=== PATIENT | male | born 1965 | race Caucasian/White ===

== ENCOUNTER 2017-10-07 18:51 | Inpatient (IN) | payer MEDICAID, MEDICARE ==
[2017-10-07] MEDS ORDERED: NS 0.9% 1000 ML* 1,000 ML IV ONE ×2 (20:42→22:52)
[2017-10-07] MEDS ORDERED: Piperacillin/Tazobac ADVAN(*) 3.375 GM in NS 0.9% 100 ML* 100 ML IVPB ONE (20:42)
[2017-10-07] MEDS ORDERED: Vancomycin(*) 1,000 MG in NS 0.9% 250 ML* 250 ML IVPB ONE (20:42)
[2017-10-07 21:10] LABS: Hematocrit 37 % (42-52); Hemoglobin 12.3 g/dl (14.0-18.0); Mean Corpuscular HGB Conc 33 g/dl (31-36); Mean Corpuscular Hemoglobin 27 pg (27-31); Mean Corpuscular Volume 83 fL (80-94); Mean Platelet Volume 8 um3 (7.4-10.4); Platelet Count 273 10^3/ul (150-450); Red Blood Count 4.53 10^6/ul (4.0-5.4); Red Cell Distribution Width 13 % (10.5-15); White Blood Count 22.1 10^3/ul (3.5-10.8)
[2017-10-07 21:18] LABS: INR 1.22 (0.77-1.02)
[2017-10-07 21:26] LABS: EGFR Non-African American 63.9 (>60)
[2017-10-07 21:38] LABS: ABS Basophils 0.1 10^3/ul (0-0.2); ABS Eosinophils 0 10^3/ul (0-0.6); ABS Lymphocytes 1.2 10^3/ul (1.0-4.8); ABS Monocytes 2.2 10^3/ul (0-0.8); ABS Neutrophils 18.7 10^3/ul (1.5-7.7); ABS Nucleated RBC 0 10^3/ul; Eosinophil % 0.1 % (0-6); Lymphocyte % 5.3 % (25-47); Nucleated Red Blood Cells % 0
--- NOTE | 2017-10-07 22:15 | RAD ---
INDICATION: Swelling and erythema with "blackening of tissue" between the first and second digits COMPARISON: None. TECHNIQUE: 3 views of the left foot were obtained. FINDINGS: There is evidence of subcutaneous gas in the tissue in between the first and second toes and along the inferior margin of the left great toe. There is cortical destruction involving the plantar margin of the distal left great toe proximal phalanx. Remaining visualized bones are intact and appropriately aligned. IMPRESSION: EVIDENCE OF CERTAIN SOFT TISSUE INFECTION WITH SUBCUTANEOUS GAS IN BETWEEN THE FIRST AND SECOND LEFT TOES AND ALONG THE PLANTAR MARGIN OF THE LEFT GREAT TOE. CORTICAL DESTRUCTION AT THE DISTAL POLE OF THE LEFT GREAT TOE PROXIMAL PHALANX ALONG ITS PLANTAR MARGIN INDICATES THE PRESENCE OF OSTEOMYELITIS. In addition to further wound characterization, I recommend determining arterial patency with TAYLER/PVR and arterial duplex examination of the left lower extremity.
[2017-10-07] MEDS ORDERED: Dextrose 50% Syringe 50 ML* 25 GM/50 ML SYRINGE IV PUSH PRN ×2 (22:33→23:25)
--- NOTE | 2017-10-07 22:36 | ED ---
Bridger Guy Jennifer, scribed for Clark Mcduffie MD on 10/07/17 at 2042 . Lower Extremity - HPI Summary HPI Summary: The patient is a 52 year old male who was sent to the ED by his PCP for diabetic ulcers on the left foot that began two days ago. The ulcers became black in coloration today. The patient denies pain. - History of Current Complaint Chief Complaint: EDExtremityLower Stated Complaint: LT FOOT PAIN Time Seen by Provider: 10/07/17 20:09 Hx Obtained From: Patient Mechanism Of Injury: Other - Diabetic ulcers Onset of Pain: Days - two days ago, but turned black in coloration today Onset/Duration: Still Present - two days Severity Initially: Mild Severity Currently: Mild Pain Intensity: 5 Pain Scale Used: 0-10 Numeric Timing: Constant Associated Signs And Symptoms: Positive: Other - NEGATIVE: foot pain Aggravating Factor(s): Nothing Alleviating Factor(s): Nothing Able to Bear Weight: Yes - Allergies/Home Medications Allergies/Adverse Reactions: Allergies Allergy/AdvReac Type Severity Reaction Status Date / Time No Known Allergies Allergy Verified 10/07/17 19:46 PMH/Surg Hx/FS Hx/Imm Hx Endocrine/Hematology History: Reports: Hx Diabetes - Type II WELL CONTROLLED Cardiovascular History: Reports: Hx Hypertension - WELL CONTROLLED Musculoskeletal History: Reports: Hx Tendonitis - LEFT HAND Sensory History: Reports: Hx Cataracts - LEFT, Hx Contacts or Glasses - READING GLASSES Denies: Hx Hearing Aid Opthamlomology History: Reports: Hx Cataracts - LEFT, Hx Contacts or Glasses - READING GLASSES - Surgical History Surgery Procedure, Year, and Place: RIGHT CATARACT 06/29/15 [facility] [place] Hx Anesthesia Reactions: No Infectious Disease History: No Infectious Disease History: Denies: History Other Infectious Disease, Traveled Outside the [place] in Last 30 Days - Family History Known Family History: Negative: Diabetes - Social History Alcohol Use: None Substance Use Type: Reports: None Smoking Status (MU): Heavy Every Day Tobacco Smoker Type: Cigarettes Amount Used/How Often: 3/4 PPD Length of Time of Smoking/Using Tobacco: 34 YRS Have You Smoked in the Last Year: Yes Review of Systems Negative: Fever Positive: Other - Ulcers on left foot that is red and black in color All Other Systems Reviewed And Are Negative: Yes Physical Exam - Summary Physical Exam Summary: Appearance: The patient is well-nourished in no acute distress and in no acute pain. Skin: Necrotic skin on bottom of left foot. HEENT: ~The head is normocephalic and atraumatic. The pupils are equal and reactive. The conjunctivae are clear and without drainage. ~Nares are patent and without drainage. ~Mouth reveals moist mucous membranes and the throat is without erythema and exudate. ~The external ears are intact. The ear canals are patent and without drainage. The tympanic membranes are intact. Neck: the neck is supple with full range of motion and non-tender. There are no carotid bruits. ~There is no neck vein distension. Respiratory: Chest is non-tender. ~Lungs are clear to auscultation and breath sounds are symmetrical and equal. Cardiovascular: Heart is regular rate and rhythm. ~There is no murmur or rub auscultated. ~~There is no peripheral edema and pulses are symmetrical and equal. Abdomen: The abdomen is soft and non-tender. ~There are normal bowel sounds heard in all four quadrants and there is no organomegaly palpated. Extremities: erythematous in distal half over his MPJ medially and dorsally. Necrotic skin. Musculoskeletal: There is no back tenderness noted. ~Extremities are non-tender with full range of motion. ~There is good capillary refill. ~There is no peripheral edema or calf tenderness elicited. Neurological: Patient is alert and oriented to person, place and time. ~The patient has symmetrical motor strength in all four extremities. ~Cranial nerves are grossly intact. Deep tendon reflexes are symmetrical and equal in all four extremities. Psychiatric: The patient has an appropriate affect and does not exhibit any anxiety or depression. Triage Information Reviewed: Yes Vital Signs On Initial Exam: Initial Vitals Temp Pulse Resp BP Pulse Ox 98.3 F 119 20 127/74 97 10/07/17 19:12 10/07/17 19:12 10/07/17 19:12 10/07/17 19:12 10/07/17 19:12 Vital Signs Reviewed: Yes Diagnostics - Vital Signs Vital Signs Temp Pulse Resp BP Pulse Ox 10/07/17 19:12 98.3 F 119 20 127/74 97 - Laboratory Lab Results: Lab Results 10/07/17 10/07/17 10/07/17 Range/Units 20:59 20:59 20:59 WBC 22.1 H (3.5-10.8) 10^3/ul RBC 4.53 (4.0-5.4) 10^6/ul Hgb 12.3 L (14.0-18.0) g/dl Hct 37 L (42-52) % MCV 83 (80-94) fL MCH 27 (27-31) pg MCHC 33 (31-36) g/dl RDW 13 (10.5-15) % Plt Count 273 (150-450) 10^3/ul MPV 8 (7.4-10.4) um3 Neut % (Auto) 84.5 H (38-83) % Lymph % (Auto) 5.3 L (25-47) % [place] % (Auto) 9.8 H (1-9) % Eos % (Auto) 0.1 (0-6) % Baso % (Auto) 0.3 (0-2) % Absolute Neuts (auto) 18.7 H (1.5-7.7) 10^3/ul Absolute Lymphs (auto) 1.2 (1.0-4.8) 10^3/ul Absolute Monos (auto) 2.2 H (0-0.8) 10^3/ul Absolute Eos (auto) 0 (0-0.6) 10^3/ul Absolute Basos (auto) 0.1 (0-0.2) 10^3/ul Absolute Nucleated RBC 0 10^3/ul Nucleated RBC % 0 INR (Anticoag Therapy) 1.22 H (0.77-1.02) Sodium 127 L (133-145) mmol/L Potassium 4.4 (3.5-5.0) mmol/L Chloride 94 L (101-111) mmol/L Carbon Dioxide 19 L (22-32) mmol/L Anion Gap 14 H (2-11) mmol/L BUN 27 H (6-24) mg/dL Creatinine 1.19 H (0.67-1.17) mg/dL Est GFR ( Amer) 82.2 (>60) Est GFR (Non-Af Amer) 63.9 (>60) BUN/Creatinine Ratio 22.7 H (8-20) Glucose 431 H (70-100) mg/dL Lactic Acid (0.5-2.0) mmol/L Calcium 8.8 (8.6-10.3) mg/dL Total Bilirubin 0.50 (0.2-1.0) mg/dL AST 9 L (13-39) U/L ALT 9 (7-52) U/L Alkaline Phosphatase 67 (34-104) U/L Troponin I 0.01 (<0.04) ng/mL C-Reactive Protein 358.64 H (< 5.00) mg/L Total Protein 7.0 (6.4-8.9) g/dL Albumin 3.2 (3.2-5.2) g/dL Globulin 3.8 (2-4) g/dL Albumin/Globulin Ratio 0.8 L (1-3) 10/07/17 Range/Units 20:59 WBC (3.5-10.8) 10^3/ul RBC (4.0-5.4) 10^6/ul Hgb (14.0-18.0) g/dl Hct (42-52) % MCV (80-94) fL MCH (27-31) pg MCHC (31-36) g/dl RDW (10.5-15) % Plt Count (150-450) 10^3/ul MPV (7.4-10.4) um3 Neut % (Auto) (38-83) % Lymph % (Auto) (25-47) % [place] % (Auto) (1-9) % Eos % (Auto) (0-6) % Baso % (Auto) (0-2) % Absolute Neuts (auto) (1.5-7.7) 10^3/ul Absolute Lymphs (auto) (1.0-4.8) 10^3/ul Absolute Monos (auto) (0-0.8) 10^3/ul Absolute Eos (auto) (0-0.6) 10^3/ul Absolute Basos (auto) (0-0.2) 10^3/ul Absolute Nucleated RBC 10^3/ul Nucleated RBC % INR (Anticoag Therapy) (0.77-1.02) Sodium (133-145) mmol/L Potassium (3.5-5.0) mmol/L Chloride (101-111) mmol/L Carbon Dioxide (22-32) mmol/L Anion Gap (2-11) mmol/L BUN (6-24) mg/dL Creatinine (0.67-1.17) mg/dL Est GFR ( Amer) (>60) Est GFR (Non-Af Amer) (>60) BUN/Creatinine Ratio (8-20) Glucose (70-100) mg/dL Lactic Acid 0.9 (0.5-2.0) mmol/L Calcium (8.6-10.3) mg/dL Total Bilirubin (0.2-1.0) mg/dL AST (13-39) U/L ALT (7-52) U/L Alkaline Phosphatase (34-104) U/L Troponin I (<0.04) ng/mL C-Reactive Protein (< 5.00) mg/L Total Protein (6.4-8.9) g/dL Albumin (3.2-5.2) g/dL Globulin (2-4) g/dL Albumin/Globulin Ratio (1-3) Result Diagrams: 10/07/17 20:59 10/07/17 20:59 Lab Statement: Any lab studies that have been ordered have been reviewed, and results considered in the medical decision making process. Lower Extremity Course/Dx - Course Course Of Treatment: Mr. Gallardo presented with several days of a red foot which has blackened a bit today. He was tachycardic and clearly had an infected foot. He was febrile at Dr. Ferrer's office. IV was initiated and he was given Zosyn and Vancomycin while labs were obtained. He had a leukocytosis and an x-ray showed gas in the tissues. I spoke with Dr. Youssef who recommended NPO after midnight and MRI in the AM. I didn't see any change in the foot during his stay in the ED. He is being admitted to the hospitalist service. - Diagnoses Provider Diagnoses: Diabetic foot, Gas gangrene - Physician Notifications Discussed Care Of Patient With: Pedro Redd Time Discussed With Above Provider: 21:35 Instructed by Provider To: Admit As Inpatient Discharge - Discharge Plan Condition: Good Disposition: ADMITTED TO [facility] Referrals: Pato Ferrer MD [Primary Care Provider] - Additional Instructions: Follow up with your primary care physician in three days. Return to the emergency department for any new or worsening symptoms. The documentation as recorded by the Bridger lópez Jennifer accurately reflects the service I personally performed and the decisions made by me, Clark Mcduffie MD.
[2017-10-07] MEDS ORDERED: Vancomycin per Pharmacy* NOTE FOLLOW UP PRN (22:49)
[2017-10-07 23:14] LABS: EGFR Non-African American 62.1 (>60)
[2017-10-07] MEDS ORDERED: Insulin LISPRO* 1 UNITS UNIT SUBCUT ONE (23:25)
[2017-10-08] MEDS ORDERED: Vancomycin(*) 500 MG in NS 0.9% 250 ML* 250 ML IVPB ONE (00:30)
--- NOTE | 2017-10-08 00:36 | HP ---
CC: Pato Ferrer MD * HISTORY AND PHYSICAL: DATE OF ADMISSION: 10/07/17 PRIMARY CARE PROVIDER: Pato Ferrer MD ATTENDING PHYSICIAN: Sharmaine Peña MD * (dictated by Sonido Tamayo NP). CHIEF COMPLAINT: Left foot infection. HISTORY OF PRESENT ILLNESS: Mr. Gallardo is a 52-year-old male with past medical history significant for diabetes mellitus, hypertension, and GERD who presented to the emergency room with complaints of a left foot wound for 2-1/2 weeks. The patient states he has been treating it at home with antibiotic ointment. He states Saturday and Saturday, he noticed that his foot "blew up" around the 1st toe, it became more swollen and red. The patient reports intermittent fevers and chills. He reports having chest pain in the past with exertion, but has not had any recently. He denies any cough or shortness of breath. One week ago, he reports nausea, vomiting and diarrhea. He has decreased sensation to his lower feet due to his diabetes. He also states that he has not been taking his medications as he chose to stop taking them and had not been following Dr. Ferrer until recently. Due to his chronic wound and it appearing to get worse, he presented to the emergency room for further evaluation. While in the emergency room, the patient had labs significant for leukocytosis with a white blood cell count of 22.1, CRP of 318.64, mild hyponatremia with a sodium of 127. His glucose was elevated at 431. Lactic acid of 0.9. He had a left foot x- ray showing evidence of soft tissue infection and subcutaneous gas in between the first and second toes along with the plantar margin of the left great toe. The patient received IV vanco and normal saline while in the emergency room and the hospitalists were asked to evaluate the patient for admission. PAST MEDICAL HISTORY: 1. Diabetes mellitus. 2. Hypertension. 3. GERD. 4. Umbilical hernia. PAST SURGICAL HISTORY: Status post bilateral cataract extractions. MEDICATIONS: Home medications include nothing at this time. The patient is currently not taking his home medications. ALLERGIES: No known drug allergies. FAMILY HISTORY: The patient's father had a "hole in his heart" that was repaired. No family history of diabetes mellitus or cancer. SOCIAL HISTORY: The patient smokes two-thirds of a pack daily and has smoked since age 15. He denies alcohol or recreational drug use. The patient's mother , Debbie Gallardo, will be his surrogate decision maker in the event he is unable to make decisions for himself. REVIEW OF SYSTEMS: I performed a 11-point review of systems. All the pertinent positives and negatives are mentioned in the history of present illness. Remaining of the review of systems are negative. PHYSICAL EXAMINATION GENERAL APPEARANCE: The patient is alert, pleasant, appears to be in no acute distress. VITAL SIGNS: Temperature 98.3, heart rate 119, respiratory rate 20, O2 sat 97% on room air, blood pressure 127/74. HEENT: Normocephalic and atraumatic. Pupils are equal and reactive to light. Extraocular movements are intact. RESPIRATORY: There is no accessory muscle use. The lungs are clear to auscultation bilateral. CARDIOVASCULAR: Regular rate and rhythm. S1 and S2 present. There is no murmurs, rubs, or gallops heard. ABDOMEN: Soft, nontender and nondistended. Bowel sounds present x4. The patient does have umbilical hernia present. EXTREMITIES: There is moderate left lower extremity edema mostly at the first toe. DP and PT pulses are 1+ and symmetric. MUSCULOSKELETAL: There is no clubbing or cyanosis noted. The patient exhibits good strength in all extremities. NEUROLOGIC: The patient is alert and oriented x4. Cranial nerves II through XII are grossly intact. PSYCHOLOGICAL: The patient is calm and cooperative. SKIN: The patient has what appears to be a diabetic ulcer on the ball of his left foot at the base of his first toe. The area around his left first toe and between his first and second toes is swollen with a necrotic or wet gangrene appearance. He has an area that is open between his 1st and 2nd toes, in addition to a significant amount of swelling and erythema half way up his foot medially and dorsally. DIAGNOSTIC STUDIES/LABORATORY DATA: Sodium 127, potassium 4.4, chloride 94, CO2 of 19, BUN 27, creatinine 1.19, glucose 431. White blood cell count 22.1, hemoglobin of 12.3, hematocrit 37, platelet count of 273,000. INR 1.22, CRP 358.64, lactic acid 0.9. Left foot x-ray from today. Radiologist's impression: Evidence of certain soft tissue infection with subcutaneous gas in between the first and second left toes and along the plantar margin of the left great toe. Cortical destruction at the distal pole of the left great toe proximal phalanx along its plantar margin indicates the presence of osteomyelitis. IMPRESSION: Mr. Gallardo is a 52-year-old male with past medical history significant for diabetes mellitus, hypertension, and gastroesophageal reflux disease who presents to the emergency room with 2-1/2 weeks of a left foot wound that has gotten over the last 2 days. He will be admitted as an inpatient for left foot cellulitis and osteomyelitis. ASSESSMENT/PLAN: 1. Left foot cellulitis and osteomyelitis. The patient had x-ray showing likely osteomyelitis and subcutaneous gas. This has not gotten worse during his time in the emergency room, necrotizing fascitis is in the differential but I suspect his foot would be worsening. For now, we will place him on cefepime, vancomycin, and Flagyl. We will ask Infectious Disease to consult in the morning. In addition, the ER has already contacted Orthopedic Surgery and they will see the patient in the morning. We will make him n.p.o. as I suspect he will likely need amputation tomorrow. If he worsens clinically overnight, we will call Orthopedics back. The patient may benefit from arterial studies to determine the quality of circulation that he has to his foot prior to amputation. We will collect a wound culture as he does have some drainage from the site between his toes. He has had blood cultures drawn while in the emergency room. We will also get an MRI of the left foot. 2. Diabetes mellitus. The patient's glucoses are uncontrolled. I believe they have been uncontrolled at home for some time. We will check a hemoglobin A1c. The patient states he has taken himself off his medications. We will place him on glucose checks a.c. and h.s. and a lispro sliding scale for now. 3. Hyponatremia. The patient has mild hyponatremia. We will give him gentle IV hydration overnight. 4. Gastroesophageal reflux disease. Resume the patient on his omeprazole. 5. Hypertension. We will resume the patient's losartan that he was previously prescribed. 6. Fluids, electrolytes, and nutrition. The patient will be on a consistent carbohydrate diet, n.p.o. after midnight. 7. Code status. Full code. 8. DVT prophylaxis. The patient is at moderate risk and will have subcu heparin. 9. Disposition. Inpatient. TIME SPENT: Time for this admission was approximately 60 minutes, greater than half that time was spent with the patient discussing medications, past medical history, the events leading to his arrival today, performing a physical examination. The case has been reviewed with the attending, Dr. Peña, who agrees with the plan of care. Reviewed by SONIDO TAMAYO, RON 10/09/17 1636 [id number]/[facility] #: [id number] RADHA
[2017-10-08] MEDS: NS 0.9% 1000 ML* 1,000 ML IV SCH ×2 (01:16→20:09)
[2017-10-08] MEDS: metroNIDAZOLE IV 500 MG/100ML* 500 MG/100 ML BAG IVPB SCH ×2 (03:01→14:59)
[2017-10-08] MEDS: Cefepime 2 GM in Dextrose(*) 2 GM/50 ML BAG IV SCH ×2 (04:33→16:40)
[2017-10-08 05:20] LABS: Hematocrit 33 % (42-52); Hemoglobin 11.2 g/dl (14.0-18.0); Mean Corpuscular HGB Conc 34 g/dl (31-36); Mean Corpuscular Hemoglobin 27 pg (27-31); Mean Corpuscular Volume 81 fL (80-94); Mean Platelet Volume 8 um3 (7.4-10.4); Platelet Count 255 10^3/ul (150-450); Red Cell Distribution Width 14 % (10.5-15); White Blood Count 18.5 10^3/ul (3.5-10.8)
[2017-10-08 05:22] LABS: ABS Basophils 0.1 10^3/ul (0-0.2); ABS Eosinophils 0.2 10^3/ul (0-0.6); ABS Lymphocytes 1.6 10^3/ul (1.0-4.8); ABS Monocytes 1.7 10^3/ul (0-0.8); ABS Neutrophils 14.9 10^3/ul (1.5-7.7); ABS Nucleated RBC 0 10^3/ul; Eosinophil % 1.1 % (0-6); Lymphocyte % 8.7 % (25-47); Nucleated Red Blood Cells % 0
[2017-10-08 05:39] LABS: EGFR Non-African American 81.9 (>60)
[2017-10-08] MEDS: Heparin VIAL(*) 5000 UNITS/ML VIAL (FIVE THOUSAND) SUBCUT SCH ×3 (06:20→21:13)
[2017-10-08] MEDS ORDERED: Vancomycin(*) 1,250 MG in NS 0.9% 250 ML* 250 ML IVPB SCH (09:00)
[2017-10-08] MEDS ORDERED: Prenatal Vitamin TAB PO SCH (09:00)
[2017-10-08] MEDS: Omeprazole CAP* 20 MG PO SCH (09:10)
[2017-10-08] MEDS: Losartan TAB* 25 MG PO SCH (09:10)
[2017-10-08] MEDS: Insulin LISPRO* 1 UNITS UNIT SUBCUT SCH ×3 (11:50→17:54)
--- NOTE | 2017-10-08 12:21 | RAD ---
INDICATION: Left foot wound plantar surface distal foot evaluate for osteomyelitis. COMPARISON: Comparison is made with a prior x-ray study of the left foot from November 04, 2017. TECHNIQUE: Axial, sagittal and coronal T1 and T2-weighted images of the left foot were obtained. The exam is extremely limited due to motion artifact on all sequences. FINDINGS: There is diffuse soft tissue swelling throughout the visualized portion of the mid and forefoot. This is most prominent along the dorsal aspect of the foot. No focal fluid collection or abscess is seen. Evaluation of the bones is limited due to motion artifact although no gross bone marrow edema is seen. IMPRESSION: FINDINGS MOST CONSISTENT WITH CELLULITIS. NO GROSS EVIDENCE FOR OSTEOMYELITIS ALTHOUGH THE STUDY IS SIGNIFICANTLY LIMITED. CONSIDER A THREE-PHASE BONE SCAN FOR FURTHER EVALUATION.
--- NOTE | 2017-10-08 18:57 | PN ---
Subjective Date of Service: 10/08/17 Interval History: No complaints, left foot with open wound, denies fever or chills, denies chest pain or shortness of breath, Denies abd pain n/v/d Family History: Unchanged from Admission Social History: Unchanged from Admission Past Medical History: Unchanged from Admission Objective Active Medications: Dextrose (D50w Syringe 50 Ml*) 12.5 gm IV PUSH .FOR FS < 60 - SS PRN PRN Reason: FS < 60 Heparin Sodium (Porcine) (Heparin Vial(*)) 5,000 units SUBCUT Q8HR [facility] Last Admin: 10/08/17 14:59 Dose: 5,000 units Sodium Chloride (Ns 0.9% 1000 Ml*) 1,000 mls @ 100 mls/hr IV PER RATE [facility] Last Admin: 10/08/17 01:16 Dose: 100 mls/hr Cefepime HCl (Maxipime 2 Gm In Dextrose Duplex (*)) 2 gm in 50 mls @ 100 mls/ hr IV Q12H [facility] Last Admin: 10/08/17 16:40 Dose: 100 mls/hr Metronidazole/Sodium Chloride (Flagyl 500 Mg Ivpb*) 500 mg in 100 mls @ 100 mls /hr IVPB Q12H [facility] Last Admin: 10/08/17 14:59 Dose: 100 mls/hr Insulin Human Lispro (Humalog*) 0 - 10 units SUBCUT AC [facility] PRN Reason: Protocol Last Admin: 10/08/17 17:54 Dose: 6 unit Losartan Potassium (Cozaar Tab*) 50 mg PO DAILY [facility] Last Admin: 10/08/17 09:10 Dose: 50 mg Omeprazole (Prilosec Cap*) 20 mg PO DAILY@0730 [facility] Last Admin: 10/08/17 09:10 Dose: 20 mg Pharmacy Profile Note (Vancomycin Trough Check) 1 note FOLLOW UP 0830 ONE Stop: 10/09/17 08:31 Vital Signs - 8 hr 10/08/17 10/08/17 11:18 15:47 Temperature 98.4 F 99.0 F Pulse Rate 99 99 Respiratory 16 18 Rate Blood Pressure 155/69 137/72 (mmHg) O2 Sat by Pulse 97 97 Oximetry Oxygen Devices in Use Now: None Appearance: appears comfortable lying in bed, cheeks flushed Eyes: No Scleral Icterus Ears/Nose/Mouth/Throat: Clear Oropharnyx, Mucous Membranes Moist Neck: NL Appearance and Movements; NL JVP, Trachea Midline Respiratory: Symmetrical Chest Expansion and Respiratory Effort, Clear to Auscultation Cardiovascular: NL Sounds; No Murmurs; No JVD, RRR, No Edema Abdominal: NL Sounds; No Tenderness; No Distention Extremities: No Clubbing, Cyanosis Skin: - - right great toe and surrounding tissue on the dorsal and plantar aspect of the foot with swelling, erythema and drainage, foul odor , purple discoloration noted at the base of the toe. redness noted to the foot, warm to touch Neurological: Alert and Oriented x 3 Nutrition: Taking PO's Result Diagrams: 10/08/17 05:07 10/08/17 05:07 Additional Lab and Data: Lab Results 10/07/17 10/07/17 10/07/17 Range/Units 20:59 20:59 20:59 WBC 22.1 H (3.5-10.8) 10^3/ul RBC 4.53 (4.0-5.4) 10^6/ul Hgb 12.3 L (14.0-18.0) g/dl Hct 37 L (42-52) % MCV 83 (80-94) fL MCH 27 (27-31) pg MCHC 33 (31-36) g/dl RDW 13 (10.5-15) % Plt Count 273 (150-450) 10^3/ul MPV 8 (7.4-10.4) um3 Neut % (Auto) 84.5 H (38-83) % Lymph % (Auto) 5.3 L (25-47) % [place] % (Auto) 9.8 H (1-9) % Eos % (Auto) 0.1 (0-6) % Baso % (Auto) 0.3 (0-2) % Absolute Neuts (auto) 18.7 H (1.5-7.7) 10^3/ul Absolute Lymphs (auto) 1.2 (1.0-4.8) 10^3/ul Absolute Monos (auto) 2.2 H (0-0.8) 10^3/ul Absolute Eos (auto) 0 (0-0.6) 10^3/ul Absolute Basos (auto) 0.1 (0-0.2) 10^3/ul Absolute Nucleated RBC 0 10^3/ul Nucleated RBC % 0 INR (Anticoag Therapy) 1.22 H (0.77-1.02) Sodium 127 L (133-145) mmol/L Potassium 4.4 (3.5-5.0) mmol/L Chloride 94 L (101-111) mmol/L Carbon Dioxide 19 L (22-32) mmol/L Anion Gap 14 H (2-11) mmol/L BUN 27 H (6-24) mg/dL Creatinine 1.19 H (0.67-1.17) mg/dL Est GFR ( Amer) 82.2 (>60) Est GFR (Non-Af Amer) 63.9 (>60) BUN/Creatinine Ratio 22.7 H (8-20) Glucose 431 H (70-100) mg/dL Lactic Acid (0.5-2.0) mmol/L Calcium 8.8 (8.6-10.3) mg/dL Total Bilirubin 0.50 (0.2-1.0) mg/dL AST 9 L (13-39) U/L ALT 9 (7-52) U/L Alkaline Phosphatase 67 (34-104) U/L Troponin I 0.01 (<0.04) ng/mL C-Reactive Protein 358.64 H (< 5.00) mg/L Total Protein 7.0 (6.4-8.9) g/dL Albumin 3.2 (3.2-5.2) g/dL Globulin 3.8 (2-4) g/dL Albumin/Globulin Ratio 0.8 L (1-3) 10/07/17 Range/Units 20:59 WBC (3.5-10.8) 10^3/ul RBC (4.0-5.4) 10^6/ul Hgb (14.0-18.0) g/dl Hct (42-52) % MCV (80-94) fL MCH (27-31) pg MCHC (31-36) g/dl RDW (10.5-15) % Plt Count (150-450) 10^3/ul MPV (7.4-10.4) um3 Neut % (Auto) (38-83) % Lymph % (Auto) (25-47) % [place] % (Auto) (1-9) % Eos % (Auto) (0-6) % Baso % (Auto) (0-2) % Absolute Neuts (auto) (1.5-7.7) 10^3/ul Absolute Lymphs (auto) (1.0-4.8) 10^3/ul Absolute Monos (auto) (0-0.8) 10^3/ul Absolute Eos (auto) (0-0.6) 10^3/ul Absolute Basos (auto) (0-0.2) 10^3/ul Absolute Nucleated RBC 10^3/ul Nucleated RBC % INR (Anticoag Therapy) (0.77-1.02) Sodium (133-145) mmol/L Potassium (3.5-5.0) mmol/L Chloride (101-111) mmol/L Carbon Dioxide (22-32) mmol/L Anion Gap (2-11) mmol/L BUN (6-24) mg/dL Creatinine (0.67-1.17) mg/dL Est GFR ( Amer) (>60) Est GFR (Non-Af Amer) (>60) BUN/Creatinine Ratio (8-20) Glucose (70-100) mg/dL Lactic Acid 0.9 (0.5-2.0) mmol/L Calcium (8.6-10.3) mg/dL Total Bilirubin (0.2-1.0) mg/dL AST (13-39) U/L ALT (7-52) U/L Alkaline Phosphatase (34-104) U/L Troponin I (<0.04) ng/mL C-Reactive Protein (< 5.00) mg/L Total Protein (6.4-8.9) g/dL Albumin (3.2-5.2) g/dL Globulin (2-4) g/dL Albumin/Globulin Ratio (1-3) Microbiology and Other Data: Microbiology 10/08/17 00:45 Skin and Soft Tissue MRSA/MSSA (PCR - Final Foot Left Mrsa Negative S.aureus Positive Gram Stain - Final Assess/Plan/Problems-Billing Assessment: 52 y.o male that presented to the ER for evaluation of right foot infection, redness, drainage or foul odor , possible gas and osteomylitis on x ray , MRI poor exam motion artifact - Patient Problems (1) Cellulitis Current Visit: Yes Status: Acute Code(s): L03.90 - CELLULITIS, UNSPECIFIED SNOMED Code(s): 950883830 Comment: Right foot with swelling and erythema and draiange, foul odor and purple discoloration at the base of the right great toe, open wound noted to the plantar aspect of the right foot and open area between great and second toe. continue flagyl , vancomycin and cefepime ortho consult ID consult dry dressing daily (2) Diabetes Current Visit: Yes Status: Acute Code(s): E11.9 - TYPE 2 DIABETES MELLITUS WITHOUT COMPLICATIONS SNOMED Code(s): 04227574 Comment: finger sticks ac and hs lispro sliding scale (3) DVT prophylaxis Current Visit: Yes Status: Acute Code(s): XID1902 - SNOMED Code(s): 253675401 Comment: HSQ (4) Full code status Current Visit: Yes Status: Acute Code(s): Z78.9 - OTHER SPECIFIED HEALTH STATUS SNOMED Code(s): 895137294
--- NOTE | 2017-10-08 19:21 | CONS ---
CONSULTATION REPORT: DATE OF CONSULT: 10/08/17 HISTORY OF PRESENT ILLNESS: Kev was admitted yesterday to the medical team for ulceration near the medial sesamoid plantar left forefoot and cellulitis and some blistering. He says he might have had an initial opening several weeks ago in the left forefoot, just treated with a clean sock and some shoes, but for the last several days, he has had his foot increasingly red, swollen, and erythematous, and mild foul smelling. He was admitted with cellulitis, possible deep infection in left forefoot. His admission lab showed a white cell count of 22, CRP of 318, glucose 431. So, clearly he was having hyperglycemic event and some at least reaction to forefoot infection. He is on triple antibiotics at this time. PAST MEDICAL HISTORY: His other medical issues include hypertension and an umbilical hernia and reflux. He is a disabled gentleman, who has had the diabetes for number of years by his count, not clearly stated. PHYSICAL EXAM: His examination shows him to have a warm foot, which is generally decreased sensation noted. There is a nickel-sized ulcer underneath the medial sesamoid area and some mild blistering, desquamation of the dorsal medial forefoot. There is some erythema, which goes to the mid tarsal area. He has a warm foot. There is a trace of serous fluid draining from the plantar aspect. No signs of overt gangrene at this point. DIAGNOSTIC STUDIES: His MRI shows cellulitis throughout the forefoot. No discrete fluid collection or osteomyelitis. IMPRESSION AND PLAN: The patient with cellulitis, soft tissue infection of forefoot. No abscess or osteomyelitis noted. I would treat him with continued triple antibiotics and close observation. It is possible that his edema would come to a more focused loculated area, which could be debrided in a day or so. [id number]/[facility] #: [id number] [facility]
--- NOTE | 2017-10-08 21:35 | CONS ---
CONSULTATION REPORT: DATE OF CONSULT: 10/08/17 REQUESTING PROVIDER: Heidi Mora NP CONSULTING SERVICE: Infectious Disease. REASON FOR CONSULT: Left foot infection. IMPRESSION: 1. Left foot cellulitis and myositis, early gangrene, suspect because of the odor and it looks like hemorrhagic and gangrenous changes, it is predominantly an anaerobic process, i.e., clostridium. 2. Uncontrolled insulin-dependent diabetes. 3. Peripheral neuropathy. RECOMMENDATION: Continue cefepime and Flagyl. He has been seen by orthopedic service, Dr. Jean Baptiste, planning to take him to the OR. HISTORY OF PRESENT ILLNESS: A 52-year-old male with diabetes, who stopped his insulin in the last few weeks and for 3 weeks has had redness and swelling of his left medial forefoot. He had been putting a topical antibiotic on it to no avail. He came to the hospital on 10/07/17 with a white count of 22,000. He is afebrile. He was started on vancomycin, cefepime, and Flagyl. His white count today is 18,000. There is a wound on the plantar surface of his foot. Swab was taken that showed gram-positive rods, gram-positive cocci, PCR was positive for Staph aureus, negative for MRSA. I think the redness is about the same today. There is no redness of the ankle that he can detect. He is eating okay and no diarrhea. PAST MEDICAL HISTORY: 1. Insulin-dependent diabetes, off insulin. 2. Hypertension. 3. Gastroesophageal reflux disease. 4. Umbilical hernia. 5. Status post cataract surgery. MEDICATIONS: 1. Heparin subcutaneous injection. 2. Insulin lispro. 3. Losartan. 4. Cefepime 2 g every 12 hours. 5. Flagyl 500 mg every 12 hours. 6. Omeprazole. ALLERGIES: No known drug allergies. FAMILY HISTORY: No diabetes or cancer. SOCIAL HISTORY: He smokes tobacco. No injection drugs. REVIEW OF SYSTEMS: A 14-point review of systems was negative except as noted above in the history of present illness. PHYSICAL EXAM: Vital Signs: Temperature 37, heart rate 90, respiratory rate 16 , blood pressure 160/70, oxygen saturation 97% on room air. In general, he is awake, not in distress. Neurologic: He is oriented x3. Follows all commands. Decreased sensation in both feet. HEENT: There is no conjunctival hemorrhage. Oropharynx without lesions. Neck: Supple. Lymph Nodes: There is no cervical, supraclavicular, inguinal, axillary, or epitrochlear lymphadenopathy. Heart: Regular rate and rhythm without murmurs, rubs, or gallops. Lungs are clear to auscultation bilaterally. Abdomen: Soft, nontender, nondistended. There are bowel sounds present. Skin: There is no rash or splinter hemorrhages. Musculoskeletal: There is no spine tenderness to palpation. Left foot, there is diffuse edema from the toes up through the calf without crepitus , fluctuance, tenderness. There is mild erythema and warmth in the same distribution, more intense erythema through the mid foot with some areas of purplish discoloration. LABORATORY DATA: Creatinine 0.9. White blood cell count 18, hemoglobin 11, platelets 255. Please see impressions and recommendations outlined above. Thank you for asking me to see Mr. Gallardo in consultation. [id number]/[facility] #: [id number] [facility]
[2017-10-08] MEDS ORDERED: Insulin LISPRO* 1 UNITS UNIT SUBCUT ONE (22:15)
[2017-10-08] MEDS ORDERED: Magnesium Hydroxide LIQ* 30 ML UDC PO PRN (22:55)
[2017-10-08] MEDS ORDERED: Polyethylene Glycol 3350* 17 GM PACKET PO PRN (22:55)
[2017-10-09] MEDS: metroNIDAZOLE IV 500 MG/100ML* 500 MG/100 ML BAG IVPB SCH ×2 (02:25→14:09)
[2017-10-09] MEDS: Cefepime 2 GM in Dextrose(*) 2 GM/50 ML BAG IV SCH ×2 (03:53→15:45)
[2017-10-09 04:56] LABS: ABS Basophils 0.1 10^3/ul (0-0.2); ABS Eosinophils 0.2 10^3/ul (0-0.6); ABS Monocytes 1.5 10^3/ul (0-0.8); ABS Neutrophils 13.3 10^3/ul (1.5-7.7); ABS Nucleated RBC 0 10^3/ul; Eosinophil % 1.3 % (0-6); Hematocrit 31 % (42-52); Hemoglobin 10.3 g/dl (14.0-18.0); Lymphocyte % 6.5 % (25-47); Mean Corpuscular HGB Conc 33 g/dl (31-36); Mean Corpuscular Hemoglobin 27 pg (27-31); Mean Corpuscular Volume 82 fL (80-94); Mean Platelet Volume 8 um3 (7.4-10.4); Nucleated Red Blood Cells % 0; Platelet Count 259 10^3/ul (150-450); Red Blood Count 3.83 10^6/ul (4.0-5.4); Red Cell Distribution Width 14 % (10.5-15); White Blood Count 16.1 10^3/ul (3.5-10.8)
[2017-10-09 05:06] LABS: EGFR Non-African American 87.2 (>60)
[2017-10-09] MEDS: Heparin VIAL(*) 5000 UNITS/ML VIAL (FIVE THOUSAND) SUBCUT SCH ×3 (05:52→22:13)
[2017-10-09] MEDS: NS 0.9% 1000 ML* 1,000 ML IV SCH ×2 (07:54→18:47)
[2017-10-09] MEDS ORDERED: Vancomycin Trough Check NOTE FOLLOW UP ONE (08:30)
[2017-10-09] MEDS: Insulin LISPRO* 1 UNITS UNIT SUBCUT SCH ×4 (09:19→22:12)
[2017-10-09] MEDS: Losartan TAB* 25 MG PO SCH (09:21)
[2017-10-09] MEDS: Omeprazole CAP* 20 MG PO SCH (09:22)
--- NOTE | 2017-10-09 10:47 | PN ---
Progress Note - Progress Note Date of Service: 10/09/17 SOAP: Subjective: []Patient seen sitting at bedside. Denies LLE pain. He denies dizziness or SOB. Confirms chills. Confirms dull headache frontally spanning to the crown of his head. States his elevated blood sugar levels are relatively standard, as he may run into the 400's regularly at home. Objective: [] Vital Signs Temp 99.6 F 10/09/17 08:47 Pulse 92 10/09/17 08:47 Resp 20 10/09/17 08:47 BP 142/71 10/09/17 08:47 Pulse Ox 96 10/09/17 08:47 Intake & Output 10/08/17 10/09/17 10/09/17 18:59 06:59 18:59 Intake Total 435 2672 600 Output Total 650 1030 Balance -215 1642 600 Weight 232 lb Intake: IV Fluids 1012 NS (0.9%) 1012 IVPB 435 160 ABX - FLAGYL 105 105 ABX - VANCOMYCIN 275 cefepime 55 55 Oral 0 1500 600 Output: Urine 650 1030 Other: Estimated Void Medium Date of Last Bowel 10/04 Movement # Bowel Movements 0 1 Estimated Stool Amount Medium # Voids 1 1 Laboratory Last Values WBC 16.1 10^3/ul (3.5-10.8) H 10/09/17 04:26 RBC 3.83 10^6/ul (4.0-5.4) L 10/09/17 04:26 Hgb 10.3 g/dl (14.0-18.0) L 10/09/17 04:26 Hct 31 % (42-52) L 10/09/17 04:26 MCV 82 fL (80-94) 10/09/17 04:26 MCH 27 pg (27-31) 10/09/17 04:26 MCHC 33 g/dl (31-36) 10/09/17 04:26 RDW 14 % (10.5-15) 10/09/17 04:26 Plt Count 259 10^3/ul (150-450) 10/09/17 04:26 MPV 8 um3 (7.4-10.4) 10/09/17 04:26 Neut % (Auto) 82.4 % (38-83) 10/09/17 04:26 Lymph % (Auto) 6.5 % (25-47) L 10/09/17 04:26 [place] % (Auto) 9.4 % (1-9) H 10/09/17 04:26 Eos % (Auto) 1.3 % (0-6) 10/09/17 04:26 Baso % (Auto) 0.4 % (0-2) 10/09/17 04:26 Absolute Neuts (auto) 13.3 10^3/ul (1.5-7.7) H 10/09/17 04:26 Absolute Lymphs (auto) 1.0 10^3/ul (1.0-4.8) 10/09/17 04:26 Absolute Monos (auto) 1.5 10^3/ul (0-0.8) H 10/09/17 04:26 Absolute Eos (auto) 0.2 10^3/ul (0-0.6) 10/09/17 04:26 Absolute Basos (auto) 0.1 10^3/ul (0-0.2) 10/09/17 04:26 Absolute Nucleated RBC 0 10^3/ul 10/09/17 04:26 Nucleated RBC % 0 10/09/17 04:26 INR (Anticoag Therapy) 1.22 (0.77-1.02) H 10/07/17 20:59 Sodium 132 mmol/L (133-145) L 10/09/17 04:26 Potassium 4.0 mmol/L (3.5-5.0) 10/09/17 04:26 Chloride 105 mmol/L (101-111) 10/09/17 04:26 Carbon Dioxide 22 mmol/L (22-32) 10/09/17 04:26 Anion Gap 5 mmol/L (2-11) 10/09/17 04:26 BUN 22 mg/dL (6-24) 10/09/17 04:26 Creatinine 0.91 mg/dL (0.67-1.17) 10/09/17 04:26 Est GFR ( Amer) 112.1 (>60) 10/09/17 04:26 Est GFR (Non-Af Amer) 87.2 (>60) 10/09/17 04:26 BUN/Creatinine Ratio 24.2 (8-20) H 10/09/17 04:26 Glucose 305 mg/dL (70-100) H 10/09/17 04:26 POC Glucose (mg/dL) 312 mg/dL (70-100) H 10/09/17 08:10 Hemoglobin A1c 12.9 % (4.0-5.6) H 10/07/17 20:59 Lactic Acid 0.9 mmol/L (0.5-2.0) 10/07/17 20:59 Calcium 8.1 mg/dL (8.6-10.3) L 10/09/17 04:26 Total Bilirubin 0.60 mg/dL (0.2-1.0) 10/07/17 22:50 AST 9 U/L (13-39) L 10/07/17 22:50 ALT 8 U/L (7-52) 10/07/17 22:50 Alkaline Phosphatase 57 U/L (34-104) 10/07/17 22:50 Troponin I 0.01 ng/mL (<0.04) 10/07/17 20:59 C-Reactive Protein 262.29 mg/L (< 5.00) H 10/09/17 04:26 Total Protein 5.9 g/dL (6.4-8.9) L 10/07/17 22:50 Albumin 2.8 g/dL (3.2-5.2) L 10/07/17 22:50 Globulin 3.1 g/dL (2-4) 10/07/17 22:50 Albumin/Globulin Ratio 0.9 (1-3) L 10/07/17 22:50 General: Well appearing, NAD LLE: erythema of forefoot to midtarsal region without streaking up the leg. Dime sized area at ball of great toe draining serosanguinous fluid. Purulence noted in the web space between 1st and 2nd toe. Some blistering noted of medial forefoot. Calf supple and nontender. DF/PF intact. 1+ DP pulse. Assessment: []Cellulitis left forefoot Plan: []Continue abx per ID: cefepime and flagyl Possible OR tomorrow for debridement
[2017-10-09] MEDS: Acetaminophen TAB* 325 MG PO PRN (12:27)
--- NOTE | 2017-10-09 17:32 | PN ---
Subjective Date of Service: 10/09/17 Interval History: NO COMPLAINTS , DENIES CHEST PAIN OR SHORTNESS OF BREATH , DENIES ABD PAIN , N/V /D Family History: Unchanged from Admission Social History: Unchanged from Admission Past Medical History: Unchanged from Admission Objective Active Medications: Acetaminophen (Tylenol Tab*) 650 mg PO Q4H PRN PRN Reason: FEVER/PAIN Last Admin: 10/09/17 12:27 Dose: 650 mg Dextrose (D50w Syringe 50 Ml*) 12.5 gm IV PUSH .FOR FS < 60 - SS PRN PRN Reason: FS < 60 Heparin Sodium (Porcine) (Heparin Vial(*)) 5,000 units SUBCUT Q8HR [facility] Last Admin: 10/09/17 14:08 Dose: 5,000 units Sodium Chloride (Ns 0.9% 1000 Ml*) 1,000 mls @ 100 mls/hr IV PER RATE [facility] Last Admin: 10/09/17 07:54 Dose: 100 mls/hr Cefepime HCl (Maxipime 2 Gm In Dextrose Duplex (*)) 2 gm in 50 mls @ 100 mls/ hr IV Q12H [facility] Last Admin: 10/09/17 15:45 Dose: 100 mls/hr Metronidazole/Sodium Chloride (Flagyl 500 Mg Ivpb*) 500 mg in 100 mls @ 100 mls /hr IVPB Q12H [facility] Last Admin: 10/09/17 14:09 Dose: 100 mls/hr Insulin Human Lispro (Humalog*) 0 - 10 units SUBCUT AC [facility] PRN Reason: Protocol Last Admin: 10/09/17 12:28 Dose: 8 unit Losartan Potassium (Cozaar Tab*) 50 mg PO DAILY [facility] Last Admin: 10/09/17 09:21 Dose: 50 mg Magnesium Hydroxide (Milk Of Magnesia Liq*) 30 ml PO Q6H PRN PRN Reason: CONSTIPATION Omeprazole (Prilosec Cap*) 20 mg PO DAILY@0730 [facility] Last Admin: 10/09/17 09:22 Dose: 20 mg Polyethylene Glycol/Electrolytes (Miralax*) 17 gm PO DAILY PRN PRN Reason: CONSTIPATION Vital Signs - 8 hr 10/09/17 11:10 Temperature 97.5 F Pulse Rate 93 Respiratory 18 Rate Blood Pressure 154/76 (mmHg) O2 Sat by Pulse 99 Oximetry Oxygen Devices in Use Now: None Appearance: APPEARS COMFORTABLE SITTING IN BED Eyes: No Scleral Icterus Ears/Nose/Mouth/Throat: Clear Oropharnyx, Mucous Membranes Moist Neck: NL Appearance and Movements; NL JVP, Trachea Midline Respiratory: Symmetrical Chest Expansion and Respiratory Effort, Clear to Auscultation Cardiovascular: NL Sounds; No Murmurs; No JVD, RRR, No Edema Abdominal: NL Sounds; No Tenderness; No Distention Extremities: No Edema, No Clubbing, Cyanosis Skin: - - RIGHT GREAT TOE AND DORSAL AND PLANTAR ASPECT OF RIGHT FOOT WITH SWELLING AND PURPLE DISCOLORATION, FOUL ODOR, MODERATE AMT OF DRAINAGE, WARM TO TOUCH, erythema extending to just above the ankle. Neurological: Alert and Oriented x 3 Nutrition: Taking PO's Result Diagrams: 10/09/17 04:26 10/09/17 04:26 Additional Lab and Data: Lab Results 10/07/17 10/07/17 10/07/17 Range/Units 20:59 20:59 20:59 WBC 22.1 H (3.5-10.8) 10^3/ul RBC 4.53 (4.0-5.4) 10^6/ul Hgb 12.3 L (14.0-18.0) g/dl Hct 37 L (42-52) % MCV 83 (80-94) fL MCH 27 (27-31) pg MCHC 33 (31-36) g/dl RDW 13 (10.5-15) % Plt Count 273 (150-450) 10^3/ul MPV 8 (7.4-10.4) um3 Neut % (Auto) 84.5 H (38-83) % Lymph % (Auto) 5.3 L (25-47) % [place] % (Auto) 9.8 H (1-9) % Eos % (Auto) 0.1 (0-6) % Baso % (Auto) 0.3 (0-2) % Absolute Neuts (auto) 18.7 H (1.5-7.7) 10^3/ul Absolute Lymphs (auto) 1.2 (1.0-4.8) 10^3/ul Absolute Monos (auto) 2.2 H (0-0.8) 10^3/ul Absolute Eos (auto) 0 (0-0.6) 10^3/ul Absolute Basos (auto) 0.1 (0-0.2) 10^3/ul Absolute Nucleated RBC 0 10^3/ul Nucleated RBC % 0 INR (Anticoag Therapy) 1.22 H (0.77-1.02) Sodium 127 L (133-145) mmol/L Potassium 4.4 (3.5-5.0) mmol/L Chloride 94 L (101-111) mmol/L Carbon Dioxide 19 L (22-32) mmol/L Anion Gap 14 H (2-11) mmol/L BUN 27 H (6-24) mg/dL Creatinine 1.19 H (0.67-1.17) mg/dL Est GFR ( Amer) 82.2 (>60) Est GFR (Non-Af Amer) 63.9 (>60) BUN/Creatinine Ratio 22.7 H (8-20) Glucose 431 H (70-100) mg/dL Lactic Acid (0.5-2.0) mmol/L Calcium 8.8 (8.6-10.3) mg/dL Total Bilirubin 0.50 (0.2-1.0) mg/dL AST 9 L (13-39) U/L ALT 9 (7-52) U/L Alkaline Phosphatase 67 (34-104) U/L Troponin I 0.01 (<0.04) ng/mL C-Reactive Protein 358.64 H (< 5.00) mg/L Total Protein 7.0 (6.4-8.9) g/dL Albumin 3.2 (3.2-5.2) g/dL Globulin 3.8 (2-4) g/dL Albumin/Globulin Ratio 0.8 L (1-3) 10/07/17 Range/Units 20:59 WBC (3.5-10.8) 10^3/ul RBC (4.0-5.4) 10^6/ul Hgb (14.0-18.0) g/dl Hct (42-52) % MCV (80-94) fL MCH (27-31) pg MCHC (31-36) g/dl RDW (10.5-15) % Plt Count (150-450) 10^3/ul MPV (7.4-10.4) um3 Neut % (Auto) (38-83) % Lymph % (Auto) (25-47) % [place] % (Auto) (1-9) % Eos % (Auto) (0-6) % Baso % (Auto) (0-2) % Absolute Neuts (auto) (1.5-7.7) 10^3/ul Absolute Lymphs (auto) (1.0-4.8) 10^3/ul Absolute Monos (auto) (0-0.8) 10^3/ul Absolute Eos (auto) (0-0.6) 10^3/ul Absolute Basos (auto) (0-0.2) 10^3/ul Absolute Nucleated RBC 10^3/ul Nucleated RBC % INR (Anticoag Therapy) (0.77-1.02) Sodium (133-145) mmol/L Potassium (3.5-5.0) mmol/L Chloride (101-111) mmol/L Carbon Dioxide (22-32) mmol/L Anion Gap (2-11) mmol/L BUN (6-24) mg/dL Creatinine (0.67-1.17) mg/dL Est GFR ( Amer) (>60) Est GFR (Non-Af Amer) (>60) BUN/Creatinine Ratio (8-20) Glucose (70-100) mg/dL Lactic Acid 0.9 (0.5-2.0) mmol/L Calcium (8.6-10.3) mg/dL Total Bilirubin (0.2-1.0) mg/dL AST (13-39) U/L ALT (7-52) U/L Alkaline Phosphatase (34-104) U/L Troponin I (<0.04) ng/mL C-Reactive Protein (< 5.00) mg/L Total Protein (6.4-8.9) g/dL Albumin (3.2-5.2) g/dL Globulin (2-4) g/dL Albumin/Globulin Ratio (1-3) Microbiology and Other Data: Microbiology 10/08/17 00:45 Skin and Soft Tissue MRSA/MSSA (PCR - Final Foot Left Mrsa Negative S.aureus Positive Gram Stain - Final Assess/Plan/Problems-Billing Assessment: 52 y.o male that presented to the ER for evaluation of right foot infection, redness, drainage or foul odor , possible gas and osteomylitis on x ray , MRI poor exam motion artifact - Patient Problems (1) Cellulitis Current Visit: Yes Status: Acute Code(s): L03.90 - CELLULITIS, UNSPECIFIED SNOMED Code(s): 821963712 Comment: Right foot with swelling and erythema and draiange, foul odor and purple discoloration at the base of the right great toe, open wound noted to the plantar aspect of the right foot and open area between great and second toe. continue flagyl , vancomycin and cefepime ortho consult ~ POSSIBLE OR TOMORROW ID consult dry dressing daily (2) Diabetes Current Visit: Yes Status: Acute Code(s): E11.9 - TYPE 2 DIABETES MELLITUS WITHOUT COMPLICATIONS SNOMED Code(s): 75756864 Comment: finger sticks ac and hs lispro sliding scale (3) DVT prophylaxis Current Visit: Yes Status: Acute Code(s): NNF8019 - SNOMED Code(s): 843742255 Comment: HSQ (4) Full code status Current Visit: Yes Status: Acute Code(s): Z78.9 - OTHER SPECIFIED HEALTH STATUS SNOMED Code(s): 976480009 Status and Disposition: inpatient
[2017-10-09] MEDS ORDERED: Buffered Lidocaine 0.9% SYRIN* 5 ML/SYR SYRINGE INTRADERM ONE (19:39)
[2017-10-10] MEDS: metroNIDAZOLE IV 500 MG/100ML* 500 MG/100 ML BAG IVPB SCH ×2 (03:52→14:50)
[2017-10-10] MEDS: Acetaminophen TAB* 325 MG PO PRN (04:00)
[2017-10-10] MEDS: Cefepime 2 GM in Dextrose(*) 2 GM/50 ML BAG IV SCH ×2 (04:50→16:14)
[2017-10-10] MEDS: Heparin VIAL(*) 5000 UNITS/ML VIAL (FIVE THOUSAND) SUBCUT SCH ×3 (05:22→21:07)
[2017-10-10 05:31] LABS: Hematocrit 35 % (42-52); Hemoglobin 11.6 g/dl (14.0-18.0); Mean Corpuscular HGB Conc 33 g/dl (31-36); Mean Corpuscular Hemoglobin 27 pg (27-31); Mean Corpuscular Volume 82 fL (80-94); Mean Platelet Volume 9 um3 (7.4-10.4); Platelet Count 331 10^3/ul (150-450); Red Blood Count 4.25 10^6/ul (4.0-5.4); Red Cell Distribution Width 14 % (10.5-15); White Blood Count 21.2 10^3/ul (3.5-10.8)
[2017-10-10 05:35] LABS: ABS Basophils 0.1 10^3/ul (0-0.2); ABS Eosinophils 0.2 10^3/ul (0-0.6); ABS Lymphocytes 1.3 10^3/ul (1.0-4.8); ABS Monocytes 1.7 10^3/ul (0-0.8); ABS Nucleated RBC 0 10^3/ul; Eosinophil % 0.9 % (0-6); Nucleated Red Blood Cells % 0.1
[2017-10-10 05:46] LABS: EGFR Non-African American 99.7 (>60)
[2017-10-10] MEDS ORDERED: Insulin GLARGINE(*) 1 UNITS UNIT SUBCUT SCH (08:00)
[2017-10-10] MEDS: Omeprazole CAP* 20 MG PO SCH (08:21)
[2017-10-10] MEDS: Insulin LISPRO* 1 UNITS UNIT SUBCUT SCH ×4 (08:22→21:06)
[2017-10-10] MEDS: Losartan TAB* 25 MG PO SCH (10:09)
[2017-10-10] MEDS ORDERED: Ibuprofen TAB* 400 MG PO ONE (13:20)
[2017-10-10] MEDS ORDERED: Ibuprofen TAB* 400 MG ONE (13:22)
[2017-10-10] MEDS ORDERED: Midazolam* 1 MG/ML 2 ML VIAL (2 MG) ONE (15:04)
[2017-10-10] MEDS ORDERED: fentaNYL* 50 MCG/ML 2 ML VIAL (100 MCG VIAL) ONE (15:04)
--- NOTE | 2017-10-10 15:14 | PN ---
Subjective Date of Service: 10/10/17 Interval History: Most pressing complaint is that of RAYMOND up to 7/10. ~ 3 weeks. tylenol not helping much. minimal sensation in feet 2/2 neuropathy. never seen practical nurse. stopped metformin and glipizide about 6 months ago. A1C 12.9 npo for surgery with ortho today. Family History: Unchanged from Admission Social History: Unchanged from Admission Past Medical History: Unchanged from Admission Objective Active Medications: Acetaminophen (Tylenol Tab*) 650 mg PO Q4H PRN PRN Reason: FEVER/PAIN Last Admin: 10/10/17 04:00 Dose: 650 mg Dextrose (D50w Syringe 50 Ml*) 12.5 gm IV PUSH .FOR FS < 60 - SS PRN PRN Reason: FS < 60 Heparin Sodium (Porcine) (Heparin Vial(*)) 5,000 units SUBCUT Q8HR [facility] Last Admin: 10/10/17 14:01 Dose: Not Given Sodium Chloride (Ns 0.9% 1000 Ml*) 1,000 mls @ 100 mls/hr IV PER RATE [facility] Last Admin: 10/09/17 18:47 Dose: 100 mls/hr Cefepime HCl (Maxipime 2 Gm In Dextrose Duplex (*)) 2 gm in 50 mls @ 100 mls/ hr IV Q12H [facility] Last Admin: 10/10/17 04:50 Dose: 100 mls/hr Metronidazole/Sodium Chloride (Flagyl 500 Mg Ivpb*) 500 mg in 100 mls @ 100 mls /hr IVPB Q12H [facility] Last Admin: 10/10/17 14:50 Dose: 100 mls/hr Lactated Ringer's (Lactated Ringers 1000 Ml Bag*) 1,000 mls @ 125 mls/hr IV PER RATE [facility] Last Admin: 10/10/17 13:29 Dose: 125 mls/hr Insulin Glargine (Lantus(*)) 25 units SUBCUT Q24H [facility] Last Admin: 10/10/17 08:21 Dose: 25 units Insulin Human Lispro (Humalog*) 0 - 10 units SUBCUT ACHS [facility] PRN Reason: Protocol Last Admin: 10/10/17 12:35 Dose: 6 units Losartan Potassium (Cozaar Tab*) 50 mg PO DAILY [facility] Last Admin: 10/10/17 10:09 Dose: Not Given Magnesium Hydroxide (Milk Of Marcel Liq*) 30 ml PO Q6H PRN PRN Reason: CONSTIPATION Omeprazole (Prilosec Cap*) 20 mg PO DAILY@0730 VANIA Last Admin: 10/10/17 08:21 Dose: 20 mg Polyethylene Glycol/Electrolytes (Miralax*) 17 gm PO DAILY PRN PRN Reason: CONSTIPATION Vital Signs - 8 hr 10/10/17 10/10/17 10/10/17 07:59 08:00 11:37 Temperature 98.2 F 99.4 F Pulse Rate 90 98 Respiratory 18 18 Rate Blood Pressure 152/80 168/86 (mmHg) O2 Sat by Pulse 95 95 Oximetry Oxygen Devices in Use Now: None Appearance: NAD Eyes: No Scleral Icterus, PERRLA Respiratory: Symmetrical Chest Expansion and Respiratory Effort, Clear to Auscultation Cardiovascular: NL Sounds; No Murmurs; No JVD, RRR Abdominal: NL Sounds; No Tenderness; No Distention, No Hepatosplenomegaly Extremities: - - left 1st and 2nd toe interspace with ulceration, also plantar aspect of first 2. erythema, swelling, malodor. strikethru on bandage. Skin: - - as above. Neurological: Alert and Oriented x 3, NL Sensation, NL Muscle Strength and Tone Result Diagrams: 10/10/17 04:49 10/10/17 04:49 Additional Lab and Data: Laboratory Results - last 24 hr 10/09/17 10/09/17 10/10/17 16:59 21:16 04:49 WBC 21.2 H RBC 4.25 Hgb 11.6 L Hct 35 L MCV 82 MCH 27 MCHC 33 RDW 14 Plt Count 331 MPV 9 Neut % (Auto) 84.8 H Lymph % (Auto) 6.0 L Allen % (Auto) 8.0 Eos % (Auto) 0.9 Baso % (Auto) 0.3 Absolute Neuts (auto) 18.0 H Absolute Lymphs (auto) 1.3 Absolute Monos (auto) 1.7 H Absolute Eos (auto) 0.2 Absolute Basos (auto) 0.1 Absolute Nucleated RBC 0 Nucleated RBC % 0.1 Sodium Potassium Chloride Carbon Dioxide Anion Gap BUN Creatinine Est GFR ( Amer) Est GFR (Non-Af Amer) BUN/Creatinine Ratio Glucose POC Glucose (mg/dL) 307 H 346 H Calcium 10/10/17 10/10/17 10/10/17 04:49 07:33 12:19 WBC RBC Hgb Hct MCV MCH MCHC RDW Plt Count MPV Neut % (Auto) Lymph % (Auto) Allen % (Auto) Eos % (Auto) Baso % (Auto) Absolute Neuts (auto) Absolute Lymphs (auto) Absolute Monos (auto) Absolute Eos (auto) Absolute Basos (auto) Absolute Nucleated RBC Nucleated RBC % Sodium 132 L Potassium 3.7 Chloride 103 Carbon Dioxide 20 L Anion Gap 9 BUN 16 Creatinine 0.81 Est GFR ( Amer) 128.2 Est GFR (Non-Af Amer) 99.7 BUN/Creatinine Ratio 19.8 Glucose 274 H POC Glucose (mg/dL) 310 H 255 H Calcium 8.6 Microbiology and Other Data: Microbiology 10/08/17 00:45 Foot Left Skin and Soft Tissue MRSA/MSSA (PCR - Final Mrsa Negative S.aureus Positive 10/08/17 00:45 Foot Left Gram Stain - Final 10/08/17 00:45 Foot Left Wound Culture - Preliminary Strep Agalactiae - (Group B) 10/07/17 21:00 Blood Venous Aerobic Blood Culture - Preliminary No Growth Day 2 10/07/17 21:00 Blood Venous Anaerobic Blood Culture - Preliminary No Growth Day 2 10/07/17 20:59 Blood Venous Aerobic Blood Culture - Preliminary No Growth Day 2 10/07/17 20:59 Blood Venous Anaerobic Blood Culture - Preliminary No Growth Day 2 Assess/Plan/Problems-Billing Assessment: 52 y.o male PMH uncontrolled DM off meds 6 months, HTN, GERD p/w left diabetic foot infection, erythema, drainage, malodor, rigors, f/c. Xray with possible gas and likely osteomylitis, MRI poor exam motion artifact. To OR for possible amputation 10/10. - Patient Problems (1) Diabetic foot ulcer Current Visit: Yes Status: Acute Code(s): E11.621 - TYPE 2 DIABETES MELLITUS WITH FOOT ULCER; L97.509 - NON-PRESSURE CHRONIC ULCER OTH PRT UNSP FOOT W UNSP SEVERITY SNOMED Code(s): 416692596 Comment: left foot w/ swelling,erythema, malodor, draiange; open wound noted to the plantar aspect of the right foot and ulceration between first and second toe. appreciate ID recs. continue flagyl and cefepime ortho to take to OR today. Likely amputation. (2) Osteomyelitis Current Visit: Yes Status: Acute Code(s): M86.9 - OSTEOMYELITIS, UNSPECIFIED SNOMED Code(s): 24813823 Comment: left foot. suspected on Xray but poor MRI f/u 2/2 motion artifact. plan as above. to OR, abx. (3) Diabetes Current Visit: Yes Status: Acute Code(s): E11.9 - TYPE 2 DIABETES MELLITUS WITHOUT COMPLICATIONS SNOMED Code(s): 75282060 Comment: finger sticks ac and hs lispro sliding scale A1C 12.9 in setting of no meds 6 months lantus 25U started. BG in 300s yesterday. npo for or. diabetic teaching. (4) Headache Current Visit: Yes Status: Acute Code(s): R51 - HEADACHE SNOMED Code(s): 09220686 Comment: tylenol, add ibuprofen. Status and Disposition: inpatient Attending: Miguel Gee
[2017-10-10] MEDS ORDERED: Lidocaine 2% PF* 10 ML AMP ONE (15:45)
[2017-10-10] MEDS ORDERED: Bupivacaine 0.5% SDV PF* 10-30ML VIAL ONE (15:45)
[2017-10-10] MEDS ORDERED: Famotidine IV* 10 MG/ML 2 ML (20 mg) ONE (16:01)
[2017-10-10] MEDS ORDERED: Ondansetron INJ* 2 MG/ML VIAL ONE (16:01)
[2017-10-10] MEDS ORDERED: Propofol* 10 MG/ML 20 ML BTL IV PUSH ONE (16:01)
[2017-10-10] MEDS ORDERED: Labetalol IV* 5 MG/ML 20 ML VIAL ONE (16:10)
[2017-10-10] MEDS ORDERED: KETAMINE HCL* 50 MG/ML 10 ML VIAL ONE (16:14)
[2017-10-10] MEDS ORDERED: Levalbuterol 0.63MG/3ML NEB* UNIT OF USE INH PRN (16:19)
[2017-10-10] MEDS ORDERED: Naloxone* 0.4 MG/ML 1 ML VIAL IV PRN (16:19)
[2017-10-10] MEDS ORDERED: fentaNYL* 50 MCG/ML 2 ML VIAL (100 MCG VIAL) IV PRN (16:19)
[2017-10-10] MEDS ORDERED: DiMENhydriNATE IV* 50 MG/ML VIAL IV PUSH PRN (16:19)
[2017-10-10] MEDS ORDERED: diPHENhydraMINE IV* 50 MG/ML 1 ml VIAL (BENADRYL) IV PRN (16:19)
[2017-10-11] MEDS: metroNIDAZOLE IV 500 MG/100ML* 500 MG/100 ML BAG IVPB SCH ×2 (02:50→14:16)
[2017-10-11] MEDS: Cefepime 2 GM in Dextrose(*) 2 GM/50 ML BAG IV SCH (03:54)
[2017-10-11] MEDS: Heparin VIAL(*) 5000 UNITS/ML VIAL (FIVE THOUSAND) SUBCUT SCH ×3 (06:22→21:10)
[2017-10-11] MEDS: Omeprazole CAP* 20 MG PO SCH (07:26)
[2017-10-11] MEDS ORDERED: Dextrose 50% Syringe 50 ML* 25 GM/50 ML SYRINGE IV PUSH PRN (07:46)
[2017-10-11] MEDS: Insulin GLARGINE(*) 1 UNITS UNIT SUBCUT SCH (09:01)
[2017-10-11] MEDS: Insulin LISPRO* 1 UNITS UNIT SUBCUT SCH ×6 (09:01→21:14)
[2017-10-11] MEDS: Losartan TAB* 25 MG PO SCH (09:02)
[2017-10-11 09:50] LABS: ABS Basophils 0.1 10^3/ul (0-0.2); ABS Eosinophils 0.2 10^3/ul (0-0.6); ABS Lymphocytes 1.3 10^3/ul (1.0-4.8); ABS Monocytes 1.2 10^3/ul (0-0.8); ABS Neutrophils 13.1 10^3/ul (1.5-7.7); ABS Nucleated RBC 0 10^3/ul; Eosinophil % 1.5 % (0-6); Hematocrit 34 % (42-52); Hemoglobin 11.1 g/dl (14.0-18.0); Mean Corpuscular HGB Conc 33 g/dl (31-36); Mean Corpuscular Hemoglobin 27 pg (27-31); Mean Corpuscular Volume 82 fL (80-94); Mean Platelet Volume 8 um3 (7.4-10.4); Nucleated Red Blood Cells % 0; Platelet Count 348 10^3/ul (150-450); Red Cell Distribution Width 14 % (10.5-15); White Blood Count 15.9 10^3/ul (3.5-10.8)
[2017-10-11 10:07] LABS: EGFR Non-African American 105.7 (>60)
[2017-10-11] MEDS: cefTRIAXone(*) 2 GM in NS 0.9% 100 ML* 100 ML IVPB SCH (12:34)
--- NOTE | 2017-10-11 14:15 | DS ---
DISCHARGE SUMMARY: DATE OF ADMISSION: 10/07/17 DATE OF DISCHARGE: 10/11/17 ADMITTING PROVIDER: Liza Pichardo NP PRIMARY CARE PHYSICIAN: Pato Ferrer MD CONSULTING ORTHOPEDIC SURGEON: Dr. Jean Baptiste. CONSULTING INFECTIOUS DISEASE: Dr. Aguilar Conn. ATTENDING PHYSICIAN ON DISCHARGE: Miguel Gee MD CHIEF COMPLAINT: Left foot infection. PRINCIPAL DIAGNOSIS: Left diabetic foot infection complicated by osteomyelitis , now status post left midfoot amputation; uncontrolled diabetes mellitus in the setting of medication noncompliance. HISTORY OF PRESENT ILLNESS AND HOSPITAL COURSE: Kev Gallardo is a 52-year-old male, past medical history significant for diabetes mellitus, hypertension, GERD , who had stopped taking his medications for the last 6 months and not been following up with his primary care doctor recently who complained of left foot erythema, swelling and intermittent fevers and chills. He had been trying to treat with the antibiotic ointment at home, but in 2 days prior to admission it "blew up" becoming more red and swollen, who probably had nausea, vomiting and diarrhea. He has chronic neuropathy secondary to his diabetes. In the emergency room, he had significant leukocytosis to 22.1, CRP of 318, glucose of 431. The left foot x-ray showing evidence of soft tissue infection and subcutaneous gas between the first and second toes along the plantar margin of the left great toe, started empirically on IV vancomycin, cefepime, and Flagyl and ID was consulted along with Orthopedic Surgery. Infectious Disease continued the cefepime and Flagyl. His vancomycin was not redosed. His initial cultures from the showed initially group B Strep agalactiae. On day of discharge, it would also result Finegoldia magna and Staphylococcus aureus. He had an additional MRI of his lower extremity on the which was a poor study given motion artifact and the impression was most consistent with cellulitis with no gross evidence of osteomyelitis, although the study was significantly limited. Dr. Jean Baptiste took the patient to the operating room on for a midfoot amputation and the patient worked with physical therapy the next day and was very unsteady on his feet using crutches and needed some contact guard psychiatric assistant with the knee scooter. He is going to be nonweightbearing on that left lower extremity until otherwise notified by Orthopedics. He was accepted to [facility] for further rehabilitation. His blood sugars were poorly controlled. In the hospital, he had an A1c of 12.9 which is only one in our system. He was started on Lantus 25 units the day of surgery and was increased to 35 units day after surgery given persistent levels in the mid 250s to 300s. He is being recommended to start with 30 units after he leaves the PMR unit and with close followup with Dr. Ferrer. He may need to be followed up with Dr. Paz. He was advised to record his blood sugars multiple times a day including cash reconciliation specialist but prior to meals and record these in log book. He is being restarted on metformin, which he had not been taking for several months, not restarted on glipizide. Dr. Aguilar Conn changed his antibiotics to ceftriaxone and Flagyl and will continue to follow him while he is on the PMR unit. Official OR report is still pending and initial OR cultures grew Staph aureus, but was MRSA negative by PCR. Gram stain showed 1+ Gram positive cocci and culture was initially growing Strep agalactiae (group B Strep again). DISCHARGE MEDICATIONS: Include: 1. Tylenol 650 mg p.o. q.4 hours p.r.n. for pain or fever. 2. Lantus SoloSTAR pen 30 units each morning. 3. Losartan 50 mg p.o. daily. 4. Magnesium hydroxide 30 mL p.o. q.6 hours p.r.n. constipation. 5. Omeprazole 20 mg p.o. daily. 6. Colace 100 mg p.o. daily p.r.n. constipation. 7. Metformin 500 mg p.o. b.i.d. with planned up titration within the next weeks as tolerated. 8. Percocet 1 tab p.o. q.6 hours p.r.n. 9. MiraLAX 17 g p.o. daily. 10. Adding senna also p.r.n. 1 tab daily. DIET: Carbohydrate consistent. ACTIVITY LEVEL: Nonweightbearing to the left lower extremity until further advice by Orthopedics likely for several weeks. FOLLOWUP: Please follow up with Dr. Ferrer within 5 days of discharge from PMRU. Consideration for following with Dr. Seun Paz, treater helper given poorly controlled diabetes. He will follow with Dr. Jean Baptiste within 2 weeks of OR. TIME SPENT ON DISCHARGE: 45 minutes. [id number]/CPS #: [id number] MTDD
[2017-10-11] MEDS ORDERED: oxyCODONE/Acetamin 5/325 MG* TAB PO PRN (14:37)
--- NOTE | 2017-10-11 16:54 | PN ---
Progress Note - Progress Note Date of Service: 10/11/17 SOAP: Subjective: Patient is seen at bedside, lying comfortably in bed. He is post-op day 1 s/p left midfoot amputation with Dr. Jean Baptiste. Objective: Vital Signs Temp Pulse Resp BP Pulse Ox 98.1 F 89 17 137/65 96 10/11/17 15:30 10/11/17 15:30 10/11/17 15:30 10/11/17 15:30 10/11/17 15:30 Laboratory Results - last 24 hr 10/10/17 10/11/17 10/11/17 21:01 07:30 09:28 WBC 15.9 H RBC 4.10 Hgb 11.1 L Hct 34 L MCV 82 MCH 27 MCHC 33 RDW 14 Plt Count 348 MPV 8 Neut % (Auto) 82.0 Lymph % (Auto) 8.0 L [place] % (Auto) 7.8 Eos % (Auto) 1.5 Baso % (Auto) 0.7 Absolute Neuts (auto) 13.1 H Absolute Lymphs (auto) 1.3 Absolute Monos (auto) 1.2 H Absolute Eos (auto) 0.2 Absolute Basos (auto) 0.1 Absolute Nucleated RBC 0 Nucleated RBC % 0 Sodium Potassium Chloride Carbon Dioxide Anion Gap BUN Creatinine Est GFR ( Amer) Est GFR (Non-Af Amer) BUN/Creatinine Ratio Glucose POC Glucose (mg/dL) 361 H 323 H Calcium 10/11/17 10/11/17 09:28 12:12 WBC RBC Hgb Hct MCV MCH MCHC RDW Plt Count MPV Neut % (Auto) Lymph % (Auto) [place] % (Auto) Eos % (Auto) Baso % (Auto) Absolute Neuts (auto) Absolute Lymphs (auto) Absolute Monos (auto) Absolute Eos (auto) Absolute Basos (auto) Absolute Nucleated RBC Nucleated RBC % Sodium 135 Potassium 4.0 Chloride 105 Carbon Dioxide 24 Anion Gap 6 BUN 13 Creatinine 0.77 Est GFR ( Amer) 135.9 Est GFR (Non-Af Amer) 105.7 BUN/Creatinine Ratio 16.9 Glucose 319 H POC Glucose (mg/dL) 211 H Calcium 8.7 General: WN, WD, NAD, A&Ox3, sitting comfortably in bed. Left LE: Dressing is C/D/I, no erythema proximally, sensation intact proximally. Able to F/E knee. 2+ popliteal pulse. Calf supple, nontender. Assessment: Left foot diabetic foot ulcer with osteomyelitis. S/P left midfoot amputation with Dr. Jean Baptiste on 10/10 Plan: 1. Leave dressing intact 2. NWB LLE 3. DVT prophylaxis heparin 4. Plan to d/c to rehab unit today 5. Continue antibiotics per Dr. Conn - appreciate his input 6. Follow up with Dr. Jean Baptiste in 14 days for recheck
--- NOTE | 2017-10-11 17:08 | OP ---
DATE OF OPERATION: 10/10/17 - ROOM #340 DATE OF : 63 ATTENDING SURGEON: Pedro Jean Baptiste MD SEASONAL SALES ASSOCIATE: Adeline Hazel PA-C ANESTHESIOLOGIST: Dr. Ignacio ANESTHESIA: General PRE-OP DIAGNOSES: Left foot abscess, soft tissue infection, blistering, and early gangrene first and second toes. POST-OP DIAGNOSES: Left foot abscess, soft tissue infection, blistering, and early gangrene first and second toes. OPERATIVE PROCEDURE: Left Chopart disarticulation, left mid foot. DESCRIPTION OF PROCEDURE: The patient was taken to the operating room, where a thigh tourniquet was inflated. We made a fish-mouth incision over the mid foot just proximal to the intensive erythematous cellulitic area. We dissected subperiosteally up to the talanavicular joint where the disarticulation was performed with the 10 blade dividing the plantar flap. The foot was then sent to Pathology. Local cultures were sent as well as a 3 L pulsatile lavage. Local hemostasis was obtained and then we closed plantar to dorsal flap with 2- 0 Vicryl sutures and 2-0 Prolene for the skin. Compression dressing and plaster splint was applied. [id number]/CPS #: [id number] [facility]OSPITALEverardo
--- NOTE | 2017-10-11 21:09 | PN ---
Subjective Date of Service: 10/11/17 Interval History: s/p mid left foot amputation with Dr. Jean Baptiste yesterday. RAYMOND improved 2-3/10. 4/ 10 pain in the left foot. worked with PT, very clumsy and unsafe with crutches. better with rolling knee brace. PMRU referral sent and accepted. Discharged. However later learned unable to accept 2/2 medicare insurance rules not allowing acceptance POD#1. Likely Saturday if still needing rehab at that time. Family History: Unchanged from Admission Social History: Unchanged from Admission Past Medical History: Unchanged from Admission Objective Active Medications: Acetaminophen (Tylenol Tab*) 650 mg PO Q4H PRN PRN Reason: FEVER/PAIN Last Admin: 10/10/17 04:00 Dose: 650 mg Dextrose (D50w Syringe 50 Ml*) 12.5 gm IV PUSH .FOR FS < 60 - SS PRN PRN Reason: FS < 60 Heparin Sodium (Porcine) (Heparin Vial(*)) 5,000 units SUBCUT Q8HR [facility] Last Admin: 10/11/17 13:16 Dose: 5,000 units Metronidazole/Sodium Chloride (Flagyl 500 Mg Ivpb*) 500 mg in 100 mls @ 100 mls /hr IVPB Q12H [facility] Last Admin: 10/11/17 14:16 Dose: 100 mls/hr Ceftriaxone Sodium 2 gm/ (Sodium Chloride) 100 mls @ 200 mls/hr IVPB Q24H [facility] Last Admin: 10/11/17 12:34 Dose: 200 mls/hr Ibuprofen (Motrin Tab*) 400 mg PO Q6H PRN PRN Reason: HEADACHE/PAIN Insulin Glargine (Lantus(*)) 35 units SUBCUT Q24H [facility] Last Admin: 10/11/17 09:01 Dose: 35 units Insulin Human Lispro (Humalog*) 0 - 10 units SUBCUT ACHS [facility] PRN Reason: Protocol Last Admin: 10/11/17 18:28 Dose: 4 units Insulin Human Lispro (Humalog*) 5 units SUBCUT AC [facility] Last Admin: 10/11/17 18:29 Dose: 5 unit Losartan Potassium (Cozaar Tab*) 50 mg PO DAILY [facility] Last Admin: 10/11/17 09:02 Dose: 50 mg Magnesium Hydroxide (Milk Of Magnesia Liq*) 30 ml PO Q6H PRN PRN Reason: CONSTIPATION Omeprazole (Prilosec Cap*) 20 mg PO DAILY@0730 [facility]AN[facility] Last Admin: 10/11/17 07:26 Dose: 20 mg Oxycodone/Acetaminophen (Percocet 5/325 Tab*) 1 tab PO Q6H PRN PRN Reason: PAIN Polyethylene Glycol/Electrolytes (Miralax*) 17 gm PO DAILY PRN PRN Reason: CONSTIPATION Vital Signs - 8 hr 10/11/17 15:30 Temperature 98.1 F Pulse Rate 89 Respiratory 17 Rate Blood Pressure 137/65 (mmHg) O2 Sat by Pulse 96 Oximetry Oxygen Devices in Use Now: None Appearance: NAD Eyes: No Scleral Icterus, PERRLA Ears/Nose/Mouth/Throat: NL Teeth, Lips, Gums, Mucous Membranes Moist Neck: NL Appearance and Movements; NL JVP, Trachea Midline Respiratory: Symmetrical Chest Expansion and Respiratory Effort, Clear to Auscultation Cardiovascular: NL Sounds; No Murmurs; No JVD, RRR Abdominal: NL Sounds; No Tenderness; No Distention, No Hepatosplenomegaly Extremities: No Edema, - - s/p left foot mid foot amputation. Wrapped in ÁNGEL w/ o strike through. no malodor. Skin: No Rash or Ulcers Neurological: Alert and Oriented x 3, NL Sensation, NL Muscle Strength and Tone Nutrition: Taking PO's Result Diagrams: 10/11/17 09:28 10/11/17 09:28 Additional Lab and Data: Laboratory Results - last 24 hr 10/10/17 10/11/17 10/11/17 21:01 07:30 09:28 WBC 15.9 H RBC 4.10 Hgb 11.1 L Hct 34 L MCV 82 MCH 27 MCHC 33 RDW 14 Plt Count 348 MPV 8 Neut % (Auto) 82.0 Lymph % (Auto) 8.0 L [place] % (Auto) 7.8 Eos % (Auto) 1.5 Baso % (Auto) 0.7 Absolute Neuts (auto) 13.1 H Absolute Lymphs (auto) 1.3 Absolute Monos (auto) 1.2 H Absolute Eos (auto) 0.2 Absolute Basos (auto) 0.1 Absolute Nucleated RBC 0 Nucleated RBC % 0 Sodium Potassium Chloride Carbon Dioxide Anion Gap BUN Creatinine Est GFR ( Amer) Est GFR (Non-Af Amer) BUN/Creatinine Ratio Glucose POC Glucose (mg/dL) 361 H 323 H Calcium 10/11/17 10/11/17 10/11/17 09:28 12:12 17:27 WBC RBC Hgb Hct MCV MCH MCHC RDW Plt Count MPV Neut % (Auto) Lymph % (Auto) [place] % (Auto) Eos % (Auto) Baso % (Auto) Absolute Neuts (auto) Absolute Lymphs (auto) Absolute Monos (auto) Absolute Eos (auto) Absolute Basos (auto) Absolute Nucleated RBC Nucleated RBC % Sodium 135 Potassium 4.0 Chloride 105 Carbon Dioxide 24 Anion Gap 6 BUN 13 Creatinine 0.77 Est GFR ( Amer) 135.9 Est GFR (Non-Af Amer) 105.7 BUN/Creatinine Ratio 16.9 Glucose 319 H POC Glucose (mg/dL) 211 H 206 H Calcium 8.7 Microbiology and Other Data: Microbiology 10/07/17 21:00 Blood Venous Aerobic Blood Culture - Preliminary No Growth Day 4 10/07/17 21:00 Blood Venous Anaerobic Blood Culture - Preliminary No Growth Day 4 10/07/17 20:59 Blood Venous Aerobic Blood Culture - Preliminary No Growth Day 4 10/07/17 20:59 Blood Venous Anaerobic Blood Culture - Preliminary No Growth Day 4 10/10/17 16:27 Wound - Left Anaerobic Culture - Preliminary 10/10/17 16:27 Foot Left Skin and Soft Tissue MRSA/MSSA (PCR - Final Mrsa Negative S.aureus Positive 10/10/17 16:27 Foot Left Gram Stain - Final 10/10/17 16:27 Foot Left Wound Culture - Preliminary Strep Agalactiae - (Group B) 10/08/17 00:45 Foot Left Skin and Soft Tissue MRSA/MSSA (PCR - Final Mrsa Negative S.aureus Positive 10/08/17 00:45 Foot Left Gram Stain - Final 10/08/17 00:45 Foot Left Wound Culture - Preliminary Strep Agalactiae - (Group B) Finegoldia Magna Staphylococcus Aureus Assess/Plan/Problems-Billing Assessment: 52 y.o male PMH uncontrolled DM off meds 6 months, HTN, GERD p/w left diabetic foot infection, erythema, drainage, malodor, rigors, f/c. Xray with possible gas and likely osteomylitis, MRI poor exam motion artifact. s/p mid foot amputation 10/10. Planned PMRU - Patient Problems (1) Diabetic foot ulcer Current Visit: Yes Status: Acute Code(s): E11.621 - TYPE 2 DIABETES MELLITUS WITH FOOT ULCER; L97.509 - NON-PRESSURE CHRONIC ULCER OTH PRT UNSP FOOT W UNSP SEVERITY SNOMED Code(s): 265101659 Comment: left foot w/ swelling,erythema, malodor, draiange; open wound noted to the plantar aspect of the right foot and ulceration between first and second toe. now s/p midfoot amputation. appreciate ID recs. continue flagyl stop cefepime -> start ceftriaxone f/u wound cultures. so far Group B Strep, Fingoldia, MSSA percoset prn for breakthrough added. tylenol, bowel regimen. PT, likely PMRU on 10/13 (2) Osteomyelitis Current Visit: Yes Status: Acute Code(s): M86.9 - OSTEOMYELITIS, UNSPECIFIED SNOMED Code(s): 62098589 Comment: abx plan as above (3) Diabetes Current Visit: Yes Status: Acute Code(s): E11.9 - TYPE 2 DIABETES MELLITUS WITHOUT COMPLICATIONS SNOMED Code(s): 46439506 Comment: finger sticks ac and hs lispro sliding scale A1C 12.9 in setting of no meds 6 months lantus increased from 25U to 35U. Added qac lispro. diabetic teaching. (4) Headache Current Visit: Yes Status: Acute Code(s): R51 - HEADACHE SNOMED Code(s): 59964554 Comment: tylenol, add ibuprofen. Status and Disposition: inpatient Attending: Miguel Gee
[2017-10-12] MEDS: metroNIDAZOLE IV 500 MG/100ML* 500 MG/100 ML BAG IVPB SCH ×2 (02:26→13:54)
[2017-10-12] MEDS: Ibuprofen TAB* 400 MG PO PRN ×2 (02:35→23:47)
[2017-10-12] MEDS: Heparin VIAL(*) 5000 UNITS/ML VIAL (FIVE THOUSAND) SUBCUT SCH ×3 (05:51→21:32)
[2017-10-12 07:52] LABS: ABS Basophils 0.1 10^3/ul (0-0.2); ABS Eosinophils 0.3 10^3/ul (0-0.6); ABS Lymphocytes 1.7 10^3/ul (1.0-4.8); ABS Monocytes 1.3 10^3/ul (0-0.8); ABS Neutrophils 8.6 10^3/ul (1.5-7.7); ABS Nucleated RBC 0 10^3/ul; Eosinophil % 2.6 % (0-6); Hematocrit 31 % (42-52); Hemoglobin 10.3 g/dl (14.0-18.0); Mean Corpuscular HGB Conc 34 g/dl (31-36); Mean Corpuscular Hemoglobin 27 pg (27-31); Mean Corpuscular Volume 82 fL (80-94); Mean Platelet Volume 8 um3 (7.4-10.4); Nucleated Red Blood Cells % 0; Platelet Count 310 10^3/ul (150-450); Red Blood Count 3.79 10^6/ul (4.0-5.4); Red Cell Distribution Width 14 % (10.5-15)
[2017-10-12 08:09] LABS: EGFR Non-African American 126.3 (>60)
[2017-10-12] MEDS: Insulin LISPRO* 1 UNITS UNIT SUBCUT SCH ×7 (08:23→21:30)
[2017-10-12] MEDS: Insulin GLARGINE(*) 1 UNITS UNIT SUBCUT SCH (08:25)
[2017-10-12] MEDS: Losartan TAB* 25 MG PO SCH (08:26)
[2017-10-12] MEDS: Omeprazole CAP* 20 MG PO SCH (08:26)
[2017-10-12] MEDS: cefTRIAXone(*) 2 GM in NS 0.9% 100 ML* 100 ML IVPB SCH (12:21)
--- NOTE | 2017-10-12 18:20 | PN ---
Subjective Date of Service: 10/12/17 Interval History: no RAYMOND, no foot pain. worked with PT seems improved. BG in 200s yesterday, now mid 100s. Family History: Unchanged from Admission Social History: Unchanged from Admission Past Medical History: Unchanged from Admission Objective Active Medications: Acetaminophen (Tylenol Tab*) 650 mg PO Q4H PRN PRN Reason: FEVER/PAIN Last Admin: 10/10/17 04:00 Dose: 650 mg Dextrose (D50w Syringe 50 Ml*) 12.5 gm IV PUSH .FOR FS < 60 - SS PRN PRN Reason: FS < 60 Heparin Sodium (Porcine) (Heparin Vial(*)) 5,000 units SUBCUT Q8HR [facility] Last Admin: 10/12/17 13:54 Dose: 5,000 units Metronidazole/Sodium Chloride (Flagyl 500 Mg Ivpb*) 500 mg in 100 mls @ 100 mls /hr IVPB Q12H [facility] Last Admin: 10/12/17 13:54 Dose: 100 mls/hr Ceftriaxone Sodium 2 gm/ (Sodium Chloride) 100 mls @ 200 mls/hr IVPB Q24H [facility] Last Admin: 10/12/17 12:21 Dose: 200 mls/hr Ibuprofen (Motrin Tab*) 400 mg PO Q6H PRN PRN Reason: HEADACHE/PAIN Last Admin: 10/12/17 02:35 Dose: 400 mg Insulin Glargine (Lantus(*)) 35 units SUBCUT Q24H [facility] Last Admin: 10/12/17 08:25 Dose: 35 units Insulin Human Lispro (Humalog*) 0 - 10 units SUBCUT ACHS [facility] PRN Reason: Protocol Last Admin: 10/12/17 16:52 Dose: Not Given Insulin Human Lispro (Humalog*) 5 units SUBCUT AC [facility] Last Admin: 10/12/17 17:48 Dose: 5 unit Losartan Potassium (Cozaar Tab*) 50 mg PO DAILY [facility] Last Admin: 10/12/17 08:26 Dose: 50 mg Magnesium Hydroxide (Milk Of Magnesia Liq*) 30 ml PO Q6H PRN PRN Reason: CONSTIPATION Omeprazole (Prilosec Cap*) 20 mg PO DAILY@0730 [facility] Last Admin: 10/12/17 08:26 Dose: 20 mg Oxycodone/Acetaminophen (Percocet 5/325 Tab*) 1 tab PO Q6H PRN PRN Reason: PAIN Polyethylene Glycol/Electrolytes (Miralax*) 17 gm PO DAILY PRN PRN Reason: CONSTIPATION Vital Signs - 8 hr 10/12/17 10/12/17 11:37 15:50 Temperature 97.9 F 98.3 F Pulse Rate 79 80 Respiratory 17 16 Rate Blood Pressure 160/86 150/78 (mmHg) O2 Sat by Pulse 99 98 Oximetry Oxygen Devices in Use Now: None Appearance: NAD Eyes: No Scleral Icterus, PERRLA Ears/Nose/Mouth/Throat: NL Teeth, Lips, Gums, Mucous Membranes Moist Respiratory: Symmetrical Chest Expansion and Respiratory Effort, Clear to Auscultation Cardiovascular: NL Sounds; No Murmurs; No JVD, RRR Extremities: No Edema, No Clubbing, Cyanosis, - - s/p left mid foot amputation Skin: No Rash or Ulcers Neurological: Alert and Oriented x 3, NL Sensation, NL Muscle Strength and Tone Result Diagrams: 10/12/17 07:36 10/12/17 07:36 Additional Lab and Data: Laboratory Results - last 24 hr 10/11/17 10/12/17 10/12/17 21:11 07:36 07:36 WBC 12.0 H RBC 3.79 L Hgb 10.3 L Hct 31 L MCV 82 MCH 27 MCHC 34 RDW 14 Plt Count 310 MPV 8 Neut % (Auto) 71.5 Lymph % (Auto) 14.0 L [place] % (Auto) 11.0 H Eos % (Auto) 2.6 Baso % (Auto) 0.9 Absolute Neuts (auto) 8.6 H Absolute Lymphs (auto) 1.7 Absolute Monos (auto) 1.3 H Absolute Eos (auto) 0.3 Absolute Basos (auto) 0.1 Absolute Nucleated RBC 0 Nucleated RBC % 0 Sodium 136 Potassium 3.7 Chloride 106 Carbon Dioxide 26 Anion Gap 4 BUN 13 Creatinine 0.66 L Est GFR ( Amer) 162.4 Est GFR (Non-Af Amer) 126.3 BUN/Creatinine Ratio 19.7 Glucose 238 H POC Glucose (mg/dL) 209 H Calcium 8.3 L 10/12/17 10/12/17 10/12/17 07:51 12:00 16:42 WBC RBC Hgb Hct MCV MCH MCHC RDW Plt Count MPV Neut % (Auto) Lymph % (Auto) [place] % (Auto) Eos % (Auto) Baso % (Auto) Absolute Neuts (auto) Absolute Lymphs (auto) Absolute Monos (auto) Absolute Eos (auto) Absolute Basos (auto) Absolute Nucleated RBC Nucleated RBC % Sodium Potassium Chloride Carbon Dioxide Anion Gap BUN Creatinine Est GFR ( Amer) Est GFR (Non-Af Amer) BUN/Creatinine Ratio Glucose POC Glucose (mg/dL) 263 H 139 H 123 H Calcium Microbiology and Other Data: Microbiology 10/10/17 16:27 Wound - Left Anaerobic Culture - Preliminary 10/10/17 16:27 Foot Left Skin and Soft Tissue MRSA/MSSA (PCR - Final Mrsa Negative S.aureus Positive 10/10/17 16:27 Foot Left Gram Stain - Final 10/10/17 16:27 Foot Left Wound Culture - Preliminary Strep Agalactiae - (Group B) 10/08/17 00:45 Foot Left Skin and Soft Tissue MRSA/MSSA (PCR - Final Mrsa Negative S.aureus Positive 10/08/17 00:45 Foot Left Gram Stain - Final 10/08/17 00:45 Foot Left Wound Culture - Final Strep Agalactiae - (Group B) Finegoldia Magna Staphylococcus Aureus Normal Rosaline 10/07/17 21:00 Blood Venous Aerobic Blood Culture - Preliminary No Growth Day 4 10/07/17 21:00 Blood Venous Anaerobic Blood Culture - Preliminary No Growth Day 4 10/07/17 20:59 Blood Venous Aerobic Blood Culture - Preliminary No Growth Day 4 10/07/17 20:59 Blood Venous Anaerobic Blood Culture - Preliminary No Growth Day 4 Assess/Plan/Problems-Billing Assessment: 52 y.o male PMH uncontrolled DM off meds 6 months, HTN, GERD p/w left diabetic foot infection, erythema, drainage, malodor, rigors, f/c. Xray with possible gas and likely osteomylitis, MRI poor exam motion artifact. s/p mid foot amputation 10/10. Planned PMRU 10/13 - Patient Problems (1) Diabetic foot ulcer Current Visit: Yes Status: Acute Code(s): E11.621 - TYPE 2 DIABETES MELLITUS WITH FOOT ULCER; L97.509 - NON-PRESSURE CHRONIC ULCER OTH PRT UNSP FOOT W UNSP SEVERITY SNOMED Code(s): 802852513 Comment: left foot w/ swelling,erythema, malodor, draiange; open wound noted to the plantar aspect of the right foot and ulceration between first and second toe. now s/p midfoot amputation. appreciate ID recs. continue flagyl stop cefepime -> start ceftriaxone f/u wound cultures. so far Group B Strep, Fingoldia, MSSA percoset prn for breakthrough added. tylenol, bowel regimen. PT, likely PMRU on 10/13 (2) Osteomyelitis Current Visit: Yes Status: Acute Code(s): M86.9 - OSTEOMYELITIS, UNSPECIFIED SNOMED Code(s): 80185499 Comment: abx plan as above (3) Diabetes Current Visit: Yes Status: Acute Code(s): E11.9 - TYPE 2 DIABETES MELLITUS WITHOUT COMPLICATIONS SNOMED Code(s): 73103248 Comment: finger sticks ac and hs lispro sliding scale A1C 12.9 in setting of no meds 6 months continue lantus 35U + qac 5/5/5 lispro. diabetic teaching. (4) Headache Current Visit: Yes Status: Acute Code(s): R51 - HEADACHE SNOMED Code(s): 88626377 Comment: tylenol, add ibuprofen. Status and Disposition: inpatient
[2017-10-13] MEDS: metroNIDAZOLE IV 500 MG/100ML* 500 MG/100 ML BAG IVPB SCH (02:23)
[2017-10-13] MEDS: Heparin VIAL(*) 5000 UNITS/ML VIAL (FIVE THOUSAND) SUBCUT SCH (05:58)
[2017-10-13 07:47] VITALS: BP 162/88
[2017-10-13] MEDS: Omeprazole CAP* 20 MG PO SCH (08:32)
[2017-10-13] MEDS: Losartan TAB* 25 MG PO SCH (08:32)
[2017-10-13] MEDS: Insulin GLARGINE(*) 1 UNITS UNIT SUBCUT SCH (08:34)
[2017-10-13] MEDS: Insulin LISPRO* 1 UNITS UNIT SUBCUT SCH ×2 (08:35)
--- NOTE | 2017-10-13 09:30 | PN ---
Progress Note - Progress Note Date of Service: 10/13/17 SOAP: Subjective: [Pt, denies significant discomfort. No CP, SOB, dizziness, N/V.] Objective: [A and O x3, NAD L foot dressing C/D/I, sensation intact proximally, no erythema visible. Calf soft, NT. Vital Signs: Temp Pulse Resp BP Pulse Ox 97.8 F 83 18 162/88 97 10/13/17 07:14 10/13/17 07:14 10/13/17 07:30 10/13/17 07:14 10/13/17 07:14 Laboratory Results - last 24 hr 10/12/17 10/12/17 10/12/17 12:00 16:42 21:19 POC Glucose (mg/dL) 139 H 123 H 144 H 10/13/17 07:35 POC Glucose (mg/dL) 157 H ] Assessment: [52 you male s/p L midfoot amputation POD #3] Plan: [Leave dressing intact NWB LLE DVY prophylaxis heparin Con't antibiotice per Dr. Conn Plan for PMRU today Follow up with Dr. Jean Baptiste in 12 days fro recheck]
== END 2017-10-13 10:00 | DRG 617 ==
LOC: ED 18:51 → SSU 23:09 → PMRU 10-13 10:02
PROVIDERS: ADMIT Pediatrics; ATTEND Internal Medicine
PROC: 0Y6N0Z0 Detachment at Left Foot, Complete, Open Approach (ICD-10-PCS; principal; 2017-10-10 16:15)
DX: E11.69 Type 2 diabetes mellitus with other specified complication (principal); M86.9 Osteomyelitis, unspecified; I96 Gangrene, not elsewhere classified; E11.65 Type 2 diabetes mellitus with hyperglycemia; L03.116 Cellulitis of left lower limb; E11.52 Type 2 diabetes mellitus with diabetic peripheral angiopathy with gangrene; E11.42 Type 2 diabetes mellitus with diabetic polyneuropathy; E11.621 Type 2 diabetes mellitus with foot ulcer; B95.61 Methicillin susceptible Staphylococcus aureus infection as the cause of diseases classified elsewhere; B95.1 Streptococcus, group B, as the cause of diseases classified elsewhere; I10 Essential (primary) hypertension; K21.9 Gastro-esophageal reflux disease without esophagitis; K42.9 Umbilical hernia without obstruction or gangrene; F17.210 Nicotine dependence, cigarettes, uncomplicated; M60.872 Other myositis, left ankle and foot; L97.529 Non-pressure chronic ulcer of other part of left foot with unspecified severity; Z91.14 Patient's other noncompliance with medication regimen; Z79.84 Long term (current) use of oral hypoglycemic drugs
CPT/HCPCS: 36415; 80048; 80053; 82947; 83036; 83605; 84484; 85025; 85610; 86140; 87040; 87070; 87073; 87076; 87077; 87184; 87186; 87205; 87640; 87641; 88307; 88311; 99283; A9270-GY; J0692; J0696; J1644; J2001; J2250; J2405; J2543; J2704; J3010; J3370; J3490

== ENCOUNTER 2017-10-11 11:54 | Inpatient (IN) | payer MEDICARE ==
[2017-10-13] MEDS ORDERED: Senna TAB PO PRN (10:58)
[2017-10-13] MEDS ORDERED: Acetaminophen TAB* 325 MG PO PRN (10:58)
[2017-10-13] MEDS ORDERED: Magnesium Hydroxide LIQ* 30 ML UDC PO PRN (10:58)
[2017-10-13] MEDS ORDERED: Dextrose 50% Syringe 50 ML* 25 GM/50 ML SYRINGE IV PUSH PRN (11:11)
[2017-10-13] MEDS ORDERED: oxyCODONE/Acetamin 5/325 MG* TAB PO PRN (11:36)
[2017-10-13] MEDS: Insulin LISPRO* 1 UNITS UNIT SUBCUT SCH ×2 (12:16→17:15)
[2017-10-13] MEDS: Heparin VIAL(*) 5000 UNITS/ML VIAL (FIVE THOUSAND) SUBCUT SCH ×2 (14:34→23:03)
[2017-10-13] MEDS: cefTRIAXone(*) 2 GM in NS 0.9% 100 ML* 100 ML IVPB SCH (14:34)
[2017-10-13] MEDS: metroNIDAZOLE IV 500 MG/100ML* 500 MG/100 ML BAG IVPB SCH (17:17)
--- NOTE | 2017-10-13 18:29 | HP ---
HISTORY AND PHYSICAL: DATE OF ADMISSION: 10/13/17 REASON FOR ADMISSION: Left midfoot amputation. HISTORY OF ILLNESS: Kev Gallardo is a 52-year-old male. He is a diabetic, who is noncompliant. He had a wound on his left foot that started about the end of August. He treated it with an antibiotic ointment. The foot became quite erythematous and edematous. He went to see his primary care doctor, Dr. Ferrer. Dr. Ferrer sent the patient to the emergency room. In the emergency room , the patient had a white blood cell count of 22,000 and a CRP of 318. His glucose was noted to be 431. He had left foot x-ray showing evidence of soft tissue infection. He was started on IV antibiotics including vancomycin. He was put on IV Flagyl and cefepime as well. The patient was seen by Dr. Pedro Jean Baptiste. He was maintained on IV antibiotics. He was taken to the operating room by Dr. Jean Baptiste on 10/10/17. 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 The patient continues on IV antibiotics. He is nonweightbearing on the left leg. He has failed to have physical therapy and occupational therapy needs. He is now being admitted for inpatient rehab, so he might return to independent living. PAST MEDICAL HISTORY: Significant for diabetes mellitus. He was not compliant prior to admission. He apparently had a hemoglobin A1c of 12.9 in the emergency room. In addition to diabetes, he has a history of hypertension. He has a history of gastroesophageal reflux disease. CURRENT MEDICATIONS: The patient is currently on Lantus insulin and lispro insulin. In addition, he is on heparin for DVT prophylaxis. He is on IV ceftriaxone and IV Flagyl. He is also on Prilosec. He was on no meds prior to admission. ALLERGIES: No known drug allergies. SOCIAL HISTORY: He is a 2-pack a day smoker, nondrinker. He lives with his mother in a one-darrell house with 3 steps to enter. REVIEW OF SYSTEMS: The patient reports no current shortness of breath or chest pain. PHYSICAL EXAMINATION VITAL SIGNS: The patient's temperature is 97.7, blood pressure is 157/91, pulse is 85, respirations 18. HEENT: His extraocular movements are intact. Tongue is midline. NECK: Supple. LUNGS: Sounded clear to auscultation bilaterally. HEART: Sound are regular. S1 and S2 audible. ABDOMEN: Soft and nontender. EXTREMITIES: His left foot has an amputation. The foot is wrapped. His right foot, there maybe slightly decreased sensation peripherally. NEUROLOGIC: The patient is awake, alert, and oriented. As mentioned, there might be slightly decreased sensation in the right foot. Muscle strength appear to be 5/5 in both upper extremities and lower extremities. Functional exam, he transfers with minimal amount of assistance. ASSESSMENT: Left midfoot amputation in a diabetic, who is noncompliant. PLAN: Integrate him into a comprehensive and therapeutic rehab program with the following goals: 1. Physical Therapy will work with the patient. They are going to work on functional transfer training, ambulation training with a walker. 2. Occupational Therapy will see the patient, work on his activities of daily living including toileting and toilet transfers. 3. Heparin for DVT prophylaxis. 4. Adequate analgesia. 5. His bowels will be regulated. 6. For his diabetes mellitus, we will do fingersticks 4 times a day. We are going to continue Lantus and lispro for now. We are going to add in Glucophage tomorrow. 7. Manager Risk Management will be closely involved to make sure that any services and equipment the patient requires are in place prior to the discharge. 8. Family training as appropriate. 9. Home with appropriate services. ESTIMATED LENGTH OF STAY: 7 to 10 days. [id number]/CPS #: [id number] RADHA
[2017-10-13] MEDS: Docusate CAP* 100 MG PO SCH (19:41)
[2017-10-13] MEDS: oxyCODONE/Acetamin 5/325 MG* TAB PO PRN (20:35)
[2017-10-13] MEDS: diPHENhydraMINE PO* 25 MG PO PRN (23:04)
[2017-10-14] MEDS: oxyCODONE/Acetamin 5/325 MG* TAB PO PRN (01:23)
[2017-10-14] MEDS: metroNIDAZOLE IV 500 MG/100ML* 500 MG/100 ML BAG IVPB SCH ×2 (05:02→17:12)
[2017-10-14 05:12] LABS: ABS Basophils 0.1 10^3/ul (0-0.2); ABS Eosinophils 0.3 10^3/ul (0-0.6); ABS Lymphocytes 2.2 10^3/ul (1.0-4.8); ABS Monocytes 0.9 10^3/ul (0-0.8); ABS Neutrophils 5.9 10^3/ul (1.5-7.7); ABS Nucleated RBC 0 10^3/ul; Eosinophil % 3.5 % (0-6); Hematocrit 30 % (42-52); Hemoglobin 10.1 g/dl (14.0-18.0); Lymphocyte % 23.4 % (25-47); Mean Corpuscular HGB Conc 34 g/dl (31-36); Mean Corpuscular Hemoglobin 27 pg (27-31); Mean Corpuscular Volume 81 fL (80-94); Mean Platelet Volume 7 um3 (7.4-10.4); Nucleated Red Blood Cells % 0; Platelet Count 348 10^3/ul (150-450); Red Blood Count 3.74 10^6/ul (4.0-5.4); Red Cell Distribution Width 14 % (10.5-15); White Blood Count 9.5 10^3/ul (3.5-10.8)
[2017-10-14 05:27] LABS: EGFR Non-African American 149.5 (>60)
[2017-10-14] MEDS: Heparin VIAL(*) 5000 UNITS/ML VIAL (FIVE THOUSAND) SUBCUT SCH ×3 (06:16→21:26)
[2017-10-14] MEDS: Omeprazole CAP* 20 MG PO SCH (06:17)
[2017-10-14] MEDS: Losartan TAB* 25 MG PO SCH (07:56)
[2017-10-14] MEDS: Docusate CAP* 100 MG PO SCH ×2 (07:56→21:26)
[2017-10-14] MEDS: Insulin GLARGINE(*) 1 UNITS UNIT SUBCUT SCH (07:57)
[2017-10-14] MEDS: Insulin LISPRO* 1 UNITS UNIT SUBCUT SCH ×3 (07:57→17:12)
[2017-10-14] MEDS: cefTRIAXone(*) 2 GM in NS 0.9% 100 ML* 100 ML IVPB SCH (11:38)
--- NOTE | 2017-10-14 16:53 | PN ---
Progress Note Date of Service: 10/14/17 Note: AMIE MCGUIRE was visited. Therapy notes read and reviewed. He is moving fairly well. Would like to add Metformin to his diabetes meds. He was on metformin in the past and had diarrhea, but is willing to try again. On IV Ceftriaxone/Flagyl Current Medications: Active Medications Generic Name Dose Route Start Last Admin Trade Name Freq PRN Reason Stop Dose Admin Acetaminophen 650 mg 10/13/17 10:58 Tylenol Tab* PO Q6H PRN FEVER/PAIN Dextrose 12.5 gm 10/13/17 11:11 D50w Syringe 50 Ml* IV PUSH .FOR FS < 60 - SS PRN FS < 60 Diphenhydramine HCl 25 mg 10/13/17 11:09 10/13/17 23:04 Benadryl Po* PO 25 mg BEDTIME PRN Administration INSOMNIA Docusate Sodium 100 mg 10/13/17 21:00 10/14/17 07:56 Colace Cap* PO 100 mg BID VANIA Administration Heparin Sodium (Porcine) 5,000 units 10/13/17 14:00 10/14/17 14:11 Heparin Vial(*) SUBCUT 5,000 units Q8HR VANIA Administration Ceftriaxone Sodium 2 gm/ 100 mls @ 200 mls/hr 10/13/17 12:00 10/14/17 11:38 Sodium Chloride IVPB 200 mls/hr Q24H VANIA Administration Metronidazole/Sodium Chloride 500 mg in 100 mls @ 100 mls/hr 10/13/17 17:00 10/14/17 05:02 Flagyl 500 Mg Ivpb* IVPB 100 mls/hr Q12H VANIA Administration Insulin Glargine 35 units 10/14/17 09:00 10/14/17 07:57 Lantus(*) SUBCUT 35 units Q24H VANIA Administration Insulin Human Lispro 5 units 10/13/17 11:30 10/14/17 11:38 Humalog* SUBCUT 5 units AC VANIA Administration Losartan Potassium 50 mg 10/14/17 09:00 10/14/17 07:56 Cozaar Tab* PO 50 mg DAILY VANIA Administration Magnesium Hydroxide 30 ml 10/13/17 10:58 Milk Of Magnesia Liq* PO Q6H PRN CONSTIPATION Metformin HCl 500 mg 10/15/17 08:00 Glucophage* PO 0800,1700 VANIA Omeprazole 20 mg 10/14/17 06:00 10/14/17 06:17 Prilosec Cap* PO 20 mg 0600 VANIA Administration Oxycodone/Acetaminophen 1 tab 10/13/17 11:35 10/14/17 01:23 Percocet 5/325 Tab* PO 1 tab Q4H PRN Administration PAIN - MODERATE TO SEVERE Oxycodone/Acetaminophen 2 tab 10/13/17 11:36 Percocet 5/325 Tab* PO Q4H PRN PAIN - SEVERE Senna 2 tab 10/13/17 10:58 Senokot Tab* PO BEDTIME PRN CONSTIPATION Vital Signs: Vital Signs Temp Pulse Resp BP Pulse Ox 100.0 F 85 18 140/65 97 10/14/17 16:06 10/14/17 16:06 10/14/17 16:07 10/14/17 16:06 10/14/17 16:07 Lab Results: Laboratory Results - last 24 hr 10/13/17 10/14/17 10/14/17 20:31 04:59 04:59 WBC 9.5 RBC 3.74 L Hgb 10.1 L Hct 30 L MCV 81 MCH 27 MCHC 34 RDW 14 Plt Count 348 MPV 7 L Neut % (Auto) 62.3 Lymph % (Auto) 23.4 L [place] % (Auto) 10.0 H Eos % (Auto) 3.5 Baso % (Auto) 0.8 Absolute Neuts (auto) 5.9 Absolute Lymphs (auto) 2.2 Absolute Monos (auto) 0.9 H Absolute Eos (auto) 0.3 Absolute Basos (auto) 0.1 Absolute Nucleated RBC 0 Nucleated RBC % 0 Sodium 135 Potassium 3.9 Chloride 105 Carbon Dioxide 27 Anion Gap 3 BUN 11 Creatinine 0.57 L Est GFR ( Amer) 192.3 Est GFR (Non-Af Amer) 149.5 BUN/Creatinine Ratio 19.3 Glucose 178 H POC Glucose (mg/dL) 105 H Calcium 8.0 L Total Bilirubin 0.10 L AST 10 L ALT 8 Alkaline Phosphatase 42 Total Protein 5.4 L Albumin 2.2 L Globulin 3.2 Albumin/Globulin Ratio 0.7 L 10/14/17 10/14/17 11:33 16:24 WBC RBC Hgb Hct MCV MCH MCHC RDW Plt Count MPV Neut % (Auto) Lymph % (Auto) [place] % (Auto) Eos % (Auto) Baso % (Auto) Absolute Neuts (auto) Absolute Lymphs (auto) Absolute Monos (auto) Absolute Eos (auto) Absolute Basos (auto) Absolute Nucleated RBC Nucleated RBC % Sodium Potassium Chloride Carbon Dioxide Anion Gap BUN Creatinine Est GFR ( Amer) Est GFR (Non-Af Amer) BUN/Creatinine Ratio Glucose POC Glucose (mg/dL) 132 H 165 H Calcium Total Bilirubin AST ALT Alkaline Phosphatase Total Protein Albumin Globulin Albumin/Globulin Ratio Exam: LUNGS: Clear bilaterally HEART: reg rhythm ABDOMEN: Soft, +BS EXTREMITIES: Left foot in cast Assessment/Plan: 10/14/17 16:51 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 PT/OT. 2. Left foot infection: Group B Strep, MSSA, Finegoldia: IV Ceftriaxone/Flagyl. Will ask Dr. Conn to comment: length of antibiotic treatment 3. Hypertension: Cozaar 4. Diabetes: Will add Metformin and cut back regular insulin 5. DVT Prophylaxis: Heparin S/Q 6. Insomnia: Benadryl
[2017-10-15] MEDS: metroNIDAZOLE IV 500 MG/100ML* 500 MG/100 ML BAG IVPB SCH ×2 (04:50→17:32)
[2017-10-15] MEDS: Omeprazole CAP* 20 MG PO SCH (05:49)
[2017-10-15] MEDS: Heparin VIAL(*) 5000 UNITS/ML VIAL (FIVE THOUSAND) SUBCUT SCH ×3 (05:49→21:31)
[2017-10-15] MEDS: Insulin GLARGINE(*) 1 UNITS UNIT SUBCUT SCH (08:40)
[2017-10-15] MEDS: Insulin LISPRO* 1 UNITS UNIT SUBCUT SCH ×3 (08:40→17:44)
[2017-10-15] MEDS: Losartan TAB* 25 MG PO SCH (09:09)
[2017-10-15] MEDS: metFORMIN* 500 MG TAB PO SCH ×2 (09:09→17:44)
[2017-10-15] MEDS: Docusate CAP* 100 MG PO SCH ×2 (09:10→21:30)
[2017-10-15] MEDS: cefTRIAXone(*) 2 GM in NS 0.9% 100 ML* 100 ML IVPB SCH (11:42)
--- NOTE | 2017-10-15 12:34 | PMRUTEAM ---
PMRU: Goals Current Status: Nursing: Current Status Skin Deviations [Left Foot] Incision Skin Deviation Description [ drsg and cast in place Left Foot] Physical Therapy: Current Status Bed Mobility Assistance Independent Transfer Moblility Assistance Supervision Transfer/Bed Mobility Rolling Walker Recommended Devices Ambulation Assistance Supervision Ambulation Assistive Devices Rolling Walker Number of Feet Patient 18' Ambulated Ambulation Comment pt. presents a hop to type gait pattern. Stairs Assistance Not Tested Stairs Recommended Devices Two Rails Number of Stairs 3 Manual Wheelchair Control/ Bilateral UE's Technique Wheelchair Propulsion Ability Independent Wheelchair Distance (ft) 100 Occupational Therapy: Current Status Upper Body Dressing Supervision Lower Body Dressing Contact Guard Assist Bathing Min Assist Toileting Supervision Toilet Transfer Contact Guard Assist Shower Transfer Contact Guard Assist Eating Independent Rec Therapy: Current Status Summary of Assessment and RT assessment complete and pt. is aware of RT Clinical Impression servicse. Pt. identified with a few leisure interests but when asked if he enjoys his life pt. responded, "no" and "it's just there". Pt. states he does get bored sometimes. Pt. has been listening to music on his laptop in his room when not in therapy. Treatment Goals Pt. will engage in leisure activities while on the unit. Treatment Plan Provide RT services and encourage involvement. Offer leisure education and community resources information. Social Work: Current Status Discharge Plan return home with home care svs and family support Potential for Family Training pt's mother is supportive and involved Anticipated Discharge Home Destination Discharge With home care svs and family support Nutrition: Current Status Monitoring full nutrition assessment planned 10/17. He is eating well; consistent carb diet appropriate. Poorly-controlled DM; stopped oral agents six months ago. FS here generally ranging 130s-180s; receiving 35 units Lantus daily. Initial goals as outlined below. Goals: Physical Therapy: Initial Goals Bed Mobility Assistance Independent Transfer Mobility Assistance Independent Transfer/Bed Mobility Rolling Walker Recommended Devices Ambulation Independent Ambulation Recommended Devices Rolling Walker Ambulation Distance 50 Stairs Assistance Independent Number of Stairs 5 Home Exercise Program Independent Assistance Physical Therapy: Updated Goals Bed Mobility Assistance Independent Transfer Mobility Assistance Independent Transfer/Bed Mobility Rolling Walker Recommended Devices Ambulation Assistance Independent Ambulation Assistive Devices Rolling Walker Ambulation Distance (ft) 50 Stairs Assistance Independent Number of Stairs 3 Home Exercise Program Independent Assistance Occupational Therapy: Initial Goals Goals to be Completed in (Days 5 days ) Upper Body Bathing Routine Modified Independent with Lower Body Bathing Routine Modified Independent with Upper Body Dressing Routine Independent Lower Body Dressing Routine Independent Toilet Hygeine and Clothing Modified Independent with Management Routine Toilet Transfer Routine Modified Independent with Step-In Shower Transfer Modified Independent with Routine Functional Transfers for ADL Modified Independent with Grooming Routine Independent Feeding Routine Independent Nutrition: Goals Intervention Goals 1. adequate po intake to maintain lean body mass without add'l wt gain 2. glycemic control within inpatient parameters; no s/sx hypo- or hyperglycemia 3. skin will remain intact w/o evidence of breakdown 4. regularity of bowel pattern w/o diarrhea (or constipation) 5. diabetes education will be provided; pt questions will be addressed and pt will be without questions or other concerns upon d/c Social Work: Goals Discharge Plan return home with home care svs and family support Potential for Family Training pt's mother is supportive and involved Anticipated Discharge Home Destination Discharge With home care svs and family support Care Plan: Care Plan ADL's - Improve/Maintain Start: 10/13/17 13:26 Freq: DAILY Status: Active Target: Protocol: Activity Type Activity Date Activity User E-Sign Co-Sign Detail Recorded Client Recorded Date Recorded By Document 10/14/17 09:42 [id number] 10/14/17 09:42 [id number] 10/14/17 09:42 PMRU Outcome: ADL's/ADL Transfers Orders/Interventions Occupational Therapy Evaluation & Treatment Device Yes Patient to receive OT 5x/wk for 60-120 Therex min/day Self Care Management Group Therapy UE/LE ADL's with Assist Yes ADL Transfers with Assist Yes Toileting: Transfers,Clothing Management Yes ,Hygeine w/Assist Light Kitchen/Laundry w/Assist Yes Progression Toward Outcome/Goals Progressing DVT Prophylaxis- Improve/Maintain Start: 10/13/17 13:26 Freq: DAILY Status: Active Target: Protocol: Activity Type Activity Date Activity User E-Sign Co-Sign Detail Recorded Client Recorded Date Recorded By Document 10/15/17 00:29 [id number] 10/15/17 00:31 [id number] 10/15/17 00:29 PMRU Outcome: DVT Prophylaxis Outcome/Goals Remains Free of DVT Free of complications from current DVT TEDS Stockings on Every AM, Off at HS Progression Toward Outcome/Goals Progressing Discharge Planning - Improve/Maintain Start: 10/13/17 13:26 Freq: DAILY Status: Active Target: Protocol: Activity Type Activity Date Activity User E-Sign Co-Sign Detail Recorded Client Recorded Date Recorded By Document 10/14/17 10:42 [id number] 10/14/17 10:44 [id number] 10/14/17 10:42 PMRU Outcome: Discharge Planning Identify Patient Needs yes Update Patient Family No Outcome/Goals Demonstrates Understanding of Discharge Plan Progression Toward Outcome/Goals Progressing Medication Administration Start: 10/13/17 13:26 Freq: DAILY Status: Active Target: Protocol: Activity Type Activity Date Activity User E-Sign Co-Sign Detail Recorded Client Recorded Date Recorded By Document 10/15/17 00:29 [id number] 10/15/17 00:31 [id number] 10/15/17 00:29 PMRU Outcome: Medication Administration Assess Patient Knowledge/Teach Med No Education for all Meds Outcome/Goals Patient Independent with Medication Administration at Home Demonstrates Understanding Progression Towards Outcome/Goals Progressing Is Patient Going Home on Lovenox? No Metabolic Status- Improve/Maintain Start: 10/13/17 13:26 Freq: DAILY Status: Active Target: Protocol: Activity Type Activity Date Activity User E-Sign Co-Sign Detail Recorded Client Recorded Date Recorded By Document 10/15/17 00:29 [id number] 10/15/17 00:31 [id number] 10/15/17 00:29 PMRU Outcome: Metabolic Status Have Fingersticks Been Ordered Yes Fingerstick Order Frequency AC & HS Outcome/Goals Maintain/ Improve Metabolic Status Demonstrate Knowledge of Prevention/ Treatment of Metabolic Imbalances Progression Toward Outcome/Goals Progressing Mobility- Improve/Maintain Start: 10/13/17 11:22 Freq: DAILY Status: Active Target: Protocol: Activity Type Activity Date Activity User E-Sign Co-Sign Detail Recorded Client Recorded Date Recorded By Document 10/15/17 12:07 [id number] 10/15/17 12:07 [id number] 10/15/17 12:07 PMRU Outcome: Mobility Physical Therapy Evaluation and Yes Treatment Activity OOB with Assistance Yes NWB Yes Device Yes Assistance Yes Patient to be seen 5x/wk for 60-120 min/ Therex day for: Mobility Training Gait Training Balance Outcome/Goals Maintain/ Achieve Baseline Mobility Status Improve Mobility Status Demonstrates Proper Use of Assistive Devices Free from Complications of Immobility Progression Toward Outcome/Goals Progressing Bed Mobility Yes: Independent Transfers Yes: Independent with RW Gait x ft Yes: Independent 50' with RW, 200' with knee scooter Up/Down Stairs Yes: Independent 3 steps With HEP Yes: Independent Pain/Comfort- Improve/Maintain Start: 10/13/17 13:26 Freq: DAILY Status: Active Target: Protocol: Activity Type Activity Date Activity User E-Sign Co-Sign Detail Recorded Client Recorded Date Recorded By Document 10/15/17 00:29 [id number] 10/15/17 00:31 [id number] 10/15/17 00:29 PMRU Outcome: Pain/Comfort Outcome/Goals Demonstrates Knowledge and Use of Available Comfort Measures Achieves Acceptable Comfort/Pain Level as Determined by Patient/Condit Maintain Comfort Level Allowing Patient to Fully Participate in Rehab Outcome/Goals Met Comment denies need for pain meds at this time Safety- Improve/Maintain Start: 10/13/17 13:26 Freq: DAILY Status: Active Target: Protocol: Activity Type Activity Date Activity User E-Sign Co-Sign Detail Recorded Client Recorded Date Recorded By Document 10/15/17 00:29 [id number] 10/15/17 00:31 [id number] 10/15/17 00:29 PMRU Outcome: Safety Outcome/Goals Remain Free of Injury or Harm Cooperates with Safety Measures for Least Restrictive Environment Prevent Falls/ Injury Progression Toward Outcome/Goals Progressing Skin- Improve/Maintain Start: 10/13/17 13:26 Freq: DAILY Status: Active Target: Protocol: Activity Type Activity Date Activity User E-Sign Co-Sign Detail Recorded Client Recorded Date Recorded By Document 10/15/17 00:29 [id number] 10/15/17 00:31 [id number] 10/15/17 00:29 PMRU Outcome: Skin Skin Risk Level Medium Skin Orders Dressing Change Outcome/Goals Maintain/ Improve Skin Intergrity Surgical Incisions Healing Progression Toward Outcome/Goals Progressing Medicine Note: Length of Stay: 4 days Anticipated Discharge Destination: Home Tentative Discharge Date: 10/19/17 Discharged to: Home
--- NOTE | 2017-10-15 17:09 | PN ---
Progress Note Date of Service: 10/15/17 Note: KEV MCGUIRE was visited. Therapy notes read and reviewed. Kev was discussed in interdisciplinary team rounds. He is on metformin. Had diarrhea after first dose. Will see if it happens again. If it does, will need to go home on Lantus/Lispro and follow up about other options (Januvia, etc.) Current Medications: Active Medications Generic Name Dose Route Start Last Admin Trade Name Freq PRN Reason Stop Dose Admin Acetaminophen 650 mg 10/13/17 10:58 Tylenol Tab* PO Q6H PRN FEVER/PAIN Dextrose 12.5 gm 10/13/17 11:11 D50w Syringe 50 Ml* IV PUSH .FOR FS < 60 - SS PRN FS < 60 Diphenhydramine HCl 25 mg 10/13/17 11:09 10/13/17 23:04 Benadryl Po* PO 25 mg BEDTIME PRN Administration INSOMNIA Docusate Sodium 100 mg 10/13/17 21:00 10/15/17 09:10 Colace Cap* PO Not Given BID VANIA Heparin Sodium (Porcine) 5,000 units 10/13/17 14:00 10/15/17 14:33 Heparin Vial(*) SUBCUT 5,000 units Q8HR VANIA Administration Ceftriaxone Sodium 2 gm/ 100 mls @ 200 mls/hr 10/13/17 12:00 10/15/17 11:42 Sodium Chloride IVPB 200 mls/hr Q24H VANIA Administration Metronidazole/Sodium Chloride 500 mg in 100 mls @ 100 mls/hr 10/13/17 17:00 10/15/17 04:50 Flagyl 500 Mg Ivpb* IVPB 100 mls/hr Q12H VANIA Administration Insulin Glargine 35 units 10/14/17 09:00 10/15/17 08:40 Lantus(*) SUBCUT 35 units Q24H VANIA Administration Insulin Human Lispro 3 units 10/15/17 07:30 10/15/17 11:40 Humalog* SUBCUT 3 units AC VANIA Administration Losartan Potassium 50 mg 10/14/17 09:00 10/15/17 09:09 Cozaar Tab* PO 50 mg DAILY VANIA Administration Magnesium Hydroxide 30 ml 10/13/17 10:58 Milk Of Magnesia Liq* PO Q6H PRN CONSTIPATION Metformin HCl 500 mg 10/15/17 08:00 10/15/17 09:09 Glucophage* PO 500 mg 0800,1700 VANIA Administration Omeprazole 20 mg 10/14/17 06:00 10/15/17 05:49 Prilosec Cap* PO 20 mg 0600 VANIA Administration Oxycodone/Acetaminophen 1 tab 10/13/17 11:35 10/14/17 01:23 Percocet 5/325 Tab* PO 1 tab Q4H PRN Administration PAIN - MODERATE TO SEVERE Oxycodone/Acetaminophen 2 tab 10/13/17 11:36 Percocet 5/325 Tab* PO Q4H PRN PAIN - SEVERE Senna 2 tab 10/13/17 10:58 Senokot Tab* PO BEDTIME PRN CONSTIPATION Vital Signs: Vital Signs Temp Pulse Resp BP Pulse Ox 99.1 F 80 18 149/71 96 10/15/17 04:52 10/15/17 04:52 10/15/17 04:52 10/15/17 04:52 10/15/17 09:44 Lab Results: Laboratory Results - last 24 hr 10/14/17 10/15/17 10/15/17 20:13 07:20 11:34 POC Glucose (mg/dL) 182 H 218 H 140 H 10/15/17 16:42 POC Glucose (mg/dL) 138 H Exam: LUNGS: Clear bilaterally HEART: reg rhythm ABDOMEN: Soft, +BS EXTREMITIES: Left foot in cast Assessment/Plan: 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 PT/OT. 2. Left foot infection: Group B Strep, MSSA, Finegoldia: IV Ceftriaxone/PO Flagyl. Dr. Conn informed me one more week of antibiotic treatment 3. Hypertension: Cozaar 4. Diabetes: Will add Metformin and cut back regular insulin 5. DVT Prophylaxis: Heparin S/Q 6. Insomnia: Benadryl 10/15/17 17:10
[2017-10-15] MEDS: metroNIDAZOLE TAB* 250 MG PO SCH (21:31)
[2017-10-15] MEDS: diPHENhydraMINE PO* 25 MG PO PRN (23:08)
[2017-10-15] MEDS: oxyCODONE/Acetamin 5/325 MG* TAB PO PRN (23:09)
[2017-10-16] MEDS: Heparin VIAL(*) 5000 UNITS/ML VIAL (FIVE THOUSAND) SUBCUT SCH ×3 (06:08→22:01)
[2017-10-16] MEDS: Omeprazole CAP* 20 MG PO SCH (06:10)
[2017-10-16] MEDS: oxyCODONE/Acetamin 5/325 MG* TAB PO PRN (06:12)
[2017-10-16] MEDS: Losartan TAB* 25 MG PO SCH (08:18)
[2017-10-16] MEDS: Docusate CAP* 100 MG PO SCH ×2 (08:18→21:36)
[2017-10-16] MEDS: Insulin LISPRO* 1 UNITS UNIT SUBCUT SCH ×3 (08:18→17:08)
[2017-10-16] MEDS: metFORMIN* 500 MG TAB PO SCH ×2 (08:18→17:09)
[2017-10-16] MEDS: metroNIDAZOLE TAB* 250 MG PO SCH ×2 (08:18→22:01)
[2017-10-16] MEDS: Insulin GLARGINE(*) 1 UNITS UNIT SUBCUT SCH (08:40)
[2017-10-16] MEDS: cefTRIAXone(*) 2 GM in NS 0.9% 100 ML* 100 ML IVPB SCH (12:10)
--- NOTE | 2017-10-16 18:08 | PN ---
Progress Note Date of Service: 10/16/17 Note: AMIE MCGUIRE was visited. Therapy notes read and reviewed. Tolerating Metformin. His BS are in good control. On IV Ceftriaxone/PO Flagyl. Will continue through 10/20 Current Medications: Active Medications Generic Name Dose Route Start Last Admin Trade Name Freq PRN Reason Stop Dose Admin Acetaminophen 650 mg 10/13/17 10:58 Tylenol Tab* PO Q6H PRN FEVER/PAIN Dextrose 12.5 gm 10/13/17 11:11 D50w Syringe 50 Ml* IV PUSH .FOR FS < 60 - SS PRN FS < 60 Diphenhydramine HCl 25 mg 10/13/17 11:09 10/15/17 23:08 Benadryl Po* PO 25 mg BEDTIME PRN Administration INSOMNIA Docusate Sodium 100 mg 10/13/17 21:00 10/16/17 08:18 Colace Cap* PO 100 mg BID VANIA Administration Heparin Sodium (Porcine) 5,000 units 10/13/17 14:00 10/16/17 14:21 Heparin Vial(*) SUBCUT 5,000 units Q8HR VANIA Administration Ceftriaxone Sodium 2 gm/ 100 mls @ 200 mls/hr 10/13/17 12:00 10/16/17 12:10 Sodium Chloride IVPB 200 mls/hr Q24H VANIA Administration Insulin Glargine 35 units 10/14/17 09:00 10/16/17 08:40 Lantus(*) SUBCUT 35 units Q24H VANIA Administration Insulin Human Lispro 3 units 10/15/17 07:30 10/16/17 17:08 Humalog* SUBCUT 3 units AC VANIA Administration Losartan Potassium 50 mg 10/14/17 09:00 10/16/17 08:18 Cozaar Tab* PO 50 mg DAILY VANIA Administration Magnesium Hydroxide 30 ml 10/13/17 10:58 Milk Of Magnesia Liq* PO Q6H PRN CONSTIPATION Metformin HCl 500 mg 10/15/17 08:00 10/16/17 17:09 Glucophage* PO 500 mg 0800,1700 VANIA Administration Metronidazole 500 mg 10/15/17 21:00 10/16/17 08:18 Flagyl Tab* PO 500 mg BID VANIA Administration Omeprazole 20 mg 10/14/17 06:00 10/16/17 06:10 Prilosec Cap* PO 20 mg 0600 VANIA Administration Oxycodone/Acetaminophen 1 tab 10/13/17 11:35 10/16/17 06:12 Percocet 5/325 Tab* PO 1 tab Q4H PRN Administration PAIN - MODERATE TO SEVERE Oxycodone/Acetaminophen 2 tab 10/13/17 11:36 Percocet 5/325 Tab* PO Q4H PRN PAIN - SEVERE Senna 2 tab 10/13/17 10:58 Senokot Tab* PO BEDTIME PRN CONSTIPATION Vital Signs: Vital Signs Temp Pulse Resp BP Pulse Ox 98.2 F 91 18 141/86 97 10/16/17 16:27 10/16/17 16:27 10/16/17 16:33 10/16/17 16:27 10/16/17 16:33 Lab Results: Laboratory Results - last 24 hr 10/15/17 10/16/17 10/16/17 19:30 07:59 11:49 POC Glucose (mg/dL) 111 H 138 H 130 H 10/16/17 16:20 POC Glucose (mg/dL) 111 H Exam: LUNGS: Clear bilaterally HEART: reg rhythm ABDOMEN: Soft, +BS EXTREMITIES: Left foot in cast Assessment/Plan: 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 PT/OT. 2. Left foot infection: Group B Strep, MSSA, Finegoldia: IV Ceftriaxone/PO Flagyl. Dr. Conn informed me will continue through 10/20 3. Hypertension: Cozaar 4. Diabetes: Will add Metformin and cut back regular insulin 5. DVT Prophylaxis: Heparin S/Q 6. Insomnia: Benadryl 10/16/17 18:08
[2017-10-16] MEDS: diPHENhydraMINE PO* 25 MG PO PRN (22:01)
[2017-10-17] MEDS: oxyCODONE/Acetamin 5/325 MG* TAB PO PRN ×2 (00:07→21:59)
[2017-10-17] MEDS: Heparin VIAL(*) 5000 UNITS/ML VIAL (FIVE THOUSAND) SUBCUT SCH ×3 (06:12→22:02)
[2017-10-17] MEDS: Omeprazole CAP* 20 MG PO SCH (06:13)
[2017-10-17] MEDS: Losartan TAB* 25 MG PO SCH (07:58)
[2017-10-17] MEDS: metroNIDAZOLE TAB* 250 MG PO SCH ×2 (07:58→20:23)
[2017-10-17] MEDS: Insulin LISPRO* 1 UNITS UNIT SUBCUT SCH ×3 (08:00→17:14)
[2017-10-17] MEDS: Insulin GLARGINE(*) 1 UNITS UNIT SUBCUT SCH (08:02)
[2017-10-17] MEDS: metFORMIN* 500 MG TAB PO SCH ×2 (08:03→17:15)
[2017-10-17] MEDS: Docusate CAP* 100 MG PO SCH ×2 (08:03→20:22)
[2017-10-17] MEDS: cefTRIAXone(*) 2 GM in NS 0.9% 100 ML* 100 ML IVPB SCH ×2 (11:56→13:13)
--- NOTE | 2017-10-17 17:25 | PN ---
Progress Note Date of Service: 10/17/17 Note: AMIE MCGUIRE was visited. Therapy notes read and reviewed. He has been having diarrhea from his metformin and does not wish to continue it. Will d/c and increase his Lispro. Will go home on Lantus Solostar/Lispro. He will need to follow up with Dr. Jean Baptiste around October 24. I told him to call office tomorrow for an appointment Current Medications: Active Medications Generic Name Dose Route Start Last Admin Trade Name Freq PRN Reason Stop Dose Admin Acetaminophen 650 mg 10/13/17 10:58 Tylenol Tab* PO Q6H PRN FEVER/PAIN Dextrose 12.5 gm 10/13/17 11:11 D50w Syringe 50 Ml* IV PUSH .FOR FS < 60 - SS PRN FS < 60 Diphenhydramine HCl 25 mg 10/13/17 11:09 10/16/17 22:01 Benadryl Po* PO 25 mg BEDTIME PRN Administration INSOMNIA Docusate Sodium 100 mg 10/13/17 21:00 10/17/17 08:03 Colace Cap* PO Not Given BID VANIA Heparin Sodium (Porcine) 5,000 units 10/13/17 14:00 10/17/17 15:29 Heparin Vial(*) SUBCUT 5,000 units Q8HR VANIA Administration Ceftriaxone Sodium 2 gm/ 100 mls @ 200 mls/hr 10/13/17 12:00 10/17/17 13:13 Sodium Chloride IVPB 200 mls/hr Q24H VANIA Administration Insulin Glargine 35 units 10/14/17 09:00 10/17/17 08:02 Lantus(*) SUBCUT 35 units Q24H VANIA Administration Insulin Human Lispro 4 units 10/17/17 17:22 Humalog* SUBCUT AC VANIA Lactobacillus Rhamnosus 1 cap 10/18/17 09:00 Culturelle* PO DAILY VANIA Losartan Potassium 50 mg 10/14/17 09:00 10/17/17 07:58 Cozaar Tab* PO 50 mg DAILY VANIA Administration Magnesium Hydroxide 30 ml 10/13/17 10:58 Milk Of Magnesia Liq* PO Q6H PRN CONSTIPATION Metronidazole 500 mg 10/15/17 21:00 10/17/17 07:58 Flagyl Tab* PO 500 mg BID VANIA Administration Omeprazole 20 mg 10/14/17 06:00 10/17/17 06:13 Prilosec Cap* PO 20 mg 0600 VANIA Administration Oxycodone/Acetaminophen 1 tab 10/13/17 11:35 10/17/17 00:07 Percocet 5/325 Tab* PO 1 tab Q4H PRN Administration PAIN - MODERATE TO SEVERE Oxycodone/Acetaminophen 2 tab 10/13/17 11:36 Percocet 5/325 Tab* PO Q4H PRN PAIN - SEVERE Senna 2 tab 10/13/17 10:58 Senokot Tab* PO BEDTIME PRN CONSTIPATION Vital Signs: Vital Signs Temp Pulse Resp BP Pulse Ox 99.4 F 85 16 160/90 99 10/17/17 15:11 10/17/17 15:11 10/17/17 15:11 10/17/17 15:11 10/17/17 15:11 Lab Results: Laboratory Results - last 24 hr 10/16/17 10/17/17 10/17/17 21:04 07:33 11:30 POC Glucose (mg/dL) 128 H 143 H 124 H 10/17/17 16:37 POC Glucose (mg/dL) 122 H Exam: LUNGS: Clear bilaterally HEART: reg rhythm ABDOMEN: Soft, +BS EXTREMITIES: Left foot in cast Assessment/Plan: 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 PT/OT. 2. Left foot infection: Group B Strep, MSSA, Finegoldia: IV Ceftriaxone/PO Flagyl. Dr. Conn informed me will continue through 10/20 3. Hypertension: Cozaar 4. Diabetes: Will d/c Metformin and increase regular insulin 5. DVT Prophylaxis: Heparin S/Q 6. Insomnia: Benadryl 10/17/17 17:26
[2017-10-17] MEDS: diPHENhydraMINE PO* 25 MG PO PRN (22:00)
[2017-10-18] MEDS: Heparin VIAL(*) 5000 UNITS/ML VIAL (FIVE THOUSAND) SUBCUT SCH ×3 (04:52→21:05)
[2017-10-18] MEDS: Omeprazole CAP* 20 MG PO SCH (04:53)
[2017-10-18] MEDS: metroNIDAZOLE TAB* 250 MG PO SCH ×2 (07:43→20:26)
[2017-10-18] MEDS: Losartan TAB* 25 MG PO SCH (07:43)
[2017-10-18] MEDS: Lactobacillus Acidophilu (GG)* 1 CAP CAP PO SCH (07:43)
[2017-10-18] MEDS: Insulin LISPRO* 1 UNITS UNIT SUBCUT SCH ×3 (07:45→17:19)
[2017-10-18] MEDS: Insulin GLARGINE(*) 1 UNITS UNIT SUBCUT SCH (07:47)
[2017-10-18] MEDS: Docusate CAP* 100 MG PO SCH ×2 (07:49→20:25)
--- NOTE | 2017-10-18 10:27 | PN ---
Progress Note Date of Service: 10/18/17 Note: AMIE MCGUIRE was visited. Nursing and therapy notes read and reviewed. No chest pain, shortness of breath or abdominal pain. Today is the first day without metformin. Has been frustrated about diarrhea that he believes if from metformin. Current Medications: Active Medications Generic Name Dose Route Start Last Admin Trade Name Freq PRN Reason Stop Dose Admin Acetaminophen 650 mg 10/13/17 10:58 Tylenol Tab* PO Q6H PRN FEVER/PAIN Dextrose 12.5 gm 10/13/17 11:11 D50w Syringe 50 Ml* IV PUSH .FOR FS < 60 - SS PRN FS < 60 Diphenhydramine HCl 25 mg 10/13/17 11:09 10/17/17 22:00 Benadryl Po* PO 25 mg BEDTIME PRN Administration INSOMNIA Docusate Sodium 100 mg 10/13/17 21:00 10/18/17 07:49 Colace Cap* PO Not Given BID VANIA Heparin Sodium (Porcine) 5,000 units 10/13/17 14:00 10/18/17 04:52 Heparin Vial(*) SUBCUT 5,000 units Q8HR VANIA Administration Ceftriaxone Sodium 2 gm/ 100 mls @ 200 mls/hr 10/13/17 12:00 10/17/17 13:13 Sodium Chloride IVPB 200 mls/hr Q24H VANIA Administration Insulin Glargine 35 units 10/14/17 09:00 10/18/17 07:47 Lantus(*) SUBCUT 35 units Q24H VANIA Administration Insulin Human Lispro 4 units 10/17/17 17:22 10/18/17 07:45 Humalog* SUBCUT 4 units AC VANIA Administration Lactobacillus Rhamnosus 1 cap 10/18/17 09:00 10/18/17 07:43 Culturelle* PO 1 cap DAILY VANIA Administration Losartan Potassium 50 mg 10/14/17 09:00 10/18/17 07:43 Cozaar Tab* PO 50 mg DAILY VANIA Administration Magnesium Hydroxide 30 ml 10/13/17 10:58 Milk Of Magnesia Liq* PO Q6H PRN CONSTIPATION Metronidazole 500 mg 10/15/17 21:00 10/18/17 07:43 Flagyl Tab* PO 500 mg BID VANIA Administration Omeprazole 20 mg 10/14/17 06:00 10/18/17 04:53 Prilosec Cap* PO 20 mg 0600 VANIA Administration Oxycodone/Acetaminophen 1 tab 10/13/17 11:35 10/17/17 21:59 Percocet 5/325 Tab* PO 1 tab Q4H PRN Administration PAIN - MODERATE TO SEVERE Oxycodone/Acetaminophen 2 tab 10/13/17 11:36 Percocet 5/325 Tab* PO Q4H PRN PAIN - SEVERE Senna 2 tab 10/13/17 10:58 Senokot Tab* PO BEDTIME PRN CONSTIPATION Vital Signs: Vital Signs Temp Pulse Resp BP Pulse Ox 98.7 F 93 20 161/92 97 10/18/17 04:53 10/18/17 04:53 10/18/17 04:53 10/18/17 04:53 10/18/17 04:55 Lab Results: Laboratory Results - last 24 hr 10/17/17 10/17/17 10/17/17 11:30 16:37 20:18 POC Glucose (mg/dL) 124 H 122 H 124 H 10/18/17 07:33 POC Glucose (mg/dL) 153 H Exam: GEN: No acute distress. Alert and appropriate. LUNGS: Clear bilaterally HEART: regular rate and rhythm ABDOMEN: Soft, +BS, non-tender, non-distended EXTREMITIES: Left foot in cast. No right lower extremity edema. NEURO: decreased sensation to knees consistent with history of diabetic peripheral neuropathy. Assessment/Plan: 52yo man s/p left mid-foot amputation secondary to infection. 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 He is to f/u wt Dr. Jean Baptiste around 10/24. I will ask SW to make appt. Continue PT/OT. 2. Left foot infection: Group B Strep, MSSA, Finegoldia: IV Ceftriaxone/PO Flagyl. Dr. Conn informed me will continue through 10/20 3. Hypertension: Cozaar 4. Diabetes: Will d/c Metformin and increase regular insulin. Needs teaching with nursing on finger sticks and self injection of insulin. 5. DVT Prophylaxis: Heparin S/Q 6. Insomnia: Benadryl 7. Dispo: expect discharge on Saturday to home with family support. 10/18/17 10:23
[2017-10-18] MEDS: cefTRIAXone(*) 2 GM in NS 0.9% 100 ML* 100 ML IVPB SCH (11:22)
--- NOTE | 2017-10-18 15:22 | PN ---
Progress Note - Progress Note Date of Service: 10/18/17 SOAP: Subjective: 52 y/o male s/p midfoot amputation by Dr. Jean Baptiste 10/10/2017. Call received to evaluate surgical dressing. Patient recovering on PMRU, no complaints/ questions. Pain controlled. Objective: General- Well appearing, resting in be comfortably, NAD MSK- L LE- SUrgical spling intact, no drainage noted, no erythema/ induration above splint, patient able to ext, flex L knee well. Vital Signs Temp 98.7 F 10/18/17 04:53 Pulse 93 10/18/17 04:53 Resp 20 10/18/17 04:53 BP 161/92 10/18/17 04:53 Pulse Ox 97 10/18/17 04:55 Intake & Output 10/17/17 10/18/17 10/18/17 18:59 06:59 18:59 Intake Total 230 240 590 Output Total 700 700 Balance -470 240 -110 Weight 105.233 kg Intake: Oral 230 240 590 Output: Urine 700 700 Other: Estimated Void Medium Medium # Bowel Movements 1 Estimated Stool Amount Medium Medium # Voids 1 1 1 Assessment: Stable 52 y/o male s/p midfoot amputation by Dr. Jean Baptiste 10/10/2017. Plan: - Follow up with Dr. Jean Baptiste for splint change as schedules. - ABX per Dr. Guerra - D/C Saturday as planned. Active Medications Generic Name Dose Route Start Last Admin Trade Name Freq PRN Reason Stop Dose Admin Acetaminophen 650 mg 10/13/17 10:58 Tylenol Tab* PO Q6H PRN FEVER/PAIN Dextrose 12.5 gm 10/13/17 11:11 D50w Syringe 50 Ml* IV PUSH .FOR FS < 60 - SS PRN FS < 60 Diphenhydramine HCl 25 mg 10/13/17 11:09 10/17/17 22:00 Benadryl Po* PO 25 mg BEDTIME PRN Administration INSOMNIA Docusate Sodium 100 mg 10/13/17 21:00 10/18/17 07:49 Colace Cap* PO Not Given BID VANIA Heparin Sodium (Porcine) 5,000 units 10/13/17 14:00 10/18/17 04:52 Heparin Vial(*) SUBCUT 5,000 units Q8HR VANIA Administration Ceftriaxone Sodium 2 gm/ 100 mls @ 200 mls/hr 10/13/17 12:00 10/18/17 11:22 Sodium Chloride IVPB 200 mls/hr Q24H VANIA Administration Insulin Glargine 35 units 10/14/17 09:00 10/18/17 07:47 Lantus(*) SUBCUT 35 units Q24H VANIA Administration Insulin Human Lispro 4 units 10/17/17 17:22 10/18/17 11:39 Humalog* SUBCUT 4 units AC VANIA Administration Lactobacillus Rhamnosus 1 cap 10/18/17 09:00 10/18/17 07:43 Culturelle* PO 1 cap DAILY VANIA Administration Losartan Potassium 50 mg 10/14/17 09:00 10/18/17 07:43 Cozaar Tab* PO 50 mg DAILY VANIA Administration Magnesium Hydroxide 30 ml 10/13/17 10:58 Milk Of Magnesia Liq* PO Q6H PRN CONSTIPATION Metronidazole 500 mg 10/15/17 21:00 10/18/17 07:43 Flagyl Tab* PO 500 mg BID VANIA Administration Omeprazole 20 mg 10/14/17 06:00 10/18/17 04:53 Prilosec Cap* PO 20 mg 0600 VANIA Administration Oxycodone/Acetaminophen 1 tab 10/13/17 11:35 10/17/17 21:59 Percocet 5/325 Tab* PO 1 tab Q4H PRN Administration PAIN - MODERATE TO SEVERE Oxycodone/Acetaminophen 2 tab 10/13/17 11:36 Percocet 5/325 Tab* PO Q4H PRN PAIN - SEVERE Senna 2 tab 10/13/17 10:58 Senokot Tab* PO BEDTIME PRN CONSTIPATION
--- NOTE | 2017-10-18 15:26 | CONSULT ---
Subjective Reason for Visit: Left midfoot amputation Admission Date: 10/13/17 Glucose Level On Admission: 220 History Of Present Illness: Mr. Gallardo is a 52 year old male, diagnosed with type II diabetes in 2009 with a history of non-compliance and poor glycemic control. He had been prescribed Glipizide and Metformin, but discontinued these medications 6 months ago due to unfavorable GI side effects. He had not been monitoring his blood glucose. In August, he developed an infection on his left foot. He was treating it at home, when it "blew up" and he sought medical treatment with his primary care provider, Dr. Ferrer. Dr. Ferrer referred the patient to the ED, where he was admitted for cellulitus. On admission, blood glucose was noted to be 431, Hgb A1C 12.9%. He underwent left midfoot amputation with Dr. Jean Baptiste on 10/10/17 and was admitted to the [facility] for rehabilitation on 10/13/17. Anticipates being discharged to home on insulin. He has a needle phobia. Patient History Surgical History: Yes Surgery Procedure, Year, and Place: RIGHT [place] [facility] [place], . left foot amputation 10/10/17 Past Family History: Renal failure Lives With: Family - Mother Marital Status: Single Social Support: Lives with his mother Preferred/Primary Language: Swedish Employed/Unemployed: Unemployed Hx Tobacco Use: Yes Smoking/Tobacco use: Current - 2/3 PPD x37 years Review Of Systems - Review of Systems Eyes: - - Blurred vision, improving Cardiovascular: No Chest Pain, - - SOB with exertion Abdominal: - - diarrhea Neurological: - - n/t bilateral hands and feet. Headache. Skin: - - Surgical dressing c/d/i left foot Endocrine: - - polyura, polydipsia Objective Allergies Allergy/AdvReac Type Severity Reaction Status Date / Time No Known Allergies Allergy Verified 10/07/17 19:46 Home Medications Medication Instructions Recorded Confirmed Type Multivitamin [Multiple Vitamins] 1 tab PO DAILY 06/24/15 10/13/17 History L.jayde,Acid,Ferm,Rhm/B.bif,Long 1 tab PO DAILY 07/19/15 10/13/17 History [Control Delivery Probiotc Cplt] Hospital Medications: Current Medications Acetaminophen (Tylenol Tab*) 650 mg PO Q6H PRN PRN Reason: FEVER/PAIN Dextrose (D50w Syringe 50 Ml*) 12.5 gm IV PUSH .FOR FS < 60 - SS PRN PRN Reason: FS < 60 Diphenhydramine HCl (Benadryl Po*) 25 mg PO BEDTIME PRN PRN Reason: INSOMNIA Last Admin: 10/17/17 22:00 Dose: 25 mg Docusate Sodium (Colace Cap*) 100 mg PO BID [facility] Last Admin: 10/18/17 07:49 Dose: Not Given Heparin Sodium (Porcine) (Heparin Vial(*)) 5,000 units SUBCUT Q8HR [facility] Last Admin: 10/18/17 04:52 Dose: 5,000 units Ceftriaxone Sodium 2 gm/ (Sodium Chloride) 100 mls @ 200 mls/hr IVPB Q24H [facility] Last Admin: 10/18/17 11:22 Dose: 200 mls/hr Insulin Glargine (Lantus(*)) 35 units SUBCUT Q24H [facility] Last Admin: 10/18/17 07:47 Dose: 35 units Insulin Human Lispro (Humalog*) 4 units SUBCUT AC [facility] Last Admin: 10/18/17 11:39 Dose: 4 units Lactobacillus Rhamnosus (Culturelle*) 1 cap PO DAILY [facility] Last Admin: 10/18/17 07:43 Dose: 1 cap Losartan Potassium (Cozaar Tab*) 50 mg PO DAILY [facility] Last Admin: 10/18/17 07:43 Dose: 50 mg Magnesium Hydroxide (Milk Of Magnesia Liq*) 30 ml PO Q6H PRN PRN Reason: CONSTIPATION Metronidazole (Flagyl Tab*) 500 mg PO BID [facility] Last Admin: 10/18/17 07:43 Dose: 500 mg Omeprazole (Prilosec Cap*) 20 mg PO 0600 [facility] Last Admin: 10/18/17 04:53 Dose: 20 mg Oxycodone/Acetaminophen (Percocet 5/325 Tab*) 1 tab PO Q4H PRN PRN Reason: PAIN - MODERATE TO SEVERE Last Admin: 10/17/17 21:59 Dose: 1 tab Oxycodone/Acetaminophen (Percocet 5/325 Tab*) 2 tab PO Q4H PRN PRN Reason: PAIN - SEVERE Senna (Senokot Tab*) 2 tab PO BEDTIME PRN PRN Reason: CONSTIPATION Lab Data: Sodium 135 mmol/L (133-145) 10/14/17 04:59 Potassium 3.9 mmol/L (3.5-5.0) 10/14/17 04:59 BUN 11 mg/dL (6-24) 10/14/17 04:59 Creatinine 0.57 mg/dL (0.67-1.17) L 10/14/17 04:59 Calcium 8.0 mg/dL (8.6-10.3) L 10/14/17 04:59 AST 10 U/L (13-39) L 10/14/17 04:59 ALT 8 U/L (7-52) 10/14/17 04:59 Height: 6 ft Weight: 105.233 kg Body Mass Index (BMI): 31.4 Physical Exam General Appearance: Positive: Alert, Oriented x3, Well Developed, Resting Cardiovascular: Positive: RRR Plan Of Care Referral To: [facility] For Further OutPT Diabetic Training, DSME Diagnosis: Mr. Gallardo is a 52 year old male with type II diabetes, poorly controlled, with a history of non-compliance. He has a needle phobia, which could present a barrier to compliance with insulin administration. Pt was provided with insulin administration education, s/sx/treatment of hypoglycemia, when to seek medical attention, SMBG and goals. He provided return demonstration of insulin administration using proper technique. Smoking cessation was discussed. He may follow up at [facility] for further diabetes education, DSME classes, and smoking cessation as an outpatient. Education Prior Diabetic Education: Yes Education Provided: Daily Self Injection, Blood Glucose Monitoring, When To Seek Medical Attention Handouts Provided: CDC Living Well With Diabetes, Insulin Injection, Symptoms and Treatment of hypoglycemia, Symptoms of Hyperglycemia Goals Goals: According to the [place] [employer], the following are your goals for Hemaglobin A1C, Blood Glucose, Cholesterol and Blood Pressure. Hemaglobin A1C * <7.0% for most * <6.5% for "healthy" * <8.0% for "Less Healthy" Blood Glucose * Fasting Blood Glucose: 80-130 mg/dl * 2 Hour Post Prandial Glucose <180 mg/dl Cholesterol * Triglycerides <150 * LDL <100, Overt CVD <70 * HDL >40
[2017-10-18] MEDS: oxyCODONE/Acetamin 5/325 MG* TAB PO PRN (20:25)
[2017-10-19] MEDS: Omeprazole CAP* 20 MG PO SCH (06:25)
[2017-10-19] MEDS: Heparin VIAL(*) 5000 UNITS/ML VIAL (FIVE THOUSAND) SUBCUT SCH ×3 (06:25→20:48)
[2017-10-19] MEDS: Insulin GLARGINE(*) 1 UNITS UNIT SUBCUT SCH (08:43)
[2017-10-19] MEDS: Insulin LISPRO* 1 UNITS UNIT SUBCUT SCH ×3 (08:44→16:46)
[2017-10-19] MEDS: Lactobacillus Acidophilu (GG)* 1 CAP CAP PO SCH (08:45)
[2017-10-19] MEDS: metroNIDAZOLE TAB* 250 MG PO SCH ×2 (08:45→20:50)
[2017-10-19] MEDS: Losartan TAB* 25 MG PO SCH (08:45)
[2017-10-19] MEDS: Docusate CAP* 100 MG PO SCH ×2 (08:46→20:55)
--- NOTE | 2017-10-19 10:18 | PN ---
Progress Note Date of Service: 10/19/17 Note: AMIE MCGUIRE was visited. Nursing and therapy notes read and reviewed. He knows where and how to get a knee scooter if desired. Met with diabetes nurse educator yesterday. Did his own insulin last night and this morning. Has glucometer at home. No chest pain, shortness of breath or abdominal pain. Requests all new prescriptions for meds he is taking here. Current Medications: Active Medications Generic Name Dose Route Start Last Admin Trade Name Freq PRN Reason Stop Dose Admin Acetaminophen 650 mg 10/13/17 10:58 Tylenol Tab* PO Q6H PRN FEVER/PAIN Dextrose 12.5 gm 10/13/17 11:11 D50w Syringe 50 Ml* IV PUSH .FOR FS < 60 - SS PRN FS < 60 Diphenhydramine HCl 25 mg 10/13/17 11:09 10/17/17 22:00 Benadryl Po* PO 25 mg BEDTIME PRN Administration INSOMNIA Docusate Sodium 100 mg 10/13/17 21:00 10/19/17 08:46 Colace Cap* PO Not Given BID VANIA Heparin Sodium (Porcine) 5,000 units 10/13/17 14:00 10/19/17 06:25 Heparin Vial(*) SUBCUT 5,000 units Q8HR VANIA Administration Ceftriaxone Sodium 2 gm/ 100 mls @ 200 mls/hr 10/13/17 12:00 10/18/17 11:22 Sodium Chloride IVPB 200 mls/hr Q24H VANIA Administration Insulin Glargine 35 units 10/14/17 09:00 10/19/17 08:43 Lantus(*) SUBCUT 35 units Q24H VANIA Administration Insulin Human Lispro 4 units 10/17/17 17:22 10/19/17 08:44 Humalog* SUBCUT 4 units AC VANIA Administration Lactobacillus Rhamnosus 1 cap 10/18/17 09:00 10/19/17 08:45 Culturelle* PO 1 cap DAILY VANIA Administration Losartan Potassium 50 mg 10/14/17 09:00 10/19/17 08:45 Cozaar Tab* PO 50 mg DAILY VANIA Administration Magnesium Hydroxide 30 ml 10/13/17 10:58 Milk Of Magnesia Liq* PO Q6H PRN CONSTIPATION Metronidazole 500 mg 10/15/17 21:00 10/19/17 08:45 Flagyl Tab* PO 500 mg BID VANIA Administration Omeprazole 20 mg 10/14/17 06:00 10/19/17 06:25 Prilosec Cap* PO 20 mg 0600 VANIA Administration Oxycodone/Acetaminophen 1 tab 10/13/17 11:35 10/18/17 20:25 Percocet 5/325 Tab* PO 1 tab Q4H PRN Administration PAIN - MODERATE TO SEVERE Senna 2 tab 10/13/17 10:58 Senokot Tab* PO BEDTIME PRN CONSTIPATION Vital Signs: Vital Signs Temp Pulse Resp BP Pulse Ox 97.9 F 98 20 154/86 96 10/19/17 06:29 10/19/17 06:29 10/19/17 06:29 10/19/17 06:29 10/19/17 06:29 Lab Results: Laboratory Results - last 24 hr 10/18/17 10/18/17 10/18/17 11:24 16:45 21:06 POC Glucose (mg/dL) 140 H 158 H 147 H 10/19/17 07:53 POC Glucose (mg/dL) 199 H Exam: GEN: No acute distress. Alert and appropriate. LUNGS: Clear bilaterally HEART: regular rate and rhythm ABDOMEN: Soft, +BS, non-tender, non-distended EXTREMITIES: Left foot in cast. No right lower extremity edema. NEURO: decreased sensation to knees consistent with history of diabetic peripheral neuropathy. Assessment/Plan: 52yo man s/p left mid-foot amputation secondary to infection. 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 He is to f/u [facility] Dr. Jean Baptiste 10/24 at 11am. 2. Left foot infection: Group B Strep, MSSA, Finegoldia: IV Ceftriaxone/PO Flagyl. He will be done after IV antibiotic dose tomorrow around 11:30am. 3. Hypertension: Cozaar 4. Diabetes: Will go home on lantus and scheduled lispro 5. DVT Prophylaxis: Heparin S/Q 6. Insomnia: Benadryl prn 7. Dispo: expect discharge tomorrow to home with family support. 10/19/17 10:17
[2017-10-19] MEDS: cefTRIAXone(*) 2 GM in NS 0.9% 100 ML* 100 ML IVPB SCH (11:50)
[2017-10-20] MEDS: oxyCODONE/Acetamin 5/325 MG* TAB PO PRN (04:49)
[2017-10-20] MEDS: Heparin VIAL(*) 5000 UNITS/ML VIAL (FIVE THOUSAND) SUBCUT SCH (04:49)
[2017-10-20] MEDS: Omeprazole CAP* 20 MG PO SCH (04:50)
[2017-10-20 04:57] VITALS: BP 151/86
[2017-10-20] MEDS: Losartan TAB* 25 MG PO SCH (08:47)
[2017-10-20] MEDS: Lactobacillus Acidophilu (GG)* 1 CAP CAP PO SCH (08:47)
[2017-10-20] MEDS: metroNIDAZOLE TAB* 250 MG PO SCH (08:47)
[2017-10-20] MEDS: Insulin GLARGINE(*) 1 UNITS UNIT SUBCUT SCH (08:48)
[2017-10-20] MEDS: Insulin LISPRO* 1 UNITS UNIT SUBCUT SCH ×2 (08:49→12:36)
[2017-10-20] MEDS: Docusate CAP* 100 MG PO SCH (08:50)
--- NOTE | 2017-10-20 10:14 | PN ---
Progress Note Date of Service: 10/20/17 Note: AMIE MCGUIRE was visited. Nursing notes read and reviewed. He feels ready to go home today. No new concerns. Current Medications: Active Medications Generic Name Dose Route Start Last Admin Trade Name Freq PRN Reason Stop Dose Admin Acetaminophen 650 mg 10/13/17 10:58 Tylenol Tab* PO Q6H PRN FEVER/PAIN Dextrose 12.5 gm 10/13/17 11:11 D50w Syringe 50 Ml* IV PUSH .FOR FS < 60 - SS PRN FS < 60 Diphenhydramine HCl 25 mg 10/13/17 11:09 10/17/17 22:00 Benadryl Po* PO 25 mg BEDTIME PRN Administration INSOMNIA Docusate Sodium 100 mg 10/13/17 21:00 10/20/17 08:50 Colace Cap* PO Not Given BID VANIA Heparin Sodium (Porcine) 5,000 units 10/13/17 14:00 10/20/17 04:49 Heparin Vial(*) SUBCUT 5,000 units Q8HR VANIA Administration Ceftriaxone Sodium 2 gm/ 100 mls @ 200 mls/hr 10/13/17 12:00 10/19/17 11:50 Sodium Chloride IVPB 200 mls/hr Q24H VANIA Administration Insulin Glargine 35 units 10/14/17 09:00 10/20/17 08:48 Lantus(*) SUBCUT 35 units Q24H VANIA Administration Insulin Human Lispro 4 units 10/17/17 17:22 10/20/17 08:49 Humalog* SUBCUT 4 units AC VANIA Administration Lactobacillus Rhamnosus 1 cap 10/18/17 09:00 10/20/17 08:47 Culturelle* PO 1 cap DAILY VANIA Administration Losartan Potassium 50 mg 10/14/17 09:00 10/20/17 08:47 Cozaar Tab* PO 50 mg DAILY VANIA Administration Magnesium Hydroxide 30 ml 10/13/17 10:58 Milk Of Magnesia Liq* PO Q6H PRN CONSTIPATION Metronidazole 500 mg 10/15/17 21:00 10/20/17 08:47 Flagyl Tab* PO 500 mg BID VANIA Administration Omeprazole 20 mg 10/14/17 06:00 10/20/17 04:50 Prilosec Cap* PO 20 mg 0600 VANIA Administration Oxycodone/Acetaminophen 1 tab 10/13/17 11:35 10/20/17 04:49 Percocet 5/325 Tab* PO 1 tab Q4H PRN Administration PAIN - MODERATE TO SEVERE Senna 2 tab 10/13/17 10:58 Senokot Tab* PO BEDTIME PRN CONSTIPATION Vital Signs: Vital Signs 10/19/17 10/19/17 10/20/17 16:38 20:00 04:37 Temperature 98.0 F 98.5 F Pulse Rate 92 107 Respiratory 18 18 18 Rate Blood Pressure 124/65 151/86 (mmHg) O2 Sat by Pulse 97 96 Oximetry 10/20/17 10/20/17 10/20/17 04:49 06:49 07:00 Temperature Pulse Rate Respiratory 18 18 18 Rate Blood Pressure (mmHg) O2 Sat by Pulse Oximetry 10/20/17 10/20/17 08:50 08:52 Temperature Pulse Rate Respiratory 18 Rate Blood Pressure (mmHg) O2 Sat by Pulse 96 Oximetry I rechecked pulse manually and got 88. Lab Results: Laboratory Results - last 24 hr 10/19/17 10/19/17 10/19/17 11:42 16:40 20:41 POC Glucose (mg/dL) 133 H 172 H 131 H 10/20/17 07:44 POC Glucose (mg/dL) 173 H Exam: GEN: No acute distress. Alert and appropriate. LUNGS: Clear bilaterally HEART: regular rate and rhythm ABDOMEN: Soft, +BS, non-tender, non-distended EXTREMITIES: Left foot in cast. No right lower extremity edema. NEURO: decreased sensation to knees consistent with history of diabetic peripheral neuropathy. Assessment/Plan: 52yo man s/p left mid-foot amputation secondary to infection. 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 He is to f/u [facility] Dr. Jean Baptiste 10/24 at 11am. 2. Left foot infection: Group B Strep, MSSA, Finegoldia: IV Ceftriaxone/PO Flagyl. He will be done after IV antibiotic dose today prior to discharge. 3. Hypertension: Cozaar 4. Diabetes: Will go home on lantus and scheduled lispro. He will f/u with PCP and also I recommended he f/u with [facility]. 5. DVT Prophylaxis: Heparin S/Q while in hospital. 6. Insomnia: Benadryl prn 7. Dispo: expect discharge today to home with family support. I d/w pt taking medications as prescribed and making sure he follows up with Dr. Jean Baptiste, Dr. Ferrer and [facility]. 10/20/17 10:12
[2017-10-20] MEDS: cefTRIAXone(*) 2 GM in NS 0.9% 100 ML* 100 ML IVPB SCH (11:27)
--- NOTE | 2017-10-20 21:19 | DS ---
CC: Dr. Ferrer; Dr. Pedro Jean Baptiste * REHABILITATION DISCHARGE SUMMARY: DATE OF ADMISSION: 10/13/17 DATE OF DISCHARGE: 10/20/17 PRIMARY CARE PROVIDER: Dr. Ferrer. ORTHOPEDIC SURGEON: Dr. Jean Baptiste. REASON FOR ADMISSION: Left midfoot amputation. HISTORY OF PRESENT ILLNESS: For full details of his acute hospitalization leading up to his admission, please see the note dictated by Dr. Waters on . REHABILITATION COURSE: During his time on the [facility], his dressing to his left lower extremity remained intact. He was visited by Dr. Jean Baptiste's physician's historian research assistant who made sure the splint was still fitting appropriately. He will have followup with Dr. Jean Baptiste on 10/24/17 at 11 a.m. He continued on IV antibiotics during his stay of ceftriaxone 2 g q.24 hours and also oral metronidazole. Dr. Conn said he could be completed with antibiotics as of his dose of ceftriaxone IV today. He was initially restarted on metformin as part of his diabetes management, but this gave him diarrhea. It was discontinued and the decision was made to manage his diabetes with scheduled Lantus and lispro before each meal. He was seen by Arianna Pope for diabetes education. He has been given information to follow up with [facility] regarding ongoing diabetes management. It is unclear that he will take up that appointment. He was trained in self management of insulin. He needs to follow up with Dr. Ferrer in 1 to 2 weeks after discharge. During his time on the [facility], he participated well with physical therapy. At the time of discharge, he is independent with bed mobility. He can transfer with a rolling walker or knee scooter independently. He can ambulate independently using a rolling walker or a knee scooter. He has a home exercise program and is able to maintain his precautions of no weightbearing on the left lower extremity. His insurance would not pay for a knee scooter. He was given information on how to either rent or purchase one if he so desires. He also participated well with occupational therapy and at the time of discharge, he is independent eating. He is independent with sponge bathing. He is independent with dressing, sitting at the edge of the bed or sitting in a chair. He can do toileting and toilet transfer with a walker or a knee scooter. He needs assistance with complex home management tasks. He is independent with simple home management tasks. His mother is available to assist him if needed at the time of discharge. DISCHARGE MEDICATIONS: 1. Acetaminophen 650 mg q.6 hours p.r.n. 2. Lantus insulin 35 units q.24 hours. 3. Lispro 4 units subcutaneously q.a.c. 4. Culturelle 1 tab daily. 5. Losartan 50 mg daily. 6. Omeprazole 20 mg daily. 7. Percocet 5/325 one tablet q.4 hours p.r.n. pain, not to exceed 2 per day and wean off as tolerated. 8. Multivitamin daily. DISCHARGE CONDITION: Good. DISCHARGE DISPOSITION: Home with his mother's support. DISCHARGE DIAGNOSES: 1. Poorly controlled diabetes mellitus, now insulin dependent. 2. Diabetic foot ulcer with osteomyelitis and cellulitis, status post left midfoot amputation. 3. Hypertension. 4. Gastroesophageal reflux disease. FOLLOWUP: 1. Referral has been sent to visiting nurse services for nursing, home care, and physical therapy. 2. Follow up with Dr. Ferrer, his primary care provider, in 1 to 2 weeks. 3. Follow up with Arianna Pope at [facility] for ongoing diabetes education in about 1 month. 4. Follow up with Dr. Jean Baptiste on 10/24/17 at 11 a.m. [id number]/[facility] #: [id number] [facility]
== END 2017-10-20 12:55 | disposition home health service (06) | DRG 561 ==
LOC: PMRU 10-13 10:01
PROVIDERS: ADMIT Physical Medicine & Rehabilitation; ATTEND Physical Medicine & Rehabilitation
PROC: F07Z5ZZ Bed Mobility Treatment (ICD-10-PCS; principal; 2017-10-13)
PROC: F07Z9ZZ Gait Training/Functional Ambulation Treatment (ICD-10-PCS; 2017-10-13)
PROC: F07Z8ZZ Transfer Training Treatment (ICD-10-PCS; 2017-10-13)
PROC: F07Z4ZZ Wheelchair Mobility Treatment (ICD-10-PCS; 2017-10-13)
PROC: F08Z0ZZ Bathing/Showering Techniques Treatment (ICD-10-PCS; 2017-10-13)
PROC: F08Z3ZZ Feeding/Eating Treatment (ICD-10-PCS; 2017-10-13)
PROC: F08Z1ZZ Dressing Techniques Treatment (ICD-10-PCS; 2017-10-13)
DX: Z47.81 Encounter for orthopedic aftercare following surgical amputation (principal); E11.42 Type 2 diabetes mellitus with diabetic polyneuropathy; L08.89 Other specified local infections of the skin and subcutaneous tissue; B95.1 Streptococcus, group B, as the cause of diseases classified elsewhere; B95.61 Methicillin susceptible Staphylococcus aureus infection as the cause of diseases classified elsewhere; F17.210 Nicotine dependence, cigarettes, uncomplicated; G47.00 Insomnia, unspecified; I10 Essential (primary) hypertension; K21.9 Gastro-esophageal reflux disease without esophagitis; Z89.432 Acquired absence of left foot; Z79.84 Long term (current) use of oral hypoglycemic drugs; Z91.14 Patient's other noncompliance with medication regimen
CPT/HCPCS: 36415; 80053; 85025; 99221; A9270-GY; J0696; J1644; J3490

== ENCOUNTER 2018-02-03 10:38 | Day surgery (SDC) | payer MEDICARE, MEDICAID ==
[~2018-02-03 10:38] MED LIST: Buffered Lidocaine 0.9% SYRIN* 5 ML/SYR SYRINGE INTRADERM ONE; Famotidine IV* 10 MG/ML 2 ML (20 mg) IV ONE; Metoclopramide IV* 5 MG/ML 2 ML VIAL IV SLOW PU ONE
[2018-02-03] MEDS ORDERED: Famotidine IV* 10 MG/ML 2 ML (20 mg) ONE (10:54)
[2018-02-03] MEDS ORDERED: Metoclopramide IV* 5 MG/ML 2 ML VIAL ONE (10:54)
[2018-02-03] MEDS ORDERED: ceFAZolin 2 GM PREMIX (*) 2 GM/50 ML BAG IVPB ONE (10:54)
[2018-02-03] MEDS ORDERED: Bupivacaine 0.5% SDV PF* 30ML VIAL ONE (13:21)
[2018-02-03] MEDS ORDERED: Lidocaine 2% PF * 5 ML VIAL ONE (13:25)
[2018-02-03] MEDS ORDERED: Propofol* 10 MG/ML 20 ML BTL IV PUSH ONE (13:25)
[2018-02-03] MEDS ORDERED: fentaNYL* 50 MCG/ML 2 ML VIAL (100 MCG VIAL) ONE (13:27)
[2018-02-03] MEDS ORDERED: oxyCODONE/Acetamin 5/325 MG* TAB PO PRN (13:29)
[2018-02-03] MEDS ORDERED: HYDROcodone/ACETAMIN 5-325 MG* 1 TAB PO PRN (13:29)
[2018-02-03] MEDS ORDERED: DiMENhydriNATE IV* 50 MG/ML VIAL IV PUSH PRN (13:29)
[2018-02-03] MEDS ORDERED: Ondansetron INJ* 2 MG/ML VIAL IV PRN (13:29)
[2018-02-03] MEDS ORDERED: fentaNYL* 50 MCG/ML 2 ML VIAL (100 MCG VIAL) IV PRN (13:29)
[2018-02-03] MEDS ORDERED: Naloxone* 0.4 MG/ML 1 ML VIAL IV PRN (13:29)
[2018-02-03] MEDS ORDERED: Mivacurium Chloride* 20 MG/10 ML VIAL IV ONE (13:35)
[2018-02-03] MEDS ORDERED: EPHEDrine (Pressors)* 50 MG/ML VIAL ONE (13:54)
[2018-02-03 15:49] VITALS: BP 148/79
--- NOTE | 2018-02-04 07:50 | OP ---
DATE OF OPERATION: 02/03/18 - SDS DATE OF : 63 SURGEON: Pedro Jean Baptiste MD TIP STITCHER: Adeline Hazel PA-C PRE-OP DIAGNOSIS: Breakdown, chronic, left hindfoot amputation. POST-OP DIAGNOSIS: Breakdown, chronic, left hindfoot amputation. OPERATIVE PROCEDURE: Debridement and revision of amputation, left hindfoot. DESCRIPTION OF PROCEDURE: The patient was taken to the operating room where a transverse elliptical incision was made to the previous wound removing the ulcer. I dissected plantarward where there was a large bursa filled with some clear syrupy fluid; this was excised. Cultures were sent. We also debrided dorsally underneath the anterior flap, removing similar granulomatous type material. We also shaved some of the head of the talus back, so that we could advance the flaps. After hemostasis was obtained, we irrigated thoroughly and closed the flaps with 0-Vicryl sutures, 2-0 Vicryl subcu, and 2-0 Prolene for the skin. Compression dressing, plaster splint was applied. [id number]/[facility] #: [id number] RAD[facility]
== END 2018-02-03 15:50 | disposition home or self-care (01) ==
LOC: OR 10:38
PROVIDERS: ATTEND Orthopaedic Surgery
DX: E11.621 Type 2 diabetes mellitus with foot ulcer (principal); L97.528 Non-pressure chronic ulcer of other part of left foot with other specified severity; M86.672 Other chronic osteomyelitis, left ankle and foot; Z79.4 Long term (current) use of insulin; E11.40 Type 2 diabetes mellitus with diabetic neuropathy, unspecified; I10 Essential (primary) hypertension; E78.00 Pure hypercholesterolemia, unspecified; Z72.0 Tobacco use; K21.9 Gastro-esophageal reflux disease without esophagitis; F32.9 Major depressive disorder, single episode, unspecified
CPT/HCPCS: 87070; 87073; 87077; 87186; 87205; 87640; 87641; J0690; J2704; J2765; J3010

== ENCOUNTER 2018-09-08 07:43 | Emergency (ER) | payer MEDICARE, MEDICAID ==
--- OUTSIDE RECORDS SUMMARY | 2018-09-08 07:58 | XMS REPORT | Continuity of Care Document ---
:1965 External Reference #:[id number] Author Name Rob Slade Care Team Providers Name Role Phone Pato Ferrer M.D. 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 Active type 2 diabetes mellitus Onset: 05/10/2015 Nonproliferative diabetic retinopathy Derek Laws M.D. Active Onset: 05/10/2015 Diabetic macular edema Derek Laws M.D. Active Onset: 05/10/2015 Posterior subcapsular polar senile Derek Laws M.D. Active cataract Onset: 06/20/2015 Type 2 diabetes mellitus with mild Derek Laws M.D. Active nonproliferative diabetic retinopathy with macular edema Onset: 07/02/2015 Presence of intraocular lens Heidi Hardwick O.D. Active Onset: 07/12/2015 Combined form of senile cataract Derek Laws M.D. Active Onset: 07/12/2015 Type 2 diabetes mellitus with mild Derek Laws M.D. Active nonproliferative diabetic retinopathy without macular edema Onset: 08/03/2015 Corneal edema Billie Lew O.D. Active Onset: 08/16/2015 Central retinal vein occlusion Derek Laws M.D. Active Onset: 08/16/2015 Type 2 diabetes mellitus with Derek Laws M.D. Active moderate nonproliferative diabetic retinopathy with macular edema Onset: 09/26/2015 Venous retinal branch occlusion Derek Laws M.D. Active Onset: 04/08/2018 Type 1 diabetes mellitus with Derek Laws M.D. Active proliferative diabetic retinopathy with macular edema, left eye Onset: 04/08/2018 Type 2 diabetes mellitus with Derek Laws M.D. Active moderate nonproliferative diabetic retinopathy with macular edema, right eye Onset: 05/28/2018 Retinal edema John Mccormick M.D. Active Onset: 05/28/2018 Type 1 diabetes mellitus with John Mccormick M.D. Active proliferative diabetic retinopathy with macular edema, right eye Family History Date Family Member(s) Problem(s) Comments Father No Current Problems Mother No Current Problems Social History Type Date Description Comments Sex Unknown Marital Status Single Work Status Unemployed ETOH Use Denies alcohol use Tobacco Use Start: Unknown Heavy tobacco smoker (more than 10 cigarettes/day) Recreational Drug Use Denies Drug Use Smoking Status Reviewed: 08/06/18 Heavy tobacco smoker (more than 10 cigarettes/day) Allergies, Adverse Reactions, Alerts Date Description Reaction Status Severity Comments 05/10/2015 Lisinopril muscle pain Active Medications Medication Date Status Form Strength Qnty SIG Indications Ordering Provider Multivitamins 00// Active Capsules Unknown 0000 Probiotic / Active Capsules Unknown Complex 0000 Acidophilus Pravastatin / Active Tablets 40mg Unknown Sodium 0000 Irbesartan / Active Tablets 75mg Unknown 0000 Bisoprolol / Active Tablets 2.5-6.25mg Unknown Fumarate/Hydroc 0000 hlorothiazide Bupropion HCL / Active Tablets ER 300mg Unknown ER (XL) 0000 24HR Artificial / Active Solution 0.1-0.3% as needed Unknown Tears 0000 Lantus Solostar 00/ Active Solution 100Unit/ML Inject 40 Unknown 0000 Pen-Inject Units Beneath The Skin Every Bedtime. Humalog Kwikpen / Active Solution 100Unit/ML Inject 6 Unknown 0000 Pen-Inject Units Beneath The Skin Three Times Daily Before Meals. Osbaldo 128 08/15/ Hx Ointment 5% 7gm right eye Derek J. 2015 - every Arleo, 09/21/ night M.D. 2015 Ciprofloxacin 07/15/ Hx Solution 0.3% 10ml instill Derek J. HCL 2014 - one drop Arleo, 07/31/ in the M.D. 2014 left eye three times a day, start the day before surgery Ketorolac 07/15/ Hx Solution 0.5% 9ml 1 drop Derek J. Tromethamine 2014 - left eye Arleo, 08/29/ every day M.D. 2016 Prednisolone 07/15/ Hx Suspension 1% 1 drop Derek J. Acetate 2015 - left eye Arleo, 08/29/ every day M.D. 2015 No Active 06/20/ Hx Unknown Medications 2014 - 2014 Ciprofloxacin 06/20/ Hx Solution 0.3% 5ml instill Derek J. HCL 2014 - one drop Arleo, 07/11/ in the M.D. 2014 right eye three times a day, start the day before surgery Metformin HCL /00/ Hx Tablets 500mg Unknown 2014 Glipizide /00/ Hx Tablets 5mg Unknown 2014 Duloxetine HCL 00/ Hx Caps DR Philippe 20mg Unknown 2014 Glipizide-Metfo 00/ Hx Tablets 5-500mg Unknown rmin HCL - 2015 Omeprazole /00/ Hx Capsules DR 20mg Unknown 2017 Losartan /00/ Hx Tablets 50mg Unknown Potassium 2017 Duloxetine HCL /00/ Hx Caps DR Philippe 60mg Unknown 2017 Polyethylene /00/ Hx Unknown Glycol 1450 2017 Azithromycin 00/00/ Hx Tablets 250mg Unknown - 2015 Atenolol 00/00/ Hx Tablets 25mg Unknown 2017 Invokana 00/00/ Hx Tablets 100mg Unknown 2017 Fenofibrate /00/ Hx Tablets 160mg Unknown 2017 Advanced Enzyme 00/00/ Hx Unknown System 0000 - (Digestive ) 2017 Glipizide-Metfo 00/00/ Hx Tablets 5-500mg Unknown rmin HCL 2017 Dhea / Hx Tablets 100mg Unknown 2017 Medications Administered in Office Medication Date Status Form Strength Qnty SIG Indications Ordering Provider Avastin Administered Injection John Bevacizumab Mando Mccormick M.D. Avastin Administered Injection John Mccormick M.D. Avastin Administered Injection John Mccormick M.D. Avastin Administered Injection John Mccormick M.D. Avastin Administered Injection John Bevacizumab Mando Mccormick M.D. Avastin Administered Injection John Bevacizumab Mando Mccormick M.D. Avastin Administered Injection Derek JRicky Bevacizumab 016 Azar Laws Avastin Administered Injection Derek Wright Bevacizumab 016 Azra Laws Avastin Administered Injection Derek Wright Bevacizumab 016 Azar Laws Avastin Administered Injection Derek Wright Bevacizumab 015 Azar Laws Avastin Administered Injection Derek Wright Bevacizumab Chavez Laws M.D. Immunizations Description No Information Available Vital Signs Date Vital Result Comment 08/06/2018 4:18pm BP Systolic 142 mmHg BP Diastolic 72 mmHg Heart Rate 80 /min Respiratory Rate 16 /min 07/02/2018 4:05pm BP Systolic 140 mmHg BP Diastolic 88 mmHg Heart Rate 84 /min Respiratory Rate 16 /min 06/23/2018 3:04pm BP Systolic 150 mmHg BP Diastolic 86 mmHg Heart Rate 86 /min Respiratory Rate 16 /min 05/28/2018 4:15pm BP Systolic 126 mmHg BP Diastolic 82 mmHg Heart Rate 72 /min Respiratory Rate 16 /min 05/21/2018 4:03pm BP Systolic 135 mmHg BP Diastolic 72 mmHg Heart Rate 65 /min Respiratory Rate 15 /min 04/23/2018 2:29pm BP Systolic 142 mmHg BP Diastolic 84 mmHg Heart Rate 100 /min Respiratory Rate 16 /min 10/31/2015 1:41pm BP Systolic 121 mmHg BP Diastolic 71 mmHg Heart Rate 100 /min Respiratory Rate 14 /min 09/26/2015 3:44pm BP Systolic 120 mmHg BP Diastolic 90 mmHg Heart Rate 78 /min Respiratory Rate 16 /min Results Description No Information Available Procedures Date Code Description Status 08/06/2018 69616 Scanning Computerized Opthalmic Diagnostic Posterior Seg Completed Retina 08/06/2018 23097 Est Patient Intermediate Exam Completed 08/06/2018 12475 Destruction Retinopathy, Photocoagulation Completed 07/02/2018 36724 Injection Intravitreal Of A Pharmacologic Agent Completed 06/23/2018 15482 Injection Intravitreal Of A Pharmacologic Agent Completed 05/28/2018 39550 Injection Intravitreal Of A Pharmacologic Agent Completed 05/21/2018 77375 Injection Intravitreal Of A Pharmacologic Agent Completed 04/23/2018 50536 Injection Intravitreal Of A Pharmacologic Agent Completed 04/16/2018 38267 Injection Intravitreal Of A Pharmacologic Agent Completed 04/08/2018 82150 Scanning Computerized Opthalmic Diagnostic Posterior Seg Completed Retina 04/08/2018 49699 Est Patient Comprehensive Exam Completed 02/17/2016 55909 Scanning Computerized Opthalmic Diagnostic Posterior Seg Completed Retina 02/17/2016 07231 Est Patient Intermediate Exam Completed 11/15/2015 35903 Scanning Computerized Opthalmic Diagnostic Posterior Seg Completed Retina 11/15/2015 23312 Est Patient Comprehensive Exam Completed 10/31/2015 47592 Injection Intravitreal Of A Pharmacologic Agent Completed 09/26/2015 40102 Injection Intravitreal Of A Pharmacologic Agent Completed 08/30/2015 22284 Injection Intravitreal Of A Pharmacologic Agent Completed 08/16/2015 59217 Scanning Computerized Opthalmic Diagnostic Posterior Seg Completed Retina 08/16/2015 43917 Est Patient Intermediate Exam Completed 08/01/2015 03481 Injection Intravitreal Of A Pharmacologic Agent Completed 07/27/2015 18196 Extracapsular Cataract Extraction W/Intraocular Lens Completed 07/12/2015 10278 Scanning Computerized Opthalmic Diagnostic Posterior Seg Completed Retina 07/12/2015 15823 Est Patient Intermediate Exam Completed 06/29/2015 92329 Extracapsular Cataract Extraction W/Intraocular Lens Completed 06/20/2015 95318 Ophthalmic Biometry Completed 06/20/2015 11455 Ophthalmic Biometry Completed 06/20/2015 91772 Scanning Computerized Opthalmic Diagnostic Posterior Seg Completed Retina 06/20/2015 18630 Computerized Corneal Topography Completed 05/30/2015 99405 Injection Intravitreal Of A Pharmacologic Agent Completed 05/10/2015 13755 Scanning Computerized Opthalmic Diagnostic Posterior Seg Completed Retina 05/10/2015 37941 New Patient Comprehensive Exam Completed Encounters Type Date Location Provider Dx Diagnosis Office Visit 06/20/2015 Derek Laws, Derek Laws, H25.811 Combined forms of 9:45a , stephania Askew age-related cataract, right eye H25.812 Combined forms of age-related cataract, left eye E11.321 Type 2 diab w mild nonprlf diabetic rtnop w macular edema Plan of Treatment 08/06/2018 - John Mccormick M.D.E10.2082 Type 1 diabetes mellitus with proliferative diabetic retinopComments:Smoking can increase the risk of developing or worsening any eye related disease, as well as affect your overall health. If you are a smoker, we strongly recommend that you quit.If you are not a smoker, we strongly recommend that you do not start. I can detect diabetic changes in your eyes. Proper control of your diabetes is important for the health of your eyes. It is important that you keep all of your follow up appointments.Follow up:3-4 WEEK PRP OSH35.81 Retinal edema
--- NOTE | 2018-09-08 08:00 | ED ---
ED Suture/Wound Check - HPI Summary HPI Summary: Patient is a 53-year-old male who presents emergency department for a wound to his left foot he noticed 3 days ago. Patient is an insulin-dependent uncontrolled diabetic. He notes that his sugars have been higher lately 200s. 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 Patient states he has had issues with healing of the stump. Patient states noticed a new wound over the weekend and is concerned for infection. Patient states he had a prescription of dicloxacillin which he started on Saturday. He notes that he was the bit of bloody drainage but otherwise denies pain, drainage, foul odor. Patient denies fever, chills, nausea, vomiting. Symptoms are mild in severity. No current modifying factors. - History Of Current Complaint Chief Complaint: EDDiabeticProb Stated Complaint: LEFT FOOT INJURY Time Seen by Provider: 09/08/18 07:58 Hx Obtained From: Patient Pain Intensity: 3 - Allergies/Home Medications Allergies/Adverse Reactions: Allergies Allergy/AdvReac Type Severity Reaction Status Date / Time No Known Allergies Allergy Verified 09/08/18 07:50 PMH/Surg Hx/FS Hx/Imm Hx Previously Healthy: Yes Endocrine/Hematology History: Reports: Hx Diabetes - DM mellitus, IN INSULIN Denies: Hx Bone Marrow Disease, Hx Sickle Cell Disease, Hx Anemia Cardiovascular History: Reports: Hx Hypertension - ON DAILY MEDS Denies: Hx Pacemaker/ICD GI History: Reports: Hx Gastroesophageal Reflux Disease - STATES DOING BETTER, NOT TAKING MEDS Musculoskeletal History: Reports: Hx Tendonitis - LEFT HAND Sensory History: Reports: Hx Cataracts - BILATERAL, Hx Contacts or Glasses - READING Denies: Hx Hearing Aid Opthamlomology History: Reports: Hx Cataracts - BILATERAL, Hx Contacts or Glasses - READING Psychiatric History: Reports: Hx Depression - ON DAILY MEDS Denies: Hx Panic Disorder - Surgical History Surgery Procedure, Year, and Place: 06/2015 RIGHT CATARACT & left cataract, [facility]. left foot am[place] 10/10[place] [facility] [place] Anesthesia Reactions: Yes - THINKS R/T ANESTHESIA, SLEPT LONG TIME,MISSED NEXT DAY [facility] Infectious Disease History: No Infectious Disease History: Denies: History Other Infectious Disease, Traveled Outside the [place] in Last 30 Days - Family History Known Family History: Negative: Diabetes - Social History Occupation: Unemployed Lives: Alone Alcohol Use: None Substance Use Type: Reports: None Hx Tobacco Use: Yes Smoking Status (MU): Heavy Every Day Tobacco Smoker Type: Cigarettes Amount Used/How Often: 3/4 PPD Length of Time of Smoking/Using Tobacco: 34 YRS Have You Smoked in the Last Year: Yes Review of Systems Constitutional: Negative Negative: Fever, Chills Gastrointestinal: Negative Positive: Other - wound to left foot All Other Systems Reviewed And Are Negative: Yes Physical Exam Triage Information Reviewed: Yes Vital Signs On Initial Exam: Initial Vitals Temp Pulse Resp BP Pulse Ox 97.6 F 88 18 146/94 98 09/08/18 07:47 09/08/18 07:47 09/08/18 07:47 09/08/18 07:47 09/08/18 07:47 Vital Signs Reviewed: Yes Appearance: Positive: Well-Appearing - Pt. lying on bed in NAD. Skin: Positive: Warm, Dry Head/Face: Positive: Normal Head/Face Inspection Eyes: Positive: Normal, EOMI Neck: Positive: Supple Musculoskeletal: Positive: Other - Partial amputation noted to left foot. At the bottome of stump there is a samll, <1cm, shallow wound without drainage. Skin excoriation surrouding. No surrounding erythema or edema. No proximal calf swelling, redness or pain Neurological: Positive: Normal, CN Intact II-III Diagnostics - Vital Signs Vital Signs Temp Pulse Resp BP Pulse Ox 09/08/18 07:47 97.6 F 88 18 146/94 98 - Laboratory Result Diagrams: 09/08/18 08:56 09/08/18 08:56 Lab Statement: Any lab studies that have been ordered have been reviewed, and results considered in the medical decision making process. Course/Dx - Course Course Of Treatment: Pt. presenting for wound to left foot. He is afebrile with stable vital signs. No obvious signs of infection on exam. Wound culture sent. Basic labs and xrays obtained. Labs show mild elevation in CBC and CRP. Xray negative for osteo, per radiology. Advised pt. he can finish out the antibx he is currently taking. Will wait for culture to treat. Pt. has apt. with PCP in 2 days. To return to ER if symptoms change or worsen. Pt. understands and agrees with plan. - Differential Diagnoses Differential Diagnoses: Abscess, Cellulitis, Healing Wound - Clinical Impression Provider Diagnoses: Wound, open, foot Discharge - Sign-Out/Discharge Documenting (check all that apply): Patient Departure - Discharge Plan Condition: Good Disposition: HOME Patient Education Materials: Acute Wound Care (ED) Referrals: Pato Ferrer MD [Primary Care Provider] - Additional Instructions: Follow up with your PCP on Saturday as scheduled Keep wound clean and dry Return to ER for redness, swelling, yellow drainage, fever, or if concerned - Billing Disposition and Condition Condition: GOOD Disposition: Home
[2018-09-08 09:18] LABS: ABS Basophils 0.1 10^3/ul (0-0.2); ABS Eosinophils 0.3 10^3/ul (0-0.6); ABS Lymphocytes 2.1 10^3/ul (1.0-4.8); ABS Neutrophils 8.5 10^3/ul (1.5-7.7); ABS Nucleated RBC 0 10^3/ul; Eosinophil % 2.7 %; Hematocrit 39 % (42-52); Hemoglobin 12.9 g/dl (14.0-18.0); Lymphocyte % 17.3 %; Mean Corpuscular HGB Conc 33 g/dl (31-36); Mean Corpuscular Hemoglobin 27 pg (27-31); Mean Corpuscular Volume 82 fL (80-94); Mean Platelet Volume 8.3 fL (7.4-10.4); Nucleated Red Blood Cells % 0; Platelet Count 263 10^3/ul (150-450); Red Blood Count 4.76 10^6/ul (4.00-5.40); Red Cell Distribution Width 13 % (10.5-15)
[2018-09-08 09:23] LABS: Albumin 3.3 g/dL (3.2-5.2); BUN/Creatinine Ratio 24.4 (8-20); C Reactive Protein 60.81 mg/L (<8.01); Calcium 9.1 mg/dL (8.6-10.3); EGFR Non-African American 61.3 (>60); Globulin 3.4 g/dL (2-4); Potassium 4.6 mmol/L (3.5-5.0); Total Bilirubin 0.3 mg/dL (0.2-1.0); Total Protein 6.7 g/dL (6.4-8.9)
[2018-09-08 11:14] VITALS: BP 149/101
--- NOTE | 2018-09-11 07:45 | ED ---
Progress - Progress Note Progress Note: Pt's prelim wound cx reveals klebsiella oxytoca and strep constellatus. His no indicates he has been taking dicloxacillin and wound is been improving. Sensitivities for klebsiella have been completed and show resistance to ampicillin however pansensitive to cephalosporins, fluroquinolones, sulfa, Augmentin and tetracycline. Sens for strep are pending. Attempted to contact patient to update symptoms but no answer. His note indicates follow-up was advised. Left message to call. Final results pending. No further action at this time. Course/Dx - Course Course Of Treatment: Pt. presenting for wound to left foot. He is afebrile with stable vital signs. No obvious signs of infection on exam. Wound culture sent. Basic labs and xrays obtained. Labs show mild elevation in CBC and CRP. Xray negative for osteo, per radiology. Advised pt. he can finish out the antibx he is currently taking. Will wait for culture to treat. Pt. has apt. with PCP in 2 days. To return to ER if symptoms change or worsen. Pt. understands and agrees with plan. - Diagnoses Provider Diagnoses: Wound, open, foot Discharge - Sign-Out/Discharge Documenting (check all that apply): Post-Discharge Follow Up - Discharge Plan Condition: Good Disposition: HOME Patient Education Materials: Acute Wound Care (ED) Referrals: Pato Ferrer MD [Primary Care Provider] - Additional Instructions: Follow up with your PCP on Saturday as scheduled Keep wound clean and dry Return to ER for redness, swelling, yellow drainage, fever, or if concerned - Billing Disposition and Condition Condition: GOOD Disposition: Home
== END 2018-09-08 11:14 | disposition home or self-care (01) ==
LOC: ED 07:43
DX: S91.302A Unspecified open wound, left foot, initial encounter (principal); X58.XXXA Exposure to other specified factors, initial encounter; Y92.9 Unspecified place or not applicable; Z89.432 Acquired absence of left foot; E11.9 Type 2 diabetes mellitus without complications; Z79.4 Long term (current) use of insulin; I10 Essential (primary) hypertension; F32.9 Major depressive disorder, single episode, unspecified; F17.210 Nicotine dependence, cigarettes, uncomplicated
CPT/HCPCS: 36415; 80053; 85025; 86140; 87070; 87077; 87186; 87205; 87640; 87641; 99282

== ENCOUNTER 2019-05-23 23:16 | Inpatient (IN) | payer MEDICARE, MEDICAID ==
[2019-05-23] MEDS ORDERED: NS 0.9% 1000 ML** 1,000 ML IV ONE (23:19)
[2019-05-23] MEDS ORDERED: Piperacillin/Tazobac ADVAN(*) 3.375 GM in NS 0.9% 100 ML* 100 ML IVPB ONE (23:28)
[2019-05-23] MEDS ORDERED: Vancomycin(*) 1,000 MG VIAL IVPB SCH (23:45)
--- NOTE | 2019-05-24 00:10 | ED ---
HPI Febrile Illness - HPI Summary HPI Summary: This patient is a 53 year old M w hx CHF, osteomyelitis of L foot, recent thoracentesis presenting to [facility] with a chief complaint of fever since 2030 today, 05/23/19. At onset pt felt cold and could not stop shaking but then warmed up 45 minutes later. Patient reports slight dull CP and non-productive cough. Patient denies abdominal pain, dysuria. Pt is scheduled to have amputation on foot 2/2 osteomyelitis. Pt reports thoracentesis on left chest wall that occurred yesterday, 05/22/19, to get rid of fluid in left lung (was done here at [facility]) although he is unsure of why he has it. Recent admit in February for osteo and CHF. - History of Current Complaint Chief Complaint: EDFever Time Seen by Provider: 05/23/19 23:18 Hx Obtained From: Patient Onset/Duration: Started Hours Ago, Still Present Timing: Constant Pain Intensity: 3 Pain Scale Used: 0-10 Numeric Aggravating Factors: Nothing Alleviating Factors: Nothing Associated Signs and Symptoms: Chills, Cough, Other: - chest pain, Patient denies abdominal pain, dysuria - Additional Pertinent History Primary Care Physician: KELLY - Allergy/Home Medications Allergies/Adverse Reactions: Allergies Allergy/AdvReac Type Severity Reaction Status Date / Time No Known Allergies Allergy Verified 05/12/19 14:32 Home Medications: Home Medications Bisoprolol/Hydrochlorothiazide [Ziac 5-6.25 mg-] 2 tab PO DAILY 05/24/19 [ History Confirmed 05/24/19] Cephalexin CAP* [Keflex CAP*] 500 mg PO TID 05/24/19 [History Confirmed 05/24/19 ] Irbesartan [Avapro] 75 mg PO DAILY 05/24/19 [History Confirmed 05/24/19] Isosorbide Mononitrate ER TAB* [Imdur ER TAB*] 30 mg PO DAILY 05/24/19 [History Confirmed 05/24/19] PMH/Surg Hx/FS Hx/Imm Hx Endocrine/Hematology History: Reports: Hx Diabetes Denies: Hx Bone Marrow Disease, Hx Sickle Cell Disease, Hx Anemia Cardiovascular History: Reports: Hx Coronary Artery Disease, Hx Hypertension - ON DAILY MEDS Denies: Hx Pacemaker/ICD GI History: Reports: Hx Gastroesophageal Reflux Disease History: Reports: Other Problems/Disorders - ckd 2 Denies: Hx Dialysis, Hx Renal Disease Musculoskeletal History: Reports: Hx Tendonitis - LEFT HAND Sensory History: Reports: Hx Cataracts - BILATERAL, Hx Contacts or Glasses Denies: Hx Hearing Aid Opthamlomology History: Reports: Hx Cataracts - BILATERAL, Hx Contacts or Glasses Neurological History: Reports: Other Neuro Impairments/Disorders - diabetic neuropathy Psychiatric History: Reports: Hx Depression - ON DAILY MEDS Denies: Hx Panic Disorder - Surgical History Surgery Procedure, Year, and Place: 06/2015 RIGHT CATARACT & left cataract, [facility]. left foot amputation 10/10/17 [facility] [place] CARDIAC BYPASS - W/ TEMPORARY PACER WIRES - CXR TO SEE THAT THEY WERE REMOVED - NEEDED DAY OF MRI FOR CLEARANCE Hx Anesthesia Reactions: Yes - THINKS R/T ANESTHESIA, SLEPT LONG TIME,MISSED NEXT DAY [facility] Infectious Disease History: No Infectious Disease History: Denies: History Other Infectious Disease, Traveled Outside the [place] in Last 30 Days - Family History Known Family History: Positive: Cardiac Disease - Father Negative: Diabetes Family History: Negative for CA. - Social History Alcohol Use: None Hx Substance Use: No Substance Use Type: Reports: None Hx Tobacco Use: Yes Smoking Status (MU): Former Smoker Type: Cigarettes Amount Used/How Often: 3/4 PPD Length of Time of Smoking/Using Tobacco: 34 YRS Have You Smoked in the Last Year: Yes Review of Systems Positive: Fever, Chills Positive: Chest Pain Positive: Cough Negative: Abdominal Pain Negative: dysuria All Other Systems Reviewed And Are Negative: Yes Physical Exam - Summary Physical Exam Summary: Constitutional:chronically ill-appearing, Alert. (-) Distressed Skin: Warm, Dry, pale. Draining ulcer to L heel. HENT: Normocephalic; Atraumatic Eyes: Conjunctiva normal Neck: Musculoskeletal ROM normal neck. (-) JVD, (-) Stridor, (-) Nuchal rigidity Cardio: Rhythm regular, rate normal, Heart sounds normal; Intact distal pulses; Radial pulses are 2+ and symmetric. (-) Murmur Pulmonary/Chest wall: L thoracic thoracentesis site without erythema, dec breath sounds LLL (-) Respiratory distress, (-) Wheezes, (-) Rales Abd: Soft, (-) tenderness, (-) Distension, (-) Guarding, (-) Rebound, Umbilical hernia Musculoskeletal: s/p L MTP amputation, diffuse soft tissue swelling of the left foot, the draining ulcer to the heal Lymph: (-) Cervical adenopathy Neuro: Alert, Oriented x3 Psych: Mood and affect Normal Triage Information Reviewed: Yes Vital Signs On Initial Exam: Initial Vitals Pulse Ox 88 05/23/19 23:18 Vital Signs Reviewed: Yes Diagnostics - Vital Signs Vital Signs Temp Pulse Resp BP Pulse Ox 05/23/19 23:56 93 05/23/19 23:20 98.7 F 125 28 128/75 92 05/23/19 23:18 88 - Laboratory Result Diagrams: 05/23/19 23:56 05/23/19 23:56 Lab Statement: Any lab studies that have been ordered have been reviewed, and results considered in the medical decision making process. - Radiology Foot X-Ray Radiology Interpretation Completed By: ED Physician Summary of Radiographic Findings: Per ED Physician,. status post MTP amputation , soft tissue swelling. Pending official report. Chest X-Ray Radiology Interpretation Completed By: ED Physician Summary of Radiographic Findings: Per ED Physician,. status post MTP amputation , soft tissue swelling. Pending official report. - EKG 2334 Cardiac Rate: NL - 117 BPM Summary of EKG Findings: An EKG at 2334 reveals 117 BPM sinus tachycardia, T- wave inversions in V5 an V6, no significant change since 02/26/19. Course/Dx - Course Course Of Treatment: 53-year-old male with a history of heart failure the EMS 20 % recent echo, osteomyelitis of the left foot, recent thoracentesis, diabetes who presents with fever. Suspected source of infection. Likely skin versus lung. . Plan. Initiated the inpatient sepsis 3 hour provider orderset. IV fluid bolus - 1 L given heart failure. serum lactate. blood cultures x 2. broad spectrum antibiotics (vanc/zosyn). transfer to higher level of care - Diagnoses Provider Diagnoses: Fever, Diabetic foot ulcer - Provider Notifications Discussed Care Of Patient With: Sumi Mcdermott - hospitalist Time Discussed With Above Provider: 01:11 Instructed by Provider To: Other - accepts pt for admission Discharge ED - Sign-Out/Discharge Documenting (check all that apply): Patient Departure - admit Patient Received Moderate/Deep Sedation with Procedure: No - Discharge Plan Condition: Stable Disposition: ADMITTED TO [facility] - Billing Disposition and Condition Condition: STABLE Disposition: Admitted to [facility] - Attestation Statements Document Initiated by Blessing: Yes Documenting Scribe: Shahnaz Mendes Provider For Whom Blessing is Documenting (Include Credential): Dr. Eunice Arevalo MD Scribe Attestation: Shahnaz Guy, scribed for Dr. Eunice Arevalo MD on 05/24/19 at 0532. Scribe Documentation Reviewed: Yes Provider Attestation: The documentation as recorded by the Shahnaz lópez accurately reflects the service I personally performed and the decisions made by me, Dr. Eunice Arevalo MD Status of Scribe Document: Viewed
[2019-05-24 00:33] LABS: Albumin 2.6 g/dL (3.2-5.2); Albumin/Globulin Ratio 0.6 (1-3); BUN/Creatinine Ratio 32.3 (8-20); Calcium 8.4 mg/dL (8.6-10.3); EGFR African American 73.5 (>60); EGFR Non-African American 60.8 (>60); Globulin 4.4 g/dL (2-4); Potassium 4.3 mmol/L (3.5-5.0); Total Bilirubin 0.4 mg/dL (0.2-1.0)
[2019-05-24 00:35] LABS: Troponin I 0.02 ng/mL (<0.04)
[2019-05-24 00:39] LABS: Activated Partial Thrombo Time 35.6 seconds (26.0-38.0); INR 1.45 (0.82-1.09)
[2019-05-24 00:54] LABS: ABS Eosinophils 0.1 10^3/ul (0-0.6); ABS Lymphocytes 0.4 10^3/ul (1.0-4.8); ABS Neutrophils 17.1 10^3/ul (1.5-7.7); Eosinophil % 0.4 %; Hematocrit 29 % (42-52); Hemoglobin 9.3 g/dL (14.0-18.0); Mean Corpuscular HGB Conc 32 g/dL (31-36); Mean Corpuscular Hemoglobin 24 pg (27-31); Mean Corpuscular Volume 76 fL (80-94); Mean Platelet Volume 7.9 fL (7.4-10.4); Platelet Count 359 10^3/uL (150-450); Red Blood Count 3.83 10^6 /uL (4.18-5.48); Red Cell Distribution Width 17 % (10-15); White Blood Count 18.6 10^3/uL (3.5-10.8)
[2019-05-24] MEDS ORDERED: Vancomycin(*) 1,500 MG in NS 0.9% 250 ML* 250 ML IVPB ONE (01:00)
--- OUTSIDE RECORDS SUMMARY | 2019-05-24 01:28 | XMS REPORT | Summary of Care ---
:1965 Author Organization [facility] Address [address] [address] Care Team Providers Name Role Phone Pato Ferrer MD Primary Care Provider Pedro Jean Baptiste MD Unavailable Derek Laws MD Primary Floor Cleaner/Group Exercise Manager Reason for Referral Diagnostic Testing (Routine) Status Reason Specialty Diagnoses / Referred By Referred To Procedures Contact Contact Authorized Cardiology Diagnoses Coronary artery disease involving skull valley coronary artery of skull valley heart without angina pectoris Chronic combined systolic and diastolic congestive heart failure (HCC) Prosper Greer [place] Procedures ECHOCARDIOGRAM TTE MD [facility] [address] [place] [address] Phone: Reason for Visit Reason Comments New Patient Pt. referred by Dr. Ferrer. Reports Chest pain and Syncope. Reports CABG x2 [place]. Encounter Details Date Type Department Care Team Description 04/29/2019 Office Visit [place] Coronary artery disease involving skull valley coronary artery of skull valley heart without angina pectoris ( Primary Dx); Cardiology MD Neymar Chronic combined systolic and diastolic congestive heart failure (HCC); [address] [facility] Ischemic cardiomyopathy; [place] [address] [place] [address] Essential hypertension; [phone] Dyslipidemia; Pleural effusion on left Allergies No Known Allergiesdocumented as of this encounter (statuses as of 04/30/2019) Medications Medication Sig Dispensed Refills Start Date End Date Status Probiotic Oral Cap Take 1 Cap by 60 Cap 5 10/22/2017 Active mouth TWICE DAILY. Lancets Does not 1 Each by Does 200 Each 6 10/22/2017 Active apply Misc not apply route THREE TIMES DAILY. Brand:Rakeshyl liz lite Dx:E11.40 Test Blood Glucose 3 time(s) A DAY ADVOCATE INSULIN 1 Each by Does 200 Each 0 10/22/2017 Active PEN NEEDLES 31G X 8 not apply MM Does not apply route THREE Misc TIMES DAILY. Dx: E11.40 ; Test: TID last OV 10/07/17 Insulin Pen Needle 1 Each by Does 100 Each 5 06/10/2018 Active (PEN NEEDLES) 32G X not apply 4 MM Does not apply route Misc DIRECTED. E11.40 1-4 x a day clotrimazole Apply 2 x a 40 g 0 06/10/2018 Active (LOTRIMIN) 1 % day for a week Apply externally Cream Multiple Take 1 Tab by 90 Tab 1 09/11/2018 Active Vitamins-Minerals mouth DAILY. (MULTIVITAMIN ADULT) Oral Tab Glucose Blood In 1 Each by In 300 Each 6 01/20/2019 Active Vitro Strip Vitro route THREE TIMES DAILY. DX: E11.40 ; Brand: Freestyle lite; last OV 12/08/18 LANTUS SOLOSTAR 100 INJECT 40 15 Each 5 03/03/2019 Active UNIT/ML UNITS BENEATH Subcutaneous THE SKIN EVERY Solution BEDTIME. Pen-injector atorvastatin TAKE 1 TABLET 30 Tab 1 03/16/2019 Active (LIPITOR) 80 MG BY MOUTH EVERY Oral Tab DAY oxyCODONE HCl 5 MG Take 1 Tab by 0 Active Oral Tablet mouth EVERY Abuse-Deterrent FOUR HOURS NEEDED. Cefadroxil 500 MG Take 1 Cap by 0 Active Oral Cap mouth TWICE DAILY. Aspirin 81 MG Oral Take 81 mg by 0 Active Tab mouth DAILY. torsemide (DEMADEX) Take 1 Tab by 30 Tab 0 04/29/2019 Active 20 MG Oral mouth DAILY. TabIndications: Chronic combined systolic and diastolic congestive heart failure (HCC) spironolactone Take 1 Tab by 30 Tab 5 04/29/2019 Active (ALDACTONE) 25 MG mouth DAILY. Oral TabIndications: Chronic combined systolic and diastolic congestive heart failure (HCC) Blood Pressure 1 Device by 1 Device 0 04/29/2019 Active Monitoring (BLOOD Does not apply PRESSURE MONITOR route DAILY. AUTOMAT) Does not apply DeviceIndications: Essential hypertension pravastatin Take 40 mg by 90 Tab 3 12/20/2017 04/29/20 Discontinued (PRAVACHOL) 40 MG mouth EVERY 19 Oral Tab BEDTIME. HUMALOG KWIKPEN 100 INJECT 6 UNITS 3 Device 3 03/03/2018 04/29/20 Discontinued UNIT/ML BENEATH THE 19 (Reorder) Subcutaneous SKIN THREE Solution TIMES DAILY Pen-injector BEFORE MEALS. bisoprolol-hydrochl Take 2 Tabs by 60 Tab 2 07/02/2018 04/29/20 Discontinued orothiazide (ZIAC) mouth DAILY. 19 5-6.25 MG Oral Tab cephalexin (KEFLEX) Take 1 Cap by 28 Cap 0 09/10/2018 04/29/20 Discontinued 500 MG Oral Cap mouth FOUR 19 TIMES DAILY. irbesartan (AVAPRO) Take 1 Tab by 90 Tab 0 10/27/2018 04/29/20 Discontinued 75 MG Oral Tab mouth DAILY. 19 metoprolol Take 1 Tab by 30 Tab 2 10/29/2018 04/29/20 Discontinued succinate (TOPROL mouth DAILY. 19 XL) 50 MG Oral TABLET SR 24 HR isosorbide TAKE 1 TABLET 30 Tab 1 03/16/2019 04/29/20 Discontinued MONOnitrate (IMDUR) BY MOUTH EVERY 19 30 MG Oral TABLET DAY SR 24 HR lisinopril Take 2.5 mg by 0 04/29/20 Discontinued (PRINIVIL, ZESTRIL) mouth DAILY. 19 (Reorder) 2.5 MG Oral Tab metoprolol Take 25 mg by 0 04/29/20 Discontinued (LOPRESSOR) 25 MG mouth TWICE 19 (Reorder) Oral Tab DAILY. buPROPion XL Take 150 mg by 0 04/29/20 Discontinued (WELLBUTRIN XL) 150 mouth DAILY. 19 (Reorder) MG Oral TABLET SR 24 HR 24 hour tablet documented as of this encounter (statuses as of 04/30/2019) Active Problems Problem Noted Date Coronary artery disease involving skull valley coronary artery of skull valley heart 12/11 Mood disorder 12/08/2018 Osteomyelitis 05/14/2018 Status post amputation of foot 05/14/2018 Headache 05/14/2018 Diabetic foot ulcer 05/14/2018 Cellulitis 05/14/2018 BMI 32.0-32.9,adult 01/10/2015 Overview: sustained wt reduction with portion control and sustained routine exercise. Mixed hyperlipidemia 05/01/2012 Essential hypertension, benign 05/01/2012 Diabetes mellitus with neuropathy documented as of this encounter (statuses as of 04/30/2019) Resolved Problems Problem Noted Date Resolved Date Type 2 diabetes, uncontrolled, with mild nonproliferative 07/17/20152017 retinopathy with macular edema Type 2 diabetes mellitus without complication 05/01/2012 07/17/2015 documented as of this encounter (statuses as of 04/30/2019) Immunizations Name Administration Dates Next Due Influenza (IM) Preservative Free 05/24/2015 documented as of this encounter Social History Tobacco Use Types Packs/Day Years Used Date Current Every Day Smoker Cigarettes 0.65 28 Smokeless Tobacco: Never Used Alcohol Use Drinks/Week oz/Week Comments No 0 Standard drinks or equivalent 0.0 Sex Assigned at Date Recorded Not on file Job Start Date Occupation Industry Not on file Not on file Not on file Travel History Travel Start Travel End No recent travel history available. documented as of this encounter Last Filed Vital Signs Vital Sign Reading Time Taken Comments Blood Pressure 152/98 04/29/2019 12:54 PM EDT Pulse 104 04/29/2019 12:54 PM EDT Temperature - - Respiratory Rate - - Oxygen Saturation 93% 04/29/2019 12:54 PM EDT Inhaled Oxygen Concentration - - Weight - - Height 182.9 cm (6') 04/29/2019 12:54 PM EDT Body Mass Index - - documented in this encounter Patient Instructions Patient InstructionsMcNeymar Orozco MD - 04/29/2019 1:00 PM EDT Continue your current medications. START taking torsemide 20mg once every morning. START taking spironolactone 25mg once every morning. Get your bloodwork checked today and again in about 1-2 weeks. Get a chest xray done today. LOW SODIUM diet. Schedule an echocardiogram in the next 2-3 weeks and follow up with me or Gabbie Valadez shortly after that. documented in this encounter Progress Notes Neymar Greer MD - 04/29/2019 1:00 PM EDT [facility] Note Patient: Kev Gallardo Date of : 1965 Date of Service: 04/29/2019 REFERRING PRACTITIONER: Paolo PRIMARY CARE PROVIDER: Pato Ferrer Chief Complaint: Chief Complaint Patient presents with New Patient Pt. referred by Dr. Ferrer. Reports Chest pain and Syncope. Reports CABG x2 [facility] in [place]. History of Present Illness: We had the pleasure of seeing Kev Gallardo today at the [facility]. He is a 53-y.o. 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 Cardiac cathdone for CP in 11/2018 showed chronic occlusion of the RCA and LAD and LVEF was severely reduced at 25-30%. He later presented to [facility] in February for CABG (JEAN --> LAD, SVG --> Diag and ?PDA), which was done by Dr. Ulrich. Postoperative course was complicated by L pleural effusion. Mr. Gallardo presents to cardiology clinic today to establish care for his CAD and CHF. He underwent cath in 11/2018 which showed chronically occluded RCA and LAD and his LVEF was 25-30% at the time. He was seen by Dr. Camacho from CT surgery at that time and d/t his uncontrolled DM and small distaltargets they recommended medical therapy rather than CABG at that time. He was supposed to follow up with me later in November of this year but did not show to that appointment. [place] later [place] [facility] [place] and was admitted to [facility] for CABG. Was seen by ortho and ID while in the hospital for his chronic wounds and just had his PICC removed a couple weeks ago after completing a 6 week course of abx. He followed up with CT surgery at the end of March and CXR showed a L pleural effusion so he was given 7 days of Lasix but this did not help him significantly. At this point, Mr. Gallardo reports that he was recently discharged from rehab a few days ago and isnow living with his mother. From a symptom standpoint, he reports that he has significant dyspnea with minimal exertion, but that the dyspnea hasn't changed in the past few weeks. He says that it feels like he can 't take a full breath in, and has also had some significant orthopnea. He continues tohave some chest pains at his sternotomy site but that isn't clearly exertional. Denies any palpitations, lightheadedness, or syncope. Does have some LE edema that has worsened in the past few weeks. Quit smoking at the beginning of February. Patient Active Problem List Diagnosis Mixed hyperlipidemia Essential hypertension, benign BMI 32.0-32.9,adult Diabetes mellitus with neuropathy (HCC) Osteomyelitis (HCC) Status post amputation of foot (HCC) Headache Diabetic foot ulcer (HCC) Cellulitis Mood disorder (HCC) Coronary artery disease involving skull valley coronary artery of skull valley heart Past Medical History: Diagnosis Date BMI 32.0-32.9,adult 01/10/2015 sustained wt reduction with portion control and sustained routine exercise. Diabetes mellitus with neuropathy (HCC) DM w/o complication type II 05/01/20122014 mild background retinopathy Erectile dysfunction Essential hypertension, benign Ischemic cardiomyopathy 2018 Mixed hyperlipidemia 05/01/2012 Tobacco user Past Surgical History: Procedure Laterality Date CATHETERIZATION HEART LEFT N/A 12/11/2018 Procedure: CATHETERIZATION HEART LEFT; Surgeon: Neal Matthews MD; Location: [facility] UNLISTED PROCEDURE,MUSCULOSKELE 09/26/2017 half of left foot amputated No Known Allergies Current Outpatient Medications Medication Sig ADVOCATE INSULIN PEN NEEDLES 31G X 8 MM Does not apply Misc 1 Each by Does not apply route THREE TIMES DAILY. Dx: E11.40 ; Test: TID last OV 10/07/17 Aspirin 81 MG Oral Tab Take 81 mg by mouth DAILY. atorvastatin (LIPITOR) 80 MG Oral Tab TAKE 1 TABLET BY MOUTH EVERY DAY Blood Pressure Monitoring (BLOOD PRESSURE MONITOR AUTOMAT) Does not apply Device 1 Device by Does not apply route DAILY. buPROPion XL (WELLBUTRIN XL) 150 MG Oral TABLET SR 24 HR 24 hour tablet Take 1 Tab by mouth DAILY. Cefadroxil 500 MG Oral Cap Take 1 Cap by mouth TWICE DAILY. clotrimazole (LOTRIMIN) 1 % Apply externally Cream Apply 2 x a day for a week Glucose Blood In Vitro Strip 1 Each by In Vitro route THREE TIMES DAILY. DX: E11.40 ; Brand:Freestyle lite; last OV 12/08/18 Insulin Lispro (HUMALOG KWIKPEN) 100 UNIT/ML Subcutaneous Solution Pen- injector Inject 6 Units beneath the skin THREE TIMES DAILY BEFORE MEALS. Insulin Pen Needle (PEN NEEDLES) 32G X 4 MM Does not apply Misc 1 Each by Does not apply route DIRECTED. E11.40 1-4 x a day Lancets Does not apply Misc 1 Each by Does not apply route THREE TIMES DAILY. Brand:Freestylelite Dx:E11.40 Test Blood Glucose 3 time(s) A DAY LANTUS SOLOSTAR 100 UNIT/ML Subcutaneous Solution Pen-injector INJECT 40 UNITS BENEATH THE SKIN EVERY BEDTIME. lisinopril (PRINIVIL, ZESTRIL) 2.5 MG Oral Tab Take 1 Tab by mouth DAILY. metoprolol (LOPRESSOR) 25 MG Oral Tab Take 1 Tab by mouth TWICE DAILY. Multiple Vitamins-Minerals (MULTIVITAMIN ADULT) Oral Tab Take 1 Tab by mouth DAILY. oxyCODONE HCl 5 MG Oral Tablet Abuse-Deterrent Take 1 Tab by mouth EVERY FOUR HOURS NEEDED. Probiotic Oral Cap Take 1 Cap by mouth TWICE DAILY. spironolactone (ALDACTONE) 25 MG Oral Tab Take 1 Tab by mouth DAILY. torsemide (DEMADEX) 20 MG Oral Tab Take 1 Tab by mouth DAILY. No current facility-administered medications for this visit. Family History Problem Relation Age of Onset Heart Father dx with structural ht disease ~55 No Known Problems Mother No Known Problems Sister No Known Problems Brother Social History Socioeconomic History Marital status: Single Spouse name: Not on file Number of children: Not on file Years of education: Not on file Highest education level: Not on file Occupational History Not on file Social Needs Financial resource strain: Not on file Food insecurity: Worry: Not on file Inability: Not on file Transportation needs: Medical: Not on file Non-medical: Not on file Tobacco Use Smoking status: Current Every Day Smoker Packs/day: 0.65 Years: 28.00 Pack years: 18.20 Types: Cigarettes Smokeless tobacco: Never Used Substance and Sexual Activity Alcohol use: No Alcohol/week: 0.0 standard drinks Drug use: No Sexual activity: Not Currently Partners: Female Lifestyle Physical activity: Days per week: Not on file Minutes per session: Not on file Stress: Not on file Relationships Social connections: Talks on phone: Not on file Gets together: Not on file Attends adventism service: Not on file Active member of club or organization: Not on file Attends meetings of clubs or organizations: Not on file Relationship status: Not on file Intimate partner violence: Fear of current or ex partner: Not on file Emotionally abused: Not on file Physically abused: Not on file Forced sexual activity: Not on file Other Topics Concern Back Care Not Asked Bike Helmet Not Asked Blood Transfusions Not Asked Caffeine Concern Not Asked Exercise Not Asked Comment: Hobby Hazards Not Asked International Travel Not Asked Service Not Asked Occupational Exposure Not Asked Seat Belt Not Asked Self-Exams Not Asked Sleep Concern Not Asked Special Diet Not Asked Stress Concern Not Asked Weight Concern Not Asked Social History Narrative Single. No children. Nursing Notes: Shonna Hahn LPN 04/29/2019 1:17 PM Signed PATIENT: Kev Gallardo : 1965 DATE OF SERVICE: 04/29/2019 CARDIOLOGY AMBULATORY NURSING INTAKE FORM HISTORY COLLECTED BY CLINICAL STAFF: Chip REVIEW OF SYSTEMS: GENERAL: Fever: no Weight loss/gain: no Fatigue: yes - increased over the past 3 months Recent febrile illness: no NEUROLOGIC: Headache: no Syncope: no CVA/TIA: no Change in sensation: no CARDIOVASCULAR: Chest Pain: yes - chest heaviness/dullness consistant Palpitations: yes - occ. Orthopnea: yes - sits up Rheumatic Fever (history of): no Edema: yes - Legs RESPIRATORY: Cough: no Shortness Of Breath: yes - with exertion Hemoptysis: no Underlying Lung Disease: no GASTROINTESTINAL: Nausea: no Vomiting: no Constipation: no Diarrhea: no Melena: no PUD (history of): no Hematemesis: no Gastrointestinal Disorder: yes - GERD GENITOURINARY: Hematuria: no Urinary Tract Infection(s): no Nocturia: no Prostate Problem(s): no HEMATOLOGIC: Easy bruising: no Bleeding: no MUSCULOSKELETAL/PERIPHERAL VASCULAR SYSTEM: Muscle Pain: no Muscle Cramping: Yes occ Stiffness: no Muscle Weakness: no BEHAVIORAL/PSYCH: Depression: no ENDOCRINE: Tremors: no Heat or cold intolerance: no Author: Shonna Hahn LPN 04/29/2019 12:58 I have reviewed the ROS obtained by my nurse and concur as detailed above. Physical Exam: Vitals: 04/29/19 1254 BP: (!) 152/98 Pulse: 104 SpO2: 93% Height: 6' (1.829 m) Body mass index is 34.72 kg/m. General: Obese, alert 53-y.o. male in NAD HEENT: anicteric, MMM, no E/E OP, conj pink Neck: JVP approx 9-10 cm above RA, no carotid bruits or LAD CV: RRR, normal s1/s2, no appreciable murmurs, rubs, or gallops. Sternotomy site well-healed, with no drainage, TTP, or significant sternal mobility. Pulm: Clear except for decreased BS and dullness to percussion L base ~ [address] lung billings[place]. Abd: soft, NT, ND, +BS. No appreciable pulsatile masses or bruits. + umbilical hernia Ext: 2+ bilateral pitting lower extremity edema, no cyanosis, no cords. R lindo wrapped and RLE in boot. Neuro: no gross focal deficits but full sensory testing not performed. Skin: no visible lesions Labs: Lab Results Component Value Date NA 144 04/29/2019 K 4.0 04/29/2019 CL 110 (H) 04/29/2019 CO2 27 04/29/2019 GLUCOSE 104 (H) 04/29/2019 BUN 26 (H) 04/29/2019 CREATININE 1.0 04/29/2019 CALCIUM 8.9 04/29/2019 TP 7.4 04/29/2019 ALBUMIN 3.5 04/29/2019 AST 24 04/29/2019 ALT 24 04/29/2019 ALK 82 04/29/2019 TBILI 0.3 04/29/2019 EGFR >60 04/29/2019 No results found for: BNP Lab Results Component Value Date CHOL 168 11/30/2017 TRIG 169 (H) 11/30/2017 HDL 30 (L) 11/30/2017 LDL 104 (H) 11/30/2017 LDLHDLRATIO 3.5 11/30/2017 CHOLHDLRATIO 5.6 11/30/2017 Cardiac Studies: Intraoperative MAURICE at [facility] 03/04/19: CONCLUSIONS 1. The left ventricle is moderately dilated. 2. There is moderate concentric left ventricular hypertrophy. 3. Overall left ventricular systolic function is severely impaired with, an EF between 25-30 %. 4. Basal anterior LV wall motion is hypokinetic. 5. Basal anteroseptal LV wall motion is hypokinetic. 6. Mid anterior LV wall motion is hypokinetic. 7. Mid anteroseptal LV wall motion is hypokinetic. 8. Apical anterior LV wall motion is hypokinetic. 9. The left atrium is moderately dilated. 10. The right atrium is mildly enlarged. 11. There is trace mitral regurgitation. 12. Ascending aorta 3.5 cms, mild plaques. S/P CABG x 3 LV and RV functions preserved, immediately off bypas anterior wall was akinetic but later on improved to base line hypokinetic, over all LVEF improved from 26% to 45% with epinephrine infusion. No change in valvular functions and ascending aorta is stable. Carotid Dopplers at [facility] 02/28/2019: INTERPRETATION/FINDINGS Spectral analysis of the right internal carotid artery demonstrates no evidence of arterial disease. Farias scale imaging of the carotid bifurcation and internal carotid artery reveals no evidence of signficant plaque. Spectral analysis of the left internal carotid artery demonstrates no evidence of arterial disease. Farias scale imaging of the carotid bifurcation and internal carotid artery reveals no evidence of significant plaque. Antegrade flow is noted in the bilateral vertebral arteries. TTE 12/11/18: FINAL IMPRESSION: Left ventricular cavity size is mildly dilated. Left ventricular wall thickness is mildly increased No evidence of LVOT obstruction. Global LV systolic function is severely depressed with estimated Ejection Fraction of 25-30%. The LV apex, anterior- and mid-anteroseptal segments are hypokinetic Diastolic function is moderately abnormal (Grade II) with elevated LA pressure. No evidence of mitral stenosis or prolapse. There is mild mitral regurgitation. There is no aortic stenosis or regurgitation. There is no tricuspid regurgitation. Pulmonary arterial systolic pressure cannot be accurately estimated from this study. The left atrium is normal The right atrium is normal in size. The right ventricle is upper-normal in size with normal contractility. Aortic root size is normal when indexed to body surface area; it measures 3.76 cm (1.57 cm/m2). There is no pericardial effusion. Left Heart Cath 12/01/18: RCA is totally occluded in the proximal segment, the distal segment filling via collaterals from site to site and left to right Grade III LAD is totally occluded proximal and mid segment, giving large septal which gives left to left collaterals with competitive flow. Cx small and doesn't have significant disease. CONCLUSION: There is severe two-vessel coronary artery disease involving the right coronary artery and left anterior descending coronary artery. Assessment & Plan: Kev Gallardo is a 53-y.o. 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 Cardiac cath done forCP in 11/2018 showed chronic occlusion of the RCA and LAD and LVEF was severely reduced at 25-30%. He later presented to [facility] in February for CABG (JEAN --> LAD, SVG --> Diag and ?PDA), whichwas done by Dr. Ulrich. Postoperative course was complicated by L pleural effusion. ICD-9-CM ICD-10-CM 1. Coronary artery disease involving skull valley coronary artery of skull valley heart without angina pectoris 414.01 I25.10 LDL, DIRECT ECHOCARDIOGRAM TTE LDL, DIRECT 2. Chronic combined systolic and diastolic congestive heart failure (HCC) 428.42 I50.42 COMPREHENSIVE METABOLIC PANEL 428.0 CBC NO DIFFERENTIAL ECHOCARDIOGRAM TTE torsemide (DEMADEX) 20 MG Oral Tab spironolactone (ALDACTONE) 25 MG Oral Tab CBC NO DIFFERENTIAL COMPREHENSIVE METABOLIC PANEL BASIC METABOLIC PANEL NT PROBNP 3. Ischemic cardiomyopathy 414.8 I25.5 4. Essential hypertension 401.9 I10 Blood Pressure Monitoring (BLOOD PRESSURE MONITOR AUTOMAT) Does not apply Device 5. Dyslipidemia 272.4 E78.5 LDL, DIRECT LDL, DIRECT 6. Pleural effusion on left 511.9 J90 XR CHEST 2 VIEW PA AND LATERAL (STANDARD) 1. Chronic Combined Systolic/Diastolic CHF due to Ischemic Cardiomyopathy with NYHA Class III-IV symptoms: Symptoms are currently poorly on the current medical regimen, and I think that his L pleural effusion is a big contributor at the current time. He also appears to be intravascularly volume overloaded today. Recommendations are as follows: Most recent LV function: 25-30% (assessed on 03/04/19 by MAURICE at [facility]). Checking another TTE in the next few weeks. Beta-catracho: For some reason he's on metoprolol tartrate instead of succinate. Given the other changes I'm making today I'm going to continue for now, but will likely change at his next appt. ÁNGEL-inhibitor/ARB/ARNi: Cont low dose lisinopril for now but ultimately I' m going to put him onEntresto. Aldosterone Antagonist: Starting spironolactone 25mg daily. Diuretics: Starting torsemide 20mg daily and checking labs in 1-2 weeks. Devices: May require ICD for primary prevention of SCD, but we'll see how his LVEF does with time and OMT. Other: I'm checking another CXR to evaluate his L pleural effusion. If a course of diuretics does not improve symptoms in the next couple of weeks then I may send him to interventional radiology for therapeutic thoracentesis (he says that he preferred to stay in town for the procedure rather than go back to [place] to have the CT surgeon do it). 2. Coronary Artery Disease s/p CABG: Currently describes sternotomy site pain, but no clear angina. However, his activity has been fairly limited by his LE wounds/osteo: Antiplatelets: Continue aspirin 81 mg daily. Statin: Cont atorvastatin 80mg daily. Checking a direct LDL today. Beta-catracho: Metoprolol as above. Anti-Anginals: N/A. Cardiac Rehab: Ultimately I'd like to get him plugged into cardiac rehab, but at this point hisCHF is too limiting and I want to work on diuresis first. Thank you for allowing me to participate in the care of Kev Gallardo. We will plan on f/u in our office in 2-3 weeks or sooner prn. If you have any questions or concerns please feel free to call our office at . Neymar Greer MD, 04/30/2019, 06:37 documented in this encounter Plan of Treatment Date Type Specialty Care Team Description 05/11/2019 Lab Internal Medicine 05/11/2019 Orders Only Cardiology 05/11/2019 Office Visit Family Practice Pato Ferrer MD [facility] [place] [address] [phone] 05/20/2019 Office Visit Cardiology Neymar Greer MD [address] [place] [address] [phone] Name Type Priority Associated Diagnoses Order Schedule ECHOCARDIOGRAM TTE CV Lab Routine Coronary artery disease Expected: 2018 involving [place] coronary (Approximate), artery of [place] heart Expires: 06/02/2020 without angina pectoris Chronic combined systolic and diastolic congestive heart failure (HCC) BASIC METABOLIC PANEL Lab Routine Chronic combined systolic Expected: 05/14 and diastolic congestive (Approximate), heart failure (HCC) Expires: 10/27/2019 NT PROBNP Lab Routine Chronic combined systolic Expected: 05/14/2019 and diastolic congestive (Approximate), heart failure (HCC) Expires: 04/30/2020 Health Maintenance Due Date Last Done Comments PNEUMOCOCCAL 0-64 YRS (1 of 1970 3 - PCV13) ZOSTER IMMUNIZATION SERIES 2014 (1 of 2) COLONOSCOPY SCREENING 05/19/2018 05/19/2015 DEPRESSION SCREENING 03/04/2019 03/04/2018, 03/04/2018 MEDICARE ANNUAL WELLNESS 03/04/2019 03/04/2018 VISIT FOOT EXAM 03/25/2019 03/25/2018, 03/25/2018, 10/07/2017, Additional history exists HEMOGLOBIN A1C 05/30/2019 02/27/2019, 02/23/2019, 12/11/2018, Additional history exists Diabetic Eye Exam 12/30/2019 12/29/2018, 12/22/2018, 12/16/2018, Additional history exists LIPID DISORDER SCREENING 04/29/2020 04/29/2019, 03/16/2019, 03/04/2018, Additional history exists HPV IMMUNIZATION SERIES Aged Out No longer eligible based on patient's age to complete this topic MENINGOCOCCAL VACCINE IMM Aged Out No longer eligible based on patient's age to complete this topic documented as of this encounter Goals Goal Patient Goal Associated Recent Patient-Stated? Author Type Problems Progress Blood Pressure Blood Pressure 152/98 Janette Ferrer, < 140/90 (04/29/2019 MD Pato 2:09 PM EDT) Note: This is an individualized treatment (blood pressure) goal for Kev Gallardo: Displayed above (on the left) is your goal for blood pressure control. Your most recent blood pressure is also shown above, on the right. You should try to achieve blood pressures that are lower than your goal listed above (on the left). Depression screen (PHQ-9) Depression 8 (03/04/2018 12:45 PM No Pato Ferrer MD total score < 5 EDT) Note: This is an individualized treatment (depression) goal for Kev Gallardo: Displayed above is your goal for a depression screening (PHQ-9) score that would indicate good control of your depression. Glycohemoglobin A1c < 7.0 Diabetes 8.4 (12/11/2018 2:04 PM No Pato Ferrer MD EDT) Note: This is an individualized treatment (diabetes control, HgbA1C) goal for Kev Gallardo: Displayed above is your progress towards your HgbA1C goal. Your goal is shown above (on the left); your most recent HgbA1C is shown on the right. Note that lower numbers are better. Weight loss vs. 18 mo Lifestyle 20 (04/29/2019 2:09 PM EDT) No Pato Ferrer MD max (lbs) >= 10 Note: This is an individualized lifestyle goal for Kev Gallardo: Your body mass index (BMI) is more than 30. You should lose weight. A reasonable starting goal is to lose 10 pounds. Displayed above is how many pounds you have lost thus far towards your 10 pound weight loss goal. Keep immunizations current Lifestyle No Pato Ferrer MD Note: This is an individualized lifestyle goal for Kev Gallardo: Please be sure to keep up-to-date on recommended immunizations. For example, this would include a yearly influenza vaccine. Immunization status can be seen by looking at the Health Maintenance sections of your [facility], Plan of Care, and any After Visit Summaries. Keep a regular sleep schedule Lifestyle No Pato Ferrer MD Note: This is an individualized lifestyle goal for Kev Gallardo: Please maintain a regular sleep schedule. This may help with some symptoms of depression. Take all prescribed medications as directed Self-management No Pato Ferrer MD Note: This is an individualized self-management goal for Kev Gallardo: Please take all prescribed medications as directed. 1. Do not skip doses. If you cannot afford your medications, talk with your doctor. 2. Use a pill reminder system such as a pill box if needed. Your pharmacist can help you with this. 3. Contact your Pharmacy 5 days before your medication runs out. If you cannot take your medications for any reasons, talk with your doctor. 4. Please bring all of your medication bottles and inhalers (or a list of all your medications/inhalers) with you to every visit. Potential barriers to meeting all of your care plan goals will continue to be addressed on an ongoing basis. documented as of this encounter Procedures Procedure Name Priority Date/Time Associated Comments Diagnosis LDL, DIRECT Routine 04/29/2019 2:51 Coronary artery Results for this PM EDT disease involving procedure are in [place] coronary the results artery of [place] section. heart without angina pectoris Dyslipidemia COMPREHENSIVE Routine 04/29/2019 2:51 Chronic combined Results for this METABOLIC PANEL PM EDT systolic and procedure are in diastolic the results congestive heart section. failure (HCC) CBC NO DIFFERENTIAL Routine 04/29/2019 2:51 Chronic combined Results for this PM EDT systolic and procedure are in diastolic the results congestive heart section. failure (HCC) documented in this encounter Results CBC NO DIFFERENTIAL (04/29/2019 2:51 PM EDT) WBC Count 9.47 (H)Comment: 4.23 - 9.07 [facility] Methodology was K/uL [facility] changed 08/28/2018. Please note updated reference range and units. RBC Count 4.55 4.30 - 5.89 [facility] M/UL [facility] Hemoglobin 11.4 (L) 13.7 - 17.5 [facility] g/dL [facility] Hematocrit 39.1 (L) 40.1 - 51.0 % [facility] MCV 85.9 79.0 - 92.2 [facility] FL [facility] MCH 25.1 (L) 25.7 - 32.2 [facility] PG [facility] MCHC 29.2 (L) 32.3 - 36.5 [facility] g/dL [facility] Platelet Count 345 (H) 163 - 337 [facility] K/uL [facility] MPV 10.2 9.4 - 12.4 [place] [facility] RDW 15.6 (H) 11.6 - 14.4 % [facility] Specimen Blood Performing Organization Address [facility] Phone Number [place] [employer] [facility] [address] [address] [phone] LDL, DIRECT (04/29/2019 2:51 PM EDT) Direct Ldl-Cholesterol 64 <100 MG/DL [facility] Specimen Blood Narrative Performed At Normal Ranges: [facility] <100 mg/dl Optimal 100-129 mg/dl Near Optimal 130-159 mg/dl Borderline High 160-189 mg/dl High >189 mg/dl Very High Performing Organization Address City/[facility] Phone Number [facility] [address] [place] [place] [address] COMPREHENSIVE METABOLIC PANEL (04/29/2019 2:51 PM EDT) Sodium 144 134 - 145 mmol/L [facility] Potassium 4.0 3.5 - 5.1 mmol/L [facility] Chloride 110 (H) 98 - 107 mmol/L [facility] CO2 27 22 - 30 mmol/L [facility] Calcium 8.9 8.3 - 10.1 mg/dl [facility] Albumin 3.5 3.5 - 5.0 g/dl [facility] BUN 26 (H) 9 - 20 mg/dl [facility] Creatinine 1.0 0.8 - 1.5 mg/dl [facility] Glucose 104 (H) 70 - 99 mg/dl [facility] Total Protein 7.4 6.3 - 8.2 g/dl [facility] Total Bilirubin 0.3 0.0 - 1.1 MG/DL [facility] AST 24 17 - 59 U/L [facility] ALT 24 21 - 72 U/L [facility] Alkaline 82 40 - 150 U/L [facility] eGFR >60 See Interpretation [facility] Comment: Below ml/min/1.73ml [facility] Estimated GFR Interpretation: Above 60ml/min/1.73m2 = Normal Renal Function 30-59 ml/min/1.73m2 = Stage 3 Chronic Kidney Disease 15-29 ml/min/1.73m2 = Stage 4 Chronic Kidney Disease Less than 15 ml/min/1.73m2 = Stage 5 Chronic Kidney Disease The GFR value is calculated using the Modification of Diet in Renal Disease ( MDRD) Study Equation which can be found at: https://www.kidney.org/content/daiq-rhaxi-lsuvdjud BUN/Creatinine 26 (H) 6 - 22 RATIO [facility] Anion Gap 7 3 - 11 mmol/L [facility] A/G Ratio 0.9 0.8 - 2.0 ratio [facility] Specimen Blood Performing Organization Address City/State/Zipcode Phone Number [facility] [address] [place] [address] [address] XR CHEST 2 VIEW PA AND LATERAL (STANDARD) (04/29/2019 2:04 PM EDT) Specimen Impressions Performed At Impression: Comparison: Chest x-ray 12/08/2018 Findings: Opacity of the left lower hemithorax indicating small pleural effusion with basilar atelectasis versus infiltrates. Some increased interstitial markings in right basilar region, possibility of early infiltrates cannot be ruled out versus a component of pulmonary venous congestion. Cardioaortic silhouette appears unremarkable. There is normal pulmonary vascularity. The siva are normal. No pleural effusion is seen. No pneumothorax is seen. Trachea midline. Mild endplate remodeling is seen of thoracic spine. No acute bony abnormality is seen. IMPRESSION: 1. No acute cardiopulmonary disease is seen. Urgency: Routine. This is a routine medical imaging report. Recommendation: No specific imaging recommendation. Signed by Ele Villalba MD, A, FCPS on 04/29/2019 3:25 PM Narrative Performed At Procedure(s): XR CHEST 2 VIEW PA AND LATERAL (STANDARD) Date of service: 04/29/2019 1:58 PM Provided clinical information: 53 years, Male, "L pleural effusion and dyspnea." Procedure and materials: Standard protocol. Procedure: CHEST 2 VIEWS Technique: PA and lateral views of the chest were acquired. Procedure Note Interface, Rad Results - 04/29/2019 3:27 PM EDT Procedure(s): XR CHEST 2 VIEW PA AND LATERAL (STANDARD) Date of service: 04/29/2019 1:58 PM Provided clinical information: 53 years, Male, "L pleural effusion and dyspnea." Procedure and materials: Standard protocol. Procedure: CHEST 2 VIEWS Technique: PA and lateral views of the chest were acquired. IMPRESSION Impression: Comparison: Chest x-ray 12/08/2018 Findings: Opacity of the left lower hemithorax indicating small pleural effusion with basilar atelectasis versus infiltrates. Some increased interstitial markings in right basilar region, possibility of early infiltrates cannot be ruled out versus a component of pulmonary venous congestion. Cardioaortic silhouette appears unremarkable. There is normal pulmonary vascularity. The siva are normal. No pleural effusion is seen. No pneumothorax is seen. Trachea midline. Mild endplate remodeling is seen of thoracic spine. No acute bony abnormality is seen. IMPRESSION: 1. No acute cardiopulmonary disease is seen. Urgency: Routine. This is a routine medical imaging report. Recommendation: No specific imaging recommendation. Signed by Ele Villalba MD, MHA, FCPS on 04/29/2019 3:25 PM documented in this encounter Visit Diagnoses Diagnosis Coronary artery disease involving [place] coronary artery of [place] heart without angina pectoris - Primary Chronic combined systolic and diastolic congestive heart failure (HCC) Chronic combined systolic and diastolic heart failure Ischemic cardiomyopathy Other specified forms of chronic ischemic heart disease Essential hypertension Unspecified essential hypertension Dyslipidemia Other and unspecified hyperlipidemia Pleural effusion on left Unspecified pleural effusion documented in this encounter Insurance Payer Benefit Plan / Subscriber ID Effective Dates Phone Address Type Group MEDICARE MEDICARE PART A xxxxxxxxxx 2014-Present Medicare & B MEDICAID [facility] xxxxxxxx 2018-Present [place] Guarantor Name Account Type Relation to Date of Phone Billing Patient Address Kev Gallardo Personal/Family 1965 [address] [phone] [place], [place] (Work) [id number] documented as of this encounter
--- OUTSIDE RECORDS SUMMARY | 2019-05-24 01:28 | XMS REPORT | Summary of Care ---
:1965 Author Organization [facility] Address [address] [place] [address] Care Team Providers Name Role Phone Pato Ferrer MD Primary Care Provider Pedro Jean Baptiste MD Unavailable Derek Laws MD Primary Conveyor Loader/Marketing Compliance Manager Reason for Visit Reason Comments Transitional Care Management pt presents for TCM from admission from [facility] Other pt presents for pre-op clearance for left leg amputation on 05/18/19 Encounter Details Date Type Department Care Team Description 05/11/2019 Office Visit [facility] Pato Ferrer MD Pre-op evaluation (Primary Dx); Practice [address] Other acute osteomyelitis of left foot ([facility]); [address] [place] [address] 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 Lancets Does not apply 1 Each by Does 200 Each 6 10/22/2017 Active Misc not apply route THREE TIMES DAILY. Brand:Freestyle lite Dx:E11.40 Test Blood Glucose 3 time(s) A DAY ADVOCATE INSULIN PEN 1 Each by Does 200 Each 0 10/22/2017 Active NEEDLES 31G X 8 MM Does not apply route not apply Misc THREE TIMES DAILY. Dx: E11.40 ; Test: TID last OV 10/07/17 Insulin Pen Needle (PEN 1 Each by Does 100 Each 5 06/10/2018 Active NEEDLES) 32G X 4 MM not apply route Does not apply Misc DIRECTED. E11.40 1-4 x a day clotrimazole (LOTRIMIN) Apply 2 x a day 40 g 0 06/10/2018 Active 1 % Apply externally for a week Cream Multiple Take 1 Tab by 90 Tab 1 09/11/2018 Active Vitamins-Minerals mouth DAILY. (MULTIVITAMIN ADULT) Oral Tab Glucose Blood In Vitro 1 Each by In 300 Each 6 01/20/2019 Active Strip Vitro route THREE TIMES DAILY. DX: E11.40 ; Brand: [employer]; last OV 12/08/18 LANTUS SOLOSTAR 100 INJECT 40 UNITS 15 Each 5 03/03/2019 Active UNIT/ML Subcutaneous BENEATH THE SKIN Solution Pen-injector EVERY BEDTIME. atorvastatin (LIPITOR) TAKE 1 TABLET BY 30 Tab 1 03/16/2019 Active 80 MG Oral Tab MOUTH EVERY DAY oxyCODONE HCl 5 MG Oral Take 1 Tab by 0 Active Tablet Abuse-Deterrent mouth EVERY FOUR HOURS NEEDED. Cefadroxil 500 MG Oral Take 1 Cap by 0 Active Cap mouth TWICE DAILY. Aspirin 81 MG Oral Tab Take 81 mg by 0 Active mouth DAILY. torsemide (DEMADEX) 20 Take 1 Tab by 30 Tab 0 04/29/2019 Active MG Oral TabIndications: mouth DAILY. Chronic combined systolic and diastolic congestive heart failure (HCC) spironolactone Take 1 Tab by 30 Tab 5 04/29/2019 Active (ALDACTONE) 25 MG Oral mouth DAILY. TabIndications: Chronic combined systolic and diastolic congestive heart failure (HCC) Blood Pressure 1 Device by Does 1 Device 0 04/29/2019 Active Monitoring (BLOOD not apply route PRESSURE MONITOR DAILY. AUTOMAT) Does not apply DeviceIndications: Essential hypertension buPROPion XL Take 1 Tab by 90 Tab 0 04/29/2019 Active (WELLBUTRIN XL) 150 MG mouth DAILY. Oral TABLET SR 24 HR 24 hour tabletIndications: Mood disorder (HCC) Insulin Lispro (HUMALOG Inject 6 Units 3 Device 3 04/29/2019 Active KWIKPEN) 100 UNIT/ML beneath the skin Subcutaneous Solution THREE TIMES DAILY Pen-injectorIndications BEFORE MEALS. : Type 2 diabetes mellitus with diabetic neuropathy, without long-term current use of insulin (HCC) lisinopril (PRINIVIL, Take 1 Tab by 90 Tab 0 04/29/2019 Active ZESTRIL) 2.5 MG Oral mouth DAILY. TabIndications: Essential hypertension, benign metoprolol (LOPRESSOR) Take 1 Tab by 120 Tab 0 04/29/2019 Active 25 MG Oral mouth TWICE TabIndications: DAILY. Essential hypertension, benign irbesartan (AVAPRO) 75 Take 75 mg by 0 Active MG Oral Tab mouth DAILY. isosorbide MONOnitrate Take 30 mg by 0 Active (IMDUR) 30 MG Oral mouth DAILY. TABLET SR 24 HR bisoprolol-hydrochlorot Take 2 Tabs by 0 Active hiazide (ZIAC) 5-6.25 mouth DAILY. MG Oral Tab cephalexin (KEFLEX) 500 Take 500 mg by 0 Active MG Oral Cap mouth THREE TIMES DAILY. buPROPion (WELLBUTRIN Take 300 mg by 0 Active XL) 300 MG Oral TABLET mouth DAILY. SR 24 HR aspirin 81 MG Oral Chew Take 1 Tab by 30 Tab 5 05/11/2019 Active Tab mouth DAILY. documented as of this encounter (statuses as of 05/11/2019) Active Problems Problem Noted Date Coronary artery disease involving [place] coronary artery of [place] heart 12/11 Mood disorder 12/08/2018 Ischemic cardiomyopathy 08/26/2018 Overview: 25-30 Osteomyelitis 05/14/2018 Status post amputation of foot 05/14/2018 Headache 05/14/2018 Diabetic foot ulcer 05/14/2018 Cellulitis 05/14/2018 BMI 32.0-32.9,adult 01/10/2015 Overview: sustained wt reduction with portion control and sustained routine exercise. Mixed hyperlipidemia 05/01/2012 Essential hypertension, benign 05/01/2012 Diabetes mellitus with neuropathy documented as of this encounter (statuses as of 05/11/2019) Resolved Problems Problem Noted Date Resolved Date Type 2 diabetes, uncontrolled, with mild nonproliferative 07/17/20152017 retinopathy with macular edema Type 2 diabetes mellitus without complication 05/01/2012 07/17/2015 documented as of this encounter (statuses as of 05/11/2019) Immunizations Name Administration Dates Next Due Influenza (IM) Preservative Free 05/24/2015 documented as of this encounter Social History Tobacco Use Types Packs/Day Years Used Date Current Every Day Smoker Cigarettes 0.65 28 Smokeless Tobacco: Never Used Tobacco Cessation: Ready to Quit: No; Counseling Given: Yes Alcohol Use Drinks/Week oz/Week Comments No 0 Standard drinks or equivalent 0.0 Sex Assigned at Date Recorded Not on file Job Start Date Occupation Industry Not on file Not on file Not on file Travel History Travel Start Travel End No recent travel history available. documented as of this encounter Last Filed Vital Signs Vital Sign Reading Time Taken Comments Blood Pressure 126/72 05/11/2019 2:24 PM EDT Pulse 87 05/11/2019 2:24 PM EDT Temperature - - Respiratory Rate - - Oxygen Saturation 97% 05/11/2019 2:24 PM EDT Inhaled Oxygen Concentration - - Weight 109.8 kg (242 lb) 05/11/2019 2:24 PM EDT Height 182.9 cm (6') 05/11/2019 2:24 PM EDT Body Mass Index 32.82 05/11/2019 2:24 PM EDT documented in this encounter Progress Notes Pato Ferrer MD - 05/11/2019 2:20 PM EDT PATIENT: Kev Gallardo : 1965 DATE OF SERVICE: 05/11/2019 Subjective SUBJECTIVE: Kev Gallardo is a 53-y.o. male who presents to the office today for a preoperative consultation at the request of Dr Jean Baptiste , who is scheduled to perform a left BKA on 05/18/19. Patient complains of osteomyelitis that is not improving despite attempts at antibiotics while he was in rehab from his [facility] for CAD and his osteomyelitis. He had presented [place] [facility] [place] for SOB and found to have an RI with a bump in troponins. He had known CAD from November but advised on med mgmt. . He also had some CHF and was bacteremic with strep blamed on the osteomyelitis. He was transferred to [facility] in [place] 02/27/ had the 3 V CABG 03/04 and had a PICC line placed He had about 8 weeks of IVcefipime and oral flagyl. He went to rehab and was released to his mothers home beginningof April . He has seen Dr Greer from cardiology and has a persistent left pleural effusionhe complains of CP, SMITH, orthopnea, PND and edema . Dr Jean Baptiste did a MRI 04/30 that suggests osteomyelitis still present Past history of pulmonary embolism/deep vein thrombosis: no. There is a history of bleeding complications: no Past history of anesthetic problem: no. Exercise capacity: Can you walk 2 blocks on level ground, or carry 2 bags of groceries up 2 flights of stairs? No Count the number of risk factors in the revised Olsen cardiac risk index. ( RCRI): 0 High risk procedure: eg vascular surgery, any open intraperitoneal or intrathoracic 1 History of ischemic heart disease (history of RI or a positive exercise test , current complaint of chest pain considered to be secondary to myocardial ischemia, use of nitrate therapy, or ECG with pathological Q waves; do not count prior coronary revascularization procedure unless one of the other criteria for ischemic heart disease is present) 1 Hx of CHF, either systolic or diastolic 1 History of cerebrovascular disease (TIA or Stroke) 1 Diabetes mellitus requiring treatment with insulin Preoperative serum creatinine >2.0 mg/dl The risk of cardiac , nonfatal myocardial infarction, and nonfatal cardiac arrest according to the number of above risk predictors is estimated to be: Three or more risk factors - 5.4 percent (95% CI: 2.8 - 7.9) Screening for sleep apnea: Stop-Bang 1 Snoring: Do you snore loudly (louder than talking or heard through closed doors)? Tired: Do you often feel tired, fatigued, or sleepy during the day? Observed: Has anyone observed you stop breathing during your sleep? 1 Pressure: Do you have or are you being treated for high blood pressure? BMI: >35 kg/m2? 1 Age: >50? Neck circumference: >40 cm? 1 Gender: Male? "High risk" for MALENA: (> =) 3 questions "yes" Past Medical History: Diagnosis Date BMI 32.0-32.9,adult 01/10/2015 sustained wt reduction with portion control and sustained routine exercise. Diabetes mellitus with neuropathy (HCC) Diabetic foot ulcer (HCC) Erectile dysfunction Essential hypertension, benign Ischemic cardiomyopathy 2018 25-30 Mixed hyperlipidemia 05/01/2012 Mood disorder (HCC) Osteomyelitis of ankle and foot (HCC) Tobacco user Family History Problem Relation Age of Onset Heart Father dx with structural ht disease ~55 No Known Problems Mother No Known Problems Sister No Known Problems Brother Current Outpatient Medications Medication Sig ADVOCATE INSULIN PEN NEEDLES 31G X 8 MM Does not apply Misc 1 Each by Does not apply route THREE TIMES DAILY. Dx: E11.40 ; Test: TID last OV 10/07/17 aspirin 81 MG Oral Chew Tab Take 1 Tab by mouth DAILY. Aspirin 81 MG Oral Tab Take 81 mg by mouth DAILY. atorvastatin (LIPITOR) 80 MG Oral Tab TAKE 1 TABLET BY MOUTH EVERY DAY bisoprolol-hydrochlorothiazide (ZIAC) 5-6.25 MG Oral Tab Take 2 Tabs by mouth DAILY. Blood Pressure Monitoring (BLOOD PRESSURE MONITOR AUTOMAT) Does not apply Device 1 Device by Does not apply route DAILY. buPROPion (WELLBUTRIN XL) 300 MG Oral TABLET SR 24 HR Take 300 mg by mouth DAILY. buPROPion XL (WELLBUTRIN XL) 150 MG Oral TABLET SR 24 HR 24 hour tablet Take 1 Tab by mouth DAILY. Cefadroxil 500 MG Oral Cap Take 1 Cap by mouth TWICE DAILY. cephalexin (KEFLEX) 500 MG Oral Cap Take 500 mg by mouth THREE TIMES DAILY. clotrimazole (LOTRIMIN) 1 % Apply externally [...] route DIRECTED. E11.40 1-4 x a day irbesartan (AVAPRO) 75 MG Oral Tab Take 75 mg by mouth DAILY. isosorbide MONOnitrate (IMDUR) 30 MG Oral TABLET SR 24 HR Take 30 mg by mouth DAILY. Lancets Does not apply Misc 1 Each [...] No current facility-administered medications for this visit. No Known Allergies Social History Socioeconomic History Marital status: Single [...] file Gets together: Not on file Attends jewish service: Not on file Active member of [...] Asked Social History Narrative Single. No children. REVIEW OF SYSTEMS: CONSTITUTIONAL: His med list is a mess. He brings a bag of medicines taking both old discontinues meds and new meds example on bisoprolol and metoprolol. On keflex from September as well as cefadroxiland avapro as well as lisinopril . EYES: No recent check . EARS, NOSE, MOUTH, THROAT and FACE: No uri but ears plugged told to use claritin but he not start yet . RESPIRATORY: not on inhalers CARDIOVASCULAR: Aldactone and demadex new additions Eventually plan to change to entresto . GASTROINTESTINAL: Constipated now Usually gets diarrhea . HEMATOLOGIC/LYMPHATIC: Legs swollen . BEHAVIORAL/PSYCH: Been dysthymic Taking the 300 wellbutrin not the 150mg . ENDOCRINE: a1c 8.4 month ago. He only uses humalog 1 x a day not with every meal He said they weregiving him less insulin in rehab and better numbers with more carbs ??. The patient has dentures: partials Objective OBJECTIVE: BP 126/72 (BP Location: Left arm, Patient Position: Sitting) | Pulse 87 | Ht 6 ' (1.829 m) | Wt 242 lb (109.8 kg) | SpO2 97% | BMI 32.82 kg/m Exam using a walker no apparent distress, eyes clear, ears no infection, TM slight retracted , oral-moist, no suspicious lesions. Neck supple, without masses. Heart regular incision looks ok Lungs decreased left base Abdomen soft non-tender no masses. + umbilical hernia Extremity no clubbing cyanosis + edema and left in a boot . Dress and hygiene good Good eye contact Thoughts and speech flat Affect Appropriate Mood depressed ASSESSMENT: Surgery should be delayed until further Improvement in his cardiopulmonary status is obtained. It was hoped diuresis would improve his condition with his pleural effusion which is leading to his SMITH,Orthopnea and PND . We may need to do a therapeutic thoracentesis to improve his symptoms 1. Pre-op evaluation 2. Other acute osteomyelitis of left foot ([facility]) 3. 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 Diabetes mellitus due to underlying condition with diabetic nephropathy, with long-term current use of insulin ([facility]) He is told to use his short acting insulin with each meal just not 1 x a day 5. Ischemic cardiomyopathy - his med list at home should be cleared up and an updated list will be provided before the surgery . As alluded to above . No ziac , avapro, wellbutrin 150 , imdur ,keflex 60minutes were required for this appointment with at least 1/2 the time spent in counseling, education, coordination of care, disease management and/or disposition Author: Pato Ferrer MD 05/11/2019 15:04 documented in this encounter Plan of Treatment Date Type Specialty Care Team Description 05/20/2019 Office Visit Cardiology Neymar Greer MD [address] [place] [address] [phone] Name Type Priority Associated Diagnoses Order Schedule AMBULATORY 12 LEAD EKG EKG Routine Pre-op evaluation Ordered: 05/11/2019 (GLOBAL) PROTHROMBIN TIME Lab Routine Diabetes mellitus due to Expected: 05/11/2019 underlying condition with (Approximate), diabetic nephropathy, Expires: 05/11/2020 with long-term current use of insulin (HCC) Pre-op evaluation CBC WITH DIFFERENTIAL Lab Routine Pre-op evaluation Expected: 05/11/2019 (Approximate), Expires: 05/11/2020 PARTIAL THROMBOPLASTIN Lab Routine Diabetes mellitus due to Expected: 05/11 TIME underlying condition with (Approximate), diabetic nephropathy, Expires: 05/11/2020 with long-term current use of insulin (HCC) Pre-op evaluation SEDIMENTATION RATE Lab Routine Other acute osteomyelitis Expected: 2018 of left foot (HCC) (Approximate), Expires: 05/11/2020 Health Maintenance Due Date Last Done Comments PNEUMOCOCCAL 0-64 YRS (1 of 1970 3 - PCV13) ZOSTER IMMUNIZATION SERIES 2014 (1 of 2) COLONOSCOPY SCREENING 05/19/2018 05/19/2015 MEDICARE ANNUAL WELLNESS 03/04/2019 03/04/2018 VISIT FOOT EXAM 03/25/2019 03/25/2018, 03/25/2018, 10/07/2017, Additional history exists HEMOGLOBIN A1C 05/30/2019 02/27/2019, 02/23/2019, 12/11/2018, Additional history exists Diabetic Eye Exam 12/30/2019 12/29/2018, 12/22/2018, 12/16/2018, Additional history exists LIPID DISORDER SCREENING 04/29/2020 04/29/2019, 03/16/2019, 03/04/2018, Additional history exists DEPRESSION SCREENING 05/11/2020 05/11/2019, 05/11/2019 HPV IMMUNIZATION SERIES Aged Out No longer eligible based on patient's age to complete this topic MENINGOCOCCAL VACCINE IMM Aged Out No longer eligible based on patient's age to complete this topic documented as of this encounter Goals Goal Patient Goal Associated Recent Patient-Stated? Author Type Problems Progress Blood Pressure Blood Pressure 126/72 No Nabil, < 140/90 (05/11/2019 MD Pato 2:24 PM EDT) Note: This is an individualized treatment (blood pressure) goal for Kev Gallardo: Displayed above (on the left) is your goal for blood pressure control. Your most recent blood pressure is also shown above, on the right. You should try to achieve blood pressures that are lower than your goal listed above (on the left). Depression screen (PHQ-9) Depression 15 (05/11/2019 2:21 PM No Pato Ferrer MD total score [...] Weight loss vs. 18 mo Lifestyle 20 (05/11/2019 2:24 PM EDT) No Pato Ferrer MD max [...] is an individualized lifestyle goal for Kev Montesell: Please maintain a regular sleep schedule. This [...] ongoing basis. 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 (HCC) Diabetes mellitus due to underlying condition with diabetic nephropathy, with long-term current use of insulin (HCC) Ischemic cardiomyopathy Other specified forms of chronic ischemic heart disease documented in this encounter Insurance Payer Benefit Plan / Subscriber ID Effective Dates Phone Address Type Group MEDICARE MEDICARE PART A xxxxxxxxxx 2014-Present Medicare & B MEDICAID [facility] xxxxxxxx 2018-Present Medicaid [place] MEDICAID Guarantor Name Account Type Relation to Date of Phone Billing Patient Address Kev Gallardo Personal/Family 1965 [address] [phone] [place], [place] (Work) [id number] documented as of this encounter
--- OUTSIDE RECORDS SUMMARY | 2019-05-24 01:28 | XMS REPORT | Summary of Care ---
:1965 Author Organization 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 Lancets Does not 1 Each by Does 200 Each 6 10/22/2017 Active apply Misc not apply route THREE TIMES DAILY. Brand:Freestyl e lite Dx:E11.40 Test Blood Glucose 3 time(s) A DAY ADVOCATE INSULIN 1 Each by Does 200 Each 0 10/22/2017 Active PEN NEEDLES 31G X not apply 8 MM Does not route THREE apply Misc TIMES DAILY. Dx: E11.40 ; Test: TID last OV 10/07/17 Insulin Pen 1 Each by Does 100 Each 5 06/10/2018 Active Needle (PEN not apply NEEDLES) 32G X 4 route MM Does not apply DIRECTED. Misc E11.40 1-4 x a day clotrimazole Apply [...] TIMES DAILY. DX: E11.40 ; Brand: Freestyle [employer]; last OV 12/08/18 LANTUS SOLOSTAR INJECT 40 15 Each 5 03/03/2019 Active 100 UNIT/ML UNITS BENEATH Subcutaneous THE SKIN EVERY Solution BEDTIME. Pen-injector atorvastatin TAKE 1 TABLET 30 Tab 1 03/16/2019 Active (LIPITOR) 80 MG BY MOUTH EVERY Oral Tab DAY Blood Pressure 1 Device by 1 Device 0 04/29/2019 Active Monitoring (BLOOD Does not apply PRESSURE MONITOR route DAILY. AUTOMAT) Does not apply DeviceIndications : Essential hypertension buPROPion XL Take 1 Tab by 90 Tab 0 04/29/2019 Active (WELLBUTRIN XL) mouth DAILY. 150 MG Oral TABLET SR 24 HR 24 hour tabletIndications : Mood disorder (HCC) Insulin Lispro Inject 6 Units 3 Device 3 04/29/2019 Active (HUMALOG KWIKPEN) beneath the 100 UNIT/ML skin THREE Subcutaneous TIMES DAILY Solution BEFORE MEALS. Pen-injectorIndic ations: Type 2 diabetes mellitus with diabetic neuropathy, without long-term current use of insulin (HCC) lisinopril Take 1 Tab by 90 Tab 0 04/29/2019 Active (PRINIVIL, mouth DAILY. ZESTRIL) 2.5 MG Oral TabIndications: Essential hypertension, benign metoprolol Take 1 Tab by 120 Tab 0 04/29/2019 Active (LOPRESSOR) 25 MG mouth TWICE Oral DAILY. TabIndications: Essential hypertension, benign HUMALOG KWIKPEN INJECT 6 UNITS 3 Device 3 03/03/2018 Discontinued 100 UNIT/ML BENEATH THE 9 (Reorder) Subcutaneous SKIN THREE Solution TIMES DAILY Pen-injector BEFORE MEALS. lisinopril Take 2.5 mg by 0 Discontinued (PRINIVIL, mouth DAILY. 9 (Reorder) ZESTRIL) 2.5 MG Oral Tab metoprolol Take 25 mg by 0 Discontinued (LOPRESSOR) 25 MG mouth TWICE 9 (Reorder) Oral Tab DAILY. buPROPion XL Take 150 mg by 0 Discontinued (WELLBUTRIN XL) mouth DAILY. 9 (Reorder) 150 MG Oral TABLET SR 24 HR 24 hour tablet documented as of this encounter (statuses as of 04/29/2019) Active Problems Problem Noted Date Coronary artery disease involving cheesh-na coronary artery of cheesh-na heart 12/11 Mood disorder 12/08/2018 Osteomyelitis 05/14/2018 Status post amputation of foot 05/14/2018 Headache 05/14/2018 Diabetic foot ulcer 05/14/2018 Cellulitis 05/14/2018 BMI 32.0-32.9,adult 01/10/2015 Overview: sustained wt reduction with portion control and sustained routine exercise. 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/17/20152017 retinopathy with macular edema Type 2 diabetes mellitus without complication 05/01/2012 07/17/2015 documented as of this encounter (statuses as of 04/29/2019) Immunizations Name Administration Dates Next Due Influenza [...] Time Taken Comments Blood Pressure 152/98 04/29/2019 2:09 PM EDT Pulse - - Temperature - - Respiratory Rate - - Oxygen Saturation - - Inhaled Oxygen Concentration - - Weight 109.8 kg (242 lb) 04/29/2019 2:09 PM EDT Height 182.9 cm (6') 04/29/2019 2:09 PM EDT Body Mass Index 32.82 04/29/2019 2:09 PM EDT documented in this encounter Patient Instructions Patient InstructionsMartina Littlejohn FNP - 04/29/2019 2:00 PM EDTMedication as directed Follow up with Dr Ferrer in near future Try Claritin daily for next week - call if head/ear/sinus symptoms persist or worsen documented in this encounter Progress Notes Martina Littlejohn FNP - 04/29/2019 2:00 PM EDT PATIENT: Kev Gallardo : 1965 DATE OF SERVICE: 04/29/2019 CHIEF COMPLAINT: Chief Complaint Patient presents with Medication Refill Patient is here today for a medication refill follow up. Subjective HISTORY OF PRESENT ILLNESS: Kev Gallardo is a 53-y.o. male. HPI Pt here for med refills - not sure what meds he needs. Pharmacy called - needs Wellbutrin, Humalog, lisinopril and metoprolol. Recently had heart surgery. Was in Rehab facility. Just saw Cardiology, has appointment with Ortho tomorrow regarding left foot. C/o ears feeling full today Past Medical History: Diagnosis Date BMI 32.0-32.9,adult 01/10/2015 sustained wt reduction with portion control and sustained routine exercise. Diabetes mellitus with neuropathy (HCC) DM w/o complication type II 05/01/20122014 mild background retinopathy Erectile dysfunction Essential hypertension, benign Ischemic cardiomyopathy 2018 25-30 Mixed hyperlipidemia 05/01/2012 Tobacco user Family History Problem Relation Age [...] file Gets together: Not on file Attends buddhism service: Not on file Active member of [...] Narrative Single. No children. REVIEW OF SYSTEMS: Review of Systems Constitutional: Positive for malaise/fatigue. Negative for chills and fever. HENT: Positive for congestion and ear pain. Negative for sore throat. Respiratory: Positive for shortness of breath. Negative for cough and sputum production. SOB worse with activity Cardiovascular: Negative for palpitations. Minimal leg swelling Incision pain Musculoskeletal: Positive for myalgias. Neurological: Positive for headaches. Negative for dizziness. Objective PHYSICAL EXAM: VITALS: BP (!) 152/98 | Ht 6' (1.829 m) | Wt 242 lb (109.8 kg) | BMI 32.82 kg/m Body mass index is 32.82 kg/m. Physical Exam Constitutional: He is oriented to person, place, and time. He appears well- developed and well-nourished. BP elevated - has not taken medications - took while in office HENT: Head: Normocephalic and atraumatic. Right Ear: Tympanic membrane is retracted. Tympanic membrane is not erythematous. Left Ear: Tympanic membrane is retracted. Tympanic membrane is not erythematous. Nose: Nose normal. Mouth/Throat: Uvula is midline and oropharynx is clear and moist. Eyes: Pupils are equal, round, and reactive to light. EOM are normal. Neck: Normal range of motion. No JVD present. Cardiovascular: Normal rate and regular rhythm. Pulmonary/Chest: Effort normal. Abdominal: Bowel sounds are normal. There is no tenderness. A hernia is present. Lymphadenopathy: He has no cervical adenopathy. Neurological: He is alert and oriented to person, place, and time. Slow gait - using walker - has CAM boot on due to left mid foot amputation Skin: Skin is warm and dry. He is not diaphoretic. No cyanosis. Vitals reviewed. ASSESSMENT / IMPRESSION: ICD-9-CM ICD-10-CM 1. Type 2 diabetes mellitus with diabetic neuropathy, without long-term current use of insulin ([facility])250.60 E11.40 Insulin Lispro (HUMALOG KWIKPEN) 100 UNIT/ML Subcutaneous Solution Pen-injector 357.2 2. Essential hypertension, benign 401.1 I10 lisinopril (PRINIVIL, ZESTRIL) 2.5 MG Oral Tab metoprolol (LOPRESSOR) 25 MG Oral Tab 3. Umbilical hernia without obstruction and without gangrene 553.1 K42.9 4. Mood disorder ([facility]) 296.90 F39 buPROPion XL (WELLBUTRIN XL) 150 MG Oral TABLET SR 24 HR 24 hour tablet Plan Medication as directed Follow up with Dr Ferrer in near future Try Claritin daily for next week - call if head/ear/sinus symptoms persist or worsen Keep appointment with Ortho tomorrow for left foot Author: FILOMENA eDlong 04/29/2019 14:50 documented in this encounter Plan of Treatment Date Type Specialty Care Team Description 05/11/2019 Lab Internal Medicine 05/11/2019 Orders Only Cardiology 05/11/2019 Office Visit Family Practice Pato Ferrer MD [address] [place] [id number] [phone] 05/20/2019 Office Visit Cardiology Neymar Greer MD [facility] [place] [address] Health Maintenance Due Date Last Done Comments [...] 12/16/2018, Additional history exists LIPID DISORDER SCREENING 03/16/2020 03/16/2019, 03/04/2018, 11/30/2017, Additional history exists HPV IMMUNIZATION SERIES Aged Out No longer eligible based on patient's age to complete this topic MENINGOCOCCAL VACCINE IMM Aged Out No longer eligible based on patient's age to complete this topic documented as of this encounter Goals Goal Patient Goal Associated Recent Patient-Stated? Author Type Problems Progress Blood Pressure Blood Pressure 152/98 No Nabil, < 140/90 (04/29/2019 MD Pato 2:09 PM [...] screen (PHQ-9) Depression 8 (03/04/2018 12:45 PM Pato Boucher MD total score < 5 EDT) Note: This is an individualized treatment (depression) goal for Kev Gallardo: Displayed above is your goal for a depression screening (PHQ-9) score that would indicate good control of your depression. Glycohemoglobin A1c < 7.0 Diabetes 8.4 (12/11/2018 2:04 PM No Pato Ferrer MD EDT) Note: This is an individualized treatment (diabetes control, HgbA1C) goal for Kev Galalrdo: Displayed above is your progress towards your HgbA1C goal. Your goal is shown above (on the left); your most recent HgbA1C is shown on the right. Note that lower numbers are better. Weight loss vs. 18 mo Lifestyle 20 (04/29/2019 2:09 PM EDT) Pato Boucher MD max (lbs) >= 10 Note: This [...] filedocumented in this encounter Visit Diagnoses Diagnosis Type 2 diabetes mellitus with diabetic neuropathy, without long-term current use of insulin (HCC) - Primary Essential hypertension, benign Umbilical hernia without obstruction and without gangrene Mood disorder (HCC) Unspecified episodic mood disorder documented in this encounter Insurance Payer Benefit Plan / Subscriber ID Effective Dates Phone Address Type Group MEDICARE MEDICARE PART A xxxxxxxxxx 2014-Present Medicare & B MEDICAID [facility] xxxxxxxx 2018-Present Medicaid [place] MEDICA[place] Guarantor Name Account Type Relation to Date of Phone Billing Patient Address Kev Gallardo Personal/Family 1965 [address] [phone] [place], [place] ([place]) [id number] documented as of this encounter"
--- OUTSIDE RECORDS SUMMARY | 2019-05-24 01:28 | XMS REPORT | Continuity of Care Document ---
:1965 External Reference #:[id number] Author Name Pedro Jean Baptiste M.D. (transmitted by agent of provider Adeline Hazel) Address [address] [place] [address] Care Team Providers Name Role Phone Pato Ferrer MD - Family Medicine Care Team Information Biological Aide [phone] Problems Description No Information Available Social History Type Date Description Comments Sex Unknown ETOH Use Denies alcohol use Tobacco Use Start: Unknown Patient is a current smoker, smokes every day Smoking Status Reviewed: 05/07/19 Patient is a current smoker, smokes every day Allergies, Adverse Reactions, Alerts Description No Known Drug Allergies Medications Active Medications SIG Qnty Indications Ordering Provider Date Knee Scooter for M86.9 Pedro Jean Baptiste M.D. 05/05/2019 non-weightbearing ht: 72" wt: 257lbs Z89.432 Keflex 1 by mouth three 90caps M86.672 Pedro Jean Baptiste, 10/09/2018 500mg Capsules times a day M.D. Omeprazole 1 by mouth every Unknown 20mg Capsules DR day Multi-Vitamin 1 by mouth every Unknown Tablets day Humalog Blue Kwikpen if bs 150-200 give Unknown 2 units , 201-250 100Unit/ML Solution give 4 units, Pen-Inject 251-299 give 6 units, 300-350 give 8 units Glargine Insuline Unknown Pen Atorvastatin Calcium Take 1 Tablet By Unknown 80mg Mouth Every Day Tablets Isosorbide Mononitrate Take 1 Tablet By Unknown ER Mouth Every Day 30mg Tablets ER 24HR Cefadroxil Take 2 Capsules By Unknown 500mg Capsules Mouth Twice A Day For 10 Days Bupropion Hydrochloride Take 1 Tablet By Unknown ER (XL) Mouth Every Day 150mg Tablets ER 24HR Lisinopril Take 1 Tablet By Unknown 2.5mg Tablets Mouth Every Day Metoprolol Tartrate Take 1 Tablet By Unknown 25mg Mouth Twice A Day Tablets Oxycodone HCL Take 1 Tablet By Unknown 5mg Tablets Mouth Every 4 Hours as Needed Cephalexin Take 1 Capsule By Unknown 500mg Capsules Mouth Three Times A Day Immunizations Description No Information Available Vital Signs Date Vital Result Comment 05/07/2019 10:26am Height 72 inches 6'0" Weight 250.00 lb Heart Rate 96 /min BP Systolic 110 mmHg BP Diastolic 78 mmHg Respiratory Rate 14 /min Pain Level 4 BMI (Body Mass Index) 33.9 kg/m2 04/30/2019 10:56am Height 72 inches 6'0" Weight 247.00 lb Heart Rate 85 /min BP Systolic 160 mmHg BP Diastolic 100 mmHg Respiratory Rate 16 /min Pain Level 2 BMI (Body Mass Index) 33.5 kg/m2 Results Test Date Facility Test Result H/L Range Note Laboratory test 05/12/2019 [facility] C Reactive 145.37 mg/L High <8.[address] [place] [address] [phone] Type & Screen 05/12/2019 [facility] Patient Blood AB Positive [address] [place] [address] [phone] Antibody Screen NEGATIVE Procedures Date Code Description Status 02/24/2019 76614 ECHO Transthorasic Realtime 2D W Doppler & Color Flow Hosp Completed Medical Devices Description No Information Available Encounters Type Date Location Provider Dx Diagnosis Office Visit 02/27/2019 [facility] Mo José, I50.20 Unspecified 1:56p Of Open Source Developer DO FACC systolic (congestive) heart failure I25.10 [facility] heart disease of [place]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 ang pctrs E11.9 Type 2 diabetes mellitus without complications R78.81 Bacteremia Office Visit 02/27/2019 9:59a [facility] Grace I24.9 Acute ischemic Assoc,pc Tracy DO heart disease, Hospitalists unspecified I50.21 Acute systolic (congestive) heart failure A41.9 Sepsis, unspecified organism M86.9 Osteomyelitis, unspecified N17.9 Acute kidney failure, unspecified Z79.4 correction (current) use of insulin E11.9 Type 2 diabetes mellitus without complications D64.9 Anemia, unspecified Office Visit 02/26/2019 1:55p [facility] Mo Gibbs I50.20 Unspecified Of Open Source Developer Arnav DO systolic FACC (congestive) heart failure I25.10 Athscl heart disease of [place]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 ang pctrs E11.9 Type 2 diabetes mellitus without complications Office Visit 02/26/2019 9:59a [facility] Grace N17.9 Acute kidney Assoc,pc Tracy, DO failure, Hospitalists unspecified I11.0 Hypertensive heart disease with heart failure I50.20 Unspecified systolic (congestive) heart failure I25.10 Athscl heart disease of [place]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 ang pctrs M86.9 Osteomyelitis, unspecified Office Visit 02/25/2019 1:53p [facility] Elaine Manrique, R07.9 Chest pain, Of Tana Cueva.Amy unspecified R79.89 Other specified abnormal findings of blood chemistry I25.10 Athscl heart disease of [place]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 ang pctrs E78.5 Hyperlipidemia, unspecified I25.5 Ischemic cardiomyopathy M86.9 Osteomyelitis, unspecified Office Visit 02/25/2019 [facility] Sheila Tran, S91.302A Unspecified open 11:43a Services Of C.M.A. RPA-C wound, left foot, initial encounter Office Visit 02/25/2019 [facility] Cherelle Cook MD M86.9 Osteomyelitis, 9:59a Assoc,pc unspecified Hospitalists L03.116 Cellulitis of left lower limb I11.0 Hypertensive heart disease with heart failure I50.20 Unspecified systolic (congestive) heart failure I25.10 Athscl heart disease of [place]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 ang pctrs N17.9 Acute kidney failure, unspecified K21.9 Gastro-esophageal reflux disease without esophagitis Z72.0 Tobacco use E11.9 Type 2 diabetes mellitus without complications F32.9 Major depressive disorder, single episode, unspecified Office Visit 02/24/2019 Orthopedic Pedro M86.672 Other chronic 11:40a Services Of Azar Jean Baptiste osteomyelitis, left C.M.A. ankle and foot E11.621 Type 2 diabetes mellitus with foot ulcer Office Visit 02/24/2019 9:58a [facility] Cherelle Cook, L03.116 Cellulitis of stephania Alex MD left lower limb Hospitalists N17.9 Acute kidney failure, unspecified I25.10 Athscl heart disease of [place]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 ang pctrs I11.0 Hypertensive heart disease with heart failure I50.20 Unspecified systolic (congestive) heart failure K21.9 Gastro-esophageal reflux disease without esophagitis E11.9 Type 2 diabetes mellitus without complications Z72.0 Tobacco use Office Visit 02/24/2019 12:54p [facility] Patel Reyes I25.10 Athscl heart Of Tana Kim M.D. disease of [place]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 ang pctrs I25.5 Ischemic cardiomyopathy I10 Essential (primary) hypertension E78.5 Hyperlipidemia, unspecified Office Visit 02/24/2019 8:15a Wound Care Liza Graf L97.528 Non- prs chronic [facility] [place] [place] Roni, SERVICE AIDE ulcer oth prt left foot with oth severity E11.621 Type 2 diabetes mellitus with foot ulcer M86.672 Other chronic osteomyelitis, left ankle and foot E66.9 Obesity, unspecified Z78.9 Other specified health status Office Visit 02/23/2019 9:58a [facility] Cherelle Cook, E11.621 Type 2 diabetes stephania Alex MD mellitus with Hospitalists foot ulcer L97.529 Non-pressure chronic ulcer oth prt left foot w unsp severity I13.0 Hyp hrt & chr kdny dis w hrt fail and stg 1-4/unsp chr kdny I50.9 Heart failure, unspecified E11.22 Type 2 diabetes mellitus w diabetic chronic kidney disease N18.2 Chronic kidney disease, stage 2 (mild) R07.9 Chest pain, unspecified K21.9 Gastro-esophageal reflux disease without esophagitis F17.210 Nicotine dependence, cigarettes, uncomplicated Office Visit 01/01/2019 9:45a Orthopedic Pedro E11.621 Type 2 diabetes Services Of Azar Jean Baptiste mellitus with C.M.A. foot ulcer L97.509 Non-pressure chronic ulcer oth prt unsp foot w unsp severity Office Visit 12/18/2018 8:45a Orthopedic Pedro E11.621 Type 2 diabetes Services Of Azar Jean Baptiste mellitus with C.M.A. foot ulcer Office Visit 11/27/2018 10:30a Orthopedic Pedro E11.621 Type 2 diabetes Services Of Azar Jean Baptiste mellitus with C.M.A. foot ulcer Office Visit 11/18/2018 10:30a Orthopedic Pedro M86.672 Other chronic Services Of Azar Jean Baptiste osteomyelitis, C.M.A. left ankle and foot Assessments Date Code Description Provider 05/07/2019 M86.672 Other chronic osteomyelitis, left Pedro Jean Baptiste M.D. ankle and foot 04/30/2019 M86.9 Osteomyelitis, unspecified Pedro Jean Baptiste M.D. 02/27/2019 I24.9 Acute ischemic heart disease, Grace Molina, DO unspecified 02/27/2019 I50.20 Unspecified systolic (congestive) Mo José, DO [facility] heart failure 02/27/2019 I50.21 Acute systolic (congestive) heart Grace Molina, DO failure 02/27/2019 I25.10 Athscl heart disease of [place] Mo José, DO [facility]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 ang pctrs 02/27/2019 A41.9 Sepsis, unspecified organism Grace Molina, DO 02/27/2019 E11.9 Type 2 diabetes mellitus without Mo José, DO [facility] complications 02/27/2019 M86.9 Osteomyelitis, unspecified Grace Molina, DO 02/27/2019 R78.81 Bacteremia Mo José, DO FACC 02/27/2019 N17.9 Acute kidney failure, unspecified Grace Molina, DO 02/27/2019 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 Grace Molina, DO 02/27/2019 E11.9 Type 2 diabetes mellitus without Grace Molina, DO complications 02/27/2019 D64.9 Anemia, unspecified Grace Molina, DO 02/26/2019 I50.20 Unspecified systolic (congestive) Mo José, DO [facility] heart failure 02/26/2019 N17.9 Acute kidney failure, unspecified Grace Molina, DO 02/26/2019 I11.0 Hypertensive heart disease with Grace Molina, DO heart failure 02/26/2019 I25.10 Athscl heart disease of [place] Mo José, DO [facility]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 ang pctrs 02/26/2019 I50.20 Unspecified systolic (congestive) Grace Molina, DO heart failure 02/26/2019 I25.10 Atherosclerotic heart disease of Grace Molina DO [place] coronary artery with 02/26/2019 E11.9 Type 2 diabetes mellitus without Mo José, DO FAC complications 02/26/2019 M86.9 ngina pectoris Grace Molina, DO 02/25/2019 R07.9 Chest pain, unspecified Elaine Manrique M.D. 02/25/2019 R79.89 Other specified abnormal findings of Elaine Manrique M.D. blood chemistry 02/25/2019 I25.10 Atherosclerotic heart disease of Elaine Manrique M.D. [place] coronary artery with 02/25/2019 E78.5 Hyperlipidemia, unspecified Elaine Manrique M.D. 02/25/2019 I25.5 Ischemic cardiomyopathy Elaine Manrique M.D. 02/25/2019 M86.9 Osteomyelitis, unspecified Elaine Manrique M.D. 02/25/2019 S91.302A Unspecified open wound, left foot, Sheila Tran, RPA-C initial encounter 02/25/2019 M86.9 Osteomyelitis, unspecified Cherelle Cook MD 02/25/2019 L03.116 Cellulitis of left lower limb Cherelle Cook MD 02/25/2019 I11.0 Hypertensive heart disease with Cherelle Cook MD heart failure 02/25/2019 I50.20 Unspecified systolic (congestive) Cherelle Cook MD heart failure 02/25/2019 I25.10 Atherosclerotic heart disease of Cherelle Cook MD [place] coronary artery with 02/25/2019 N17.9 ngina pectoris Cherelle Cook MD 02/25/2019 K21.9 Gastro-esophageal reflux disease Cherelle Cook MD without esophagitis 02/25/2019 Z72.0 Tobacco use Cherelle Cook MD 02/25/2019 E11.9 Type 2 diabetes mellitus without Cherelle Cook MD complications 02/25/2019 F32.9 Major depressive disorder, single Cherelle Cook MD episode, unspecified 02/24/2019 E11.69 Type 2 diabetes mellitus with other Aguilar Guerra M.D. specified complication 02/24/2019 I25.10 Atherosclerotic heart disease of Patel Kim M.D. [place] coronary artery with 02/24/2019 M86.672 Other chronic osteomyelitis, left Aguilar Guerra M.D. ankle and foot 02/24/2019 I25.5 Ischemic cardiomyopathy Patel Kim M.D. 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 stump 02/24/2019 I10 Essential (primary) hypertension Patel Kim M.D. 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 ankle and foot 02/24/2019 L97.528 Non-pressure chronic ulcer of other Lizaharvinder Tamayo SERVICE AIDE part of left foot with other specified severity 02/24/2019 E11.621 Type 2 diabetes mellitus with foot Liza Tamayo NP ulcer 02/24/2019 I50.9 Heart failure, germaineified Patel Kim M.D. 02/24/2019 M86.672 Other chronic osteomyelitis, left Liza Tamayo NP ankle and foot 02/24/2019 E11.621 Type 2 diabetes mellitus with foot Pedro Jean Baptiste M.D. ulcer 02/24/2019 E66.9 Obesity, unspecified Liza Graf Rnoi, SERVICE AIDE 02/24/2019 L03.116 Cellulitis of left lower limb Cherelle Cook MD 02/24/2019 Z78.9 Other specified health status Liza Graf Tamayo, SERVICE AIDE 02/24/2019 N17.9 Acute kidney failure, unspecified Cherelle Cook MD 02/24/2019 I25.10 Atherosclerotic heart disease of Cherelle Cook MD [place] coronary artery with 02/24/2019 I11.0 ngina pectoris Cherelle Cook MD 02/24/2019 I50.20 Unspecified systolic (congestive) Cherelle Cook MD heart failure 02/24/2019 K21.9 Gastro-esophageal reflux disease Cherelle Cook MD without esophagitis 02/24/2019 E11.9 Type 2 diabetes mellitus without Cherelle Cook MD complications 02/24/2019 Z72.0 Tobacco use Cherelle Cook MD 02/23/2019 E11.621 Type 2 diabetes mellitus with foot Cherelle Cook MD ulcer 02/23/2019 L97.529 Non-pressure chronic ulcer of other Cherelle Cook MD part of left foot with u 02/23/2019 I13.0 Hypertensive heart and chronic Cherelle Cook MD kidney disease with heart leia 02/23/2019 I50.9 Heart failure, unspecified Cherelle Cook MD 02/23/2019 E11.22 Type 2 diabetes mellitus with Cherelle Cook MD diabetic chronic kidney diseas 02/23/2019 N18.2 sease Cherelle Cook MD 02/23/2019 R07.9 Chest pain, unspecified Cherelle Cook MD 02/23/2019 K21.9 Gastro-esophageal reflux disease Cherelle Cook MD without esophagitis 02/23/2019 F17.210 Nicotine dependence, cigarettes, Cherelle Cook MD uncomplicated 01/01/2019 E11.621 Type 2 diabetes mellitus with foot Pedro Jean Baptiste M.D. ulcer 01/01/2019 L97.509 Non-pressure chronic ulcer of other Pedro Jean Baptiste M.D. part of unspecified foot 12/18/2018 E11.621 Type 2 diabetes mellitus with foot Pedro Jean Baptiste M.D. ulcer 11/27/2018 E11.621 Type 2 diabetes mellitus with foot Pedro Jean Baptiste M.D. ulcer 11/18/2018 M86.672 Other chronic osteomyelitis, left Pedro Jean Baptiste M.D. ankle and foot Plan of Treatment Future Appointment(s):05/25/2019 12:30 pm - HALIMA Smith at [facility].05/25/2019 12:30 pm - Pedro Jean Baptiste M.D. at [facility].05/28/2019 10:45 am - Pedro Jean Baptiste M.D. at [facility].05/07/2019 - Pedro Jean Baptiste M.D.M86.672 Other chronic osteomyelitis, left ankle and footFollow up:10-14 days postop Functional Status Description No Information Available Mental Status Description No Information Available Referrals Description No Information Available
--- OUTSIDE RECORDS SUMMARY | 2019-05-24 01:28 | XMS REPORT | Summary of Care ---
:1965 Author Organization [facility] Address [address] [address] Care Team Providers Name Role Phone Pato Ferrer Primary Care Provider Pedro Jean Baptiste MD Unavailable Derek Laws MD Primary Electrician Shop/Catering Assistant Reason for Visit Reason Comments Follow Up Pt. in for a 3 week follow up. Echo done on 05/11/19. Pt. reports increased weakness. Scheduled for Surgery 05/25/19 at [facility] Encounter Details Date Type Department Care Team Description 05/20/2019 Office Visit Prosper Anita Greer, Coronary artery disease involving h[place]ap[place] coronary artery of h[place]ai heart without angina pectoris ( Primary Dx); Cardiology MD Neymar Chronic combined systolic and diastolic congestive heart failure (HCC); [address] Ischemic cardiomyopathy; [place] [address] [place] [address] Essential hypertension; [phone] Pleural effusion on left; [phone] Preoperative cardiovascular examination (Fax) Allergies No Known Allergiesdocumented as of this encounter (statuses as of 05/20/2019) Medications Medication Sig Dispensed Refills Start Date [...] 10/22/2017 Active NEEDLES 31G X 8 MM not apply route Does not apply Misc THREE TIMES DAILY. Dx: E11.40 ; Test: TID last OV 10/07/17 Insulin Pen Needle 1 Each by Does 100 Each 5 06/10/2018 Active (PEN NEEDLES) 32G X not apply route 4 MM Does not apply DIRECTED. Misc E11.40 1-4 x a day clotrimazole Apply 2 x a day 40 g 0 06/10/2018 Active (LOTRIMIN) 1 % Apply for a week externally Cream Multiple Take 1 Tab by 90 Tab 1 09/11/2018 Active Vitamins-Minerals mouth DAILY. (MULTIVITAMIN ADULT) Oral Tab Glucose Blood In 1 Each by In 300 Each 6 01/20/2019 Active Vitro Strip Vitro route THREE TIMES DAILY. DX: E11.40 ; Brand: RLJ Entertainmente; last OV 12/08/18 LANTUS SOLOSTAR 100 INJECT 40 UNITS 15 Each 5 03/03/2019 Active UNIT/ML Subcutaneous BENEATH THE Solution SKIN EVERY Pen-injector BEDTIME. atorvastatin TAKE 1 TABLET 30 Tab 1 03/16/2019 Active (LIPITOR) 80 MG Oral BY MOUTH EVERY Tab DAY oxyCODONE HCl 5 MG Take 1 Tab by 0 Active Oral Tablet mouth EVERY Abuse-Deterrent FOUR HOURS NEEDED. Cefadroxil 500 MG Take 1 Cap by 0 Active Oral Cap mouth TWICE DAILY. torsemide (DEMADEX) Take 1 Tab by [...] Tab 0 04/29/2019 Active (WELLBUTRIN XL) 150 mouth DAILY. MG Oral TABLET SR 24 HR 24 hour tabletIndications: Mood disorder (HCC) Insulin Lispro Inject 6 Units 3 Device 3 04/29/2019 Active (HUMALOG KWIKPEN) beneath the 100 UNIT/ML skin THREE Subcutaneous TIMES DAILY Solution BEFORE MEALS. Pen-injectorIndicati ons: Type 2 diabetes mellitus with diabetic neuropathy, without long-term current use of insulin (HCC) lisinopril Take 1 Tab by 90 Tab 0 04/29/2019 Active (PRINIVIL, ZESTRIL) mouth DAILY. 2.5 MG Oral TabIndications: Essential hypertension, benign metoprolol Take 1 Tab by 120 Tab 0 04/29/2019 Active (LOPRESSOR) 25 MG mouth TWICE Oral TabIndications: DAILY. Essential hypertension, benign irbesartan (AVAPRO) Take 75 mg by 0 Active 75 MG Oral Tab mouth DAILY. isosorbide Take 30 mg by 0 Active MONOnitrate (IMDUR) mouth DAILY. 30 MG Oral TABLET SR 24 HR bisoprolol-hydrochlo Take 2 Tabs by 0 Active rothiazide (ZIAC) mouth DAILY. 5-6.25 MG Oral Tab cephalexin (KEFLEX) Take 500 mg by 0 Active 500 MG Oral Cap mouth THREE TIMES DAILY. buPROPion Take 300 mg by 0 Active (WELLBUTRIN XL) 300 mouth DAILY. MG Oral TABLET SR 24 HR aspirin 81 MG Oral Take 1 Tab by 30 Tab 5 05/11/2019 Active Chew Tab mouth DAILY. Aspirin 81 MG Oral Take 81 mg by 0 Discontinued Tab mouth DAILY. 9 documented as of this encounter (statuses as of 05/20/2019) Active Problems Problem Noted Date Coronary artery disease involving hualapai coronary artery of hualapai heart 12/11 Mood disorder 12/08/2018 Ischemic cardiomyopathy 08/26/2018 Overview: 25-30 Osteomyelitis 05/14/2018 Status post amputation of foot 05/14/2018 Headache 05/14/2018 Diabetic foot ulcer 05/14/2018 Cellulitis 05/14/2018 BMI 32.0-32.9,adult 01/10/2015 Overview: sustained wt reduction with portion control and sustained routine exercise. Mixed hyperlipidemia 05/01/2012 Essential hypertension, benign 05/01/2012 Diabetes mellitus with neuropathy documented as of this encounter (statuses as of 05/20/2019) Resolved Problems Problem Noted Date Resolved Date Type 2 diabetes, uncontrolled, with mild nonproliferative 07/17/20152017 retinopathy with macular edema Type 2 diabetes mellitus without complication 05/01/2012 07/17/2015 documented as of this encounter (statuses as of 05/20/2019) Immunizations Name Administration Dates Next Due Influenza [...] Sign Reading Time Taken Comments Blood Pressure 138/84 05/20/2019 9:40 AM EDT Pulse 89 05/20/2019 9:40 AM EDT Temperature - - Respiratory Rate - - Oxygen Saturation 97% 05/20/2019 9:40 AM EDT Inhaled Oxygen Concentration - - Weight - - Height 182.9 cm (6') 05/20/2019 9:40 AM EDT Body Mass Index - - documented in this encounter Patient Instructions Patient InstructionsMcNeymar Orozco MD - 05/20/2019 9:40 AM EDT No medication changes today, but bring in all of your meds to your next appointment. Get your bloodwork and xray checked today. As we discussed, you are a HIGH RISK for undergoing surgery, but I feel that if you get the fluid tapped off your lung that you could probably proceed to the amputation on Saturday. Follow up with me or Gabbie Valadez in 2 weeks. documented in this encounter Progress Notes Neymar Greer MD - 05/20/2019 9:40 AM EDT [facility] Note Patient: Kev Gallardo Date of : 1965 Date of Service: 05/20/2019 REFERRING PRACTITIONER: Neymar Grere PRIMARY CARE PROVIDER: Pato Ferrer Chief Complaint: Chief Complaint Patient presents with Follow Up Pt. in for a 3 week follow up. Echo done on 05/11/19. Pt. reports increased weakness. Scheduled forSurgery 05/25/19 at [facility] History of Present Illness: We had the pleasure of seeing Kev Gallardo today at the [facility] Card[facility] Office. He is a 53-y.o. 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 Cardiac cathdone for CP in 11/2018 showed chronic occlusion of the RCA and LAD and LVEF was severely reduced at 25-30%. He later presented to [facility] in February for CABG (JEAN --> LAD, SVG --> Diag and ?PDA), which was done by Dr. Ulrich. Postoperative course was complicated by L pleural effusion. Mr. Gallardo returns to cardiology clinic for close f/u. Since I first saw him on 04/29 it became apparent that he was scheduled for LLE amputation by Dr. Jean Baptiste for chronic osteo. He was seen by Dr. Ferrer on 05/11 and we both agreed that we should hold off on the surgery until he was more compensated from a CHF standpoint. I had recommended that we do a therapeutic L thoracentesis and Dr. Ferrer had arranged for that. However, he never got the thoracentesis done for some reason. From a symptom standpoint, he reports feeling "crappy." He says that his breathing is slightly better than at his last visit, but he continues to have some aching pain in his chest from the sternotomy. Gets occasional brief palpitations but no syncope or lightheadedness. Prior orthopnea is slightlybetter but still present. Weight is unchanged by our scales. LE edema is a little better and he's still not smoking. Doesn't know which meds he's taking at home, and his mother (who accompanies him)also doesn't know the medications. He says that he's taking every thing we prescribed. Patient Active Problem List Diagnosis Mixed hyperlipidemia Essential hypertension, benign BMI 32.0-32.9,adult Diabetes mellitus with neuropathy (HCC) Osteomyelitis (HCC) Status post amputation of foot (HCC) Headache Diabetic foot ulcer (HCC) Cellulitis Mood disorder (HCC) Coronary artery disease involving hualapai coronary artery of h[place]apai heart Ischemic cardiomyopathy Past Medical History: Diagnosis Date BMI 32.0-32.9,adult 01/10/2015 sustained wt reduction with portion control and sustained routine exercise. Diabetes mellitus with neuropathy (HCC) Diabetic foot ulcer (HCC) Vaughn's syndrome (HCC) Erectile dysfunction Essential hypertension, benign Ischemic cardiomyopathy 2018 25-30 Mixed hyperlipidemia 05/01/2012 Mood disorder (HCC) Osteomyelitis of ankle and foot (HCC) Tobacco user Past Surgical History: Procedure Laterality Date CATHETERIZATION HEART LEFT N/A 12/11/2018 Procedure: CATHETERIZATION HEART LEFT; Surgeon: Neal Matthews MD; Location: [facility] CCL UNLISTED PROCEDURE,MUSCULOSKELE 09/26/2017 half of left foot amputated No Known Allergies Current Outpatient Medications Medication Sig ADVOCATE INSULIN PEN NEEDLES 31G X 8 MM Does not apply Misc 1 Each by Does not apply route THREE TIMES DAILY. Dx: E11.40 ; Test: TID last OV 10/07/17 aspirin 81 MG Oral Chew Tab Take 1 Tab by mouth DAILY. atorvastatin (LIPITOR) 80 MG [...] file Gets together: Not on file Attends alevism service: Not on file Active member of [...] Asked Social History Narrative Single. No children. Review of Systems - Negative except as noted in HPI. Physical Exam: Vitals: 05/20/19 0940 BP: 138/84 BP Location: Right arm Patient Position: Sitting Pulse: 89 SpO2: 97% Height: 6' (1.829 m) Body mass index is 32.82 kg/m. General: Obese, alert 53-y.o. male in NAD HEENT: anicteric, MMM, no E/E OP, conj pink Neck: JVP approx 7-8 cm above RA, no carotid bruits or LAD CV: RRR, normal s1/s2, no appreciable murmurs, rubs, or gallops. Sternotomy site well-healed, with no drainage, TTP, or significant sternal mobility. Pulm: Clear except for decreased BS and dullness to percussion L base ~ 1/[address] lung bill[place] similar to prior. Abd: soft, NT, ND, +BS. No appreciable pulsatile masses or bruits. + umbilical hernia Ext: 1+ bilateral pitting lower extremity edema slightly improved from prior, no cyanosis, no cords. R lindo wrapped and RLE in boot. Neuro: no gross focal deficits but full sensory testing not performed. Skin: no visible lesions Labs: Lab Results Component Value Date NA 142 05/11/2019 K 4.7 05/11/2019 CL 106 05/11/2019 CO2 26 05/11/2019 GLUCOSE 117 (H) 05/11/2019 BUN 32 (H) 05/11/2019 CREATININE 1.2 05/11/2019 CALCIUM 9.1 05/11/2019 TP 7.4 04/29/2019 ALBUMIN 3.5 04/29/2019 AST 24 04/29/2019 ALT 24 04/29/2019 ALK 82 04/29/2019 TBILI 0.3 04/29/2019 EGFR >60 05/11/2019 Lab Results Component Value Date NT PRO BNP 18,900 (H) 05/11/2019 Lab Results Component Value Date CHOL 168 11/30/2017 TRIG 169 (H) 11/30/2017 HDL 30 (L) 11/30/2017 LDL 104 (H) 11/30/2017 LDLHDLRATIO 3.5 11/30/2017 CHOLHDLRATIO 5.6 11/30/2017 Cardiac Studies: EKG Today (I personally reviewed): NSR in 80s. LAE. Lateral T wave inversions that are less pronounced than on November EKG. TTE 05/11/19: FINAL IMPRESSION: Severely dilated LV with concentric LVH and mild left atrial enlargement. Severely reduced LV systolic function with multivessel territory wall motion abnormalities, as described. Calculated LVEF 28%. Mild right heart enlargement with mildly reduced RV contractility. Moderate functional mitral regurgitation. No pericardial effusion. Moderate left pleural effusion. Compared to prior intraoperative MAURICE report from [facility] 03/04/2019, left pleural effusion is noted and degree of mitral regurgitation is worse. Intraoperative MAURICE at [facility] 03/04/19: CONCLUSIONS 1. The left ventricle is [...] ascending aorta is stable. Carotid Dopplers at [facility] 02/28/2019: INTERPRETATION/FINDINGS Spectral analysis of the right [...] reduced at 25-30%. He later presented to [facility] in February for CABG (JEAN --> LAD, SVG --> Diag and ?PDA), whichwas done by Dr. Ulrich. Postoperative course was complicated by L pleural effusion. ICD-9-CM ICD-10-CM 1. Coronary artery disease involving h[place]ap[place] coronary artery of [place] heart without angina pectoris 414.01 I25.10 2. Chronic combined systolic and diastolic congestive heart failure (HCC) 428.42 I50.42 BASIC METABOLIC PANEL 428.0 NT PROBNP CBC NO DIFFERENTIAL CBC NO DIFFERENTIAL NT PROBNP BASIC METABOLIC PANEL 3. Ischemic cardiomyopathy 414.8 I25.5 4. Essential hypertension 401.9 I10 5. Pleural effusion on left 511.9 J90 XR CHEST 2 VIEW PA AND LATERAL (STANDARD) 6. Preoperative cardiovascular examination V72.81 Z01.810 1. Perioperative Risk Assessment: At this time, I feel that Mr. Gallardo remains high risk from a cardiac standpoint for any procedures. While he doesn' t have any current, clear anginal symptoms, he remains in decompensated CHF and I believe his L pleural effusion is also likely contributing significantly to his symptoms. Dr. Ferrer had tried arranging a therapeutic thoracentesis for the pt at [facility] but unfortunately that still hasn't been done. While the pt's volume status is slightly better than at his prior visit, I remain unsure of exactly which medications he's taking and which he's not. I explained all of that in detail to the patient and his mother, and my recommendations are as follows: Will continue current meds for now. I'm rechecking a CXR and labs today and we are going to work on getting the thoracentesis done or Saturday. I feel that if he gets the tap done then he can proceed to his planned amputation next Saturday, 05/25. He will still be at high risk for worsening CHF, and I would recommend avoiding IVFs as much as possible perioperatively. I explained my concerns to the patient and his mother but also explained that we don't want to wait too long to do the amputation either given the infection risk it poses. He expressed understanding about the risk of doing the procedure and agrees that it's reasonable to proceed after his tap. 2. Chronic Combined Systolic/Diastolic CHF due to Ischemic Cardiomyopathy with NYHA Class III-IV symptoms: Symptoms remain poorly on the current medical regimen, and I think that his L pleural effusioncontinues to be a big contributor at the current time. Recommendations are as follows: Most recent LV function: 28% (assessed on 05/11/19 by echo). Beta-catracho: It's unclear what BB he's on, but it may be bisoprolol. I strongly encouraged him to bring all of his meds to his next appt so I can know exactly what he's taking. ÁNGEL-inhibitor/ARB/ARNi: Unclear whether he's on irbesartan or lisinopril. Ultimately I'm goingto put him on Entresto, but until I know what he's taking I' m not making changes. Aldosterone Antagonist: Cont spironolactone 25mg daily. Diuretics: Cont torsemide 20mg daily. Rechecking labs today. Devices: May require ICD for primary prevention of SCD, but we'll see how his LVEF does with time and OMT. Other: I'm checking another CXR to evaluate his L pleural effusion. IR for thoracentesis as noted above. 3. Coronary Artery Disease s/p CABG: Currently describes sternotomy site pain, but no clear angina. However, his activity has been fairly limited by his LE wounds/osteo: Antiplatelets: Continue aspirin 81 mg daily. Statin: Cont atorvastatin 80mg daily. Direct LDL was 64 in 04/2019. Beta-catracho: BB as above.. Anti-Anginals: N/A. Cardiac Rehab: Ultimately I'd like to get him plugged into cardiac rehab, but at this point hisCHF is too limiting and I want to work on more optimization first. Thank you for allowing me to participate in the care of Kev Gallardo. We will plan on f/u in our office in 2 weeks or sooner prn. If you have any questions or concerns please feel free to call our office at . Neymar Greer MD, 05/20/2019, 11:00 This note was created using my previous note as a template; changes were made where appropriate, andall information in the current note is up to date to the best of my knowledge.Electronically signed by Neymar Greer MD at 2018 11:08 AM EDTdocumented in this encounter Plan of Treatment Date Type Specialty Care Team Description 06/03/2019 Office Visit Cardiology Arabella Valadez CRNP [address] [address] [phone] Name Type Priority Associated Diagnoses Date/Time BASIC METABOLIC PANEL Lab Routine Chronic combined 05/20/2019 10:16 AM systolic and diastolic EDT congestive heart failure (HCC) NT PROBNP Lab Routine Chronic combined 05/20/2019 10:16 AM systolic and diastolic EDT congestive heart failure (HCC) CBC NO DIFFERENTIAL Lab Routine Chronic combined 05/20/2019 10:16 AM systolic and diastolic EDT congestive heart failure (HCC) XR CHEST 2 VIEW PA AND Imaging Routine Pleural effusion on 05/20/2019 10: 25 AM LATERAL (STANDARD) left EDT Name Type Priority Associated Diagnoses Order Schedule BASIC METABOLIC PANEL Lab Routine Chronic combined Expected: 05/20/2019 systolic and diastolic (Approximate), congestive heart Expires: 11/16/2019 failure (HCC) NT PROBNP Lab Routine Chronic combined Expected: 05/20/2019 systolic and diastolic (Approximate), congestive heart Expires: 05/20/2020 failure (HCC) CBC NO DIFFERENTIAL Lab Routine Chronic combined Expected: 05/20/2019 systolic and diastolic (Approximate), congestive heart Expires: 11/16/2019 failure (HCC) XR CHEST 2 VIEW PA AND Imaging Routine Pleural effusion on Expected: LATERAL (STANDARD) left 05/20/2019, Expires: 05/19/2020 Health Maintenance Due Date Last Done Comments [...] Type Problems Progress Blood Pressure Blood Pressure 138/84 No Nabil, < 140/90 (05/20/2019 MD Pato 9:40 AM EDT) Note: This is an individualized treatment [...] filedocumented in this encounter Visit Diagnoses Diagnosis Coronary artery disease involving h[place]ap[place] coronary artery of [place] heart without angina pectoris - Primary Chronic combined systolic and diastolic congestive heart failure (HCC) Chronic combined systolic and diastolic heart failure Ischemic cardiomyopathy Other specified forms of chronic ischemic heart disease Essential hypertension Unspecified essential hypertension Pleural effusion on left Unspecified pleural effusion Preoperative cardiovascular examination Pre-operative cardiovascular examination documented in this encounter Insurance Payer Benefit Plan / Subscriber ID Effective Dates Phone Address Type Group MEDICARE MEDICARE PART A xxxxxxxxxxx 2014-Present Medicare & B MEDICAID [facility] xxxxxxxx 2018-Present Medicaid [place] MEDICAID Guarantor Name Account Type Relation to Date of Phone Billing Patient Address Kev Gallardo Personal/Family 1965 [address] [phone] [place], [place] ([place]) [id number] documented as of this encounter
--- OUTSIDE RECORDS SUMMARY | 2019-05-24 01:28 | XMS REPORT | Continuity of Care Document ---
:1965 External Reference #:[id number] Author Name Pedro Jean Baptiste M.D. (transmitted by agent of provider Radha Durham) Address [address] [address] Care Team Providers Name Role Phone Pato Ferrer MD - Family Medicine Care Team Information Halftone Operator [phone] Problems Description No Information Available Social History [...] BMI (Body Mass Index) 33.5 kg/m2 Results Description No Information Available Procedures Date Code Description Status 02/24/2019 46096 ECHO Transthorasic Realtime 2D W Doppler & Color Flow Hosp Completed Medical Devices Description No Information Available Encounters Type Date Location Provider Dx Diagnosis Office Visit 02/27/2019 [facility] Mo José, I50.20 Unspecified 1:56p Of Tana MCDERMOTT FACC systolic (congestive) heart failure I25.10 [facility] heart disease of [place]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 ang pctrs E11.9 Type 2 diabetes mellitus without complications R78.81 Bacteremia Office Visit 02/27/2019 9:59a [facility] Grace I24.9 Acute ischemic Assoc,stephania Molina DO heart disease, Hospitalists unspecified I50.21 Acute systolic (congestive) heart failure A41.9 Sepsis, unspecified organism M86.9 Osteomyelitis, unspecified N17.9 Acute kidney failure, unspecified Z79.4 assisted (current) use of insulin E11.9 Type 2 diabetes mellitus without complications D64.9 Anemia, unspecified Office Visit 02/26/2019 1:55p [facility] Mo Gibbs I50.20 Unspecified Of Tana José DO systolic FACC (congestive) heart failure I25.10 Athscl heart disease of [place]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 ang pctrs E11.9 Type 2 diabetes mellitus without complications Office Visit 02/26/2019 9:59a [facility] Grace N17.9 Acute kidney Assoc,pc Tracy, DO failure, Hospitalists unspecified I11.0 Hypertensive heart disease with heart failure I50.20 Unspecified systolic (congestive) heart failure I25.10 Athscl heart disease of [place]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 ang pctrs M86.9 Osteomyelitis, unspecified Office Visit 02/25/2019 1:53p [facility] Elaine Manrique, R07.9 Chest pain, Of Yoga Teacher M.DRicky unspecified R79.89 Other specified abnormal findings of blood chemistry I25.10 Athscl heart disease of [place]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 ang pctrs E78.5 Hyperlipidemia, unspecified I25.5 Ischemic cardiomyopathy M86.9 Osteomyelitis, unspecified Office Visit 02/25/2019 [facility] Sheila Tran, S91.302A Unspecified open 11:43a Services Of C.M.A. RPA-C wound, left foot, initial encounter Office Visit 02/25/2019 [facility] Cherelle Cook MD M86.9 Osteomyelitis, 9:59a Asskaren,pc unspecified Hospitalists L03.116 Cellulitis of left lower limb I11.0 Hypertensive heart disease with heart failure I50.20 Unspecified systolic (congestive) heart failure I25.10 Athscl heart disease of [place]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 ang pctrs N17.9 Acute [...] with foot ulcer Office Visit 02/24/2019 9:58a [facility] Cherelle Cook, L03.116 Cellulitis of Assstephania jones MD left lower limb Hospitalists N17.9 Acute kidney failure, unspecified I25.10 Athscl heart disease of [place]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 ang pctrs I11.0 Hypertensive heart disease with heart failure I50.20 Unspecified systolic (congestive) heart failure K21.9 Gastro-esophageal reflux disease without esophagitis E11.9 Type 2 diabetes mellitus without complications Z72.0 Tobacco use Office Visit 02/24/2019 12:54p [facility] Patel Reyes I25.10 Athscl heart Of Tana Kim M.D. disease of [place]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 ang pctrs I25.5 Ischemic cardiomyopathy I10 Essential (primary) hypertension E78.5 Hyperlipidemia, unspecified Office Visit 02/24/2019 8:15a Wound Care Liza Dyanacierranisreen L97.528 Non- prs chronic [facility] Roni, COOK ROOM SUPERVISOR ulcer oth prt left foot with oth severity E11.621 Type 2 diabetes mellitus with foot ulcer M86.672 Other chronic osteomyelitis, left ankle and foot E66.9 Obesity, unspecified Z78.9 Other specified health status Office Visit 02/23/2019 9:58a [facility] Cherelle Joey, E11.621 Type 2 diabetes Assoc,pc mellitus with Hospitalists foot ulcer L97.529 Non-pressure [...] Orthopedic Pedro M86.672 Other chronic Services Of Markel, M.D. osteomyelitis, C.M.A. left ankle and foot Assessments Date Code Description Provider 05/07/2019 M86.672 Other chronic osteomyelitis, left Pedro Jean Baptiste M.D. ankle and foot 04/30/2019 M86.9 Osteomyelitis, unspecified Pedro Jean Baptiste M.D. 02/27/2019 I24.9 Acute ischemic heart disease, Grace Senner, DO unspecified 02/27/2019 I50.20 Unspecified systolic (congestive) Mo José, DO FACC heart failure 02/27/2019 I50.21 Acute systolic (congestive) heart Grace Senner, DO failure 02/27/2019 I25.10 Athscl heart disease of [place] Mo José, DO FACC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 ang pctrs 02/27/2019 A41.9 Sepsis, unspecified organism Grace Senner, DO 02/27/2019 E11.9 Type 2 diabetes mellitus without Mo José, DO FACC complications 02/27/2019 M86.9 Osteomyelitis, unspecified Grace Senner, DO 02/27/2019 R78.81 Bacteremia Mo José, DO FACC 02/27/2019 N17.9 Acute kidney failure, unspecified Grace Senner, DO 02/27/2019 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 Grace Tracy, DO 02/27/2019 E11.9 Type 2 diabetes mellitus without Grace Senner, DO complications 02/27/2019 D64.9 Anemia, unspecified Grace Senner, DO 02/26/2019 I50.20 Unspecified systolic (congestive) Mo José, DO FACC heart failure 02/26/2019 N17.9 Acute kidney failure, unspecified Grace Senner, DO 02/26/2019 I11.0 Hypertensive heart disease with Grace Senner, DO heart failure 02/26/2019 I25.10 Athscl heart disease of [place] Mo José, DO FACC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 ang pctrs 02/26/2019 I50.20 Unspecified systolic (congestive) Grace Senner, DO heart failure 02/26/2019 I25.10 Atherosclerotic heart disease of Grace Tracy, DO [place] coronary artery with 02/26/2019 E11.9 Type 2 diabetes mellitus without Mo José, DO FACC complications 02/26/2019 M86.9 ngina pectoris Grace Molina, DO 02/25/2019 R07.9 Chest pain, unspecified Elaine Manrique M.D. 02/25/2019 R79.89 Other specified abnormal findings of Elaine Manrique M.D. blood chemistry 02/25/2019 I25.10 Atherosclerotic heart disease of Elaine Manrique M.D. [place] coronary artery with 02/25/2019 E78.5 Hyperlipidemia, unspecified Elaine Manrique M.D. 02/25/2019 I25.5 Ischemic cardiomyopathy Eliane Manrique M.D. 02/25/2019 M86.9 Osteomyelitis, unspecified Elaine Manrique M.D. 02/25/2019 S91.302A Unspecified open wound, left foot, Sheila Marc, RPA-C initial encounter 02/25/2019 M86.9 Osteomyelitis, unspecified Cherelle Cook MD 02/25/2019 L03.116 Cellulitis of left lower limb Cherelle Cook MD 02/25/2019 I11.0 Hypertensive heart disease with Cherelle Cook MD heart failure 02/25/2019 I50.20 Unspecified systolic (congestive) Cherelle Cook MD heart failure 02/25/2019 I25.10 Atherosclerotic heart disease of Cherelle Cook MD [place] coronary artery with 02/25/2019 N17.9 ngina pectoris [...] Atherosclerotic heart disease of Patel Kim M.D. [place] coronary artery with 02/24/2019 M86.672 Other chronic osteomyelitis, left Aguilar Guerra M.D. ankle and foot 02/24/2019 I25.5 Ischemic cardiomyopathy Patel Kim M.D. 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 stump 02/24/2019 I10 Essential (primary) hypertension Patel iKm M.D. 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 ankle and foot 02/24/2019 L97.528 Non-pressure chronic ulcer of other Liza Colónemilie Tamayo NP part of left foot with other specified severity 02/24/2019 E11.621 Type 2 diabetes mellitus with foot Lizaharvinder Tamayo NP ulcer 02/24/2019 I50.9 Heart failure, unspecified Patel Kim M.D. 02/24/2019 M86.672 Other chronic osteomyelitis, left Lizaharvinder Tamayo NP ankle and foot 02/24/2019 E11.621 Type 2 diabetes mellitus with foot Pedro Jean Baptiste M.D. ulcer 02/24/2019 E66.9 Obesity, unspecified Liza Tamayo NP 02/24/2019 L03.116 Cellulitis of left lower limb Cherelle Cook MD 02/24/2019 Z78.9 Other specified health status Liza Tamayo NP 02/24/2019 N17.9 Acute kidney failure, unspecified Cherelle Cook MD 02/24/2019 I25.10 Atherosclerotic heart disease of Cherelle Cook MD [place] coronary artery with 02/24/2019 I11.0 ngina pectoris [...] Cherelle Cook MD kidney disease with heart elia 02/23/2019 I50.9 Heart failure, unspecified Cherelle Cook [...] ankle and foot Plan of Treatment Future Appointment(s):05/28/2019 10:45 am - Pedro Jean Baptiste M.D. [facility].05/07/2019 - Pedro Jean Baptiste M.D.M86.672 Other chronic osteomyelitis, left ankle and footFollow up:10-14 days postop Functional Status Description No Information Available Mental Status Description No Information Available Referrals Description No Information Available
--- OUTSIDE RECORDS SUMMARY | 2019-05-24 01:28 | XMS REPORT | Continuity of Care Document ---
:1965 External Reference #:[id number] Author Name Pedro Jean Baptiste M.D. (transmitted by agent of provider Radha Durham) Address [address] [place] [address] Care Team Providers Name Role Phone Pato Ferrer MD - Family Medicine Care Team Information Clinic Scheduler Problems Description No Information Available Social History Type Date Description Comments Sex Unknown ETOH Use Denies alcohol use Tobacco Use Start: Unknown Patient is a current smoker, smokes every day Smoking Status Reviewed: 04/30/19 Patient is a current smoker, smokes every day Allergies, Adverse Reactions, Alerts Description No Known Drug Allergies Medications Active Medications SIG Qnty Indications Ordering Date Provider Keflex 1 by mouth three 90caps M86.672 Pedro Jean Baptiste, 10/09/2018 500mg Capsules times a day M.D. Omeprazole 1 by mouth every Unknown 20mg Capsules day Multi-Vitamin 1 by mouth every Unknown Tablets day Humalog Blue Kwikpen if bs 150-200 Unknown give 2 units , 100Unit/ML Solution 201-250 give 4 Pen-Inject units, 251-299 give 6 units, 300-350 give 8 units Glargine Insuline Unknown Pen Atorvastatin Calcium Take 1 Tablet By Unknown 80mg Mouth Every Day Tablets Isosorbide Mononitrate Take 1 Tablet By Unknown ER Mouth Every Day 30mg Tablets ER 24HR Cefadroxil Take 2 Capsules Unknown 500mg Capsules By Mouth Twice A Day For 10 Days Bupropion Take 1 Tablet By Unknown Hydrochloride ER (XL) Mouth Every Day 150mg Tablets [...] Available Vital Signs Date Vital Result Comment 04/30/2019 10:56am Height 72 inches 6'0" Weight 247.00 lb Heart Rate 85 /min BP Systolic 160 mmHg BP Diastolic 100 mmHg Respiratory Rate 16 /min Pain Level 2 BMI (Body Mass Index) 33.5 kg/m2 01/01/2019 9:54am Height 72 inches 6'0" Heart Rate 74 /min BP Systolic 102 mmHg BP Diastolic 70 mmHg Respiratory Rate 20 /min Body Temperature 97.7 F Pain Level 3 Results Description No Information Available Procedures Date Code Description Status 02/24/2019 87828 ECHO Transthorasic Realtime 2D W Doppler & Color Flow Hosp Completed Medical Devices Description No Information Available Encounters Type Date Location Provider Dx Diagnosis Office Visit 02/27/2019 [facility] Mo José, I50.20 Unspecified 1:56p Of [facility] FACC systolic (congestive) heart failure I25.10 Athscl heart disease of [place]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 ang pctrs E11.9 Type 2 diabetes mellitus without complications R78.81 Bacteremia Office Visit 02/27/2019 9:59a [facility] I24.9 Acute ischemic Assoc,stephania Molina DO heart disease, Hospitalists unspecified I50.21 Acute systolic (congestive) heart failure A41.9 Sepsis, unspecified organism M86.9 Osteomyelitis, unspecified N17.9 Acute kidney failure, unspecified Z79.4 alf (current) use of insulin E11.9 Type 2 diabetes mellitus without complications D64.9 Anemia, unspecified Office Visit 02/26/2019 1:55p [facility] Mo Gibbs I50.20 Unspecified Of Tana José DO systolic FACC (congestive) heart failure I25.10 Athscl heart disease of [place]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 ang pctrs E11.9 Type 2 diabetes mellitus without complications Office Visit 02/26/2019 9:59a [facility] Grace N17.9 Acute kidney Assoc,pc Senner, DO failure, Hospitalists unspecified I11.0 Hypertensive heart disease with heart failure I50.20 Unspecified systolic (congestive) heart failure I25.10 Athscl heart disease of [place]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 ang pctrs M86.9 Osteomyelitis, unspecified Office Visit 02/25/2019 1:53p [facility] Elaine Manrique, R07.9 Chest pain, Of Appliance Sales Associate M.D. unspecified R79.89 Other specified abnormal findings of blood chemistry I25.10 Athscl heart disease of [place]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 ang pctrs E78.5 Hyperlipidemia, unspecified I25.5 Ischemic cardiomyopathy M86.9 Osteomyelitis, unspecified Office Visit 02/25/2019 [facility] Sheila Tran, S91.302A Unspecified open 11:43a Services Of C.M.A. 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 I25.10 Athscl heart Of Tana Kim M.D. disease of [place]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 ang pctrs I25.5 Ischemic cardiomyopathy I10 Essential (primary) hypertension E78.5 Hyperlipidemia, unspecified Office Visit 02/24/2019 8:15a Wound Care Liza Graf L97.528 Non- prs chronic Center AT [facility] [place] Roni, DWIGHT ulcer oth prt left foot with oth severity E11.621 Type 2 diabetes mellitus with foot ulcer M86.672 Other chronic osteomyelitis, left ankle and foot E66.9 Obesity, unspecified Z78.9 Other specified health status Office Visit 02/23/2019 9:58a [facility] Cherelle Cook, E11.621 Type 2 diabetes Assoc,pc mellitus with [...] foot ulcer Office Visit 11/27/2018 10:30a Orthopedic Perdo E11.621 Type 2 diabetes Services Of Azar Jean Baptiste mellitus with C.M.A. foot ulcer Office Visit 11/18/2018 10:30a Orthopedic Pedro M86.672 Other chronic Services Of Azar Jean Baptiste osteomyelitis, C.M.A. left ankle and foot Assessments Date Code Description Provider 04/30/2019 M86.9 Osteomyelitis, unspecified Pedro Jean Baptiste M.D. 02/27/2019 I24.9 Acute ischemic heart disease, Grace Senekta, DO unspecified 02/27/2019 I50.20 Unspecified systolic (congestive) Mo José, DO FACC heart failure 02/27/2019 I50.21 Acute systolic (congestive) heart Grace Senner, DO failure 02/27/2019 I25.10 Athscl heart disease of [place] Mo José, DO FACC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 ang pctrs 02/27/2019 A41.9 Sepsis, unspecified organism Grace Senner, DO 02/27/2019 E11.9 Type 2 diabetes mellitus without Mo José, DO FACC complications 02/27/2019 M86.9 Osteomyelitis, unspecified Grace Senner, DO 02/27/2019 R78.81 Bacteremia Mo José, DO FACC 02/27/2019 N17.9 Acute kidney failure, unspecified Grace Senner, DO 02/27/2019 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 Grace Manavekta, DO 02/27/2019 E11.9 Type 2 diabetes mellitus without Grace Senner, DO complications 02/27/2019 D64.9 Anemia, unspecified Grace Senner, DO 02/26/2019 I50.20 Unspecified systolic (congestive) Mo José, DO FACC heart failure 02/26/2019 N17.9 Acute kidney failure, unspecified Grace Senner, DO 02/26/2019 I11.0 Hypertensive heart disease with Grace Senner, DO heart failure 02/26/2019 I25.10 Athscl heart disease of [place] Mo José, DO FACC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 ang pctrs 02/26/2019 I50.20 Unspecified systolic (congestive) Grace Senner, DO heart failure 02/26/2019 I25.10 Atherosclerotic heart disease of Graceedi Molina, DO [place] coronary artery with 02/26/2019 E11.9 Type 2 diabetes mellitus without Mo José, DO FACC complications 02/26/2019 M86.9 ngina pectoris Grace Tracy, DO 02/25/2019 R07.9 Chest pain, unspecified Elaine Manrique M.D. 02/25/2019 R79.89 Other specified abnormal findings of Elaine Manrique M.D. blood chemistry 02/25/2019 I25.10 Atherosclerotic heart disease of Elaine Manrique M.D. [place] coronary artery with 02/25/2019 E78.5 Hyperlipidemia, unspecified [...] Atherosclerotic heart disease of Cherelle Cook MD [place] coronary artery with 02/25/2019 N17.9 ngina pectoris [...] Atherosclerotic heart disease of Patel Kim M.D. [place] coronary artery with 02/24/2019 M86.672 Other chronic osteomyelitis, left Aguilar Guerra M.D. ankle and foot 02/24/2019 I25.5 Ischemic cardiomyopathy Patel Kim M.D. 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 stump 02/24/2019 I10 Essential (primary) hypertension Patel Kmi M.D. 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 ankle and foot 02/24/2019 L97.528 Non-pressure chronic ulcer of other Liza Tamayo, MUSEUM EXHIBIT TECHNICIAN part of left foot with other specified severity 02/24/2019 E11.621 Type 2 diabetes mellitus with foot Liza Tamayo, MUSEUM EXHIBIT TECHNICIAN ulcer 02/24/2019 I50.9 Heart failure, unspecified Patel Kim M.D. 02/24/2019 M86.672 Other chronic osteomyelitis, left Liza Tamayo, MUSEUM EXHIBIT TECHNICIAN ankle and foot 02/24/2019 E11.621 Type 2 diabetes mellitus with foot Pedro Jean Baptiste M.D. ulcer 02/24/2019 E66.9 Obesity, unspecified Liza Tamayo, MUSEUM EXHIBIT TECHNICIAN 02/24/2019 L03.116 Cellulitis of left lower limb Cherelle Cook MD 02/24/2019 Z78.9 Other specified health status Liza Tamayo, MUSEUM EXHIBIT TECHNICIAN 02/24/2019 N17.9 Acute kidney failure, unspecified Cherelle Cook MD 02/24/2019 I25.10 Atherosclerotic heart disease of Cherelle Cook MD [place] coronary artery with 02/24/2019 I11.0 ngina pectoris Cherelle Cook MD 02/24/2019 I50.20 Unspecified systolic (congestive) Cherelle Cook MD heart failure 02/24/2019 K21.9 Gastro-esophageal reflux disease Cherlele Cook MD without esophagitis 02/24/2019 E11.9 Type 2 diabetes mellitus without Cherelel Cook MD complications 02/24/2019 Z72.0 Tobacco use [...] Cook MD 02/23/2019 K21.9 Gastro-esophageal reflux disease Cherlele Cook MD without esophagitis 02/23/2019 F17.210 Nicotine [...] M.D. ankle and foot Plan of Treatment 04/30/2019 - Pedro Jean Baptiste M.D.M86.9 Osteomyelitis, unspecifiedFollow up: after testing is completed Functional Status Description No Information Available Mental Status Description No Information Available Referrals Description No Information Available
[2019-05-24] MEDS ORDERED: Vancomycin(*) 1,000 MG in NS 0.9% 250 ML* 250 ML IVPB SCH (02:00)
[2019-05-24] MEDS ORDERED: Vancomycin per Pharmacy* NOTE FOLLOW UP SCH (02:00)
[2019-05-24] MEDS ORDERED: Dextrose 50% VIAL 50 ml IV PUSH PRN (02:02)
[2019-05-24] MEDS ORDERED: Acetaminophen TAB* 325 MG PO PRN (02:20)
[2019-05-24] MEDS ORDERED: Al Hydrox/Mg Hydrox/Simet LIQ* 30 ML UDC PO PRN (02:20)
[2019-05-24] MEDS ORDERED: NS 0.9% 1000 ML** 1,000 ML IV SCH (02:30)
[2019-05-24 03:25] LABS: Erythrocyte Sed Rate > 120 mm/Hr (0-19)
[2019-05-24] MEDS: cefTRIAXone(*) 1 GM in NS 0.9% 50 ML* 50 ML IVPB SCH (05:23)
[2019-05-24] MEDS: Heparin VIAL(*) 5000 UNITS/ML VIAL (FIVE THOUSAND) SUBCUT SCH ×3 (05:23→21:53)
--- NOTE | 2019-05-24 05:39 | HP ---
CC: Dr. Jean Baptiste; Dr. Greer; Dr. Ulrich from Cardiothoracic Department at [facility] in [place], [place]; Dr. Conn; Dr. Ferrer * HISTORY AND PHYSICAL: DATE OF ADMISSION: 05/24/19 PRIMARY CARE PROVIDER: Dr. Ferrer. CHIEF COMPLAINT: Feeling weak, have chills, sweats, and rigors. HISTORY OF PRESENT ILLNESS: Kev Gallardo is a 53-year-old male with history of insulin-dependent diabetes, who had coronary artery bypass grafting in mid of February of 2019. 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 Arthur on . 650 mL of straw-colored liquid fluid was removed. No laboratory values were sent at that point or cultures. The patient also has history of chronic osteomyelitis of the left foot stump and he was planned to undergo amputation of this area on 05/25/19, by Dr. Jean Baptiste. The patient stated that post bypass surgery, he was at [facility] for a month, was discharged on 04/21/19 and was recommended by the physician there to continue taking the antibiotic for the osteomyelitis. The patient stated that he thought that the antibiotic was prescribed once a day which in fact was prescribed twice a day. The patient was prescribed cefadroxil 500 mg tablet and he was instructed to take 2 tablets twice day, but in fact he somehow understood that he supposed to take 1 tablet daily and appears that he had been taking 500 mg of cefadroxil daily for the past [id number]-half. He stated that his left foot had been more painful and draining somewhat more. He still is ambulating on that foot. He is going to be admitted with a diagnosis of sepsis. I suspect that this is related more to the foot osteomyelitis exacerbation with inadequate antibiotic coverage and not due to his procedure that was done a tur-cda-r-half ago. PAST MEDICAL HISTORY: 1. Status post thoracentesis for the Vaughn syndrome and left-sided pleural effusion by Dr. Arthur on 05/22/19, 650 mL of fluid was removed. 2. Coronary artery disease, status post coronary bypass graft performed by Dr. Ulrich at [facility] in [place], [place] on 03/06/19. 3. Chronic left foot stump osteomyelitis under the care of Dr. Jean Baptiste. 4. Insulin-dependent diabetes. 5. History of midfoot amputation 2017. 6. Hypertension. 7. Gastroesophageal reflux disease. 8. Chronic kidney disease, stage 2. 9. History of bilateral cataract surgery. MEDICATIONS: At home include: 1. Cefadroxil that the patient was taking only 500 mg daily. 2. Bupropion 300 mg daily. 3. Bisoprolol/hydrochlorothiazide 5/6.25 two tablets daily. 4. Lipitor 80 mg daily. 5. Aspirin 81 mg daily. 6. Avapro 75 mg daily. 7. Lispro insulin 6 units with each meal. 8. Insulin glargine 40 units at night. 9. Imdur 30 mg daily. 10. Lisinopril 2.5 mg daily. 11. Metoprolol tartrate 75 b.i.d. 12. Multivitamin 1 tablet daily. 13. Probiotic 1 capsule b.i.d. 14. Aldactone 25 mg daily. 15. Torsemide 20 mg b.i.d. 16. Oxycodone 5 mg every 4 hours p.r.n. Torsemide and spironolactone were prescribed to the patient by Dr. Greer within the past 3 days. ALLERGIES: No known drug allergies. FAMILY HISTORY: Positive for father with heart disease. SOCIAL HISTORY: The patient is in disability, lives with his mother. He has a history of 20-pack year smoking, but he just quit within the past gvfgn-udl-[id number]- half. He denies any alcohol or drug use. His surrogate is his mother and he is a full code. REVIEW OF SYSTEMS: The patient denies fevers, but experienced chills and rigors today as well as sweats. He stated that today he was experiencing rigors. He also had an episode of dry heaving. During the dry heaving, his chest incision area hurt more, but he has history of having pleuritic chest pain whenever coughing, on taking a deep breath postoperatively ever since his bypass surgery in February. He has dyspnea on exertion, which is chronic and not new. He does not use oxygen at home. His left foot has been swollen chronically , ever more so in the past several days. The drainage from his foot had been unchanged. The patient washes it with iodine and changes the dressings daily. His appetite has been rather good apart from today when he was dry heaving. All the remaining 12 systems were reviewed with the patient and were otherwise negative. PHYSICAL EXAMINATION GENERAL: The patient is a very pleasant 53-year-old male who is rather withdrawal historian, but the patient alert and oriented x3 with no evidence of anxiety or depression. VITAL SIGNS: Blood pressure is 116/69, heart rate 99 and regular, respiratory rate 20, oxygen saturation 97% on 3 L of nasal cannula, temperature of 98.7. HEENT: Head: Atraumatic and normocephalic. Eyes: Pupils are equal and reactive to light and accommodation. Oropharynx is clear. Mucosa moist. NECK: Supple. No JVD. No bruits bilaterally. RESPIRATORY: Crackles at bilateral bases. CARDIOVASCULAR: Regular rate and rhythm. No murmur. ABDOMEN: Soft, nontender. Bowel sounds present in all 4 quadrants. Small umbilical hernia noted, nontender to palpation. EXTREMITIES: The left foot stump is status post forefoot amputation with bottom of the foot crater-like ulceration approximately 2 cm in diameter, unstageable. In the bottom of the ulcer, there is approximately at least 2 cm deep as appears to be within the muscle though. The wound is draining purulent material. There is no evidence of cellulitis. The stump has nonpitting edema present of +1. The right foot has no edema, pulses on the right foot are palpable. NEUROLOGICAL EVALUATION: Cranial nerves II through XII grossly intact. Motor strength is 5/5 bilaterally. PSYCHIATRIC EVALUATION: Rather withdrawn and flat affect. No evidence of anxiety. DIAGNOSTIC STUDIES/LAB DATA: White blood cell count of 18.6, hemoglobin 9.3, hematocrit 29, MCV of 76, and platelets 359. Sodium was 136, potassium 4.6, chloride 103, carbon dioxide 26, BUN 40, creatinine 1.24. Liver function tests unremarkable. Lactic acid of 0.7, troponin of 0.02, C- reactive protein of 174. Portable chest x-ray reviewed by myself prior to the official radiologist's report shows cardiomegaly and no evidence of lung infiltrates. The patient's EKG showed 117 beats per minute, negative T waves in V5, V6, sinus tachycardia, with multiple criteria met for LVH. ASSESSMENT AND PLAN: 1. Sepsis. The patient has sepsis and the source of sepsis appears to be left foot ulcer and chronic osteomyelitis. It is likely due to the patient being taking his antibiotics inappropriately, only 1/4th of dose that was prescribed. I suspect this that the patient started feeling chills after his procedure with Dr. Arthur 2 days ago was likely incidental. Nevertheless, the patient is going to be treated with broad antibiotic coverage including ceftriaxone and vancomycin. Blood cultures were already obtained. 2. Left foot osteomyelitis. The patient is scheduled for surgery with Dr. Jean Baptiste in 2 days. He already had a cardiac clearance with Dr. Greer on . 3. Insulin-dependent diabetes. The patient continued on Lantus insulin 40 units at night on his sliding scale. 4. The patient has a history of chronic kidney disease, stage 2. Today, his creatinine is slightly higher. His BUN is also higher. The patient tachycardic. He received 1000 mL of intravenous fluids in the emergency room. At this point, I will place him on gentle hydration and hold the patient's torsemide. I will continue Aldactone. With the patient's history of recent pleural effusion and being on diuretics, I will place him on intake and output summaries as well as daily weights. I do not believe at this point the patient is in acute congestive heart failure. He is rather prerenal. 5. For DVT prophylaxis, the patient is going to be placed on heparin subcutaneously. 6. Hypertension. Lisinopril and metoprolol are going to be continued. 7. The patient's code is full. His surrogate is his mother. TIME SPENT: Approximately 75 minutes was spent on the admission of the patient , more than half of that time was spent [id number] with the patient, during the interview and physical exam. [id number]/[facility] #: [id number] MTDD
--- NOTE | 2019-05-24 08:04 | PN ---
Progress Note - Progress Note Date of Service: 05/23/19 Note: Final CXR read per radiology: IMPRESSION: STATUS POST AMPUTATION. THERE IS EROSIVE CHANGE ALONG THE CALCANEUS WHICH MAY REFLECT OSTEOMYELITIS IN THE CORRECT CLINICAL SETTING. PRELIMINARY FINDINGS WERE DISCUSSED WITH YUMIKO HERNÁNDEZ IN THE EMERGENCY DEPARTMENT AT APPROXIMATELY 7:41 AM ON 2018.. R3 Preliminary Imaging Read R3 Pt. was treated appropriately in ED and was ultimately transferred for higher level of care.
[2019-05-24] MEDS ORDERED: Pneumococcal *Vac Polyvalent 0.5 ML VIAL IM ONE (09:00)
[2019-05-24] MEDS ORDERED: Influenza VAC *QUAD* 2019-20* 0.5 ML SYRINGE IM ONE (09:00)
[2019-05-24] MEDS ORDERED: Torsemide TAB* 20 MG PO SCH (09:00)
[2019-05-24] MEDS ORDERED: Lisinopril TAB* 5 MG PO SCH (09:00)
[2019-05-24] MEDS ORDERED: Furosemide IV* 10 MG/ML VIAL (40 MG) IV SLOW PU ONE (09:12)
[2019-05-24] MEDS: Insulin LISPRO* 1 UNITS UNIT SUBCUT SCH ×4 (09:13→21:53)
[2019-05-24] MEDS: Isosorbide Mononitrate ER TAB* 30 MG PO SCH (09:18)
[2019-05-24] MEDS: Spironolactone TAB* 25 MG PO SCH (09:19)
[2019-05-24] MEDS: Metoprolol Tartrate TAB* 25 MG PO SCH ×2 (09:19→21:50)
[2019-05-24] MEDS: Lactobacillus Acidophilus* 1 TAB PO SCH ×2 (09:19→21:50)
[2019-05-24] MEDS: Atorvastatin* 80 MG TAB PO SCH (09:20)
[2019-05-24] MEDS: Aspirin 81 mg CHEW TAB* 81 MG TAB.CHEW PO SCH (09:20)
[2019-05-24] MEDS: Docusate CAP* 100 MG PO SCH ×2 (09:20→21:50)
[2019-05-24] MEDS: Multivitamins/Minerals TAB PO SCH (09:20)
[2019-05-24] MEDS: Senna TAB 8.6 mg* TAB PO SCH ×2 (09:20→21:50)
[2019-05-24] MEDS: BuPROPion XL* 150 MG TAB.XL PO SCH (09:32)
--- NOTE | 2019-05-24 09:43 | PN ---
PROGRESS NOTE: DATE OF SERVICE: 05/24/19 SUMMARY: Kev is seen on the 4th floor. He is 2 days out from thoracentesis, which was performed without complication except he had some pain radiating up into his neck area during the procedure, but otherwise has been comfortable. He is now on the medical service and is showing some signs of his infected foot , which involves fever, chills, and elevated white count, and sed rate that is elevated as well. I discussed with Kev that my option at this point would be a transtibial amputation. I think it gives him the best chance of eradicating the infection completely and also having prompt complete wound healing. I think the discussion previously about a Syme amputation would less reliable in this setting. Kev is amendable to this and he is on the operative schedule for tomorrow; he needs to be n.p.o. after midnight tonight. I discussed with him the nature of the surgery, the risks of wound breakdown or some persistence of infection, some neuroma pain, and he understands these. [id number]/[facility] #: [id number] RADHA
[2019-05-24] MEDS: Vancomycin(*) 1,500 MG in NS 0.9% 250 ML* 250 ML IVPB SCH ×2 (10:14→21:47)
--- NOTE | 2019-05-24 12:31 | PN ---
Subjective Date of Service: 05/24/19 Interval History: Patient is feeling somewhat SOB. Patient states that this improved somewhat after he had a thoracentesis, but now it has recurred. Patient does not wear O2 at home, but is needing it now. Patient has significant subjective fevers and night sweats. Patient is anxious to have his definitive surgery for his foot. Family History: Unchanged from Admission Social History: Unchanged from Admission Past Medical History: Unchanged from Admission Objective Active Medications: Acetaminophen (Tylenol Tab*) 650 mg PO Q4H PRN PRN Reason: PAIN-MILD/TEMP >/= 100.4 Al Hydrox/Mg Hydrox/Simethicone (Maalox Plus*) 30 ml PO Q6H PRN PRN Reason: INDIGESTION Aspirin (Aspirin 81 Mg Chew Tab*) 81 mg PO DAILY [facility] Last Admin: 05/24/19 09:20 Dose: 81 mg Atorvastatin Calcium (Lipitor*) 80 mg PO DAILY [facility] Last Admin: 05/24/19 09:20 Dose: 80 mg Bupropion HCl (Wellbutrin Xl *) 150 mg PO QAM [facility] Last Admin: 05/24/19 09:32 Dose: 150 mg Dextrose (Dextrose 50% Vial 50 Ml*) 25 ml IV PUSH .FOR FS < 60 - SS PRN PRN Reason: FS < 60 Docusate Sodium (Colace Cap*) 100 mg PO BID [facility] Last Admin: 05/24/19 09:20 Dose: 100 mg Heparin Sodium (Porcine) (Heparin Vial(*)) 5,000 units SUBCUT Q8HR [facility] Last Admin: 05/24/19 05:23 Dose: 5,000 units Ceftriaxone Sodium 1 gm/ (Sodium Chloride) 50 mls @ 100 mls/hr IVPB Q24H [facility] Last Admin: 05/24/19 05:23 Dose: 100 mls/hr Vancomycin HCl 1,500 mg/ (Sodium Chloride) 250 mls @ 166.667 mls/hr IVPB Q12H [facility] Last Admin: 05/24/19 10:14 Dose: 166.667 mls/hr Insulin Glargine (Lantus(*)) 40 units SUBCUT BEDTIME [facility] Insulin Human Lispro (Humalog*) 0 units SUBCUT ACHS [facility]; Protocol Last Admin: 05/24/19 09:13 Dose: 2 units Isosorbide Mononitrate (Imdur Er Tab*) 30 mg PO DAILY [facility] Last Admin: 05/24/19 09:18 Dose: 30 mg Lactobacillus Rhamnosus (Lactobacillus Acidophilus*) 1 tab PO BID [facility] Last Admin: 05/24/19 09:19 Dose: 1 tab Metoprolol Tartrate (Lopressor Tab*) 25 mg PO BID [facility] Last Admin: 05/24/19 09:19 Dose: 25 mg Multivitamins/Minerals (Theragran/Minerals Tab*) 1 tab PO QAM [facility] Last Admin: 05/24/19 09:20 Dose: 1 tab Oxycodone HCl (Roxycodone Tab*) 5 mg PO Q4HR PRN PRN Reason: PAIN - MODERATE Pharmacy Consult (Vancomycin Per Pharmacy*) 1 note FOLLOW UP .VANC PER PHARMACY [facility]; Protocol Pharmacy Profile Note (Vancomycin Trough Check) 1 note FOLLOW UP 929 ONE Stop: 05/25/19 09:31 Senna (Senokot 8.6 Mg Tab*) 1 tab PO BID [facility] Last Admin: 05/24/19 09:20 Dose: 1 tab Spironolactone (Aldactone Tab*) 25 mg PO QAM [facility] Last Admin: 05/24/19 09:19 Dose: 25 mg Vital Signs - 8 hr 05/24/19 05/24/19 07:38 11:30 Temperature 97.5 F 97.3 F Pulse Rate 83 87 Respiratory 18 16 Rate Blood Pressure 104/61 103/58 (mmHg) O2 Sat by Pulse 99 100 Oximetry Oxygen Devices in Use Now: Nasal Cannula Appearance: Patient is a 53yo male who appears stated age and is sitting in the bed in [facility]. Eyes: No Scleral Icterus, PERRLA Ears/Nose/Mouth/Throat: NL Teeth, Lips, Gums, Clear Oropharnyx, Mucous Membranes Moist Neck: NL Appearance and Movements; NL JVP, Trachea Midline Respiratory: Symmetrical Chest Expansion and Respiratory Effort, - - Rales in B/ L lower lobes. Cardiovascular: NL Sounds; No Murmurs; No JVD, RRR, - - 1+ B/L LE edema. Abdominal: NL Sounds; No Tenderness; No Distention, No Hepatosplenomegaly Lymphatic: No Cervical Adenopathy Extremities: No Clubbing, Cyanosis Skin: No Nodules or Sclerosis, - - LE wound dressed and not visualized. Neurological: Alert and Oriented x 3, NL Sensation, NL Muscle Strength and Tone , - - CN II-XII intact. Result Diagrams: 05/23/19 23:56 05/23/19 23:56 Microbiology and Other Data: Microbiology 05/23/19 23:30 Skin and Soft Tissue MRSA/MSSA (PCR - Final Foot Left Mrsa Positive S.aureus Positive Gram Stain - Final Assess/Plan/Problems-Billing Assessment: Patient is a 53yo male with a PMH for DM II, HFrEF, Chronic LE wound, here with worsening of his LE wound and infection pending amputation. Patient also seems to have a mild CHF exacerbation. - Patient Problems (1) Osteomyelitis Current Visit: No Status: Acute Code(s): M86.9 - OSTEOMYELITIS, UNSPECIFIED SNOMED Code(s): 51120801 Comment: - Worsening despite nursing home outpatient antibiotics - Appreciate Ortho Consult, plan for amputation tomorrow pending optimization - Continue Ceftriaxone/Vanco, Pending intraop cultures for narrowing - KARY previously WNL (2) Heart failure with reduced ejection fraction Current Visit: No Status: Acute Code(s): I50.20 - UNSPECIFIED SYSTOLIC ( CONGESTIVE) HEART FAILURE SNOMED Code(s): 859933793 Comment: - Acute on Chronic, ? Related to fluids for sepsis - New O2 requirement - Stop fluids, 1x dose IV lasix at 40mg. Reassess for effect in attempt to optimize for surgery tomorrow. - Hold Torsemide due to Long Half Life and possible Surgery tomorrow. - Continue Spironolactone, BB, Hold ACEI perioperatively - Work with outpatient Spirits Model to add on Entresto - Reaccumulation of Pleural Effusion on CXR, treat with diuretics - Will need eventual Primary Prevention ICD. - Strict I/O and Daily weights (3) Anemia Current Visit: No Status: Acute Code(s): D64.9 - ANEMIA, UNSPECIFIED SNOMED Code(s): 146225109 Comment: - Stable, Iron studies consistent with AOCD and SIENNA - Consider IV iron supplementation when acute infection controlled due to improvement in symptomatology and hospitalization due to HF - Consider outpatient Colonoscopy and Endoscopy. (4) CAD (coronary artery disease) Current Visit: No Status: Acute Code(s): I25.10 - ATHSCL HEART DISEASE OF [place] CORONARY ARTERY W/O ANG PCTRS SNOMED Code(s): 71519444 Comment: - Cath November 2018, severe 2V disease, S/P CABG complicated by Vaughn's syndrome and pleural Effusion - Continue Aspirin through surgery given high risk of ACS. - Previously optimized by outpatient pottery machine operator. (5) Depression Current Visit: No Status: Acute Code(s): F32.9 - MAJOR DEPRESSIVE DISORDER, SINGLE EPISODE, UNSPECIFIED SNOMED Code(s): 12851646 Comment: - Start Wellbutrin 150mg daily after shared decision making (failed x 2 SSRI, Zoloft, ?Celexa in the past) (6) Diabetes Current Visit: No Status: Acute Code(s): E11.9 - TYPE 2 DIABETES MELLITUS WITHOUT COMPLICATIONS SNOMED Code(s): 42414498 Comment: - POC Glu monitoring ACHS - A1C 8.7 in 02/2019, much improved from 2018 - Lantus 40 U QHS at home, reduce by 50% when NPO after midnight - SSI Lispro with recursive addition of scheduled insulin - Diabetic diet (7) GERD (gastroesophageal reflux disease) Current Visit: No Status: Acute Code(s): K21.9 - GASTRO-ESOPHAGEAL REFLUX DISEASE WITHOUT ESOPHAGITIS SNOMED Code(s): 288034826 Comment: - Home PPI (8) Hypertension Current Visit: No Status: Acute Code(s): I10 - ESSENTIAL (PRIMARY) HYPERTENSION SNOMED Code(s): 85542654 Comment: - Borderline hypotensive, monitor closely perioperatively - Continue BB and Imdur at this time. (9) ROSALES (acute kidney injury) Current Visit: No Status: Acute Code(s): N17.9 - ACUTE KIDNEY FAILURE, UNSPECIFIED SNOMED Code(s): 65883313 Comment: - Slight increase in cret. Appeared dry on admission per H&P, now appears fluid overloaded. - Stop fluids and diurese, recheck in AM. (10) Full code status Current Visit: No Status: Acute Code(s): Z78.9 - OTHER SPECIFIED HEALTH STATUS SNOMED Code(s): 124183420 (11) DVT prophylaxis Current Visit: No Status: Acute Code(s): IAD2951 - SNOMED Code(s): 803196276 Comment: - HSQ held after this evening's dose. Status and Disposition: Inpatient pending surgery, hopefully tomorrow.
[2019-05-24] MEDS ORDERED: Insulin GLARGINE(*) 1 UNITS UNIT SUBCUT SCH (21:00)
[2019-05-24] MEDS: oxyCODONE TAB* 5 MG TAB PO PRN (21:51)
[2019-05-24] MEDS: Insulin GLARGINE(*) 1 UNITS UNIT SUBCUT SCH (21:52)
[2019-05-25] MEDS: cefTRIAXone(*) 1 GM in NS 0.9% 50 ML* 50 ML IVPB SCH (06:07)
[2019-05-25 06:49] LABS: ABS Basophils 0.1 10^3/ul (0-0.2); ABS Eosinophils 0.4 10^3/ul (0-0.6); ABS Lymphocytes 1.3 10^3/ul (1.0-4.8); ABS Neutrophils 9.4 10^3/ul (1.5-7.7); Eosinophil % 3.3 %; Hematocrit 26 % (42-52); Hemoglobin 8.6 g/dL (14.0-18.0); Lymphocyte % 10.7 %; Mean Corpuscular HGB Conc 33 g/dL (31-36); Mean Corpuscular Hemoglobin 25 pg (27-31); Mean Corpuscular Volume 77 fL (80-94); Mean Platelet Volume 7.9 fL (7.4-10.4); Platelet Count 294 10^3/uL (150-450); Red Blood Count 3.43 10^6 /uL (4.18-5.48); Red Cell Distribution Width 17 % (10-15); White Blood Count 12.1 10^3/uL (3.5-10.8)
[2019-05-25 06:57] LABS: BUN/Creatinine Ratio 37.9 (8-20); Calcium 8.2 mg/dL (8.6-10.3); EGFR African American 73.5 (>60); EGFR Non-African American 60.8 (>60); Potassium 4.5 mmol/L (3.5-5.0)
[2019-05-25] MEDS: Insulin LISPRO* 1 UNITS UNIT SUBCUT SCH ×4 (08:01→20:58)
--- NOTE | 2019-05-25 08:01 | PN ---
Subjective Date of Service: 05/25/19 Interval History: Patient today feels somewhat SOB with exertion. Patient has some pain in his foot. Patient denies any chest pain, diarrhea, abdominal pain, dysuria, dizziness on standing, F/C. Discussed the high risk nature of patient's surgery due to his heart disease and that given the severity of his infection, that there was benefit in him having the surgery now as opposed to waiting and he was in agreement with proceeding to surgery. Family History: Unchanged from Admission Social History: Unchanged from Admission Past Medical History: Unchanged from Admission Objective Active Medications: Acetaminophen (Tylenol Tab*) 650 mg PO Q4H PRN PRN Reason: PAIN-MILD/TEMP >/= 100.4 Al Hydrox/Mg Hydrox/Simethicone (Maalox Plus*) 30 ml PO Q6H PRN PRN Reason: INDIGESTION Aspirin (Aspirin 81 Mg Chew Tab*) 81 mg PO DAILY [facility] Last Admin: 05/24/19 09:20 Dose: 81 mg Atorvastatin Calcium (Lipitor*) 80 mg PO DAILY [facility] Last Admin: 05/24/19 09:20 Dose: 80 mg Bupropion HCl (Wellbutrin Xl *) 150 mg PO QAM [facility] Last Admin: 05/24/19 09:32 Dose: 150 mg Dextrose (Dextrose 50% Vial 50 Ml*) 25 ml IV PUSH .FOR FS < 60 - SS PRN PRN Reason: FS < 60 Docusate Sodium (Colace Cap*) 100 mg PO BID [facility] Last Admin: 05/24/19 21:50 Dose: 100 mg Ceftriaxone Sodium 1 gm/ (Sodium Chloride) 50 mls @ 100 mls/hr IVPB Q24H [facility] Last Admin: 05/25/19 06:07 Dose: 100 mls/hr Vancomycin HCl 1,500 mg/ (Sodium Chloride) 250 mls @ 166.667 mls/hr IVPB Q12H [facility] Last Admin: 05/24/19 21:47 Dose: 166.667 mls/hr Insulin Glargine (Lantus(*)) 20 units SUBCUT BEDTIME [facility] Last Admin: 05/24/19 21:52 Dose: 20 units Insulin Human Lispro (Humalog*) 0 units SUBCUT Q6H [facility]; Protocol Isosorbide Mononitrate (Imdur Er Tab*) 30 mg PO DAILY [facility] Last Admin: 05/24/19 09:18 Dose: 30 mg Lactobacillus Rhamnosus (Lactobacillus Acidophilus*) 1 tab PO BID [facility] Last Admin: 05/24/19 21:50 Dose: 1 tab Metoprolol Tartrate (Lopressor Tab*) 25 mg PO BID [facility] Last Admin: 05/24/19 21:50 Dose: 25 mg Multivitamins/Minerals (Theragran/Minerals Tab*) 1 tab PO QAM [facility] Last Admin: 05/24/19 09:20 Dose: 1 tab Oxycodone HCl (Roxycodone Tab*) 5 mg PO Q4HR PRN PRN Reason: PAIN - MODERATE Last Admin: 05/24/19 21:51 Dose: 5 mg Pharmacy Consult (Vancomycin Per Pharmacy*) 1 note FOLLOW UP .VANC PER PHARMACY [facility]; Protocol Pharmacy Profile Note (Vancomycin Trough Check) 1 note FOLLOW UP 929 ONE Stop: 05/25/19 09:31 Senna (Senokot 8.6 Mg Tab*) 1 tab PO BID [facility] Last Admin: 05/24/19 21:50 Dose: 1 tab Spironolactone (Aldactone Tab*) 25 mg PO QAM [facility] Last Admin: 05/24/19 09:19 Dose: 25 mg Oxygen Devices in Use Now: None Appearance: Patient is a 53yo male who appears stated age and is sitting in the bed in [facility]. Eyes: No Scleral Icterus, PERRLA Ears/Nose/Mouth/Throat: NL Teeth, Lips, Gums, Clear Oropharnyx, Mucous Membranes Moist Neck: NL Appearance and Movements; NL JVP, Trachea Midline Respiratory: Symmetrical Chest Expansion and Respiratory Effort, Clear to Auscultation, - - Diminished in left lung base, improved from previous exam. Cardiovascular: NL Sounds; No Murmurs; No JVD, RRR, No Edema Abdominal: NL Sounds; No Tenderness; No Distention, No Hepatosplenomegaly Lymphatic: No Cervical Adenopathy Extremities: No Edema, No Clubbing, Cyanosis Skin: No Nodules or Sclerosis, - - Left foot previous amputation with drainage. Neurological: Alert and Oriented x 3, NL Sensation, NL Muscle Strength and Tone , - - CN II-XII intact. Result Diagrams: 05/25/19 06:09 05/25/19 06:09 Microbiology and Other Data: Microbiology 05/23/19 23:30 Skin and Soft Tissue MRSA/MSSA (PCR - Final Foot Left Mrsa Positive S.aureus Positive Gram Stain - Final Assess/Plan/Problems-Billing Assessment: Patient is a 53yo male with a PMH for DM II, HFrEF, Chronic LE wound, here with worsening of his LE wound and infection pending amputation. Patient also seems to have a mild CHF exacerbation. - Patient Problems (1) Osteomyelitis Current Visit: No Status: Acute Code(s): M86.9 - OSTEOMYELITIS, UNSPECIFIED SNOMED Code(s): 63447305 Comment: - Worsening despite terminal make up operator outpatient antibiotics - Appreciate Ortho Consult, plan for amputation today - Continue Ceftriaxone/Vanco, BC positive for MRSA - KARY previously WNL - As previously described by patient's outpatient golf club facer, patient is a high risk for any procedure at this time due to his HFrEF, this has been discussed with the patient and he is in agreement with proceeding to surgery. - Patient's RCRI is 3, indicating a 15% risk of MACE at 30 days. - Hold Patient's ASA perioperatively given recent CABG without PCI and Moderate Risk of Bleeding associated with this surgery, likely resume day after surgery - Hold ACEI, continue BB - Continue Spironolactone and Imdur, hold Torsemide - Patient had an ECHO on 05/14 showing an EF of 29% and had a CABG in 02/2019 with no recurrence of Chest pain - Will discuss with Dr. Jean Baptiste the risk/benefit of proceeding with surgery with positive Blood Cultures and borderline cardiac status. - After discussion with the patient, surgeon and anesthesiologist that further optimization may be possible, it was decided with the patient that for him personally that was not worth waiting longer in the hospital and risking worsening infection and possible cardiac decompenstion. The plan was made to proceed with surgery on 05/25 (2) Heart failure with reduced ejection fraction Current Visit: No Status: Acute Code(s): I50.20 - UNSPECIFIED SYSTOLIC ( CONGESTIVE) HEART FAILURE SNOMED Code(s): 697751498 Comment: - Acute on Chronic, ? Related to fluids for sepsis - Now improved, No more O2 requirement - Avoid Fluids perioperatively, Received 1x dose IV lasix at 40mg yesterday - Hold Torsemide due to Long Half Life - Continue Spironolactone, BB, Hold ACEI perioperatively - Work with outpatient Machine Plaster Mixer to add on Entresto - Reaccumulation of Pleural Effusion on CXR, treat with diuretics, not currently symptomatic - Will need eventual Primary Prevention ICD if no improvement in EF - Strict I/O and Daily weights (3) Anemia Current Visit: No Status: Acute Code(s): D64.9 - ANEMIA, UNSPECIFIED SNOMED Code(s): 683946219 Comment: - Stable, Iron studies consistent with AOCD and SIENNA - Consider IV iron supplementation when acute infection controlled due to improvement in symptomatology and hospitalization due to HF - Consider outpatient Colonoscopy and Endoscopy. 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 - Previously optimized by outpatient golf club facer. (5) Depression Current Visit: No Status: Acute Code(s): F32.9 - MAJOR DEPRESSIVE DISORDER, SINGLE EPISODE, UNSPECIFIED SNOMED Code(s): 40051365 Comment: - Start Wellbutrin 150mg daily after shared decision making (failed x 2 SSRI, Zoloft, ?Celexa in the past) (6) Diabetes Current Visit: No Status: Acute Code(s): E11.9 - TYPE 2 DIABETES MELLITUS WITHOUT COMPLICATIONS SNOMED Code(s): 37577746 Comment: - POC Glu monitoring ACHS - A1C 8.7 in 02/2019, much improved from 2018 - Lantus 40 U QHS at home, reduce by 50% when NPO after midnight - SSI Lispro with recursive addition of scheduled insulin - Diabetic diet (7) GERD (gastroesophageal reflux disease) Current Visit: No Status: Acute Code(s): K21.9 - GASTRO-ESOPHAGEAL REFLUX DISEASE WITHOUT ESOPHAGITIS SNOMED Code(s): 674668946 Comment: - Home PPI (8) Hypertension Current Visit: No Status: Acute Code(s): I10 - ESSENTIAL (PRIMARY) HYPERTENSION SNOMED Code(s): 77253740 Comment: - Borderline hypotensive, monitor closely perioperatively - Continue BB and Imdur at this time. (9) ROSALES (acute kidney injury) Current Visit: No Status: Acute Code(s): N17.9 - ACUTE KIDNEY FAILURE, UNSPECIFIED SNOMED Code(s): 92588537 Comment: - Slight increase in cret. Appeared dry on admission per H&P, now appears fluid overloaded. - Stop fluids and diurese, recheck with no change (10) Full code status Current Visit: No Status: Acute Code(s): Z78.9 - OTHER SPECIFIED HEALTH STATUS SNOMED Code(s): 660330298 (11) DVT prophylaxis Current Visit: No Status: Acute Code(s): MSI8653 - SNOMED Code(s): 216859867 Comment: - HSQ held after this evening's dose. Status and Disposition: Inpatient for IV antibiotics.
[2019-05-25] MEDS: Aspirin 81 mg CHEW TAB* 81 MG TAB.CHEW PO SCH (08:17)
[2019-05-25] MEDS: Senna TAB 8.6 mg* TAB PO SCH ×2 (09:06→20:57)
[2019-05-25] MEDS: BuPROPion XL* 150 MG TAB.XL PO SCH (09:06)
[2019-05-25] MEDS: Isosorbide Mononitrate ER TAB* 30 MG PO SCH (09:07)
[2019-05-25] MEDS: Lactobacillus Acidophilus* 1 TAB PO SCH ×2 (09:07→20:57)
[2019-05-25] MEDS: Spironolactone TAB* 25 MG PO SCH (09:07)
[2019-05-25] MEDS: Atorvastatin* 80 MG TAB PO SCH (09:07)
[2019-05-25] MEDS: Metoprolol Tartrate TAB* 25 MG PO SCH ×2 (09:07→20:56)
[2019-05-25] MEDS: Docusate CAP* 100 MG PO SCH ×2 (09:07→20:56)
[2019-05-25] MEDS: Multivitamins/Minerals TAB PO SCH (09:07)
[2019-05-25] MEDS ORDERED: Vancomycin Trough Check NOTE FOLLOW UP ONE (09:30)
[2019-05-25] MEDS ORDERED: Midazolam* 1 MG/ML 5 ML VIAL (5 MG) ONE (12:28)
[2019-05-25] MEDS ORDERED: ROPIVACAINE 5 MG/ML 30 ML BTL (0.5%) ONE (12:40)
[2019-05-25] MEDS ORDERED: Ondansetron INJ* 2 MG/ML VIAL ONE (13:15)
[2019-05-25] MEDS ORDERED: KETAMINE HCL* 50 MG/ML 10 ML VIAL ONE (13:15)
[2019-05-25] MEDS ORDERED: fentaNYL* 50 MCG/ML 2 ML VIAL (100 MCG VIAL) ONE (13:21)
[2019-05-25] MEDS ORDERED: Lidocaine 2% PF* 10 ML AMP ONE (13:26)
[2019-05-25] MEDS ORDERED: Midazolam* 1 MG/ML 2 ML VIAL (2 MG) ONE (13:34)
[2019-05-25] MEDS ORDERED: Propofol* 10 MG/ML 20 ML BTL ONE (13:59)
[2019-05-25] MEDS ORDERED: Acetaminophen TAB* 325 MG PO PRN (14:02)
[2019-05-25] MEDS ORDERED: oxyCODONE TAB* 5 MG TAB PO PRN (14:02)
[2019-05-25] MEDS ORDERED: Naloxone* 0.4 MG/ML 1 ML VIAL IV PRN (14:02)
[2019-05-25] MEDS ORDERED: oxyCODONE TAB* 5 MG TAB ONE (14:35)
[2019-05-25] MEDS ORDERED: HYDROmorphone INJ1* 1 MG/ML SYRINGE ONE (15:07)
[2019-05-25] MEDS: oxyCODONE TAB* 5 MG TAB PO PRN ×2 (16:52→22:42)
[2019-05-25] MEDS ORDERED: Ondansetron INJ* 2 MG/ML VIAL IV PRN (17:01)
[2019-05-25] MEDS: Vancomycin(*) 1,000 MG in NS 0.9% 250 ML* 250 ML IVPB SCH (17:55)
[2019-05-25] MEDS: Vancomycin(*) 1,500 MG in NS 0.9% 250 ML* 250 ML IVPB SCH (18:34)
[2019-05-25] MEDS: Insulin GLARGINE(*) 1 UNITS UNIT SUBCUT SCH (20:57)
[2019-05-25] MEDS: Aspirin TAB* 325 MG PO SCH (20:57)
[2019-05-25] MEDS: HYDROmorphone TAB* 2 MG PO PRN (20:57)
--- NOTE | 2019-05-25 22:36 | OP ---
DATE OF OPERATION: 05/25/19 - ROOM #332 DATE OF : 63 SURGEON: Pedro Jean Baptiste MD LIGHT TRUCK DRIVER: Tommy Pavon PA-C PRE-OP DIAGNOSIS: Osteomyelitis, left calcaneus with previous hind foot amputation. POST-OP DIAGNOSIS: Osteomyelitis, left calcaneus with previous hind foot amputation. OPERATIVE PROCEDURE: Left transtibial amputation. DESCRIPTION OF PROCEDURE: The patient was taken to the operating room where a thigh tourniquet was applied. We made the transverse incision at the mid third of the left tibia with a longer posterior flap. We dissected down to the anterior fibula, used a periosteal elevator to scrip proximally and then divided the tibia. At the same level, the fibula was dissected out of the anterior compartment and transected as well. We doubled the anterior corner of the tibia by flexing then after dividing the anterior compartment tissues, we were able to expose the posterior compartment which with traction was exposed and divided with a #10 blade. The leg was then delivered to Pathology. Local cultures were taken from the tibia. Obvious points of bleeding were then exposed and ligated with a #0 Vicryl suture. We dropped the tourniquet down and there was brisk bleeding from the anterolateral compartment which was also suture ligated. We performed a liter of irrigation to the tissues. There was no sign of infection at this level. We closed the deep flaps anterior to posterior with #1 Vicryl sutures. The #1 Monocryl was also used to imbricate and augment this layer. A 2-0 Monocryl was used for the subcutaneous tissue and 2-0 Prolene for the skin which was closed with interrupted vertical mattress sutures. Compression dressing and plaster splint was then applied. [id number]/[facility] #: [id number] [facility]
[2019-05-26] MEDS: HYDROmorphone TAB* 2 MG PO PRN ×4 (00:12→19:37)
[2019-05-26] MEDS: Insulin LISPRO* 1 UNITS UNIT SUBCUT SCH ×5 (02:14→22:03)
[2019-05-26] MEDS: oxyCODONE TAB* 5 MG TAB PO PRN ×5 (04:36→22:12)
[2019-05-26] MEDS: cefTRIAXone(*) 1 GM in NS 0.9% 50 ML* 50 ML IVPB SCH (05:31)
[2019-05-26] MEDS: Vancomycin(*) 1,000 MG in NS 0.9% 250 ML* 250 ML IVPB SCH ×2 (06:25→17:47)
[2019-05-26 06:26] LABS: ABS Basophils 0.1 10^3/ul (0-0.2); ABS Eosinophils 0.3 10^3/ul (0-0.6); ABS Lymphocytes 1.2 10^3/ul (1.0-4.8); ABS Neutrophils 9.2 10^3/ul (1.5-7.7); Eosinophil % 2.7 %; Hematocrit 29 % (42-52); Hemoglobin 9.1 g/dL (14.0-18.0); Mean Corpuscular HGB Conc 31 g/dL (31-36); Mean Corpuscular Hemoglobin 24 pg (27-31); Mean Corpuscular Volume 78 fL (80-94); Platelet Count 337 10^3/uL (150-450); Red Blood Count 3.76 10^6 /uL (4.18-5.48); Red Cell Distribution Width 17 % (10-15); White Blood Count 11.9 10^3/uL (3.5-10.8)
[2019-05-26 06:48] LABS: Calcium 8.4 mg/dL (8.6-10.3); EGFR African American 71.5 (>60); EGFR Non-African American 59.1 (>60); Magnesium 2.3 mg/dL (1.9-2.7); Potassium 4.9 mmol/L (3.5-5.0)
[2019-05-26] MEDS: Multivitamins/Minerals TAB PO SCH (08:51)
[2019-05-26] MEDS: Atorvastatin* 80 MG TAB PO SCH (08:51)
[2019-05-26] MEDS: Aspirin TAB* 325 MG PO SCH ×2 (08:51→22:02)
[2019-05-26] MEDS: Docusate CAP* 100 MG PO SCH (08:51)
[2019-05-26] MEDS: Metoprolol Tartrate TAB* 25 MG PO SCH (08:51)
[2019-05-26] MEDS: Spironolactone TAB* 25 MG PO SCH (08:51)
[2019-05-26] MEDS: Lactobacillus Acidophilus* 1 TAB PO SCH (08:51)
[2019-05-26] MEDS: Senna TAB 8.6 mg* TAB PO SCH (08:51)
[2019-05-26] MEDS: Isosorbide Mononitrate ER TAB* 30 MG PO SCH (08:51)
[2019-05-26] MEDS: BuPROPion XL* 150 MG TAB.XL PO SCH (09:22)
--- NOTE | 2019-05-26 12:11 | PN ---
Progress Note - Progress Note Date of Service: 05/26/19 SOAP: Subjective: []Pt seen and examined at bedside. He reports tolerable pain of the LLE. Denies fever, chills, CP, SOB, dizziness, nausea. 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 POD 1 sp Left transtibial amputation. Plan: []NWB LLE Cont IV abx per ID: On ceftriaxone and vanco Blood cultures + MRSA, MSSA Once blood cultures clear will need picc line for anticipated 4-6 weeks of IV abx tx Vital Signs Temp 97.6 F 05/26/19 08:18 Pulse 100 05/26/19 08:18 Resp 18 05/26/19 11:41 BP 132/79 05/26/19 08:18 Pulse Ox 96 05/26/19 08:18 Intake & Output 05/25/19 05/26/19 05/26/19 18:59 06:59 18:59 Intake Total 1175 679 240 Output Total 900 250 Balance 1175 -221 -10 Weight 229 lb 3.187 oz 229 lb 9.6 oz Intake: IV Fluids 1175 4 LR 800 NS (0.9%) 4 NS 250ML, Vancomycin 375 1000MG IVPB 335 Ceftriaxone 55 Vancomycin 280 Oral 340 240 Output: Urine 800 250 Moore 100 Other: # Bowel Movements 0 Laboratory Last Values WBC 11.9 10^3/uL (3.5-10.8) H 05/26/19 05:20 RBC 3.76 10^6 /uL (4.18-5.48) L 05/26/19 05:20 Hgb 9.1 g/dL (14.0-18.0) L 05/26/19 05:20 Hct 29 % (42-52) L 05/26/19 05:20 MCV 78 fL (80-94) L 05/26/19 05:20 MCH 24 pg (27-31) L 05/26/19 05:20 MCHC 31 g/dL (31-36) 05/26/19 05:20 RDW 17 % (10-15) H 05/26/19 05:20 Plt Count 337 10^3/uL (150-450) 05/26/19 05:20 MPV 8.0 fL (7.4-10.4) 05/26/19 05:20 Neut % (Auto) 77.8 % 05/26/19 05:20 Lymph % (Auto) 10.0 % 05/26/19 05:20 [place] % (Auto) 8.8 % 05/26/19 05:20 Eos % (Auto) 2.7 % 05/26/19 05:20 Baso % (Auto) 0.7 % 05/26/19 05:20 Absolute Neuts (auto) 9.2 10^3/ul (1.5-7.7) H 05/26/19 05:20 Absolute Lymphs (auto) 1.2 10^3/ul (1.0-4.8) 05/26/19 05:20 Absolute Monos (auto) 1.0 10^3/ul (0-0.8) H 05/26/19 05:20 Absolute Eos (auto) 0.3 10^3/ul (0-0.6) 05/26/19 05:20 Absolute Basos (auto) 0.1 10^3/ul (0-0.2) 05/26/19 05:20 Absolute Nucleated RBC 0.0 10^3/ul 05/26/19 05:20 Nucleated RBC % 0.0 05/26/19 05:20 ESR > 120 mm/Hr (0-19) H 05/23/19 23:56 INR (Anticoag Therapy) 1.45 (0.82-1.09) H 05/23/19 23:56 APTT 35.6 seconds (26.0-38.0) 05/23/19 23:56 Sodium 137 mmol/L (135-145) 05/26/19 05:20 Potassium 4.9 mmol/L (3.5-5.0) 05/26/19 05:20 Chloride 105 mmol/L (101-111) 05/26/19 05:20 Carbon Dioxide 28 mmol/L (22-32) 05/26/19 05:20 Anion Gap 4 mmol/L (2-11) 05/26/19 05:20 BUN 47 mg/dL (6-24) H 05/26/19 05:20 Creatinine 1.27 mg/dL (0.67-1.17) H 05/26/19 05:20 Est GFR ( Amer) 71.5 (>60) 05/26/19 05:20 Est GFR (Non-Af Amer) 59.1 (>60) 05/26/19 05:20 BUN/Creatinine Ratio 37.0 (8-20) H 05/26/19 05:20 Glucose 186 mg/dL (70-100) H 05/26/19 05:20 POC Glucose (mg/dL) 244 mg/dL (70-100) H 05/26/19 06:54 Lactic Acid 0.7 mmol/L (0.5-2.0) 05/23/19 23:56 Calcium 8.4 mg/dL (8.6-10.3) L 05/26/19 05:20 Magnesium 2.3 mg/dL (1.9-2.7) 05/26/19 05:20 Total Bilirubin 0.40 mg/dL (0.2-1.0) 05/23/19 23:56 AST 21 U/L (13-39) 05/23/19 23:56 ALT 25 U/L (7-52) 05/23/19 23:56 Alkaline Phosphatase 77 U/L (34-104) 05/23/19 23:56 Troponin I 0.02 ng/mL (<0.04) 05/23/19 23:56 C-Reactive Protein 174.00 mg/L (<8.01) H 05/23/19 23:56 Total Protein 7.0 g/dL (6.4-8.9) 05/23/19 23:56 Albumin 2.6 g/dL (3.2-5.2) L 05/23/19 23:56 Globulin 4.4 g/dL (2-4) H 05/23/19 23:56 Albumin/Globulin Ratio 0.6 (1-3) L 05/23/19 23:56 Vancomycin Trough 23.7 mcg/mL 05/25/19 11:53
[2019-05-26] MEDS ORDERED: Perflutren Lipid Microsphere* 3 ML VIAL ONE (15:15)
[2019-05-26] MEDS ORDERED: Acetaminophen TAB* 325 MG PO PRN (15:46)
--- NOTE | 2019-05-26 15:52 | PN ---
Subjective Date of Service: 05/26/19 Interval History: Pt had L transtibial amputation yesterday. Reports he still has night sweats but no fevers or chills. Has pain at site of surgery but controlled with meds. Pending PT. MRSA in blood, so ordered for TTE by ID. Objective Active Medications: Acetaminophen (Tylenol Tab*) 975 mg PO Q8H PRN PRN Reason: PAIN - MILD Al Hydrox/Mg Hydrox/Simethicone (Maalox Plus*) 30 ml PO Q6H PRN PRN Reason: INDIGESTION Aspirin (Aspirin Tab*) 325 mg PO BID [facility] Last Admin: 05/26/19 08:51 Dose: 325 mg Atorvastatin Calcium (Lipitor*) 80 mg PO DAILY [facility] Last Admin: 05/26/19 08:51 Dose: 80 mg Bupropion HCl (Wellbutrin Xl *) 150 mg PO QAM [facility] Last Admin: 05/26/19 09:22 Dose: 150 mg Dextrose (Dextrose 50% Vial 50 Ml*) 25 ml IV PUSH .FOR FS < 60 - SS PRN PRN Reason: FS < 60 Hydromorphone HCl (Dilaudid Tab*) 2 mg PO Q4H PRN PRN Reason: PAIN - SEVERE Ceftriaxone Sodium 1 gm/ (Sodium Chloride) 50 mls @ 100 mls/hr IVPB Q24H [facility] Last Admin: 05/26/19 05:31 Dose: 100 mls/hr Vancomycin HCl 1,000 mg/ (Sodium Chloride) 250 mls @ 166.667 mls/hr IVPB Q12H [facility] Last Admin: 05/26/19 06:25 Dose: 166.667 mls/hr Insulin Glargine (Lantus(*)) 40 units SUBCUT BEDTIME [facility] Insulin Human Lispro (Humalog*) 0 units SUBCUT ACHS [facility]; Protocol Last Admin: 05/26/19 13:13 Dose: 4 units Isosorbide Mononitrate (Imdur Er Tab*) 30 mg PO DAILY [facility] Last Admin: 05/26/19 08:51 Dose: 30 mg Lactobacillus Rhamnosus (Lactobacillus Acidophilus*) 1 tab PO DAILY [facility] Magnesium Hydroxide (Milk Of Magnesia Liq*) 30 ml PO Q6H PRN PRN Reason: CONSTIPATION Metoprolol Succinate (Toprol Xl Tab*) 50 mg PO BEDTIME [facility] Multivitamins/Minerals (Theragran/Minerals Tab*) 1 tab PO QAM [facility] Last Admin: 05/26/19 08:51 Dose: 1 tab Ondansetron HCl (Zofran Inj*) 4 mg IV Q6H PRN PRN Reason: NAUSEA Oxycodone HCl (Roxycodone Tab*) 5 mg PO Q4HR PRN PRN Reason: PAIN - MODERATE Last Admin: 05/26/19 13:16 Dose: 5 mg Pharmacy Consult (Vancomycin Per Pharmacy*) 1 note FOLLOW UP .VANC PER [facility]Y [facility]; Protocol Pharmacy Profile Note (Vancomycin Trough Check) 1 note FOLLOW UP 0600 ONE Stop: 05/27/19 06:01 Senna (Senokot 8.6 Mg Tab*) 1 tab PO BID PRN PRN Reason: CONSTIPATION Spironolactone (Aldactone Tab*) 25 mg PO QAM [facility] Last Admin: 05/26/19 08:51 Dose: 25 mg Vital Signs - 8 hr 05/26/19 05/26/19 05/26/19 08:00 08:18 08:52 Temperature 97.6 F Pulse Rate 100 Respiratory 18 17 18 Rate Blood Pressure 132/79 (mmHg) O2 Sat by Pulse 96 96 Oximetry 05/26/19 05/26/19 05/26/19 08:57 11:41 12:14 Temperature Pulse Rate Respiratory 18 18 20 Rate Blood Pressure (mmHg) O2 Sat by Pulse Oximetry 05/26/19 05/26/19 05/26/19 12:22 13:16 15:34 Temperature 97.4 F Pulse Rate 97 Respiratory 20 20 20 Rate Blood Pressure 116/69 (mmHg) O2 Sat by Pulse 96 Oximetry 05/26/19 15:36 Temperature Pulse Rate Respiratory 20 Rate Blood Pressure (mmHg) O2 Sat by Pulse Oximetry Appearance: tired, appears pale, no acute distress, alert and interactive Ears/Nose/Mouth/Throat: Clear Oropharnyx Neck: Trachea Midline Respiratory: Symmetrical Chest Expansion and Respiratory Effort, Clear to Auscultation Cardiovascular: NL Sounds; No Murmurs; No JVD, RRR Abdominal: NL Sounds; No Tenderness; No Distention, No Hepatosplenomegaly Extremities: - - L leg s/p amputation, trace edema over thigh, dressing c/d/i; RLE without edema Skin: No Rash or Ulcers Neurological: Alert and Oriented x 3 Result Diagrams: 05/26/19 05:20 05/26/19 05:20 Microbiology and Other Data: Microbiology 05/23/19 23:30 Skin and Soft Tissue MRSA/MSSA (PCR - Final Foot Left Mrsa Positive S.aureus Positive Gram Stain - Final Assess/Plan/Problems-Billing Assessment: 53M with DM2, HFrEF 20-25%, chronic LE wound, here with worsening of his LLE wound, now s/p transtibial amputation 05/25. Blood/wound cultures growing MRSA. - Patient Problems (1) Osteomyelitis Comment: Worsening despite halfway outpatient antibiotics. BCx with MRSA. Recently normal KARY. - appreciate Ortho Consult, s/p amputation 05/15 - Continue Ceftriaxone/Vanco, appreciate ID recs - pending PT - pending TTE given positive blood cultures (may need MAURICE) (2) Heart failure with reduced ejection fraction Comment: Possible exacerbation on admission after sepsis fluids. 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 (5) Depression Comment: Not improved with prior trials of SSRIs. - cont bupropion 150mg daily, initiated in hospital after shared decision making (6) Diabetes Comment: A1C 8.7 in 02/2019, much improved from 2018 - f/s ACHS - cont home Lantus 40u QHS - SSI Lispro with recursive addition of scheduled insulin - Diabetic diet (7) Hypertension Comment: - Borderline hypotensive, monitor closely perioperatively - Continue BB, spironolactone, and Imdur at this time. (8) DVT prophylaxis Comment: - resume medical tx when cleared by ortho, cont scd (9) Full code status Status and Disposition: Inpatient for IV antibiotics.
--- NOTE | 2019-05-26 16:49 | ECHO ---
*[facility]* [place] [address] Fax #: [phone] Transthoracic Echocardiogram Patient: Kev Gallardo : 1965 Study Date: 05/26/2019 Age: 53 Gender: M HR: 95 bpm Height: 72 in /182.9 cm BSA: 2.26 m^2 Weight: 228.5 lb /103.9 kg BMI: 31.1 kg/m^2 *Bioinformatics Technician: * Carlie Joyner RDCS RN *Referring Physician: * Liza Tamayo *Reading Physician: * Patel Kim MD Indications: Bacteremia. History: CAD. CABG 02/2019. 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 CKD. Risk factors: Former tobacco use. Hypertension. Diabetes mellitus. Obese. Conclusions Summary: - Left ventricle: Systolic function is severely reduced. The estimated ejection fraction is 25-30%. Diffuse hypokinesis with regional variations. - Right ventricle: Systolic function is moderately reduced. - Left atrium: The atrium is moderately dilated. - Mitral valve: There is no evidence of stenosis. There is moderate regurgitation. - Tricuspid valve: There is no evidence of stenosis. There is trace to mild regurgitation. - Ascending aorta: The ascending aorta is mildly dilated at 4.1 cm. - Pericardium, extracardiac: There is no significant pericardial effusion. - Compared to study of 02/24/19, there is little change. Study data: Transthoracic echocardiogram. Procedure: Transthoracic echocardiography was performed. Image quality was fair. The study was technically limited due to body habitus and smoking history. Intravenous Definity 3 ml was administered to enhance endocardial border definition. Complete 2D, spectral Doppler, and color flow Doppler. Location: Bedside. Patient status: Inpatient. Patient room number: 332. Rhythm: Normal sinus rhythm. Findings Left ventricle: The cavity size is normal. Wall thickness is mildly increased. Systolic function is severely reduced. The estimated ejection fraction is 25-30%. Diffuse hypokinesis with regional variations. Left ventricular diastolic function parameters are indeterminate. Right ventricle: The cavity size is mildly dilated. Systolic function is moderately reduced. Left atrium: The atrium is moderately dilated. Right atrium: The atrium is mildly to moderately dilated. Mitral valve: The leaflets are mildly thickened. There is no evidence of a vegetation. There is no evidence of stenosis. There is moderate regurgitation. Aortic valve: The valve is trileaflet. The leaflets are mildly thickened. There is no evidence of a vegetation. There is no evidence of stenosis. There is trace regurgitation. Tricuspid valve: The valve is structurally normal. There is no evidence of a vegetation. There is no evidence of stenosis. There is trace to mild regurgitation. Pulmonic valve: The valve is structurally normal. There is no evidence of a vegetation. There is no evidence of stenosis. There is trace regurgitation. Aorta: Aortic root: The aortic root is not dilated. Ascending aorta: The ascending aorta is mildly dilated at 4.1 cm. Aortic arch: The aortic arch is not dilated. Pericardium: There is no significant pericardial effusion. Pulmonary arteries: The main pulmonary artery is normal-sized. Systolic pressure can not be accurately estimated. Systemic veins: Inferior vena cava: The vessel is mildly dilated. There is (< 50%) respiratory change in the IVC dimension. Measurements Left ventricle Value Ref Aortic valve Value Ref ROEL, LAX 5.3 cm 4.2 - 5.8 Maribel diam, ED 2.3 cm ---- ESD, LAX (H) 4.8 cm 2.5 - 4.0 Peak v, S 1.04 m/sec ---- FS, LAX (L) 10 % 25 - 43 VTI, S 16.0 cm ---- PW, ED (H) 1.3 cm 0.6 - 1.0 Mean grad, S 3.0 mm Hg ---- IVS/PW, ED 0.97 Peak grad, S 4.0 mm Hg ---- E', lat maribel, TDI 10.6 cm/sec >=10.0 LVOT/AV, VTI ratio 0.9 -- -- E/e', lat maribel, 12 TDI Mitral valve Value Ref E', med maribel, TDI 9.2 cm/sec >=7.0 Peak E 1.27 m/sec -- -- E/e', med maribel, 14 Peak A 0.73 m/sec ---- TDI Decel time 183 ms ---- E', avg, TDI 9.9 cm/sec Peak grad, D 6.5 mm Hg ---- E/e', avg, TDI 13 <=14 Peak E/A ratio 1.7 -- -- MR PISA radius 0.8 cm ---- LVOT Value Ref ERO, PISA 0.25 cm^2 ---- Peak fernanda, S 0.78 m/sec MR vol, PISA 29 ml ---- VTI, S 14.4 cm Mean grad, S 1 mm Hg Pulmonic valve Value Ref Peak v, S 0.56 m/sec ---- Ventricular septum Value Ref Peak grad, S 1.0 mm Hg ---- IVS, ED (H) 1.2 cm 0.6 - 1.0 Aortic root Value Ref Right ventricle Value Ref Root diam 3.6 cm <4.3 ROEL, LAX 4.0 cm ROEL minor ax, A4C 3.5 cm 1.9 - 3.5 Ascending aorta Value Ref mid AAo AP diam, S 4.1 cm ---- Left atrium Value Ref Aortic arch Value Ref AP dim, ES (H) 5.10 cm 3.00 - Arch diam 3.2 cm ---- 4.00 ML dim, A4C 5.1 cm Decending aorta Value Ref SI dim, A4C 6.2 cm Maxine peak fernanda 0.35 m/sec ---- Vol/bsa, ES, 1-p 36 ml/m^2 12 - 37 A4C Inferior vena cava Value Ref Vol/bsa, ES, A/L (H) 43 ml/m^2 16 - 34 Diam 2.2 cm ---- Right atrium Value Ref ML dim, ES, A4C (H) 4.6 cm 2.6 - 4.4 SI dim, ES, A4C (H) 5.9 cm 3.4 - 5.3 Estimated RAP 15 mm Legend: (L) and (H) omar values outside specified reference range. Prepared and electronically signed by Patel Kim MD 05/26/2019 16:49
--- NOTE | 2019-05-26 18:53 | CONS ---
CONSULTATION REPORT: DATE OF CONSULT: 05/26/19 PRIMARY CARE PROVIDER: Dr. Pato Ferrer. PROVIDER REQUESTING CONSULTATION: CONNOR Andrew CONSULTING SERVICE: Infectious Disease. PROVIDER: Liza Tamayo NP ATTENDING PROVIDER: Dr. Aguilar Conn * (dictated by Liza Tamayo NP). REASON FOR CONSULT: Left calcaneus osteomyelitis. IMPRESSION: 1. Left calcaneus chronic osteomyelitis. The patient underwent a left transtibial amputation yesterday with Dr. Jean Baptiste. Leukocytosis is resolving. He has been afebrile. Wound cultures prior to surgery from the left foot showing Klebsiella oxytoca, MRSA, Streptococcus constellatus, and normal andre; 4/4 blood cultures with MRSA. Initial cultures from the operating room yesterday with no growth on day 1, 1+ nucleated cells, no neutrophils, and no organisms seen. The patient has been receiving ceftriaxone and vancomycin. 2. Methicillin-resistant Staphylococcus aureus bacteremia. Initial blood cultures with 4/4 bottles positive in the setting of left foot infection, also with MRSA, I suspect this is likely the source. He has no peripheral stigmata of endocarditis. He denies history of prosthetic materials. 3. Diabetes mellitus type 2. 4. Coronary artery disease, status post coronary artery bypass graft in February. 5. Chronic kidney disease, stage 2. PLAN/RECOMMENDATIONS: Recommend continuing vancomycin with trough goal of 15 to 20 and ceftriaxone while we await operative culture results. Recommend obtaining a transthoracic echocardiogram in the setting of MRSA bacteremia. Recommend obtaining repeat blood cultures in the morning to see if the bacteremia has resolved. The patient will likely need an extended course of IV antibiotics 4 to 6 weeks for the osteomyelitis. PICC line will need to be placed after the blood cultures have cleared. Further recommendations will be based on final culture results, the transthoracic echocardiogram results, and the patients clinical course. HISTORY OF PRESENT ILLNESS: Mr. Gallardo is a 53-year-old male with past medical history significant for diabetes mellitus type 2; coronary artery disease, status post 2-vessel CABG in February of 2019; history of Vaughn syndrome ; chronic left lower extremity osteomyelitis; hypertension; GERD; chronic kidney disease, stage 2; heart failure; tobacco abuse who presented to the hospital back in February, at that time was found to have a left foot wound, but had also been found to have coronary artery disease requiring CABG. The patient was transferred to higher level of care and underwent a 2-vessel CABG in February of 2019. Postoperatively, he developed Vaughn syndrome with a left- sided pleural effusion, was status post a thoracentesis by Dr. Arthur on . The patient has a known chronic left foot osteomyelitis and has been following with Dr. Jean Baptiste outpatient with plans for planned amputation on . It is unclear if the patient was still receiving antibiotics. He states he received IV antibiotics while at [facility] and that he was still on antibiotics prior to his presentation. It looks like he was potentially on cefadroxil, but according to pharmacy records in [facility], it appears this was filled for a 10-day period back in March and his home medications also list Keflex. The patient's left foot started to become more painful with some drainage. He started feeling weak with chills, night sweats, and rigors. He states for a few weeks he has had a nonproductive cough. He intermittently has chest tightness that he states is unprovoked and happens at various periods of time. He reports having night sweats for a few weeks with the increased pain in his left lower extremity and this prompted his presentation to the emergency room. While in the emergency room, he had a chest x-ray showing cardiomegaly, no pulmonary infiltrates. He had labs showing white blood cell count of 18.6, hemoglobin of 9.3, hematocrit 29, BUN 40, creatinine 1.24, CRP of 174. He had a left foot x-ray showing post amputation with erosive changes along the calcaneus which may reflect osteomyelitis in the correct clinical setting. The patient was referred to the hospitalist service and admitted for sepsis and left foot osteomyelitis. While in the hospital, the patient has been afebrile. His leukocytosis is improving. He has been receiving vancomycin and ceftriaxone. Yesterday, on May 25, he underwent a left transtibial amputation for left calcaneus osteomyelitis with Dr. Jean Baptiste. The patient states that he is feeling well. He denies any fevers, chills, nausea, vomiting, diarrhea, urinary urgency, or dysuria. He does report urinary frequency due to IV antibiotics. He denies any recent travel. Initial wound culture obtained in the ER with Klebsiella oxytoca , MRSA, Streptococcus constellatus. Additionally, he had 4/4 blood culture bottles positive for MRSA. Repeat cultures from the OR pending at this time. PAST MEDICAL HISTORY: 1. History of Vaughn syndrome. 2. Coronary artery disease, status post CABG. 3. Chronic left lower extremity osteomyelitis. 4. Diabetes mellitus type 2. 5. Hypertension. 6. GERD. 7. Chronic kidney disease, stage 2. 8. Heart failure. PAST SURGICAL HISTORY: 1. Status post 2-vessel CABG on 03/06/19. 2. Status post left Chopart disarticulation and midfoot amputation in 2018. 3. Status post bilateral cataract extractions. 4. Status post debridement of the left hindfoot. MEDICATIONS: Home medications: 1. Oxycodone 5 mg by mouth every 4 hours as needed for pain. 2. Torsemide 20 mg by mouth twice daily. 3. Spironolactone 25 mg by mouth daily. 4. Probiotic 1 tablet by mouth twice daily. 5. Multivitamin 1 tablet by mouth daily. 6. Metoprolol tartrate 25 mg by mouth twice daily. 7. Lisinopril 2.5 mg by mouth every morning. 8. Isosorbide mononitrate ER 30 mg by mouth daily. 9. Lantus insulin 40 units subcutaneous at bedtime. 10. Lispro insulin 6 units subcutaneous with meals. 11. Avapro 75 mg by mouth daily. 12. Keflex 500 mg by mouth 3 times daily, unclear if the patient was actually taking this. 13. Cefadroxil 500 mg by mouth twice daily, unclear if the patient was currently taking this or not. 14. Wellbutrin 300 mg by mouth daily. 15. Bisoprolol/hydrochlorothiazide 5/6.25 two tablets by mouth daily. 16. Atorvastatin 80 mg by mouth daily. 17. Aspirin 81 mg by mouth daily. Hospital medications: 1. Acetaminophen 975 mg by mouth every 8 hours as needed for pain. 2. Maalox Plus 30 mL by mouth every 6 hours as needed for indigestion. 3. Aspirin 325 mg by mouth twice daily. 4. Atorvastatin 80 mg by mouth daily. 5. Bupropion 150 mg by mouth daily. 6. Ceftriaxone 1 g IV every 24 hours. 7. Dextrose 25 mL IV push for glucose less than 60 as needed. 8. Hydromorphone 2 mg by mouth every 4 hours as needed for pain. 9. Lantus insulin 40 units subcutaneous at bedtime. 10. Lispro insulin sliding scale subcutaneous before meals and at bedtime. 11. Isosorbide mononitrate 30 mg by mouth daily. 12. Lactobacillus 1 tablet by mouth daily. 13. Milk of magnesia 30 mL by mouth every 6 hours as needed for constipation. 14. Metoprolol succinate 50 mg by mouth at bedtime. 15. Multivitamin 1 tablet by mouth daily. 16. Zofran 4 mg IV every 6 hours as needed for nausea. 17. Oxycodone 5 mg by mouth every 4 hours as needed for pain. 18. Senokot 1 tablet by mouth twice daily as needed for constipation. 19. Spironolactone 25 mg by mouth every morning. 20. Vancomycin 1000 mg IV every 12 hours. ALLERGIES: No known drug allergies. FAMILY HISTORY: Denies family history of recurrent or resistant infections. Father with a history of coronary artery disease. Denies family history of diabetes or cancer. SOCIAL HISTORY: Denies alcohol or recreational drug use. He is a former smoker. He reports quitting smoking on 02/22/19. Prior to that, he had a 20- pack year smoking history. REVIEW OF SYSTEMS: I performed a 10-point review of systems. All the pertinent positives and negatives are mentioned in the history of present illness. The remaining review of systems are negative. PHYSICAL EXAM: Vital Signs: Temperature 97.6, heart rate 100, respiratory rate 17, O2 sat 96% on room air, blood pressure 132/79. General Appearance: He is alert, appears to be in no acute distress, sitting up in bed. Head: Normocephalic, atraumatic. EENT: Extraocular movements are intact. He has no subconjunctival hemorrhage. Mucous membranes are moist. Neck: Supple. No lymphadenopathy. Neurological: Alert and oriented x4. Cranial nerves II through XII are grossly intact. He moves all extremities. Cardiovascular: Regular rate and rhythm. S1, S2 present. No murmurs, rubs, or gallops heard. Respiratory: No accessory muscle use. The lungs are clear to auscultation bilaterally. Abdomen: Bowel sounds present. Abdomen is soft, nontender, nondistended. He is noted to have an umbilical hernia. Extremities: No lower extremity edema. Musculoskeletal: No clubbing or cyanosis noted. Exhibits good strength in all extremities. Psychological: Calm and cooperative. Skin: No rashes or abnormalities seen. He has a surgical dressing to his left lower extremity stump that is clean, dry, and intact. DIAGNOSTIC STUDIES/LAB DATA: Sodium 137, potassium 4.9, chloride 105, CO2 of 28 , BUN 47, creatinine 1.27, glucose 186. White blood cell count 11.9, hemoglobin 9.1, hematocrit of 29, platelet count 337. Labs on admission: CRP 174, ESR greater than 120. Please see impression and recommendations outlined above. Recommendations have been discussed with CONNOR Andrew, and Dr. Jeannie Mays. Thank you for asking us to see Mr. Gallardo in consultation. The case has been reviewed with my attending, Dr. Aguilar Conn, who agrees with the plan of care. Reviewed by FILOMENA CARDONA-Addison 05/28/19 1309 [id number]/CPS #: [id number] MTDD
[2019-05-26] MEDS ORDERED: Insulin GLARGINE(*) 1 UNITS UNIT SUBCUT SCH (21:00)
[2019-05-26] MEDS: Metoprolol Succinate XL TAB* 50 MG PO SCH (22:02)
[2019-05-27] MEDS: HYDROmorphone TAB* 2 MG PO PRN ×3 (03:13→12:45)
[2019-05-27] MEDS: cefTRIAXone(*) 1 GM in NS 0.9% 50 ML* 50 ML IVPB SCH (05:24)
[2019-05-27 05:50] LABS: Hematocrit 29 % (42-52); Mean Corpuscular HGB Conc 31 g/dL (31-36); Mean Corpuscular Hemoglobin 24 pg (27-31); Mean Corpuscular Volume 77 fL (80-94); Mean Platelet Volume 7.6 fL (7.4-10.4); Platelet Count 361 10^3/uL (150-450); Red Blood Count 3.78 10^6 /uL (4.18-5.48); Red Cell Distribution Width 17 % (10-15); White Blood Count 11.3 10^3/uL (3.5-10.8)
[2019-05-27] MEDS ORDERED: Vancomycin Trough Check NOTE FOLLOW UP ONE (06:00)
[2019-05-27] MEDS: oxyCODONE TAB* 5 MG TAB PO PRN ×3 (06:13→21:40)
[2019-05-27 06:16] LABS: BUN/Creatinine Ratio 39.1 (8-20); C Reactive Protein 94.24 mg/L (<8.01); Calcium 8.3 mg/dL (8.6-10.3); EGFR African American 84.4 (>60); EGFR Non-African American 69.8 (>60); Magnesium 2.4 mg/dL (1.9-2.7); Potassium 4.8 mmol/L (3.5-5.0)
[2019-05-27] MEDS: Vancomycin(*) 1,000 MG in NS 0.9% 250 ML* 250 ML IVPB SCH (06:32)
[2019-05-27 07:15] LABS: Erythrocyte Sed Rate 109 mm/Hr (0-19)
[2019-05-27] MEDS: Insulin LISPRO* 1 UNITS UNIT SUBCUT SCH ×5 (08:03→21:56)
[2019-05-27] MEDS: Spironolactone TAB* 25 MG PO SCH (08:04)
[2019-05-27] MEDS: BuPROPion XL* 150 MG TAB.XL PO SCH (08:04)
[2019-05-27] MEDS: Aspirin TAB* 325 MG PO SCH ×2 (08:04→21:40)
[2019-05-27] MEDS: Multivitamins/Minerals TAB PO SCH (08:04)
[2019-05-27] MEDS: Isosorbide Mononitrate ER TAB* 30 MG PO SCH ×2 (08:04→09:54)
[2019-05-27] MEDS: Atorvastatin* 80 MG TAB PO SCH (08:04)
[2019-05-27] MEDS: Lactobacillus Acidophilus* 1 TAB PO SCH (08:04)
[2019-05-27] MEDS: Magnesium Hydroxide LIQ* 30 ML UDC PO PRN (08:05)
[2019-05-27] MEDS: Senna TAB 8.6 mg* TAB PO PRN (08:05)
--- NOTE | 2019-05-27 09:46 | PN ---
Progress Note - Progress Note Date of Service: 05/27/19 SOAP: Subjective: CC: gangrene HPI: 53 year old man with hx left hindfoot amputation admitted with fever, left foot cellulitis and gangrene s/p transtibial amputation. No fever, rash, or diarrhea, has left leg pain at times. Objective: Vital Signs Temp 36.8 C 05/27/19 07:32 Pulse 93 05/27/19 07:32 Resp 16 05/27/19 08:03 BP 129/76 05/27/19 07:32 Pulse Ox 96 05/27/19 08:00 Intake & Output 05/26/19 05/27/19 05/27/19 18:59 06:59 18:59 Intake Total 770 426 Output Total 800 575 Balance -30 -149 Weight 228 lb 8 oz Intake: IV Fluids 21 NS (0.9%) 21 IVPB 55 Ceftriaxone 55 Oral 770 350 Output: Urine 800 575 Gen:awake, no distress, flattened affect HEENT: no thrush Heart:RRR no murmur Lungs:CTA BL Abd:+BS NTND soft Skin: no rash MSK: no spine tenderness or joint synovitis; left lower leg bandaged Laboratory Results - last 24 hr 05/26/19 05/26/19 05/26/19 11:36 16:43 21:19 WBC RBC Hgb Hct MCV MCH MCHC RDW Plt Count MPV ESR Sodium Potassium Chloride Carbon Dioxide Anion Gap BUN Creatinine Est GFR ( Amer) Est GFR (Non-Af Amer) BUN/Creatinine Ratio Glucose POC Glucose (mg/dL) 226 H 198 H 268 H Calcium Magnesium C-Reactive Protein Vancomycin Trough 05/27/19 05/27/19 05/27/19 05:42 05:42 05:42 WBC 11.3 H RBC 3.78 L Hgb 9.0 L Hct 29 L MCV 77 L MCH 24 L MCHC 31 RDW 17 H Plt Count 361 MPV 7.6 ESR 109 H Sodium 136 Potassium 4.8 Chloride 105 Carbon Dioxide 25 Anion Gap 6 BUN 43 H Creatinine 1.10 Est GFR ( Amer) 84.4 Est GFR (Non-Af Amer) 69.8 BUN/Creatinine Ratio 39.1 H Glucose 209 H POC Glucose (mg/dL) Calcium 8.3 L Magnesium 2.4 C-Reactive Protein 94.24 H Vancomycin Trough 29.5 05/27/19 07:48 WBC RBC Hgb Hct MCV MCH MCHC RDW Plt Count MPV ESR Sodium Potassium Chloride Carbon Dioxide Anion Gap BUN Creatinine Est GFR ( Amer) Est GFR (Non-Af Amer) BUN/Creatinine Ratio Glucose POC Glucose (mg/dL) 273 H Calcium Magnesium C-Reactive Protein Vancomycin Trough Microbiology 05/25/19 14:00 Wound Anaerobic Culture - Preliminary No Growth Day 2 05/25/19 14:00 Leg Left Gram Stain - Final 05/25/19 14:00 Leg Left Wound Culture - Preliminary No Growth Day 2 05/23/19 23:30 Foot Left Skin and Soft Tissue MRSA/MSSA (PCR - Final Mrsa Positive S.aureus Positive 05/23/19 23:30 Foot Left Gram Stain - Final 05/23/19 23:30 Foot Left Wound Culture - Final Klebsiella Oxytoca MRSA Streptococcus Constellatus Normal Rosaline 05/23/19 23:40 Blood Venous Aerobic Blood Culture - Final MRSA 05/23/19 23:40 Blood Venous Anaerobic Blood Culture - Final MRSA 05/23/19 23:48 Blood Venous Aerobic Blood Culture - Final MRSA 05/23/19 23:48 Blood Venous Anaerobic Blood Culture - Final MRSA 05/23/19 23:48 Blood Venous Blood MRSA/MSSA (PCR) - Final Mrsa Positive S.aureus Positive TTE: mild MR, LVEF 15-0% Assessment: 1. MRSA bacteremia due to left foot ganrgene, cleared with early surgery. No peripheral stigmata of IE, BC cleared rapidly and no vegetation on TTE, low pretest probability for IE and will have long course IV antibiotics for leg infection so will not obtain MAURICE. 2. Polymicrobial left foot chronic osteomyelitis, gangrene, cellulitis 3. CAD s/p CAB 4. cardiomyopathy Plan: 1. continue vancomycin goal tr 15-20 day and ceftriaxone day 5
--- NOTE | 2019-05-27 09:57 | PN ---
Subjective Date of Service: 05/27/19 Interval History: No veg on TTE. ESR/CRP decreasing. Pt still with pain at site of amputation, moderately well-controlled with medications. Also still without bowel movement - received prns this morning. Reports mild orthopnea. Denies other issues. Objective Active Medications: Acetaminophen (Tylenol Tab*) 975 mg PO Q8H PRN PRN Reason: PAIN - MILD Al Hydrox/Mg Hydrox/Simethicone (Maalox Plus*) 30 ml PO Q6H PRN PRN Reason: INDIGESTION Aspirin (Aspirin Tab*) 325 mg PO BID [facility] Last Admin: 05/27/19 08:04 Dose: 325 mg Atorvastatin Calcium (Lipitor*) 80 mg PO DAILY [facility] Last Admin: 05/27/19 08:04 Dose: 80 mg Bupropion HCl (Wellbutrin Xl *) 150 mg PO QAM [facility] Last Admin: 05/27/19 08:04 Dose: 150 mg Dextrose (Dextrose 50% Vial 50 Ml*) 25 ml IV PUSH .FOR FS < 60 - SS PRN PRN Reason: FS < 60 Hydromorphone HCl (Dilaudid Tab*) 2 mg PO Q4H PRN PRN Reason: PAIN - SEVERE Last Admin: 05/27/19 08:03 Dose: 2 mg Ceftriaxone Sodium 1 gm/ (Sodium Chloride) 50 mls @ 100 mls/hr IVPB Q24H [facility] Last Admin: 05/27/19 05:24 Dose: 100 mls/hr Vancomycin HCl 1,250 mg/ (Sodium Chloride) 250 mls @ 166.667 mls/hr IVPB Q24HR@ 0600 [facility] Insulin Glargine (Lantus(*)) 40 units SUBCUT BEDTIME [facility] Last Admin: 05/26/19 22:03 Dose: 40 unit Insulin Human Lispro (Humalog*) 0 units SUBCUT ACHS [facility]; Protocol Last Admin: 05/27/19 08:03 Dose: 6 units Isosorbide Mononitrate (Imdur Er Tab*) 30 mg PO DAILY [facility] Last Admin: 05/26/19 08:51 Dose: 30 mg Lactobacillus Rhamnosus (Lactobacillus Acidophilus*) 1 tab PO DAILY [facility] Last Admin: 05/27/19 08:04 Dose: 1 tab Magnesium Hydroxide (Milk Of Magnesia Liq*) 30 ml PO Q6H PRN PRN Reason: CONSTIPATION Last Admin: 05/27/19 08:05 Dose: 30 ml Metoprolol Succinate (Toprol Xl Tab*) 50 mg PO BEDTIME [facility] Last Admin: 05/26/19 22:02 Dose: 50 mg Multivitamins/Minerals (Theragran/Minerals Tab*) 1 tab PO QAM [facility] Last Admin: 05/27/19 08:04 Dose: 1 tab Ondansetron HCl (Zofran Inj*) 4 mg IV Q6H PRN PRN Reason: NAUSEA Oxycodone HCl (Roxycodone Tab*) 5 mg PO Q4HR PRN PRN Reason: PAIN - MODERATE Last Admin: 05/27/19 06:13 Dose: 5 mg Pharmacy Consult (Vancomycin Per Pharmacy*) 1 note FOLLOW UP .VANC PER PHARMACY [facility]; Protocol Senna (Senokot 8.6 Mg Tab*) 1 tab PO BID PRN PRN Reason: CONSTIPATION Last Admin: 05/27/19 08:05 Dose: 1 tab Spironolactone (Aldactone Tab*) [facility] [place] Last Admin: 05/27/19 08:04 Dose: 25 mg Vital Signs - 8 hr 05/27/19 05/27/19 05/27/19 02:50 03:13 05:37 Temperature 97.7 F Pulse Rate 93 Respiratory 19 17 18 Rate Blood Pressure 111/64 (mmHg) O2 Sat by Pulse 94 Oximetry 05/27/19 05/27/19 05/27/19 06:13 07:32 08:00 Temperature 98.3 F Pulse Rate 93 Respiratory 18 18 16 Rate Blood Pressure 129/76 (mmHg) O2 Sat by Pulse 96 96 Oximetry 05/27/19 08:03 Temperature Pulse Rate Respiratory 16 Rate Blood Pressure (mmHg) O2 Sat by Pulse Oximetry Oxygen Devices in Use Now: None Appearance: well appearing man in NAD, mildly dysthymic; alert and interactive; sitting at side of bed with laptop Ears/Nose/Mouth/Throat: Clear Oropharnyx, Mucous Membranes Moist Neck: NL Appearance and Movements; NL JVP Respiratory: Symmetrical Chest Expansion and Respiratory Effort, Clear to Auscultation Cardiovascular: RRR Abdominal: NL Sounds; No Tenderness; No Distention Extremities: - - LLE with BKA and new amputation site wrapped in bandage c/d/i; LLE with 1+ edema over ankles; skin cool to touch Neurological: Alert and Oriented x 3 Result Diagrams: 05/27/19 05:42 05/27/19 05:42 Microbiology and Other Data: Microbiology 05/23/19 23:30 Skin and Soft Tissue MRSA/MSSA (PCR - Final Foot Left Mrsa Positive S.aureus Positive Gram Stain - Final Assess/Plan/Problems-Billing Assessment: 53M with DM2, HFrEF 20-25%, chronic LE wound, here with worsening of his LLE wound, now s/p transtibial amputation 05/25. Blood/wound cultures growing MRSA. 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 BCx with MRSA, now cleared. Recently normal KARY. TTE without vegetation, will not pursue MAURICE given low pretest probability, and that patient will already require long-term course of IV abx. - appreciate Ortho Consult, s/p amputation 05/25 - Continue ceftriaxone/vanco (05/24 - 07/04) - appreciate ID recs - pending PT (2) Heart failure with reduced ejection fraction Comment: Possible exacerbation on admission after sepsis fluids. - hold lisinopril 2.5mg until BPs recover post op - restart torsemide 20mg daily - cont metop suc 50mg nightly, spironolactone 25mg daily - Will need eventual Primary Prevention ICD if no improvement in EF - Strict I/O and Daily weights (3) CAD (coronary artery disease) Comment: Cath November 2018, severe 2V disease, S/P CABG complicated by Vaughn's syndrome and pleural Effusion - cont aspirin, statin, Imdur, beta-catracho (4) Anemia Comment: Stable, Iron studies consistent with ACD and SIENNA - Consider IV iron supplementation when acute infection controlled due to improvement in symptomatology and hospitalization due to HF - Consider outpatient Colonoscopy and Endoscopy. (5) Depression Comment: Not improved with prior trials of SSRIs. - cont bupropion 150mg daily, initiated in hospital after shared decision making (6) Diabetes Comment: A1C 8.7 in 02/2019, much improved from 2018 - f/s ACHS - cont home Lantus 40u QHS - SSI Lispro with recursive addition of scheduled insulin - Diabetic diet (7) Hypertension Comment: Likely not with this diagnosis. On bb, ángel-i, and spironolactone for HF , with low-normal BPs. Holding ÁNGEL-I for now. (8) DVT prophylaxis Comment: - resume medical tx when cleared by ortho, cont scd (9) Full code status Status and Disposition: Inpatient for IV antibiotics.
[2019-05-27] MEDS: Torsemide TAB* 20 MG PO SCH (12:00)
--- NOTE | 2019-05-27 14:24 | PN ---
Progress Note - Progress Note Date of Service: 05/27/19 SOAP: Subjective: []Pt seen and examined at bedside. He feels well, reports no fever or chills. Denies CP, dizziness or nausea. Reports mild SOB, O2 sat 98% on room air. He does have HX CHF and torsemide was restarted by medicine this morning. 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 POD 2 sp Left transtibial amputation. Plan: []NWB LLE Cont IV abx per ID: vancomycin goal tr 15-20 day and ceftriaxone day 5 Blood cultures + MRSA, MSSA Once blood cultures clear will need picc line for anticipated 6 weeks of IV abx tx Medicine made aware of SOB Vital Signs Temp 98 F 05/27/19 11:50 Pulse 93 05/27/19 11:50 Resp 18 05/27/19 12:45 BP 138/86 05/27/19 11:50 Pulse Ox 98 05/27/19 11:50 Intake & Output 05/26/19 05/27/19 05/27/19 18:59 06:59 18:59 Intake Total 770 426 120 Output Total 800 575 400 Balance -30 -149 -280 Weight 228 lb 8 oz Intake: IV Fluids 21 NS (0.9%) 21 IVPB 55 Ceftriaxone 55 Oral 770 350 120 Output: Urine 800 575 400 Laboratory Last Values WBC 11.3 10^3/uL (3.5-10.8) H 05/27/19 05:42 RBC 3.78 10^6 /uL (4.18-5.48) L 05/27/19 05:42 Hgb 9.0 g/dL (14.0-18.0) L 05/27/19 05:42 Hct 29 % (42-52) L 05/27/19 05:42 MCV 77 fL (80-94) L 05/27/19 05:42 MCH 24 pg (27-31) L 05/27/19 05:42 MCHC 31 g/dL (31-36) 05/27/19 05:42 RDW 17 % (10-15) H 05/27/19 05:42 Plt Count 361 10^3/uL (150-450) 05/27/19 05:42 MPV 7.6 fL (7.4-10.4) 05/27/19 05:42 Neut % (Auto) 77.8 % 05/26/19 05:20 Lymph % (Auto) 10.0 % 05/26/19 05:20 Norman % (Auto) 8.8 % 05/26/19 05:20 Eos % (Auto) 2.7 % 05/26/19 05:20 Baso % (Auto) 0.7 % 05/26/19 05:20 Absolute Neuts (auto) 9.2 10^3/ul (1.5-7.7) H 05/26/19 05:20 Absolute Lymphs (auto) 1.2 10^3/ul (1.0-4.8) 05/26/19 05:20 Absolute Monos (auto) 1.0 10^3/ul (0-0.8) H 05/26/19 05:20 Absolute Eos (auto) 0.3 10^3/ul (0-0.6) 05/26/19 05:20 Absolute Basos (auto) 0.1 10^3/ul (0-0.2) 05/26/19 05:20 Absolute Nucleated RBC 0.0 10^3/ul 05/26/19 05:20 Nucleated RBC % 0.0 05/26/19 05:20 ESR 109 mm/Hr (0-19) H 05/27/19 05:42 INR (Anticoag Therapy) 1.45 (0.82-1.09) H 05/23/19 23:56 APTT 35.6 seconds (26.0-38.0) 05/23/19 23:56 Sodium 136 mmol/L (135-145) 05/27/19 05:42 Potassium 4.8 mmol/L (3.5-5.0) 05/27/19 05:42 Chloride 105 mmol/L (101-111) 05/27/19 05:42 Carbon Dioxide 25 mmol/L (22-32) 05/27/19 05:42 Anion Gap 6 mmol/L (2-11) 05/27/19 05:42 BUN 43 mg/dL (6-24) H 05/27/19 05:42 Creatinine 1.10 mg/dL (0.67-1.17) 05/27/19 05:42 Est GFR ( Amer) 84.4 (>60) 05/27/19 05:42 Est GFR (Non-Af Amer) 69.8 (>60) 05/27/19 05:42 BUN/Creatinine Ratio 39.1 (8-20) H 05/27/19 05:42 Glucose 209 mg/dL (70-100) H 05/27/19 05:42 POC Glucose (mg/dL) 273 mg/dL (70-100) H 05/27/19 07:48 Lactic Acid 0.7 mmol/L (0.5-2.0) 05/23/19 23:56 Calcium 8.3 mg/dL (8.6-10.3) L 05/27/19 05:42 Magnesium 2.4 mg/dL (1.9-2.7) 05/27/19 05:42 Total Bilirubin 0.40 mg/dL (0.2-1.0) 05/23/19 23:56 AST 21 U/L (13-39) 05/23/19 23:56 ALT 25 U/L (7-52) 05/23/19 23:56 Alkaline Phosphatase 77 U/L (34-104) 05/23/19 23:56 Troponin I 0.02 ng/mL (<0.04) 05/23/19 23:56 C-Reactive Protein 94.24 mg/L (<8.01) H 05/27/19 05:42 Total Protein 7.0 g/dL (6.4-8.9) 05/23/19 23:56 Albumin 2.6 g/dL (3.2-5.2) L 05/23/19 23:56 Globulin 4.4 g/dL (2-4) H 05/23/19 23:56 Albumin/Globulin Ratio 0.6 (1-3) L 05/23/19 23:56 Vancomycin Trough 29.5 mcg/mL 05/27/19 05:42
[2019-05-27] MEDS: Metoprolol Succinate XL TAB* 50 MG PO SCH (21:40)
[2019-05-27] MEDS: Insulin GLARGINE(*) 1 UNITS UNIT SUBCUT SCH (21:57)
[2019-05-28] MEDS: oxyCODONE TAB* 5 MG TAB PO PRN ×2 (01:31→05:36)
[2019-05-28] MEDS: cefTRIAXone(*) 1 GM in NS 0.9% 50 ML* 50 ML IVPB SCH (05:26)
[2019-05-28 05:38] LABS: Hematocrit 29 % (42-52); Hemoglobin 8.9 g/dL (14.0-18.0); Mean Corpuscular HGB Conc 31 g/dL (31-36); Mean Corpuscular Hemoglobin 24 pg (27-31); Mean Corpuscular Volume 78 fL (80-94); Mean Platelet Volume 7.8 fL (7.4-10.4); Platelet Count 299 10^3/uL (150-450); Red Blood Count 3.68 10^6 /uL (4.18-5.48); Red Cell Distribution Width 17 % (10-15); White Blood Count 10.4 10^3/uL (3.5-10.8)
[2019-05-28 05:53] LABS: BUN/Creatinine Ratio 38.1 (8-20); Calcium 8.2 mg/dL (8.6-10.3); EGFR African American 89.1 (>60); EGFR Non-African American 73.6 (>60); Magnesium 2.4 mg/dL (1.9-2.7)
[2019-05-28 05:57] LABS: Potassium 5.6 mmol/L (3.5-5.0)
[2019-05-28] MEDS: Vancomycin(*) 1,250 MG in NS 0.9% 250 ML* 250 ML IVPB SCH (06:27)
[2019-05-28] MEDS: Magnesium Hydroxide LIQ* 30 ML UDC PO PRN (08:13)
[2019-05-28] MEDS: Senna TAB 8.6 mg* TAB PO PRN (08:13)
[2019-05-28] MEDS: Isosorbide Mononitrate ER TAB* 30 MG PO SCH (08:14)
[2019-05-28] MEDS: Aspirin TAB* 325 MG PO SCH ×2 (08:14→21:19)
[2019-05-28] MEDS: Atorvastatin* 80 MG TAB PO SCH (08:14)
[2019-05-28] MEDS: Torsemide TAB* 20 MG PO SCH (08:14)
[2019-05-28] MEDS: Lactobacillus Acidophilus* 1 TAB PO SCH (08:14)
[2019-05-28] MEDS: Spironolactone TAB* 25 MG PO SCH (08:14)
[2019-05-28] MEDS: BuPROPion XL* 150 MG TAB.XL PO SCH (08:14)
[2019-05-28] MEDS: Multivitamins/Minerals TAB PO SCH (08:15)
[2019-05-28] MEDS ORDERED: Glycerin ADULT SUPP PR PRN (08:18)
--- NOTE | 2019-05-28 08:24 | PN ---
Subjective Date of Service: 05/28/19 Interval History: Started to take prn bowel regimen yesterday, good results today. Elevated K after starting torsemide yesterday? Will stop spironolactone, give one dose of furosemide and patiromer. PICC placement failed today. On schedule with IR tomorrow. Objective Active Medications: Acetaminophen (Tylenol Tab*) 975 mg PO Q8H PRN PRN Reason: PAIN - MILD Last Admin: 05/27/19 10:58 Dose: 975 mg Aspirin (Aspirin Tab*) 325 mg PO BID [facility] Last Admin: 05/28/19 08:14 Dose: 325 mg Atorvastatin Calcium (Lipitor*) 80 mg PO DAILY [facility] Last Admin: 05/28/19 08:14 Dose: 80 mg Bupropion HCl (Wellbutrin Xl *) 150 mg PO QAM [facility] Last Admin: 05/28/19 08:14 Dose: 150 mg Dextrose (Dextrose 50% Vial 50 Ml*) 25 ml IV PUSH .FOR FS < 60 - SS PRN PRN Reason: FS < 60 Glycerin (Glycerin Adult Supp*) 1 supp GA DAILY PRN PRN Reason: CONSTIPATION Hydromorphone HCl (Dilaudid Tab*) 2 mg PO Q4H PRN PRN Reason: PAIN - SEVERE Last Admin: 05/27/19 12:45 Dose: 2 mg Ceftriaxone Sodium 1 gm/ (Sodium Chloride) 50 mls @ 100 mls/hr IVPB Q24H [facility] Last Admin: 05/28/19 05:26 Dose: 100 mls/hr Vancomycin HCl 1,250 mg/ (Sodium Chloride) 250 mls @ 166.667 mls/hr IVPB Q24HR@ 0600 [facility] Last Admin: 05/28/19 06:27 Dose: 166.667 mls/hr Insulin Glargine (Lantus(*)) 45 units SUBCUT BEDTIME [facility] Last Admin: 05/27/19 21:57 Dose: 45 unit Insulin Human Lispro (Humalog*) 0 units SUBCUT ACHS [facility]; Protocol Last Admin: 05/27/19 21:56 Dose: 3 units Isosorbide Mononitrate (Imdur Er Tab*) 30 mg PO DAILY [facility] Last Admin: 05/28/19 08:14 Dose: 30 mg Lactobacillus Rhamnosus (Lactobacillus Acidophilus*) 1 tab PO DAILY [facility] Last Admin: 05/28/19 08:14 Dose: 1 tab Magnesium Hydroxide (Milk Of Magnesia Liq*) 30 ml PO Q6H PRN PRN Reason: CONSTIPATION Last Admin: 05/28/19 08:13 Dose: 30 ml Metoprolol Succinate (Toprol Xl Tab*) 50 mg PO BEDTIME [facility] Last Admin: 05/27/19 21:40 Dose: 50 mg Multivitamins/Minerals (Theragran/Minerals Tab*) 1 tab PO QAM [facility] Last Admin: 05/28/19 08:15 Dose: 1 tab Ondansetron HCl (Zofran Inj*) 4 mg IV Q6H PRN PRN Reason: NAUSEA Oxycodone HCl (Roxycodone Tab*) 5 mg PO Q4HR PRN PRN Reason: PAIN - MODERATE Last Admin: 05/28/19 05:36 Dose: 5 mg Pharmacy Consult (Vancomycin Per Pharmacy*) 1 note FOLLOW UP .VANC PER PHARMACY [facility]; Protocol Pharmacy Profile Note (Vancomycin Trough Check) 1 note FOLLOW UP ONCE ONE Stop: 05/29/19 05:31 Senna (Senokot 8.6 Mg Tab*) 1 tab PO BID PRN PRN Reason: CONSTIPATION Last Admin: 05/28/19 08:13 Dose: 1 tab Spironolactone (Aldactone Tab*) 25 mg PO QAM [facility] Last Admin: 05/28/19 08:14 Dose: 25 mg Torsemide (Demadex*) 20 mg PO DAILY [facility] Last Admin: 05/28/19 08:14 Dose: 20 mg Vital Signs - 8 hr 05/28/19 05/28/19 05/28/19 01:31 03:30 03:57 Temperature 96.5 F Pulse Rate 97 Respiratory 16 16 18 Rate Blood Pressure 125/64 (mmHg) O2 Sat by Pulse 100 Oximetry 05/28/19 05/28/19 05:36 07:40 Temperature 97.5 F Pulse Rate 94 Respiratory 16 17 Rate Blood Pressure 135/75 (mmHg) O2 Sat by Pulse 97 Oximetry Oxygen Devices in Use Now: None Appearance: appears older than stated age, sitting at side of bed watching movie on laptop Ears/Nose/Mouth/Throat: Clear Oropharnyx, Mucous Membranes Moist Neck: NL Appearance and Movements; NL JVP, Trachea Midline Respiratory: Symmetrical Chest Expansion and Respiratory Effort, Clear to Auscultation Cardiovascular: NL Sounds; No Murmurs; No JVD, RRR Abdominal: NL Sounds; No Tenderness; No Distention, No Hepatosplenomegaly Extremities: - - trace ankle adema on R, L leg s/p BKA wrapped in dressing Neurological: Alert and Oriented x 3 Result Diagrams: 05/28/19 05:19 05/28/19 05:26 Microbiology and Other Data: Microbiology 05/23/19 23:30 Skin and Soft Tissue MRSA/MSSA (PCR - Final Foot Left Mrsa Positive S.aureus Positive Gram Stain - Final Assess/Plan/Problems-Billing Assessment: 53M with DM2, HFrEF 20-25%, chronic LE wound, here with worsening of his LLE wound, now s/p transtibial amputation 05/25. Blood/wound cultures growing MRSA. 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 BCx with MRSA, now cleared. Recently normal KARY. TTE without vegetation, will not pursue MAURICE given low pretest probability, and that patient will already require long-term course of IV abx. - appreciate Ortho Consult, s/p amputation 05/25 - Continue vanco IV (05/24 - 07/04); switch CTX to Augmentin - appreciate ID recs - pending placement in rehab (2) Heart failure with reduced ejection fraction Comment: Possible exacerbation on admission after sepsis fluids. 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 (5) Depression Comment: Not improved with prior trials of SSRIs. - cont bupropion 150mg daily, initiated in hospital after shared decision making (6) Diabetes Comment: A1C 8.7 in 02/2019, much improved from 2018 - f/s ACHS - cont home Lantus QHS - SSI Lispro with recursive addition of scheduled insulin - Diabetic diet (7) Hypertension Comment: Likely not with this diagnosis. On bb, ángel-i, and spironolactone for HF , with low-normal BPs. Holding ÁNGEL-I and spironolactone given normal BPs and high K. (8) DVT prophylaxis Comment: - resume medical tx when cleared by ortho, cont scd (9) Full code status Status and Disposition: Inpatient for IV antibiotics.
[2019-05-28] MEDS: Insulin LISPRO* 1 UNITS UNIT SUBCUT SCH ×4 (09:51→21:19)
--- NOTE | 2019-05-28 14:42 | DS ---
CC: Dr. Pato Ferrer; Dr. Conn; Dr. Pedro Jean Baptiste DISCHARGE SUMMARY: DATE OF ADMISSION: 05/24/19 DATE OF DISCHARGE: 05/28/19 PRIMARY CARE PHYSICIAN: Dr. Pato Ferrer. INFECTIOUS DISEASE SPECIALIST: Dr. Conn. PRIMARY DIAGNOSES: 1. Left foot cellulitis gangrene and osteomyelitis. 2. Methicillin-resistant Staphylococcus aureus bacteremia. 3. Heart failure with reduced ejection fraction 25% to 30%. SECONDARY DIAGNOSES: 1. Coronary artery disease status post coronary artery bypass graft, complicated by Vaughn syndrome. 2. Insulin-dependent diabetes mellitus type 2. 3. Hypertension. 4. Depression, major depressive disorder. CONSULTS: Dr. Aguilar Conn of Infectious Disease, Dr. Pedro Jean Baptiste of Orthopedic Surgery. PROCEDURES: Left transtibial amputation on 05/25/19. PICC placement 05/28. DISCHARGE MEDICATIONS: 1. Augmentin 500mg q12h 2. Vancomycin 1.25 g daily dose adjusted by trough. 3. Torsemide 20 mg twice a day. 4. Metoprolol succinate 50 mg at bedtime. 5. Acetaminophen 975 mg every 8 hours as needed for mild pain. 6. Oxycodone 5 mg every 4 hours as needed for [id number] pain. 7. Aspirin 325 twice a day for DVT prophylaxis postop to decrease to 81 mg daily when cleared by Ortho. 8. Atorvastatin 80 mg daily. 9. Isosorbide mononitrate 30 mg daily. 10. Bupropion 300 mg daily. 11. Insulin glargine 40 units subcutaneously at bedtime. 12. Insulin lispro sliding scale. 13. Milk of magnesium 30 cc every 6 hours as needed for constipation. 14. Senna 8.6 mg twice a day as needed for constipation. 15. Glycerin suppository daily as needed for constipation. 16. Multivitamin 1 tablet daily. 17. Probiotic 1 capsule twice a day. HISTORY OF PRESENT ILLNESS: Mr. Gallardo is a 53-year-old man with diabetes type 2 on insulin, CAD status post CABG February 2019, complicated by Vaughn syndrome and left-sided pleural effusion, chronic osteomyelitis of left foot stump, depression, and hypertension, who was recently discharged after his bypass surgery at [facility]. He was recommended to continue taking antibiotics for history of osteomyelitis, although the patient was taking this antibiotic once a day, but it was actually prescribed for twice a day. Over the course of the last month on this reduced dose of antibiotic, the patient states his foot has become more painful and had increased drainage. He was still able to ambulate on that foot, but his symptoms progressed to be associated with feeling generalized weakness, chills, sweats, and rigors, so he presented to the ER and was admitted with diagnosis of sepsis. HOSPITAL COURSE: In the emergency room, the patient underwent a chest x-ray, which showed cardiomegaly without pulmonary infiltrates. Labs showed leukocytosis, anemia, ROSALES, and elevated CRP. Left foot x-ray showed post amputation with erosive changes along the calcaneus, which possibly reflected osteomyelitis, so he was admitted to the hospital service for further management. He was initially on vancomycin and ceftriaxone. He had multiple blood cultures grown MRSA with skin and soft tissue culture showing polymicrobial picture including klebsiella, MRSA, streptococcus. His cultures drawn in the OR are showing no growth to date and surveillance blood cultures have been negative. On 05/25/19, he had a left transtibial amputation and tolerated the procedure well. On postop, he had increased opiate requirements and experienced constipation, but this was relieved with increase in his bowel regimen. As his blood pressures throughout hospitalization were at goal off most home meds, his old hypertension and heart failure regimen was reinitiated slowly, including resuming his beta-catracho and torsemide. However, his lisinopril was not yet started given low-normal blood pressures. After re- starting spironolactone, patient experienced hyperkalemia and was given furosemide 40mg IV and patiromer. He did not have EKG changes at that time. His home dose of aspirin for his history of coronary artery disease was increased to 325 mg twice a day for DVT prophylaxis. The patient participated with physical therapy who recommended rehab on discharge and he was cleared by ID and Orthopedic Surgery before discharge as well. PERTINENT STUDIES AND LABS: CBC notable for leukocytosis resolved and hemoglobin 8.9 at baseline with MCV 78. BMP with creatinine 1. LFTs unremarkable. CRP 174, decreased to 94. ESR greater than 120, decreased to 109. Hemoglobin A1c on 02/23/19, was 8.7. Blood cultures from 05/23/19 positive for MRSA in 4/4 bottles. Foot x-ray status post amputation with erosive change along the calcaneus, which may reflect osteomyelitis in the correct clinical setting. Transthoracic echocardiogram with systolic function severely reduced with estimated EF 25% to 30%, diffuse hypokinesis with regional variations, RV systolic function moderately reduced, LA moderately dilated, mitral valve without evidence of stenosis, but with moderate regurg, compared to study on 10/14, there is little change. DISCHARGE PLAN: The patient will be discharged to [facility] for ongoing skilled PT needs. He should continue to follow up with his primary care physician for management of his chronic medical problems including management of his diabetes and coronary artery disease. He should also undergo age-appropriate cancer screening given his history of iron deficiency anemia. He should eventually be initiated on iron supplementation, but this was not given in the hospital given his active infection. He will need monitoring of his blood pressure and weight for titration of his heart failure regimen, with goal to reinitiate lisinopril and spironolactone when able. He should have his basic metabolic panel monitored , as he had hyperkalemia in the hospital after starting spironolactone. He should also have fingerstick monitoring for insulin sliding scale doses with short-acting mealtime insulin. His aspirin was increased from 81 mg daily to 325 mg twice a day for DVT prophylaxis while postop, but he can resume a lower dose of aspirin when cleared by Orthopedic Surgery. He will follow up with Orthopedic Surgery 10 days postop He should continue vancomycin IV and Augmentin, and follow up in infectious disease clinic given need for 4 to 6 weeks of IV antibiotic therapy. While on IV antibiotics, he should have weekly monitoring of his CBC, CMP, CRP, and vancomycin trough with goal trough of 15 to 20. He should eat a healthy diet, low in processed foods and low in carbohydrates and resume activity as tolerated with rehab per [facility]. DISPOSITION: [facility] CONDITION: Improved. TIME SPENT: Apparently 60 minutes was spent on discharge of this patient. More than of which was spent with care coordination at bedside and for interview and exam. [id number]/[facility] #: [id number] RADHA
[2019-05-28 14:43] LABS: BUN/Creatinine Ratio 35.2 (8-20); Calcium 8.5 mg/dL (8.6-10.3); EGFR African American 89.1 (>60); EGFR Non-African American 73.6 (>60)
[2019-05-28 14:45] LABS: Potassium 5.8 mmol/L (3.5-5.0)
[2019-05-28] MEDS ORDERED: Furosemide IV* 10 MG/ML VIAL (40 MG) IV ONE (14:53)
[2019-05-28] MEDS ORDERED: Patiromer POWDER* 8.4 GM PAK PO ONE (14:55)
[2019-05-28] MEDS: Insulin GLARGINE(*) 1 UNITS UNIT SUBCUT SCH (21:19)
[2019-05-28] MEDS: Metoprolol Succinate XL TAB* 50 MG PO SCH (21:20)
[2019-05-29] MEDS ORDERED: Vancomycin Trough Check NOTE FOLLOW UP ONE (05:30)
[2019-05-29] MEDS: oxyCODONE TAB* 5 MG TAB PO PRN (05:38)
[2019-05-29] MEDS: Amoxicillin/Clavulanate TAB* 500 MG PO SCH ×2 (06:00→09:39)
[2019-05-29 07:12] LABS: Calcium 8.3 mg/dL (8.6-10.3); EGFR African American 94.2 (>60); EGFR Non-African American 77.9 (>60)
[2019-05-29 07:13] LABS: Potassium 5.6 mmol/L (3.5-5.0)
[2019-05-29] MEDS: Vancomycin(*) 1,250 MG in NS 0.9% 250 ML* 250 ML IVPB SCH (07:59)
--- NOTE | 2019-05-29 08:52 | PN ---
Progress Note - Progress Note Date of Service: 05/29/19 SOAP: Subjective: CC: Gangrene HPI: Mr. Gallardo is a 53 year old male with PMH significant for DM2, CAD s/p CABG, HTN, GERD, CKD 2, HF, and hx left hindfoot amputation; admitted with fever , left foot cellulitis and gangrene s/p transtibial amputation. Denies fever, chills, nausea, vomiting, diarrhea, or rash. Reports left leg pain at times, that is controlled. Objective: Vital Signs - 8 hr 05/29/19 05/29/19 05/29/19 04:00 05:38 08:00 Temperature 97.5 F Pulse Rate 92 Respiratory 18 18 18 Rate Blood Pressure 133/81 (mmHg) O2 Sat by Pulse 97 Oximetry Physical Exam: General: NAD, laying in bed Neurological: Alert and Oriented x4 HEENT: Moist MM, no thrush Cardiovascular: Heart rate regular, no murmur Respiratory: Bowel sounds present; ABD soft, non tender and non distended Skin: No rash. Surgical dressing to LE clean, dry and intact Laboratory Results - last 24 hr 05/28/19 05/28/19 05/28/19 05:19 08:37 12:55 POC Glucose (mg/dL) 170 H 109 H Hemoglobin A1c 8.3 H 05/28/19 05/28/19 05/28/19 14:03 14:10 18:17 Sodium 137 Potassium 5.8 H Chloride 107 Carbon Dioxide 24 Anion Gap 6 BUN 37 H Creatinine 1.05 Est GFR ( Amer) 89.1 Est GFR (Non-Af Amer) 73.6 BUN/Creatinine Ratio 35.2 H Glucose 156 H POC Glucose (mg/dL) 192 H 211 H Calcium 8.5 L 05/28/19 05/29/19 05/29/19 20:58 06:40 06:40 Sodium 138 Potassium 5.6 H Chloride 106 Carbon Dioxide 30 Anion Gap 2 BUN 37 H Creatinine 1.00 Est GFR ( Amer) 94.2 Est GFR (Non-Af Amer) 77.9 BUN/Creatinine Ratio 37.0 H Glucose 176 H POC Glucose (mg/dL) 188 H Calcium 8.3 L Vancomycin Trough 16.9 Microbiology 05/27/19 05:42 Aerobic Blood Culture - Preliminary Blood Venous No Growth Day 2 Anaerobic Blood Culture - Preliminary No Growth Day 2 05/27/19 05:42 Aerobic Blood Culture - Preliminary Blood Venous No Growth Day 2 Anaerobic Blood Culture - Final Not Reportable 05/25/19 14:00 Anaerobic Culture - Preliminary Wound No Growth Day 3 05/25/19 14:00 Gram Stain - Final Leg Left Wound Culture - Preliminary No Growth Day 3 05/23/19 23:30 Skin and Soft Tissue MRSA/MSSA (PCR - Final Foot Left Mrsa Positive S.aureus Positive Gram Stain - Final Wound Culture - Final Klebsiella Oxytoca MRSA Streptococcus Constellatus Normal Rosaline 05/23/19 23:40 Aerobic Blood Culture - Final Blood Venous MRSA Anaerobic Blood Culture - Final MRSA 05/23/19 23:48 Aerobic Blood Culture - Final Blood Venous MRSA Anaerobic Blood Culture - Final MRSA Blood MRSA/MSSA (PCR) - Final Mrsa Positive S.aureus Positive Assessment: 1. MRSA bacteremia due to left foot ganrgene. Blood cultures have cleared. No peripheral stigmata of IE, BC cleared rapidly and no vegetation on TTE, low pretest probability for IE and will have long course IV antibiotics for leg infection (will not obtain MAURICE). 2. Polymicrobial left foot chronic osteomyelitis, gangrene, cellulitis. S/P left transtibial amputation, POD # 4. Afebrile and no leukocytosis. Received 5 days of Ceftriaxone, now on Vanco and Augmentin. PICC line has been placed. 3. CAD s/p CAB 4. DM2. Plan: Continue vancomycin, trough goal 15-20 and Augmentin 500 mg PO BID. Day 5/. Weekly labs while on IV ABX: CBC, CMP, CRP, and vanco trough. Followup with ID in the office outpatient in 2 weeks.
[2019-05-29] MEDS ORDERED: BuPROPion XL* 300 MG TAB.XL PO SCH (09:00)
--- NOTE | 2019-05-29 09:18 | DS ---
CC: Dr. Pato Ferrer; Dr. Conn; Dr. Pedro Jean Baptiste DISCHARGE SUMMARY ADDENDUM: DATE OF ADMISSION: 05/24/19 UPDATED DATE OF DISCHARGE: 05/29/19 Please see discharge summary below for complete discharge instructions. UPDATED HOSPITAL COURSE: Patient's discharge was delayed 1 day as he was unable to receive PICC placement with RN team. He went to IR Suite for placement with Dr. Sean Arthur on 05/28/19 and was deemed safe for discharge on morning of 05/29/19. Of note, patient's potassium on day of discharge decreased from 5.8 to 5.6 after spironolactone held and patient given diuretics and patiromer. Instructions to rehab include continuing to monitor his BMP starting on 05/30/19 and to reinitiate ÁNGEL and spironolactone per outpatient providers when blood pressure and serum potassium permit. UPDATE TO DISCHARGE INSTRUCTIONS: As above, patient should continue to have close monitoring of his serum potassium now that his spironolactone has been held it is expected to decrease. He had no EKG changes. He should also have ongoing monitoring for major depressive disorder. His bupropion was increased from XL 150 mg daily to 300 mg daily; however, it is highly likely that he will require a second agent as well as psychotherapy. Patient reports that he has not had success with SSRIs in the past. Alternative second agents could include amitriptyline especially given issues with chronic pain. This could be initiated at 25 mg nightly with ongoing monitoring of response by his primary care physician and up titration as able. [id number]/[facility] #: [id number] MTDD
[2019-05-29] MEDS: Torsemide TAB* 20 MG PO SCH (09:36)
[2019-05-29] MEDS: Isosorbide Mononitrate ER TAB* 30 MG PO SCH (09:36)
[2019-05-29] MEDS: Lactobacillus Acidophilus* 1 TAB PO SCH (09:36)
[2019-05-29] MEDS: Multivitamins/Minerals TAB PO SCH (09:36)
[2019-05-29] MEDS: Atorvastatin* 80 MG TAB PO SCH (09:36)
[2019-05-29] MEDS: Aspirin TAB* 325 MG PO SCH (09:37)
[2019-05-29] MEDS: Insulin LISPRO* 1 UNITS UNIT SUBCUT SCH (09:37)
[2019-05-29 11:29] VITALS: BP 125/70
== END 2019-05-29 11:50 | DRG 853 ==
LOC: ED 23:16 → MED 05-24 02:20 → MEDTELE 05-24 19:00 → SSU 05-25 15:56
PROVIDERS: ADMIT Internal Medicine; ATTEND Internal Medicine
PROC: 0Y6J0Z2 Detachment at Left Lower Leg, Mid, Open Approach (ICD-10-PCS; principal; 2019-05-25 12:15)
PROC: 02HV33Z Insertion of Infusion Device into Superior Vena Cava, Percutaneous Approach (ICD-10-PCS; 2019-05-28)
DX: A41.02 Sepsis due to Methicillin resistant Staphylococcus aureus (principal); I50.23 Acute on chronic systolic (congestive) heart failure; M86.672 Other chronic osteomyelitis, left ankle and foot; I13.0 Hypertensive heart and chronic kidney disease with heart failure and stage 1 through stage 4 chronic kidney disease, or unspecified chronic kidney disease; L03.116 Cellulitis of left lower limb; N17.9 Acute kidney failure, unspecified; E11.52 Type 2 diabetes mellitus with diabetic peripheral angiopathy with gangrene; I96 Gangrene, not elsewhere classified; I42.9 Cardiomyopathy, unspecified; I25.10 Atherosclerotic heart disease of native coronary artery without angina pectoris; K21.9 Gastro-esophageal reflux disease without esophagitis; N18.2 Chronic kidney disease, stage 2 (mild); Z98.42 Cataract extraction status, left eye; E11.22 Type 2 diabetes mellitus with diabetic chronic kidney disease; E78.00 Pure hypercholesterolemia, unspecified; E87.5 Hyperkalemia; I95.9 Hypotension, unspecified; I34.0 Nonrheumatic mitral (valve) insufficiency; F32.9 Major depressive disorder, single episode, unspecified; F41.9 Anxiety disorder, unspecified; E11.40 Type 2 diabetes mellitus with diabetic neuropathy, unspecified; D64.9 Anemia, unspecified; E11.69 Type 2 diabetes mellitus with other specified complication; Z89.432 Acquired absence of left foot; Z98.41 Cataract extraction status, right eye; Z87.891 Personal history of nicotine dependence; Z79.82 Long term (current) use of aspirin; Z95.1 Presence of aortocoronary bypass graft; Z23 Encounter for immunization; Z79.4 Long term (current) use of insulin
CPT/HCPCS: 32555; 36415; 36569; 71045; 75820; 76937; 77001; 80048; 80053; 80202; 83036; 83605; 83735; 84484; 85025; 85027; 85049; 85610; 85652; 85730; 86140; 87040; 87070; 87073; 87077; 87150; 87186; 87205; 87640; 87641; 88307; 88311; 90686; 90732; 93005; 93306; 96365; 99285; A9270-GY; C1751; C8929; G8978-GP-CK; G8979-GP-CI; J0690; J0696; J1170; J1644; J1940; J2001; J2250; J2310; J2405; J2543; J2704; J2795; J3010; J3370; Q9965

== ENCOUNTER 2020-04-07 09:40 | Observation (INO) ==
[~2020-04-07 09:40] MED LIST changes: -Buffered Lidocaine 0.9% SYRIN* 5 ML/SYR SYRINGE INTRADERM ONE; -Famotidine IV* 10 MG/ML 2 ML (20 mg) IV ONE; -Metoclopramide IV* 5 MG/ML 2 ML VIAL IV SLOW PU ONE; +NS 0.9% 1000 ml BAG 1,000 ML IV SCH; +Ondansetron 4 mg VIAL 2 MG/ML 2 ml VIAL IV PRN
[2020-04-07] MEDS ORDERED: Dextrose 50% Syringe 50 ml 25 GM/50 ML SYRINGE IV PUSH PRN (16:54)
[2020-04-07] MEDS ORDERED: HYDROcodone/ACET. 7.5/325 LIQ 15 ML UDC ONE (17:35)
[2020-04-07] MEDS: HYDROcodone/ACET. 7.5/325 LIQ 15 ML UDC PO PRN ×2 (17:37→23:43)
[2020-04-07] MEDS: Morphine 2 MG/ML SYRINGE IV PRN (19:20)
[2020-04-08] MEDS: Morphine 2 MG/ML SYRINGE IV PRN ×2 (04:15→09:26)
[2020-04-08 05:36] LABS: ABS Basophils 0.1 10^3/ul (0-0.2); ABS Eosinophils 0.2 10^3/ul (0-0.6); ABS Lymphocytes 1.7 10^3/ul (1.0-4.8); ABS Monocytes 1.1 10^3/ul (0-0.8); ABS Neutrophils 10.4 10^3/ul (1.5-7.7); Eosinophil % 1.3 %; Hematocrit 33 % (42-52); Hemoglobin 10.7 g/dL (14.0-18.0); Lymphocyte % 12.9 %; Mean Corpuscular HGB Conc 33 g/dL (31-36); Mean Corpuscular Hemoglobin 27 pg (27-31); Mean Corpuscular Volume 83 fL (80-94); Mean Platelet Volume 8.6 fL (7.4-10.4); Platelet Count 249 10^3/uL (150-450); Red Blood Count 3.97 10^6 /uL (4.18-5.48); Red Cell Distribution Width 15 % (10-15); White Blood Count 13.5 10^3/uL (3.5-10.8)
[2020-04-08] MEDS: HYDROcodone/ACET. 7.5/325 LIQ 15 ML UDC PO PRN (05:42)
[2020-04-08 05:49] LABS: Albumin 3.5 g/dL (3.2-5.2); Calcium 9.1 mg/dL (8.6-10.3); EGFR African American 63.7 (>60); EGFR Non-African American 52.6 (>60); Globulin 3.4 g/dL (2-4); Potassium 4.5 mmol/L (3.5-5.0); Total Bilirubin 0.4 mg/dL (0.2-1.0); Total Protein 6.9 g/dL (6.4-8.9)
[2020-04-08 11:35] VITALS: BP 137/82
[2020-04-08] MEDS ORDERED: Insulin GLARGINE 100 un/ml 10 ml VIAL SUBCUT SCH (17:00)
== END 2020-04-08 13:50 | disposition home or self-care (01) ==
LOC: INTOOBSV 17:18 → SSU 17:18
PROVIDERS: ADMIT Internal Medicine Hematology & Oncology; ATTEND Internal Medicine Hematology & Oncology

== ENCOUNTER 2021-01-30 09:06 | Inpatient (IN) ==
[2021-01-30 09:33] LABS: ABS Lymphocytes 0.3 10^3/ul (1.0-4.8); Eosinophil % 0.2 %; Hematocrit 24 % (42-52); Hemoglobin 7.8 g/dL (14.0-18.0); Lymphocyte % 3.3 %; Mean Corpuscular HGB Conc 33 g/dL (31-36); Mean Corpuscular Hemoglobin 28 pg (27-31); Mean Corpuscular Volume 85 fL (80-94); Mean Platelet Volume 7.4 fL (7.4-10.4); Platelet Count 239 10^3/uL (150-450); Red Cell Distribution Width 20 % (10-15); White Blood Count 10.4 10^3/uL (3.5-10.8)
[2021-01-30 09:50] LABS: Albumin 2.9 g/dL (3.2-5.2); Albumin/Globulin Ratio 0.8 (1-3); Calcium 8.7 mg/dL (8.6-10.3); EGFR Non-African American 40.5 (>60); Globulin 3.5 g/dL (2-4); Magnesium 2.1 mg/dL (1.9-2.7); Potassium 4.9 mmol/L (3.5-5.0); Total Bilirubin 0.3 mg/dL (0.2-1.0); Total Protein 6.4 g/dL (6.4-8.9)
[2021-01-30] MEDS ORDERED: Ondansetron 4 mg VIAL 2 MG/ML 2 ml VIAL IV PRN (12:21)
[2021-01-30] MEDS ORDERED: Vancomycin 1,000 MG in NS 0.9% 250 ml 250 ML IVPB ONE (12:28)
[2021-01-30] MEDS ORDERED: NS 0.9% 1000 ml BAG 1,000 ML IV SCH (12:30)
[2021-01-30] MEDS ORDERED: Vancomycin per Pharmacy 1 EA NOTE FOLLOW UP SCH (13:00)
[2021-01-30] MEDS ORDERED: Vancomycin 1,500 MG in NS 0.9% 250 ml 250 ML IVPB ONE (16:00)
[2021-01-30] MEDS: HYDROcodone/ACET. 7.5/325 LIQ 15 ML UDC PO PRN ×2 (16:16→22:46)
[2021-01-30] MEDS: Aspirin EC 81 mg TAB.EC (enteric coated) PO SCH (17:00)
[2021-01-30] MEDS ORDERED: COENZYME Q10 400 MG PO SCH (18:00)
[2021-01-30] MEDS ORDERED: RESVERATROL 100 MG PO SCH (18:00)
[2021-01-30] MEDS: Insulin GLARGINE 100 un/ml 10 ml VIAL SUBCUT SCH (21:47)
[2021-01-31] MEDS: HYDROcodone/ACET. 7.5/325 LIQ 15 ML UDC PO PRN ×3 (04:54→21:19)
[2021-01-31] MEDS: Vancomycin 1000 MG in NS 0.9% 250 ML IVPB SCH ×2 (05:10→17:17)
[2021-01-31 05:27] LABS: ABS Lymphocytes 0.3 10^3/ul (1.0-4.8); ABS Monocytes 0.8 10^3/ul (0-0.8); ABS Neutrophils 7.6 10^3/ul (1.5-7.7); Eosinophil % 0.3 %; Hematocrit 22 % (42-52); Hemoglobin 7.1 g/dL (14.0-18.0); Lymphocyte % 3.9 %; Mean Corpuscular HGB Conc 33 g/dL (31-36); Mean Corpuscular Hemoglobin 27 pg (27-31); Mean Corpuscular Volume 84 fL (80-94); Mean Platelet Volume 7.2 fL (7.4-10.4); Platelet Count 194 10^3/uL (150-450); Red Blood Count 2.61 10^6 /uL (4.18-5.48); Red Cell Distribution Width 20 % (10-15); White Blood Count 8.8 10^3/uL (3.5-10.8)
[2021-01-31 05:48] LABS: Albumin 2.7 g/dL (3.2-5.2); Albumin/Globulin Ratio 0.8 (1-3); Calcium 8.3 mg/dL (8.6-10.3); EGFR African American 52.5 (>60); EGFR Non-African American 43.4 (>60); Globulin 3.2 g/dL (2-4); Total Bilirubin 0.3 mg/dL (0.2-1.0); Total Protein 5.9 g/dL (6.4-8.9)
[2021-01-31 06:00] LABS: Potassium 5.3 mmol/L (3.5-5.0)
[2021-01-31 08:18] LABS: C Reactive Protein 104.84 mg/L (<8.01)
[2021-01-31] MEDS: Aspirin EC 81 mg TAB.EC (enteric coated) PO SCH (17:17)
[2021-01-31] MEDS: Insulin GLARGINE 100 un/ml 10 ml VIAL SUBCUT SCH (21:21)
[2021-02-01] MEDS: HYDROcodone/ACET. 7.5/325 LIQ 15 ML UDC PO PRN ×3 (03:31→17:13)
[2021-02-01] MEDS ORDERED: Vancomycin Trough Check NOTE FOLLOW UP ONE (06:00)
[2021-02-01 06:19] LABS: ABS Lymphocytes 0.3 10^3/ul (1.0-4.8); ABS Monocytes 1.2 10^3/ul (0-0.8); ABS Neutrophils 8.5 10^3/ul (1.5-7.7); Eosinophil % 0.1 %; Hematocrit 21 % (42-52); Lymphocyte % 3.3 %; Mean Corpuscular HGB Conc 34 g/dL (31-36); Mean Corpuscular Hemoglobin 28 pg (27-31); Mean Corpuscular Volume 83 fL (80-94); Mean Platelet Volume 7.6 fL (7.4-10.4); Platelet Count 166 10^3/uL (150-450); Red Blood Count 2.51 10^6 /uL (4.18-5.48); Red Cell Distribution Width 19 % (10-15); White Blood Count 10.1 10^3/uL (3.5-10.8)
[2021-02-01 06:36] LABS: Albumin 2.7 g/dL (3.2-5.2); Albumin/Globulin Ratio 0.8 (1-3); Calcium 8.3 mg/dL (8.6-10.3); EGFR African American 59.5 (>60); EGFR Non-African American 49.2 (>60); Globulin 3.2 g/dL (2-4); Total Bilirubin 0.3 mg/dL (0.2-1.0); Total Protein 5.9 g/dL (6.4-8.9); Vancomycin Trough 22.3 mcg/mL
[2021-02-01 06:37] LABS: Potassium 5.2 mmol/L (3.5-5.0)
[2021-02-01 06:54] LABS: Ferritin 1134.1 ng/mL (24-336)
[2021-02-01] MEDS: Vancomycin 1000 MG in NS 0.9% 250 ML IVPB SCH (07:10)
[2021-02-01] MEDS: Vancomycin 750 MG in NS 0.9% 250 ML IVPB SCH (13:53)
[2021-02-01] MEDS ORDERED: COVID-19 VACCINE, AD26(JANSSEN)/PF 0.5 ML IM ONE (15:30)
[2021-02-01] MEDS: Aspirin EC 81 mg TAB.EC (enteric coated) PO SCH (17:12)
[2021-02-01] MEDS: Insulin GLARGINE 100 un/ml 10 ml VIAL SUBCUT SCH (21:49)
[2021-02-02] MEDS: HYDROcodone/ACET. 7.5/325 LIQ 15 ML UDC PO PRN ×4 (00:29→22:54)
[2021-02-02] MEDS: Vancomycin 750 MG in NS 0.9% 250 ML IVPB SCH ×2 (02:22→14:01)
[2021-02-02 06:47] LABS: Calcium 8.4 mg/dL (8.6-10.3); EGFR African American 63.4 (>60); EGFR Non-African American 52.4 (>60); Magnesium 1.9 mg/dL (1.9-2.7); Potassium 4.9 mmol/L (3.5-5.0)
[2021-02-02] MEDS ORDERED: Dextrose 50% Syringe 50 ml 25 GM/50 ML SYRINGE IV PUSH PRN (17:04)
[2021-02-02] MEDS: Aspirin EC 81 mg TAB.EC (enteric coated) PO SCH (17:15)
[2021-02-02] MEDS: Insulin GLARGINE 100 un/ml 10 ml VIAL SUBCUT SCH (21:39)
[2021-02-03] MEDS: Vancomycin 750 MG in NS 0.9% 250 ML IVPB SCH ×2 (02:26→14:20)
[2021-02-03] MEDS: HYDROcodone/ACET. 7.5/325 LIQ 15 ML UDC PO PRN ×3 (05:30→21:06)
[2021-02-03 06:20] LABS: EGFR African American 69.1 (>60); EGFR Non-African American 57.1 (>60)
[2021-02-03 08:59] LABS: Calcium 8.4 mg/dL (8.6-10.3); Potassium 4.3 mmol/L (3.5-5.0)
[2021-02-03 09:22] LABS: ABS Lymphocytes 0.5 10^3/ul (1.0-4.8); ABS Monocytes 0.9 10^3/ul (0-0.8); ABS Neutrophils 9.7 10^3/ul (1.5-7.7); Eosinophil % 0.1 %; Hematocrit 22 % (42-52); Hemoglobin 7.2 g/dL (14.0-18.0); Lymphocyte % 4.6 %; Mean Corpuscular HGB Conc 32 g/dL (31-36); Mean Corpuscular Hemoglobin 27 pg (27-31); Mean Corpuscular Volume 84 fL (80-94); Mean Platelet Volume 7.9 fL (7.4-10.4); Platelet Count 144 10^3/uL (150-450); Red Blood Count 2.66 10^6 /uL (4.18-5.48); Red Cell Distribution Width 19 % (10-15); White Blood Count 11.2 10^3/uL (3.5-10.8)
[2021-02-03] MEDS ORDERED: Vancomycin Trough Check NOTE FOLLOW UP ONE (13:30)
[2021-02-03] MEDS: Aspirin EC 81 mg TAB.EC (enteric coated) PO SCH (17:34)
[2021-02-03] MEDS: Insulin GLARGINE 100 un/ml 10 ml VIAL SUBCUT SCH (21:08)
[2021-02-04] MEDS ORDERED: HYDROcodone/ACET. 7.5/325 LIQ 15 ML UDC PO ONE (01:00)
[2021-02-04] MEDS: Vancomycin 1,500 MG in NS 0.9% 250 ml 250 ML IVPB SCH (05:12)
[2021-02-04] MEDS: HYDROcodone/ACET. 7.5/325 LIQ 15 ML UDC PO PRN ×2 (05:25→13:33)
[2021-02-04 05:58] LABS: ABS Lymphocytes 0.5 10^3/ul (1.0-4.8); ABS Monocytes 1.2 10^3/ul (0-0.8); ABS Neutrophils 11.7 10^3/ul (1.5-7.7); Eosinophil % 0.1 %; Hematocrit 19 % (42-52); Hemoglobin 6.3 g/dL (14.0-18.0); Lymphocyte % 3.5 %; Mean Corpuscular HGB Conc 33 g/dL (31-36); Mean Corpuscular Hemoglobin 28 pg (27-31); Mean Corpuscular Volume 83 fL (80-94); Mean Platelet Volume 7.4 fL (7.4-10.4); Platelet Count 112 10^3/uL (150-450); Red Blood Count 2.28 10^6 /uL (4.18-5.48); Red Cell Distribution Width 19 % (10-15); White Blood Count 13.5 10^3/uL (3.5-10.8)
[2021-02-04 06:13] LABS: Albumin 2.6 g/dL (3.2-5.2); Albumin/Globulin Ratio 0.9 (1-3); Calcium 8.1 mg/dL (8.6-10.3); EGFR Non-African American 60.3 (>60); Globulin 2.9 g/dL (2-4); Potassium 4.5 mmol/L (3.5-5.0); Total Bilirubin 0.3 mg/dL (0.2-1.0); Total Protein 5.5 g/dL (6.4-8.9)
[2021-02-04 12:53] LABS: C Reactive Protein 109.52 mg/L (<8.01)
[2021-02-04] MEDS: Cefepime 2 GM in Dextrose 2 GM/50 ML BAG IV SCH (13:30)
[2021-02-04] MEDS: Aspirin EC 81 mg TAB.EC (enteric coated) PO SCH (17:05)
[2021-02-04] MEDS: Insulin GLARGINE 100 un/ml 10 ml VIAL SUBCUT SCH (20:41)
[2021-02-05] MEDS: HYDROcodone/ACET. 7.5/325 LIQ 15 ML UDC PO PRN ×3 (00:39→21:33)
[2021-02-05] MEDS: Cefepime 2 GM in Dextrose 2 GM/50 ML BAG IV SCH ×2 (00:39→12:18)
[2021-02-05] MEDS: Vancomycin 1,500 MG in NS 0.9% 250 ml 250 ML IVPB SCH (05:05)
[2021-02-05 05:37] LABS: ABS Lymphocytes 0.4 10^3/ul (1.0-4.8); ABS Monocytes 1.3 10^3/ul (0-0.8); ABS Neutrophils 9.1 10^3/ul (1.5-7.7); Eosinophil % 0.1 %; Hematocrit 22 % (42-52); Hemoglobin 7.3 g/dL (14.0-18.0); Lymphocyte % 3.4 %; Mean Corpuscular HGB Conc 34 g/dL (31-36); Mean Corpuscular Hemoglobin 29 pg (27-31); Mean Corpuscular Volume 85 fL (80-94); Mean Platelet Volume 7.4 fL (7.4-10.4); Platelet Count 77 10^3/uL (150-450); Red Blood Count 2.53 10^6 /uL (4.18-5.48); Red Cell Distribution Width 19 % (10-15); White Blood Count 10.8 10^3/uL (3.5-10.8)
[2021-02-05 05:45] LABS: Albumin 2.7 g/dL (3.2-5.2); Albumin/Globulin Ratio 0.9 (1-3); Calcium 8.2 mg/dL (8.6-10.3); EGFR African American 67.9 (>60); EGFR Non-African American 56.1 (>60); Globulin 3.1 g/dL (2-4); Potassium 4.3 mmol/L (3.5-5.0); Total Bilirubin 0.4 mg/dL (0.2-1.0); Total Protein 5.8 g/dL (6.4-8.9)
[2021-02-05 10:53] LABS: C Reactive Protein 105.63 mg/L (<8.01)
[2021-02-05] MEDS: Aspirin EC 81 mg TAB.EC (enteric coated) PO SCH (17:27)
[2021-02-05] MEDS: Insulin GLARGINE 100 un/ml 10 ml VIAL SUBCUT SCH (21:33)
[2021-02-06] MEDS: HYDROcodone/ACET. 7.5/325 LIQ 15 ML UDC PO PRN ×3 (01:37→20:56)
[2021-02-06] MEDS: Cefepime 2 GM in Dextrose 2 GM/50 ML BAG IV SCH (01:38)
[2021-02-06] MEDS ORDERED: Vancomycin Random Level NOTE FOLLOW UP ONE (06:00)
[2021-02-06 06:14] LABS: ABS Lymphocytes 0.4 10^3/ul (1.0-4.8); ABS Monocytes 1.2 10^3/ul (0-0.8); ABS Neutrophils 7.7 10^3/ul (1.5-7.7); Eosinophil % 0.1 %; Hematocrit 20 % (42-52); Hemoglobin 6.7 g/dL (14.0-18.0); Lymphocyte % 3.8 %; Mean Corpuscular HGB Conc 34 g/dL (31-36); Mean Corpuscular Hemoglobin 29 pg (27-31); Mean Corpuscular Volume 85 fL (80-94); Mean Platelet Volume 7.2 fL (7.4-10.4); Platelet Count 58 10^3/uL (150-450); Red Blood Count 2.34 10^6 /uL (4.18-5.48); Red Cell Distribution Width 19 % (10-15); White Blood Count 9.3 10^3/uL (3.5-10.8)
[2021-02-06 06:40] LABS: C Reactive Protein 122.11 mg/L (<8.01); Calcium 8.2 mg/dL (8.6-10.3); EGFR African American 66.2 (>60); EGFR Non-African American 54.7 (>60); Potassium 4.4 mmol/L (3.5-5.0)
[2021-02-06 07:14] LABS: Vancomycin Random 31.9 mcg/mL
[2021-02-06] MEDS: Aspirin EC 81 mg TAB.EC (enteric coated) PO SCH (17:11)
[2021-02-06] MEDS: Insulin GLARGINE 100 un/ml 10 ml VIAL SUBCUT SCH (20:55)
[2021-02-07] MEDS: HYDROcodone/ACET. 7.5/325 LIQ 15 ML UDC PO PRN ×3 (04:17→21:29)
[2021-02-07 05:22] LABS: C Reactive Protein 133.98 mg/L (<8.01); Calcium 8.6 mg/dL (8.6-10.3); EGFR Non-African American 53.7 (>60); Potassium 4.4 mmol/L (3.5-5.0)
[2021-02-07] MEDS ORDERED: Vancomycin Trough Check NOTE FOLLOW UP ONE (05:30)
[2021-02-07] MEDS ORDERED: Vancomycin Random Level NOTE FOLLOW UP ONE (06:00)
[2021-02-07 06:26] LABS: ABS Lymphocytes 0.4 10^3/ul (1.0-4.8); ABS Monocytes 1.1 10^3/ul (0-0.8); ABS Neutrophils 7.6 10^3/ul (1.5-7.7); Eosinophil % 0.2 %; Hematocrit 25 % (42-52); Hemoglobin 8.7 g/dL (14.0-18.0); Lymphocyte % 4.8 %; Mean Corpuscular HGB Conc 35 g/dL (31-36); Mean Corpuscular Hemoglobin 29 pg (27-31); Mean Corpuscular Volume 84 fL (80-94); Mean Platelet Volume 7.5 fL (7.4-10.4); Platelet Count 52 10^3/uL (150-450); Red Blood Count 2.98 10^6 /uL (4.18-5.48); Red Cell Distribution Width 18 % (10-15); White Blood Count 9.1 10^3/uL (3.5-10.8)
[2021-02-07] MEDS: Aspirin EC 81 mg TAB.EC (enteric coated) PO SCH (17:14)
[2021-02-07] MEDS: Insulin GLARGINE 100 un/ml 10 ml VIAL SUBCUT SCH (21:53)
[2021-02-08] MEDS: HYDROcodone/ACET. 7.5/325 LIQ 15 ML UDC PO PRN ×3 (04:45→15:52)
[2021-02-08] MEDS: Aspirin EC 81 mg TAB.EC (enteric coated) PO SCH (17:32)
[2021-02-08] MEDS: Insulin GLARGINE 100 un/ml 10 ml VIAL SUBCUT SCH (20:45)
[2021-02-09] MEDS: HYDROcodone/ACET. 7.5/325 LIQ 15 ML UDC PO PRN ×2 (02:10→08:25)
[2021-02-09 07:35] VITALS: BP 128/68
== END 2021-02-09 12:25 | disposition home or self-care (01) | DRG 148 ==
LOC: CHOA 09:06 → MED 12:21 → MEDTELE 02-05 03:01
PROVIDERS: ADMIT Internal Medicine Hematology & Oncology; ATTEND Internal Medicine Hematology & Oncology

== ENCOUNTER 2021-02-26 16:01 | Inpatient (IN) ==
[2021-02-26] MEDS ORDERED: NS 0.9% 1000 ml BAG 1,000 ML IV ONE (16:51)
[2021-02-26 17:51] LABS: Albumin 3.1 g/dL (3.2-5.2); Albumin/Globulin Ratio 0.8 (1-3); Calcium 9.4 mg/dL (8.6-10.3); EGFR African American 61.9 (>60); EGFR Non-African American 51.2 (>60); Magnesium 2.4 mg/dL (1.9-2.7); Total Bilirubin 0.4 mg/dL (0.2-1.0); Total Protein 7.1 g/dL (6.4-8.9)
[2021-02-26 17:52] LABS: Troponin I 0.02 ng/mL (<0.03)
[2021-02-26 17:54] LABS: Hematocrit 21 % (42-52); Hemoglobin 6.9 g/dL (14.0-18.0); Mean Corpuscular HGB Conc 33 g/dL (31-36); Mean Corpuscular Hemoglobin 29 pg (27-31); Mean Corpuscular Volume 88 fL (80-94); Red Blood Count 2.34 10^6 /uL (4.18-5.48); Red Cell Distribution Width 17 % (10-15); White Blood Count 6.9 10^3/uL (3.5-10.8)
[2021-02-26 18:16] LABS: ABS Lymphocytes 0.2 10^3/ul (1.0-4.8); ABS Monocytes 0.7 10^3/ul (0-0.8); Lymphocyte % 3.5 %; Mean Platelet Volume 6.9 fL (7.4-10.4); Platelet Count 24 10^3/uL (150-450)
[2021-02-26 18:29] LABS: TSH Ultra Thyroid Stim Horm 1.04 mcIU/mL (0.34-5.60)
[2021-02-26 18:45] LABS: Urine Appearance Cloudy; Urine Bilirubin Negative (Negative); Urine Blood Negative (Negative); Urine Color Yellow; Urine Glucose Negative (Negative); Urine Ketones Negative (Negative); Urine Nitrite Negative (Negative); Urine Protein 2+(100 mg/dL) (Negative); Urine Specific Gravity 1.016 (1.002-1.030); Urine Urobilinogen Negative (Negative)
[2021-02-26 18:55] LABS: Urine Amorphous Crystals Present (Absent); Urine Bacteria 1+ (Absent); Urine Red Blood Cell 3+(>10/hpf) (Absent); Urine Squamous Epithelial Cell Present (Absent); Urine White Blood Cell Trace(0-5/hpf) (Absent)
[2021-02-26] MEDS ORDERED: Dextrose 50% Syringe 50 ml 25 GM/50 ML SYRINGE IV PUSH PRN (19:35)
[2021-02-26] MEDS ORDERED: Ondansetron 4 mg VIAL 2 MG/ML 2 ml VIAL IV PRN (19:35)
[2021-02-26] MEDS ORDERED: NS 0.9% 1000 ml BAG 1,000 ML IV SCH (19:45)
[2021-02-26 19:46] LABS: C Reactive Protein 128.13 mg/L (<8.01)
[2021-02-26] MEDS: HYDROcodone/ACET. 7.5/325 LIQ 15 ML UDC PO PRN (21:42)
[2021-02-26] MEDS: Insulin GLARGINE 100 un/ml 10 ml VIAL SUBCUT SCH (22:05)
[2021-02-27] MEDS: HYDROcodone/ACET. 7.5/325 LIQ 15 ML UDC PO PRN ×4 (03:48→22:46)
[2021-02-27 04:54] LABS: INR 1.38 (0.86-1.15)
[2021-02-27 04:55] LABS: ABS Lymphocytes 0.4 10^3/ul (1.0-4.8); ABS Monocytes 0.8 10^3/ul (0-0.8); ABS Neutrophils 4.7 10^3/ul (1.5-7.7); Eosinophil % 0.1 %; Hematocrit 19 % (42-52); Hemoglobin 6.5 g/dL (14.0-18.0); Lymphocyte % 6.1 %; Mean Corpuscular HGB Conc 34 g/dL (31-36); Mean Corpuscular Hemoglobin 30 pg (27-31); Mean Corpuscular Volume 88 fL (80-94); Mean Platelet Volume 7.3 fL (7.4-10.4); Platelet Count 29 10^3/uL (150-450); Red Blood Count 2.14 10^6 /uL (4.18-5.48); Red Cell Distribution Width 17 % (10-15); White Blood Count 5.8 10^3/uL (3.5-10.8)
[2021-02-27 05:03] LABS: Calcium 8.7 mg/dL (8.6-10.3); EGFR Non-African American 64.5 (>60); Potassium 4.5 mmol/L (3.5-5.0)
[2021-02-27 10:01] LABS: Hematocrit 22 % (42-52); Hemoglobin 7.4 g/dL (14.0-18.0)
[2021-02-27 11:43] LABS: C Reactive Protein 130.6 mg/L (<8.01)
[2021-02-27 14:38] LABS: Ferritin 1392.6 ng/mL (24-336)
[2021-02-27] MEDS: Insulin GLARGINE 100 un/ml 10 ml VIAL SUBCUT SCH (22:31)
[2021-02-28] MEDS: HYDROcodone/ACET. 7.5/325 LIQ 15 ML UDC PO PRN ×3 (03:28→18:00)
[2021-02-28 05:28] LABS: ABS Lymphocytes 0.3 10^3/ul (1.0-4.8); ABS Monocytes 0.8 10^3/ul (0-0.8); ABS Neutrophils 4.5 10^3/ul (1.5-7.7); Eosinophil % 0.1 %; Hematocrit 20 % (42-52); Hemoglobin 6.8 g/dL (14.0-18.0); Lymphocyte % 5.3 %; Mean Corpuscular HGB Conc 34 g/dL (31-36); Mean Corpuscular Hemoglobin 30 pg (27-31); Mean Corpuscular Volume 88 fL (80-94); Mean Platelet Volume 7.1 fL (7.4-10.4); Platelet Count 22 10^3/uL (150-450); Red Blood Count 2.28 10^6 /uL (4.18-5.48); Red Cell Distribution Width 17 % (10-15); White Blood Count 5.6 10^3/uL (3.5-10.8)
[2021-02-28 05:43] LABS: Albumin 2.5 g/dL (3.2-5.2); Albumin/Globulin Ratio 0.8 (1-3); C Reactive Protein 117.92 mg/L (<8.01); Calcium 8.5 mg/dL (8.6-10.3); EGFR African American 86.5 (>60); EGFR Non-African American 71.5 (>60); Globulin 3.3 g/dL (2-4); Potassium 4.5 mmol/L (3.5-5.0); Total Bilirubin 0.4 mg/dL (0.2-1.0); Total Protein 5.8 g/dL (6.4-8.9)
[2021-02-28] MEDS ORDERED: fentaNYL PATCH 12 MCG/HR 1 PATCH TRANSDERM SCH (10:00)
[2021-02-28] MEDS: fentaNYL Patch Check Q Shift NOTE FOLLOW UP SCH (19:01)
[2021-03-01] MEDS: HYDROcodone/ACET. 7.5/325 LIQ 15 ML UDC PO PRN ×4 (00:08→20:07)
[2021-03-01 05:29] LABS: ABS Lymphocytes 0.4 10^3/ul (1.0-4.8); ABS Monocytes 0.8 10^3/ul (0-0.8); ABS Neutrophils 5.1 10^3/ul (1.5-7.7); Eosinophil % 0.1 %; Hematocrit 24 % (42-52); Hemoglobin 8.2 g/dL (14.0-18.0); Lymphocyte % 6.5 %; Mean Corpuscular HGB Conc 34 g/dL (31-36); Mean Corpuscular Hemoglobin 30 pg (27-31); Mean Corpuscular Volume 89 fL (80-94); Mean Platelet Volume 7.5 fL (7.4-10.4); Platelet Count 21 10^3/uL (150-450); Red Blood Count 2.71 10^6 /uL (4.18-5.48); Red Cell Distribution Width 16 % (10-15); White Blood Count 6.3 10^3/uL (3.5-10.8)
[2021-03-01 05:49] LABS: Albumin 2.6 g/dL (3.2-5.2); Albumin/Globulin Ratio 0.8 (1-3); Calcium 8.8 mg/dL (8.6-10.3); EGFR African American 92.5 (>60); EGFR Non-African American 76.4 (>60); Globulin 3.3 g/dL (2-4); Potassium 4.9 mmol/L (3.5-5.0); Total Bilirubin 0.4 mg/dL (0.2-1.0); Total Protein 5.9 g/dL (6.4-8.9)
[2021-03-01] MEDS: fentaNYL Patch Check Q Shift NOTE FOLLOW UP SCH ×2 (07:02→18:50)
[2021-03-02] MEDS: HYDROcodone/ACET. 7.5/325 LIQ 15 ML UDC PO PRN ×4 (01:34→21:50)
[2021-03-02] MEDS: fentaNYL Patch Check Q Shift NOTE FOLLOW UP SCH ×2 (07:37→18:57)
[2021-03-02] MEDS ORDERED: Alteplase (CATHFLO) 2 MG VIAL IV ONE (09:33)
[2021-03-02] MEDS: fentaNYL PATCH 25 MCG/HR 1 PATCH TRANSDERM SCH (10:45)
[2021-03-02] MEDS: Morphine ORAL CONCENTRATE 5 MG/0.25 ML ORAL.SYRIN SL PRN (10:49)
[2021-03-03] MEDS: HYDROcodone/ACET. 7.5/325 LIQ 15 ML UDC PO PRN ×4 (05:25→22:20)
[2021-03-03] MEDS: fentaNYL Patch Check Q Shift NOTE FOLLOW UP SCH (07:12)
[2021-03-03] MEDS: Collagenase 250 units/gm OINT 1 tube TOPICAL SCH (17:45)
[2021-03-04] MEDS: fentaNYL Patch Check Q Shift NOTE FOLLOW UP SCH ×3 (03:46→18:42)
[2021-03-04] MEDS: HYDROcodone/ACET. 7.5/325 LIQ 15 ML UDC PO PRN ×3 (03:53→22:35)
[2021-03-04 04:44] LABS: Hematocrit 20 % (42-52); Mean Corpuscular HGB Conc 34 g/dL (31-36); Mean Corpuscular Hemoglobin 30 pg (27-31); Mean Corpuscular Volume 89 fL (80-94); Mean Platelet Volume 7.6 fL (7.4-10.4); Red Cell Distribution Width 16 % (10-15); White Blood Count 6.8 10^3/uL (3.5-10.8)
[2021-03-04 04:46] LABS: Platelet Count 17 10^3/uL (150-450)
[2021-03-04] MEDS: Collagenase 250 units/gm OINT 1 tube TOPICAL SCH (10:05)
[2021-03-05] MEDS: HYDROcodone/ACET. 7.5/325 LIQ 15 ML UDC PO PRN (04:26)
[2021-03-05] MEDS: Collagenase 250 units/gm OINT 1 tube TOPICAL SCH (09:39)
[2021-03-05] MEDS: fentaNYL Patch Check Q Shift NOTE FOLLOW UP SCH ×3 (10:49→19:24)
[2021-03-05] MEDS: fentaNYL PATCH 25 MCG/HR 1 PATCH TRANSDERM SCH (10:49)
[2021-03-05] MEDS: Morphine ORAL CONCENTRATE 5 MG/0.25 ML ORAL.SYRIN SL PRN (14:13)
[2021-03-05] MEDS: HYDROcodone/ACET. 7.5/325 LIQ 15 ML UDC PO SCH (20:48)
[2021-03-06] MEDS: HYDROcodone/ACET. 7.5/325 LIQ 15 ML UDC PO PRN ×2 (05:36→16:25)
[2021-03-06] MEDS: fentaNYL Patch Check Q Shift NOTE FOLLOW UP SCH ×2 (08:04→17:31)
[2021-03-06] MEDS: HYDROcodone/ACET. 7.5/325 LIQ 15 ML UDC PO SCH ×2 (09:53→21:08)
[2021-03-06] MEDS: Collagenase 250 units/gm OINT 1 tube TOPICAL SCH (09:55)
[2021-03-07] MEDS: HYDROcodone/ACET. 7.5/325 LIQ 15 ML UDC PO PRN ×2 (03:35→15:44)
[2021-03-07] MEDS: fentaNYL Patch Check Q Shift NOTE FOLLOW UP SCH ×2 (07:43→17:21)
[2021-03-07] MEDS: Collagenase 250 units/gm OINT 1 tube TOPICAL SCH (09:05)
[2021-03-07] MEDS: HYDROcodone/ACET. 7.5/325 LIQ 15 ML UDC PO SCH ×2 (09:07→21:25)
[2021-03-08] MEDS: HYDROcodone/ACET. 7.5/325 LIQ 15 ML UDC PO PRN (03:28)
[2021-03-08] MEDS: fentaNYL Patch Check Q Shift NOTE FOLLOW UP SCH (07:49)
[2021-03-08] MEDS: HYDROcodone/ACET. 7.5/325 LIQ 15 ML UDC PO SCH (09:31)
[2021-03-08] MEDS: fentaNYL PATCH 25 MCG/HR 1 PATCH TRANSDERM SCH (09:42)
[2021-03-08] MEDS: Collagenase 250 units/gm OINT 1 tube TOPICAL SCH (09:42)
[2021-03-08 12:03] VITALS: BP 133/66
== END 2021-03-08 12:45 | disposition hospice, inpatient (51) | DRG 842 ==
LOC: MED 16:01 → ED 16:01 → MED 20:09
PROVIDERS: ADMIT Hospitalist; ATTEND Internal Medicine Hematology & Oncology